=== PATIENT | female | born 1970 | race Two or more races ===

== ENCOUNTER 2020-01-27 06:16 | Outpatient (REF) | payer MEDICAID, SELFPAY ==
--- NOTE | 2020-01-27 06:24 | XR_ITS ---
EXAMINATION: XR CHEST CLINICAL INFORMATION: Apnea,] 1 month. SOB. COMPARISON: None TECHNIQUE: 2 views of the chest were obtained. FINDINGS: No significant abnormality is noted involving the heart, lungs, mediastinum, bony thorax or soft tissues. XR/XR chest 2V IMPRESSION: Unremarkable chest examination.
== END 2020-01-27 06:17 | disposition home or self-care (01) ==
LOC: HO.XRAY 06:16
PROVIDERS: Visit Provider Pediatrics
DX: R06.81 Apnea, not elsewhere classified (principal); R06.02 Shortness of breath
CPT/HCPCS: 71046

== ENCOUNTER → 2020-05-08 08:15 | Outpatient (BNVA) | payer MEDICAID, SELFPAY | PROVIDERS: PCP Pediatrics; Visit Provider Obstetrics & Gynecology ==

== ENCOUNTER → 2020-05-24 09:43 | Outpatient (BNVA) | payer MEDICAID, SELFPAY | PROVIDERS: PCP Pediatrics; Visit Provider Physician Assistant ==

== ENCOUNTER 2020-05-30 10:20 | Outpatient (REF) | payer MEDICAID, SELFPAY ==
--- NOTE | ~2020-05-30 | US_ITS ---
EXAMINATION: US PELVIS CLINICAL INFORMATION: Benign neoplasm of connective or other soft tissues. COMPARISON: None. TECHNIQUE: Ultrasound of the pelvis is performed using both transabdominal and transvaginal transducers along with Doppler. Transvaginal imaging is performed due to inadequate visualization transabdominally. FINDINGS: The uterus is anteverted and anteflexed measuring 10.5 cm in length, 5.0 cm in AP and 5.0 cm wide. There is an IUD well located within the endometrial canal in correct location. There are 2 hypoechoic lesions. 1. Lesion in the mid body of the uterus measures 3.0 x 2.7 x 2.8 cm. Previously it measured 3.2 x 2.6 x 3.5 cm. 2. Lesion in the right fundus measures 1.6 x 1.1 x 1.4 cm. Previously it measured 1.9 x 1.7 x 2.5 cm. Right ovary is not visualized. Previously it measured 3.5 x 2.1 x 3.2 cm. Left ovary measures 3.2 x 2.3 x 1.4 cm wall and 5.4 mL. It is unremarkable. Previously it measured 4.6 x 3 1 1 x 4.2 cm. There is no free fluid in the cul-de-sac. US/US pelvic complete IMPRESSION: IUD well located within the endometrial canal in good position. 2 small uterine fibroids as described above. The left ovary is unremarkable. The right ovary is not seen.
== END 2020-05-30 10:21 | disposition home or self-care (01) ==
LOC: HO.US 10:20
PROVIDERS: PCP Pediatrics; Visit Provider Obstetrics & Gynecology
DX: D21.9 Benign neoplasm of connective and other soft tissue, unspecified (principal); Z30.431 Encounter for routine checking of intrauterine contraceptive device
CPT/HCPCS: 76856

== ENCOUNTER → 2020-06-11 11:03 | Outpatient (BNVA) | payer MEDICAID, SELFPAY | PROVIDERS: PCP Pediatrics; Visit Provider Obstetrics & Gynecology ==

== ENCOUNTER → 2020-06-25 11:08 | Outpatient (BNVA) | payer MEDICAID, SELFPAY | PROVIDERS: Visit Provider Physician Assistant ==

== ENCOUNTER 2020-07-23 06:33 | Day surgery (SDC) | payer MEDICAID, SELFPAY ==
--- NOTE | 2020-07-20 08:57 | HO.ANESPROP2 ---
Documented by User: Mamta Apolonia 07/20/20 08:58 HPI - Anesthesia Eval Consult details Narrative: 50yo F for Colonoscopy PMFSH Active Problems Active Problems: All Active Problems (Updated 06/11/20 @ 11:47 by Dionte Paulino MD) IUD strings lost (Acute) Encounter for screening colonoscopy (Acute) IUD check up (Acute) Myoma (Acute) Well woman exam (Acute) Past Medical History Medical History Anxiety Back problem COVID-19 vaccine administered Family History Family History Mother Breast CA Surgical History Surgical History Gastric bypass status for obesity Hx of abdominoplasty Social History Social History Household Members: Family Alcohol intake: current Alcohol intake frequency: holidays/special occasions only Patient Tobacco Use Status: Never used Tobacco Use of substances other than those prescribed or required for medical reasons: No Are you DNR?: No Advance Directives: No Advance Directives Information Provided: Yes Current occupational status: unemployed Meds Allergies Allergy/AdvReac Type Severity Reaction Status Date / Time latex [LATEX] Allergy Intermediate EYES Verified 07/23/20 07:10 SWELL, FACIAL EDEMA Latex Allergy Severe rash, Uncoded 06/25/20 11:09 swollen eyes Seafood Allergy Severe ANAPHYLAXIS Uncoded 06/25/20 11:09 seafood Allergy Severe Red and Uncoded 06/25/20 11:09 swollen latex Allergy Unknown swelling Uncoded 06/25/20 11:09 and throat closes shellfish and sea food Allergy Unknown anaphylaxis Uncoded 06/25/20 11:09 Home Medications Medication Instructions Recorded Confirmed Last Taken Type levonorgestrel 20 mcg/24 hours (6 INTRAUTERINE 05/08/20 06/25/20 Unknown History yrs) 52 mg intrauterine device clonazepam 0.5 mg tablet 0.5 mg PO DAILY PRN 05/24/20 06/25/20 Unknown History oxycodone-acetaminophen 5 mg-325 1 tab PO Q6H PRN 06/25/20 06/25/20 Unknown History mg tablet Exam Exam Date and Time: July 20, 2020 0857 Assessment and Plan Assessment Anesthesia Assessment: Chart Reviewed Documented by User: Joann Harrison 07/23/20 08:28 PMFSH Past Medical History Medical History Anxiety Back problem COVID-19 vaccine administered Family History Family History Mother Breast CA Surgical History Surgical History Gastric bypass status for obesity Hx of abdominoplasty Social History Social History Household Members: Family Alcohol intake: current Alcohol intake frequency: holidays/special occasions only Patient Tobacco Use Status: Never used Tobacco Use of substances other than those prescribed or required for medical reasons: No Are you DNR?: No Advance Directives: No Advance Directives Information Provided: Yes Current occupational status: unemployed Meds Allergies Allergy/AdvReac Type Severity Reaction Status Date / Time latex [LATEX] Allergy Intermediate EYES Verified 07/23/20 07:10 SWELL, FACIAL EDEMA Latex Allergy Severe rash, Uncoded 06/25/20 11:09 swollen eyes Seafood Allergy Severe ANAPHYLAXIS Uncoded 06/25/20 11:09 seafood Allergy Severe Red and Uncoded 06/25/20 11:09 swollen latex Allergy Unknown swelling Uncoded 06/25/20 11:09 and throat closes shellfish and sea food Allergy Unknown anaphylaxis Uncoded 06/25/20 11:09 Home Medications Medication Instructions Recorded Confirmed Last Taken Type levonorgestrel 20 mcg/24 hours (6 INTRAUTERINE 05/08/20 06/25/20 Unknown History yrs) 52 mg intrauterine device clonazepam 0.5 mg tablet 0.5 mg PO DAILY PRN 05/24/20 06/25/20 Unknown History oxycodone-acetaminophen 5 mg-325 1 tab PO Q6H PRN 06/25/20 06/25/20 Unknown History mg tablet Exam Airway Mallampati Class: II TM Dist: >3cm Neck ROM: Full Loose/Missing/Broken Teeth: No Heart: RRR Lungs: CTA Assessment and Plan Assessment Anesthesia Assessment: Anesthesia Plan Discussed and Chart Reviewed Final Anesthetic Review NPO: Yes ASA Class: II Final Preanesthetic Review: Meds/Allgs Chart Reviewed, Consent Obtained/Reviewed and Anes Risks/Benef Reviewed Patient Risk: Low Procedure Risk: Low Anesthetic Plan Anesthetic Plan: MAC: Disposition: Standard PACU
[2020-07-23 07:07] VITALS: BMI 29.1
[2020-07-23 07:10] VITALS: BP 128/71; PULSE 64; RESP 16; TEMP 36.9; O2SAT 99
[2020-07-23] MEDS: Lactated Ringers 1,000 ML 100 ML IVCONT (07:30)
--- NOTE | 2020-07-23 08:27 | P.OP_ITS ---
Operative Note Operative Note Date of Service: 07/23/20 Narrative: Pre-op diagnosis: Colon cancer screening Post-op diagnosis: other (Diverticulosis) Procedure: COLONOSCOPY TILL CECUM Consent: Indications for the procedure and potential complications of bleeding, perforation, reaction to medications and missed diagnosis were discussed with the patient and informed consent was obtained. Instrument: Olympus PCF H 190 L variable stiffness pediatric colonoscope Monitoring: Vital signs and clinical assessment, intermittent blood pressure monitoring, continuous EKG monitoring, Pulse oximetry and Carbon Dioxide monitoring were done throughout the procedure. Colon withdrawl time was 18 minutes. Procedure: The patient was placed in the left lateral decubitis position and pre-procedure medications were administered. After a digital rectal examination of the ano-rectum, the video colonoscope was inserted into the rectum and advanced through the colon to the cecum. The colonoscope was slowly withdrawn in a retrograde panoramic fashion and the colon mucosa was carefully examined including a retroflexed view of the rectum. Findings and interventions are described below. Procedure Difficulty: Colon was long and tortuous and there was recurrent looping patient. Patient was placed in the supine position to intubate the transverse colon Findings: Terminal Ileum: Not evaluated Cecum: Normal Ascending Colon: Normal Transverse Colon: Normal Descending Colon: Normal Sigmoid Colon: Moderate diverticulosis Rectum: Normal Ano-rectum: Normal Colon preparation: Good Impression and Post Procedure Diagnosis: Colonoscopy Findings: No polyps were detected Moderate diverticulosis seen in the sigmoid colon Plan: Repeat Colonoscopy in 10 years (adult colonoscope for future colonoscopies). Above findings were reviewed with the patient and diverticulosis handout was given in the discharge area Surgeon: Wenceslao Michaels MD Anesthesia: MAC (Dr Hinkle) Was an Retail Coverage Merchandiser used for this Procedure?: Yes Retail Coverage Merchandiser: Jhon Silveira Estimated blood loss (mL): 0 Pathology: none sent Condition: stable Disposition: PACU
--- NOTE | 2020-07-23 08:27 | MHC.SHP ---
Pre-Procedural Eval Section A The patient is an INPATIENT: No Changes since office visit: Yes Patient answered all questions; No Cold of Flu in the past 2 weeks, No New Medical Problems and No Changes in Medication The History & Physical has been completed within 30 days and I have reviewed it.: Yes Section B Chief Complaint: Screening Allergies: Allergies Allergy/AdvReac Type Severity Reaction Status Date / Time latex [LATEX] Allergy Intermediate EYES Verified 07/23/20 07:10 SWELL, FACIAL EDEMA Latex Allergy Severe rash, Uncoded 06/25/20 11:09 swollen eyes Seafood Allergy Severe ANAPHYLAXIS Uncoded 06/25/20 11:09 seafood Allergy Severe Red and Uncoded 06/25/20 11:09 swollen latex Allergy Unknown swelling Uncoded 06/25/20 11:09 and throat closes shellfish and sea food Allergy Unknown anaphylaxis Uncoded 06/25/20 11:09 Exam Surgical H&P Exam: Normal: Heart, Normal: Lungs, Normal: Extremities and Normal: Abdomen Plan Diagnosis/Plan: Unchanged I have reviewed the history and physical and performed a pertinent physical examination on my patient. No changes have occurred unless specified.
[2020-07-23 09:10] VITALS: BP 120/73; PULSE 81; RESP 16; TEMP 35.9; O2SAT 97
[2020-07-23 09:33] VITALS: BP 120/73; PULSE 62; RESP 14; O2SAT 99
[2020-07-23 09:50] VITALS: BP 125/65; PULSE 62; RESP 18; O2SAT 97
== END 2020-07-23 10:00 | disposition home or self-care (01) ==
PROVIDERS: PCP Pediatrics; Visit Provider Internal Medicine Gastroenterology
PROC: 0DJD8ZZ Inspection of Lower Intestinal Tract, Via Natural or Artificial Opening Endoscopic (ICD-10-PCS; CPT 45378; principal; 2020-07-23 08:20)
DX: Z12.11 Encounter for screening for malignant neoplasm of colon (principal); K57.30 Diverticulosis of large intestine without perforation or abscess without bleeding; F41.9 Anxiety disorder, unspecified; Z79.899 Other long term (current) drug therapy; Z98.84 Bariatric surgery status; Z91.040 Latex allergy status
CPT/HCPCS: 45378; J2250

== ENCOUNTER 2020-08-08 08:23 | Outpatient (REF) | payer MEDICAID, SELFPAY ==
--- NOTE | ~2020-08-08 | XR_ITS ---
EXAMINATION: XR HIP, LEFT CLINICAL INFORMATION: Left primary osteoarthritis. COMPARISON: None TECHNIQUE: Two views of the left hip. FINDINGS: Bones and soft tissues are normal. No fracture. Alignment is anatomic. Hip joint space is maintained. XR/XR hip LT min 2V IMPRESSION: Unremarkable left hip exam.
== END 2020-08-08 08:24 | disposition home or self-care (01) ==
LOC: HO.XRAY 08:23
PROVIDERS: PCP Pediatrics; Visit Provider Anesthesiology
DX: M16.12 Unilateral primary osteoarthritis, left hip (principal); M47.816 Spondylosis without myelopathy or radiculopathy, lumbar region
CPT/HCPCS: 73502; 99212

== ENCOUNTER → 2020-08-15 12:02 | Outpatient (BNVA) | payer MEDICAID, SELFPAY | PROVIDERS: PCP Pediatrics; Visit Provider Anesthesiology ==

== ENCOUNTER → 2020-10-31 08:48 | Outpatient (BNVA) | payer MEDICAID, SELFPAY | PROVIDERS: PCP Pediatrics; Referring Provider Family Medicine; Visit Provider Physician Assistant | DX: R19.4 Change in bowel habit (principal) | CPT/HCPCS: 99202 ==

== ENCOUNTER 2020-11-15 10:57 | Day surgery (SDC) | payer MEDICAID, SELFPAY ==
--- NOTE | ~2020-11-15 | FL_ITS ---
EXAMINATION: XR FLUOROSCOPY WITH IMAGES CLINICAL INFORMATION: Medial branch block. COMPARISON: None. TECHNIQUE: Fluoroscopy performed by Dr. Sean Bernal. Fluoroscopy time: 0.6 minutes DAP: 4.80 Gycm2 Images: 5 FINDINGS: There are needles positioned adjacent to the lateral S1, L4 and L5 pedicles with contrast opacifying the soft tissues for pain management. FL/FL guidance in OR IMPRESSION: Fluoroscopy was provided to Dr. Sean Bernal for pain management
[2020-11-15 11:05] VITALS: BMI 29.9
[2020-11-15 11:14] VITALS: BP 130/81; PULSE 59; RESP 15; TEMP 36.7; O2SAT 98
--- NOTE | 2020-11-15 12:34 | HO.ANESPROP2 ---
[facility] Active Problems Active Problems: All Active Problems (Updated 10/31/20 @ 11:50 by Karina Bo PA-C) Well woman exam (Acute) Myoma (Acute) IUD check up (Acute) Encounter for screening colonoscopy (Acute) IUD strings lost (Acute) Change in stool habits (Acute) Disc degeneration, lumbar (Acute) Spondylosis of lumbar spine (Acute) Past Medical History Medical History Anxiety Back problem COVID-19 vaccine administered Disc degeneration, lumbar Spondylosis of lumbar spine Family History Family History Mother Breast CA Family history of problems with anesthesia: No Surgical History Surgical History Gastric bypass status for obesity Hx of abdominoplasty Hx of tubal ligation History of Problems with Anesthesia: No Social History Social History Household Members: Family Alcohol intake: current Alcohol intake frequency: holidays/special occasions only Patient Tobacco Use Status: Never used Tobacco Use of substances other than those prescribed or required for medical reasons: No Are you DNR?: No Advance Directives: No Advance Directives Information Provided: Yes Current occupational status: unemployed Meds Allergies Allergy/AdvReac Type Severity Reaction Status Date / Time Latex Allergy Severe rash, Uncoded 11/15/20 11:26 swollen eyes seafood Allergy Severe Red and Uncoded 11/15/20 11:26 swollen shellfish and sea food Allergy Unknown anaphylaxis Uncoded 11/15/20 11:26 Home Medications Medication Instructions Recorded Confirmed Last Taken Type levonorgestrel 20 mcg/24 hours (6 INTRAUTERINE 05/08/20 10/31/20 Unknown History yrs) 52 mg intrauterine device (Mirena) clonazepam 0.5 mg tablet 0.5 mg PO DAILY PRN 05/24/20 11/09/20 11/15/20 10:00 History oxycodone-acetaminophen 5 mg-325 1 tab PO Q6H PRN 06/25/20 11/09/20 Unknown History mg tablet (Percocet) lidocaine 5 % topical patch patch TOPICAL 11/09/20 Unknown History (Lidoderm) Exam Exam Date and Time: November 15, 2020 1234 Height,Weight and Vital Signs: Height 5 ft 5 in Weight 81.647 kg Last Vital Signs Temp 98.1 F 11/15/20 11:14 Pulse 59 11/15/20 11:14 Resp 15 11/15/20 11:14 BP 130/81 11/15/20 11:14 Pulse Ox 98 11/15/20 11:14 Airway Mallampati Class: II TM Dist: >3cm Neck ROM: Full Assessment and Plan Assessment Anesthesia Assessment: Anesthesia Plan Discussed and Chart Reviewed Final Anesthetic Review Family History of Problems with Anesthesia: No History of Problems with Anesthesia: No NPO: Yes ASA Class: II Final Preanesthetic Review: No Changes in Pt Med Stat, Meds/Allgs Chart Reviewed, Consent Obtained/Reviewed and Anes Risks/Benef Reviewed Patient Risk: Low Procedure Risk: Low Assessment/Block/Sedation in SS: Assess/Block/Sedation-SS Anesthetic Plan Anesthetic Plan: MAC: Disposition: Standard PACU
--- NOTE | 2020-11-15 12:56 | MHC.SHP ---
Pre-Procedural Eval Section A Date of Service: 11/15/20 The patient is an INPATIENT: No Changes since office visit: Yes Patient answered all questions The History & Physical has been completed within 30 days and I have reviewed it.: No Section B Chief Complaint: spondylosis lumbar Details of Present Illness: as above Relevant Family History (Specify if Yes): No Relevant Social History: None Present Medications: see Short Stay Collaborative assessment Medical History: No relevant PMH Allergies: Allergies Allergy/AdvReac Type Severity Reaction Status Date / Time Latex Allergy Severe rash, Uncoded 11/15/20 11:26 swollen eyes seafood Allergy Severe Red and Uncoded 11/15/20 11:26 swollen shellfish and sea food Allergy Unknown anaphylaxis Uncoded 11/15/20 11:26 Review of Systems Sugical H&P ROS: Negative: Constitution, Cardiovascular, Respiratory, Neurological, Psychiatric, Hem-Onc, Allergic/Immunologic, Gastrointestinal, Genitourinary, Musculoskeletal, Integumentary, Endocrine and Eyes/Ears/Nose/Throat Exam Surgical H&P Exam: Normal: HEENT, Normal: Heart, Normal: Lungs, Normal: Extremities, Normal: Abdomen, Normal: Skin and Normal: Neurological Plan Diagnosis/Plan: Unchanged I have reviewed the history and physical and performed a pertinent physical examination on my patient. No changes have occurred unless specified.
--- NOTE | 2020-11-15 12:57 | W.PM.OPN ---
Operative Note Operative Note Date of Service: 11/15/20 Narrative: ? Informed consent was explained to the patient. All questions were explained and? answered.? The patient was taken inside the operating room where she was positioned prone on the operating table.? [place] [employer] monitors were applied.? Patient was deeply sedated. ? ? ? Time-out was performed delineating correct site, side, the nature of the procedure, patient's allergy, preoperative antibiotic if needed.? All operating room staff was participating in OR time-out procedure. ? The lower back was prepped with ChloraPrep and draped with sterile towels.? Sterilely draped C-arm was brought over the operating field and sq picture of L4-and L5 vertebra and S1 AREA were delineated on the screen.? Point of interest were delineated as connection of superior articular process of L4 and L5 vertebra bilaterally with corresponding transverse processes as well as connection of the sacral alae bilaterally with superior articular process of S1.? The projection of the point of interest to the skin were injected with the small amount of local anesthetic lidocaine 2% 1-1.5 cc.? After that 22 gauge 3-1/2 inch spinal needle was driven sequentially to the points of interest in tunnel vision fashion. After needles gently contacted the bone at the point of interests the needle was injected with small amount of the contrast.? The injection of the contrast did not demonstrate any intravascular or intrathecal spread of the contrast.? After that injection of the? bupivacaine 0.5%-1cc was performed at each needle location.? Upon completion of the injections? needle was? removed and sterile Band-Aids were applied.? The? patient was awaken and taken outside of the operating room to recovery room where she recovered uneventfully.? She went home without immediate complications. ? ?
[2020-11-15 12:58] VITALS: BP 143/82; PULSE 65; RESP 16; TEMP 36.7; O2SAT 100
--- NOTE | 2020-11-15 12:59 | PM.OP ---
Brief Operative Note Date of Service: 11/15/20 Pre-op diagnosis: Spondylosis lumbar spine Post-op diagnosis: same Procedure: Bilateral medial branch block L3-L4 does ramus L5 diagnostic. Implants: None Surgeon: Sean Bernal MD Anesthesia: MAC Was an Senior Industrial Engineer used for this Procedure?: No Estimated blood loss (mL): 0 Condition: stable Disposition: PACU
[2020-11-15 13:13] VITALS: BP 132/78; PULSE 52; RESP 16; O2SAT 98
== END 2020-11-15 13:45 | disposition home or self-care (01) ==
PROVIDERS: PCP Pediatrics; Visit Provider Anesthesiology
PROC: (CPT 64493; principal; 2020-11-15 12:30)
DX: M47.816 Spondylosis without myelopathy or radiculopathy, lumbar region (principal); M51.36 Other intervertebral disc degeneration, lumbar region; Z98.84 Bariatric surgery status
CPT/HCPCS: 64493; 64494 ×2; J2250; J3010; Q9967

== ENCOUNTER → 2020-11-21 14:28 | Outpatient (BNVA) | payer MEDICAID, SELFPAY | PROVIDERS: PCP Pediatrics; Visit Provider Anesthesiology ==

== ENCOUNTER 2021-03-01 08:02 | Day surgery (SDC) | payer MEDICAID, SELFPAY ==
--- NOTE | ~2021-03-01 | FL_ITS ---
EXAMINATION: XR FLUOROSCOPY WITH IMAGES CLINICAL INFORMATION: Medial branch block COMPARISON: Previous exam October 2020 TECHNIQUE: Fluoroscopy performed by Dr. Sean Bernal. Fluoroscopy time: 0.6 minutes DAP: 4.5 mGycm2 Images: 6 FINDINGS: Images demonstrate needle placement and contrast injection adjacent to the bilateral lateral L3, L4 and L5 vertebral bodies. FL/FL guidance in OR IMPRESSION: Fluoroscopic guidance for pain management procedure.
[2021-03-01 08:09] VITALS: BMI 29.9
[2021-03-01 08:23] VITALS: BP 121/67; PULSE 72; RESP 16; TEMP 37.3; O2SAT 98
[2021-03-01] MEDS: Lactated Ringers 1,000 ML 80 ML IVCONT (08:33)
--- NOTE | 2021-03-01 08:45 | P.CONAN_ITS ---
HPI - Anesthesia Eval Consult details Narrative: 51 F for L3 L4 L4 Therapeutic medial branch block PMFSH Active Problems Active Problems: All Active Problems (Updated 02/22/21 @ 14:36 by Missy Dewitt , IRMA) Well woman exam (Acute) Myoma (Acute) IUD check up (Acute) Encounter for screening colonoscopy (Acute) IUD strings lost (Acute) Change in stool habits (Acute) Disc degeneration, lumbar (Acute) Spondylosis of lumbar spine (Acute) Past Medical History Medical History (Updated 02/22/21 @ 14:36 by Missy Dewitt, RN) Anxiety Back problem COVID-19 vaccine administered Depression Disc degeneration, lumbar History of allergic rhinitis Lumbar disc disease SIXTO (obstructive sleep apnea) Spondylosis of lumbar spine Family History Family History Mother Breast CA Family history of problems with anesthesia: No Surgical History Surgical History (Updated 02/22/21 @ 14:36 by Missy Dewitt RN) Gastric bypass status for obesity Hx of abdominoplasty Hx of cholecystectomy Hx of tubal ligation History of Problems with Anesthesia: No Social History Social History Household Members: Family Alcohol intake: current Alcohol intake frequency: holidays/special occasions only Patient Tobacco Use Status: Never used Tobacco Use of substances other than those prescribed or required for medical reasons: No Are you DNR?: No Advance Directives: No Advance Directives Information Provided: Yes Recently lost weight without trying: No Nutrition Risks: No Nutritional Risk Patient : No Current occupational status: unemployed Meds Allergies Allergy/AdvReac Type Severity Reaction Status Date / Time Latex Allergy Severe rash, Uncoded 02/22/21 14:37 swollen eyes seafood Allergy Severe Red and Uncoded 02/22/21 14:37 swollen shellfish and sea food Allergy Unknown anaphylaxis Uncoded 02/22/21 14:37 Home Medications Medication Instructions Recorded Confirmed Last Taken Type levonorgestrel 20 mcg/24 hours (7 INTRAUTERINE 05/08/20 10/31/20 Unknown History yrs) 52 mg intrauterine device (Mirena) clonazepam 0.5 mg tablet 0.5 mg PO DAILY PRN 05/24/20 02/22/21 11/15/20 10:00 History oxycodone-acetaminophen 5 mg-325 1 tab PO Q6H PRN 06/25/20 02/22/21 Unknown History mg tablet (Percocet) lidocaine 5 % topical patch patch TOPICAL 11/09/20 Unknown History (Lidoderm) Exam Exam Date and Time: March 01, 2021 0845 Height,Weight and Vital Signs: Height 5 ft 5 in Weight 81.647 kg Last Vital Signs Temp 99.1 F 03/01/21 08:23 Pulse 72 03/01/21 08:23 Resp 16 03/01/21 08:23 BP 121/67 03/01/21 08:23 Pulse Ox 98 03/01/21 08:23 Airway Mallampati Class: III Loose/Missing/Broken Teeth: Yes (Fillings and missng ) Heart: rrr Lungs: bl breath sounds Assessment and Plan Final Anesthetic Review Family History of Problems with Anesthesia: No History of Problems with Anesthesia: No NPO: Yes ASA Class: II Final Preanesthetic Review: Anes Risks/Benef Reviewed Patient Risk: Intermediate Procedure Risk: Intermediate Anesthetic Plan Anesthetic Plan: MAC: Disposition: Standard PACU
--- NOTE | 2021-03-01 09:50 | MHC.SHP ---
Pre-Procedural Eval Section A Date of Service: 03/01/21 The patient is an INPATIENT: No The History & Physical has been completed within 30 days and I have reviewed it.: No Section B Chief Complaint: Spondylosis of Lumbar Spine Details of Present Illness: as above Relevant Family History (Specify if Yes): No Present Medications: see Short Stay Collaborative assessment Medical History: No relevant PMH History of Previous Operations: No relevant previous surgery Allergies: Allergies Allergy/AdvReac Type Severity Reaction Status Date / Time Latex Allergy Severe rash, Uncoded 02/22/21 14:37 swollen eyes seafood Allergy Severe Red and Uncoded 02/22/21 14:37 swollen shellfish and sea food Allergy Unknown anaphylaxis Uncoded 02/22/21 14:37 Review of Systems Sugical H&P ROS: Negative: Constitution, Cardiovascular, Respiratory, Neurological, Psychiatric, Hem-Onc, Allergic/Immunologic, Gastrointestinal, Genitourinary, Musculoskeletal, Integumentary, Endocrine and Eyes/Ears/Nose/Throat Exam Surgical H&P Exam: Normal: HEENT, Normal: Heart, Normal: Lungs, Normal: Extremities, Normal: Abdomen, Normal: Skin and Normal: Neurological Plan Diagnosis/Plan: Unchanged I have reviewed the history and physical and performed a pertinent physical examination on my patient. No changes have occurred unless specified.
[2021-03-01 10:27] VITALS: BP 107/63; PULSE 64; RESP 10; TEMP 36.2; O2SAT 98
[2021-03-01 10:42] VITALS: BP 130/73; PULSE 69; RESP 17; O2SAT 96
--- NOTE | 2021-03-01 10:53 | P.BOP_ITS ---
Brief Operative Note Date of Service: 03/01/21 Pre-op diagnosis: spondylosis lumbar spine Post-op diagnosis: same Procedure: L3-L4 does ramus L5 medial branch block therapeutic. Implants: None Surgeon: Sean Bernal MD Anesthesia: GETA Was an Outside Sales Representative used for this Procedure?: No Estimated blood loss (mL): 1 Condition: stable Disposition: PACU
--- NOTE | 2021-03-01 10:54 | W.PM.OPN ---
Operative Note Operative Note Date of Service: 03/01/21 Narrative: after obtaining informed consent the patient was taken to the operating room where she was positioned prone repeating table. [employer] [place] [employer] Anesthes[employer] monitors were applied and patient was moderately sedated. Time-out was performed delineating correct side and side of the procedure name and date of of the patient, risk of fire, need for DVT prophylaxis, need for antibiotics, none to biotics were administered. The patient's lower back was prepped with ChloraPrep and draped with 4 sterile utility towels. C-arm was brought of the opting field and sq picture of L4 and L5 vertebra as well as sacral bone demonstrated on the screen the point of interest were delineated as bilateral connection of superior articular process of L4 with corresponding transverse process of L4 as well as bilateral superior articular process of L5 with corresponding transverse process of L5 as well as connection of superior articular process of S1 with sacral alae bilaterally. 22 gauge 3-1/2 inch needle was driven to were the point of interest in tunnel vision fashion. When needle gently contacted the bone injection of the small amount of the contrast was performed demonstrating no intravascular and no intrathecal uptake of the contrast. After that treatment solution of bupivacaine 0.5% mixed with Kenalog no more than 1.5 cc was injected into each needle position. Upon completion of the injections the needle was removed and sterile Band-Aids were applied. The patient tolerated procedure well. She was taking outside of the operating room to recovery room where she recovered uneventfully.
[2021-03-01 10:57] VITALS: BP 130/81; PULSE 62; RESP 18; TEMP 36.2; O2SAT 100
== END 2021-03-01 11:25 | disposition home or self-care (01) ==
PROVIDERS: PCP Pediatrics; Visit Provider Anesthesiology
PROC: (CPT 64493; principal; 2021-03-01 09:40)
DX: M47.816 Spondylosis without myelopathy or radiculopathy, lumbar region (principal); M51.36 Other intervertebral disc degeneration, lumbar region; M54.50 Low back pain, unspecified; R10.30 Lower abdominal pain, unspecified; Z91.040 Latex allergy status; Z98.84 Bariatric surgery status
CPT/HCPCS: 64493; 64494 ×2; J2250; J3010; J3300; Q9967

== ENCOUNTER → 2021-03-21 08:01 | Outpatient (BNVA) | payer MEDICAID, SELFPAY | PROVIDERS: PCP Pediatrics; Visit Provider Anesthesiology | DX: M47.816 Spondylosis without myelopathy or radiculopathy, lumbar region (principal); M51.36 Other intervertebral disc degeneration, lumbar region; Z98.890 Other specified postprocedural states | CPT/HCPCS: 99212 ==

== ENCOUNTER 2021-04-09 07:15 | Outpatient (REF) | payer MEDICAID, SELFPAY ==
--- NOTE | ~2021-04-09 | MM_ITS ---
EXAMINATION: MM SCREENING DIGITAL BREAST TOMOSYNTHESIS, BILATERAL CLINICAL INFORMATION: Screening. Asymptomatic. The lifetime risk of breast cancer based on the Tyrer-Cuzick Model is 13%. COMPARISON: Mammography: 05/25/2018, 05/23/2017, 05/06/2016 TECHNIQUE: Digital breast tomosynthesis is performed in both the craniocaudal and mediolateral oblique views along with computer-aided detection (CAD). Synthesized 2D images are generated from the tomosynthesis. FINDINGS: There are scattered areas of fibroglandular density (ACR BI-RADS breast composition Category b). There are no significant masses, abnormal calcifications, or other abnormalities. Breast tissue composition borders on heterogeneously dense. Parenchymal pattern is similar to prior studies. There is no developing density or architectural abnormality. There is biopsy clip marker again noted right mid upper outer quadrant. The axilla and skin contours are unremarkable. No significant changes. MM/MM tomosynthesis screening BI IMPRESSION: No mammographic evidence of malignancy. ASSESSMENT: BI-RADS 2: Benign RECOMMENDATION: Routine annual mammography screening. This patient's information was entered into a reminder system with a target due date for their next mammogram.
== END 2021-04-09 07:16 | disposition home or self-care (01) ==
LOC: HO.MAMMO 07:15
PROVIDERS: PCP Pediatrics; Visit Provider Pediatrics
DX: Z12.31 Encounter for screening mammogram for malignant neoplasm of breast (principal)
CPT/HCPCS: 77063; 77067

== ENCOUNTER 2021-11-05 07:09 | Emergency (ER) | payer MEDICAID, SELFPAY ==
--- NOTE | ~2021-11-05 | XR_ITS ---
EXAMINATION: XR CHEST CLINICAL INFORMATION: Pain in the left lung. COMPARISON: Chest radiograph done on 01/27/2020. TECHNIQUE: 2 views of the chest were obtained. FINDINGS: No significant abnormality is noted involving the heart, lungs, mediastinum, or soft tissues. Mild multilevel degenerative spondylosis. Multiple postsurgical changes at left upper quadrant of the abdomen. Overall no significant change since 01/27/2020. XR/XR chest 2V IMPRESSION: No radiographic evidence of acute cardiopulmonary disease, unchanged since 01/27/2020.
[2021-11-05 07:12] VITALS: BP 140/67; PULSE 68; RESP 16; TEMP 36.6; O2SAT 100; BMI 29.9
--- NOTE | 2021-11-05 09:54 | ED.GENADULT ---
HPI - General Adult General Chief complaint: General Medical Stated complaint: pain in L side Time Seen by Provider: 11/05/21 09:46 Source: patient Mode of arrival: ambulatory Limitations: no limitations History of Present Illness HPI narrative: Patient is a 51-year-old female with a history lumbar spine spondylosis and lumbar disc degeneration presenting with left-sided rib pain since yesterday. Patient states she was walking when she suddenly developed sharp pain on her left side, worse with movement and breathing. Pain is sharp, constant, and does not radiate anywhere. Patient denies any dizziness, lightheadedness, abdominal pain, nausea, vomiting, fever, chills, blurry vision, double vision, loss of vision, chest pain, difficulty breathing, shortness of breath, back pain, night sweats, pain with urination, increased urinary frequency, increased urinary urgency, blood in her urine or stool, syncope or a near syncopal episode, recent trauma or falls, bowel incontinence, bladder incontinence, bowel retention, bladder retention, or any other complaints at this time. MD complaint: Left-sided pain Onset (ago): day(s) Location: left (Rib) Radiation: non-radiation Severity: mild Severity scale (1-10): 2 Quality: sharp and constant Pain Consistency: constant Relieving factors: none Exacerbating factors: movement Associated symptoms: denies other symptoms Treatments prior to arrival: other (Tylenol) Related Data Home Medications Medication Instructions Recorded Confirmed levonorgestrel 20 mcg/24 hours (7 intrauterine 05/08/20 10/31/20 yrs) 52 mg intrauterine device (Mirena) clonazepam 0.5 mg tablet 0.5 mg PO DAILY PRN Anxiety 05/24/20 02/22/21 oxycodone-acetaminophen 5 mg-325 1 tab PO Q6H PRN Pain 06/25/20 02/22/21 mg tablet (Percocet) lidocaine 5 % topical patch patch topical 11/09/20 (Lidoderm) Previous Rx's Medication Instructions Recorded methylcellulose (laxative) 500 mg 500 mg PO BID #60 tabs 10/31/20 tablet (Citrucel) Allergies Allergy/AdvReac Type Severity Reaction Status Date / Time Latex Allergy Severe rash, Uncoded 03/21/21 08:13 swollen eyes seafood Allergy Severe Red and Uncoded 03/21/21 08:13 swollen shellfish and sea food Allergy Unknown anaphylaxis Uncoded 03/21/21 08:13 Review of Systems Constitutional: Constitutional: Reports no additional constitutional complaints, Denies chills, Denies fever(s) and Denies night sweats Eyes: Eyes: Reports no additional eye complaints, Denies blurry vision, Denies change in vision, Denies diplopia, Denies eye discharge, Denies loss of vision and Denies eye pain ENT: Denies dizziness Cardiovascular: Cardiovascular: Reports no additional cardiovascular complaints, Denies chest pain, Denies lightheadedness, Denies Loss of Consciousness and Denies dyspnea Respiratory: Respiratory: Reports no additional respiratory complaints and Denies dyspnea Gastrointestinal: Gastrointestinal: Reports no additional gastrointestinal complaints, Denies abdominal pain, Denies melena, Denies hematochezia, Denies change in bowel habits and Denies change in stool character Genitourinary: Genitourinary: Denies hematuria, Denies urinary frequency, Denies dysuria, Denies urinary incontinence, Denies urinary hesitancy and Denies urinary urgency Musculoskeletal: Musculoskeletal: Reports no additional musculoskeletal complaints, Denies numbness and Denies tingling Comments: left sided rib pain Neurologic: Denies dizziness, Denies loss of vision, Denies numbness and Denies tingling Psychiatric: Psychiatric: Reports no additional psychiatric complaints Endocrine: Endocrine: Reports no additional endocrine complaints Hematologic/Lymphatic: Hematologic/Lymphatic: Reports no additional hematologic/lymphatic complaints Allergic/Immunologic: Allergic/Immunologic: Reports no additional allergic/immunologic complaints ON LICENSE OF [facility] Past Medical History Attestation statement: The following information was validated with the patient. Source: old records reviewed Medical History Anxiety Back problem COVID-19 vaccine administered Depression Disc degeneration, lumbar History of allergic rhinitis Lumbar disc disease SIXTO (obstructive sleep apnea) Spondylosis of lumbar spine Surgical History Gastric bypass status for obesity Hx of abdominoplasty Hx of cholecystectomy Hx of tubal ligation Family History Family History Mother Breast CA Social History Social History Household Members: Family Alcohol intake: current Alcohol intake frequency: does not drink Patient Tobacco Use Status: Never used Tobacco Use of substances other than those prescribed or required for medical reasons: No Advance Directives: No Current occupational status: unemployed Physical Exam ED Vital Signs: Vital Signs - 24 hr 11/05/21 07:12 11/05/21 10:16 Temperature 97.8 F Pulse Rate 68 63 Respiratory Rate 16 20 Blood Pressure 140/67 H 110/56 L Pulse Oximetry 100 100 Oxygen Delivery Method Room Air Room Air BMI result Body Mass Index 29.9 Const General: cooperative, no acute distress, alert and awake Nutritional Appearance: well nourished Orientation/consciousness: patient oriented x3 Limitations: no limitations HENMT Head: Yes normal to inspection and Yes atraumatic Ears: hearing grossly normal bilaterally and external ears normal General nose exam: Normal external nose present, no nasal discharge noted and no epistaxis Face and sinus: Yes normal facial exam, No abrasion and No laceration Mouth: Normal oral and palatal mucosa present, no drooling and no muffled voice Eyes General: appearance normal, both eyes and all related structures Periorbital: periorbital findings normal Eyelids: Yes eyelids normal Conjunctivae: conjunctivae normal Pupils: Equal, round and reactive pupils present EOM: EOMs intact bilaterally Neck Neck: Yes normal visual inspection, Yes full ROM and Yes no lymphadenopathy Chest Other: pain with palpation to the upper left rib cage Chest palpation & inspection: normal inspection of the chest Resp Effort & Inspection: normal respiratory effort and able to speak in complete sentences Auscultation: clear to auscultation bilaterally Cardio Rate: regular rate Rhythm: regular rhythm GI Inspection: Yes normal to inspection Back/Spine/Pelvis Other: Left-sided rib pain, tender to palpation, no erythema, rash or, warmth noted. Thoracic/Lumbar Spine: thoracic and lumbar spine normal to inspection and straight leg raise negative bilaterally Neuro General: patient oriented x3 and moves all extremities Cranial nerves: Yes Equal, round and reactive pupils present Cognition (Neuro): normal cognition Motor exam (neuro): 5/5 motor strength present throughout Sensory Exam: Normal double simultaneous stimulation for sensation Coordination: [id number] test normal Extrem General: Yes normal to inspection, Yes full ROM and Yes capillary refill normal Psych Appearance: grossly normal Mental Status: mental status grossly normal Affect: normal affect Attitude: cooperative Thought process: Normal thought process present Thought content: Normal thought content present Insight: Good insight present (Psych) Medical Decision Making MDM Narrative Medical decision making narrative: Patient is a 51 year old female presenting to the emergency department today with left rib pain. Patient's physical exam showed pain to the left upper rib cage, reproducible with palpation. Patient's chest x-ray showed no acute process. I explained my physical exam findings as well as all test results to the patient. Patient's clinical presentation is most consistent with musculoskeletal painI answered all questions asked by the patient. I stressed the importance of the patient taking her medication as prescribed. I stressed the importance of the patient following up with her primary care provider. I stressed the importance of the patient returning to the emergency department immediately if her symptoms were to worsen or if she were to develop any dizziness, shortness of breath, difficulty breathing, chest pain, blurry vision, loss of vision, nausea, vomiting, abdominal pain, fever, chills, back pain, or any other complaints. Patient verbalized agreement and understanding with this treatment plan and discharge. Medical Records Medical records reviewed: Yes I reviewed the patient's medical records. Imaging Data Chest x-ray: Attestation: I personally reviewed and interpreted this imaging study as follows: My impression: No acute process. Radiologist's impression: EXAMINATION: XR CHEST CLINICAL INFORMATION: Pain in the left lung. COMPARISON: Chest radiograph done on 01/27/2020. TECHNIQUE: 2 views of the chest were obtained. FINDINGS: No significant abnormality is noted involving the heart, lungs, mediastinum, or soft tissues. Mild multilevel degenerative spondylosis. Multiple postsurgical changes at left upper quadrant of the abdomen. Overall no significant change since 01/27/2020. XR/XR chest 2V IMPRESSION: No radiographic evidence of acute cardiopulmonary disease, unchanged since 01/27/2020. Dictated By: Charley Batres MD Signed By: Electronically signed by Charley Batres MD 11/05/21 0803 Discharge Plan Discharge Clinical Impression: Acute costochondritis Patient Disposition: Home, Self-Care Instructions: Costochondritis (ED) Additional Instructions: Follow up with your primary care provider. Return to the emergency department immediately if your symptoms worsen or if you develop any dizziness, shortness of breath, difficulty breathing, chest pain, blurry vision, loss of vision, nausea, vomiting, abdominal pain, fever, chills, back pain, or any other complaints. Prescriptions: No Action lidocaine [Lidoderm] 5 % adhesive patch,medicated topical Mirena 20 mcg/24 hours (6 yrs) 52 mg intrauterine device intrauterine clonazepam 0.5 mg tablet 0.5 mg PO DAILY PRN (Reason: Anxiety) oxycodone-acetaminophen [Percocet] 5-325 mg tablet 1 tab PO Q6H PRN (Reason: Pain) Citrucel 500 mg tablet 500 mg PO BID Qty: 60 5RF Referrals: Moon Alvarado MD [Primary Care Provider] - Stand Alone Forms: Work/School Release Interventions: ED Discharge Assessment Last Done: 11/05/21 10:53 Discharge Date/Time: 11/05/21 10:53 Print Language: Scottish
[2021-11-05 10:16] VITALS: BP 110/56; PULSE 63; RESP 20; O2SAT 100
[2021-11-05] MEDS: Ondansetron ODT 4 MG TAB.RAPDIS TRANSLINGU (10:18)
[2021-11-05] MEDS: Morphine Sulfate 2 MG/ML CARTRIDGE IM (10:18)
== END 2021-11-05 10:53 | disposition home or self-care (01) ==
PROVIDERS: Emergency Provider Emergency Medicine; PCP Pediatrics
DX: M94.0 Chondrocostal junction syndrome [Tietze] (principal); R07.81 Pleurodynia; Z79.899 Other long term (current) drug therapy
CPT/HCPCS: 71046; 96372; 99284; J2270

== ENCOUNTER 2022-01-07 14:32 | Outpatient (REF) | payer MEDICAID, SELFPAY ==
[2022-01-15 20:28] LABS: HPV mRNA E6/E7 rflx Not Detected (Not Detected)
== END 2022-01-07 14:33 | disposition home or self-care (01) ==
LOC: HO.LNP 14:32
PROVIDERS: Visit Provider Obstetrics & Gynecology
DX: Z01.419 Encounter for gynecological examination (general) (routine) without abnormal findings (principal); Z11.51 Encounter for screening for human papillomavirus (HPV)
CPT/HCPCS: 87624; 88142

== ENCOUNTER 2022-02-12 12:20 | Outpatient (REF) | payer MEDICAID, SELFPAY ==
--- NOTE | ~2022-02-12 | US_ITS ---
EXAMINATION: US PELVIC AND TRANSVAGINAL CLINICAL INFORMATION: IUD check. COMPARISON: Pelvic ultrasound 05/30/2020, left hip radiographs 08/08/2020. TECHNIQUE: Ultrasound of the pelvis is performed using both transabdominal and transvaginal transducers along with Doppler. Transvaginal imaging is performed due to inadequate visualization transabdominally. FINDINGS: UTERUS: The uterus is retroverted and measures 7.1 x 4.5 x 4.1 cm. The double wall endometrial thickness cannot be evaluated because of the IUD present in normal position. Two uterine fibroids are seen, one in the lower segment measuring 3.0 x 1.8 x 1.9 cm (previously 1.6 x 1.1 x 1.4 cm) and another fibroid closer to the fundus measuring 3.5 x 1.9 x 3.3 cm (previously 3.0 x 2.7 x 2.8 cm). ADNEXA: The right ovary could not be seen. The left ovary measured 3.6 x 1.3 x 4.4 cm for a volume of 10.8 mL. No free fluid present in the cul-de-sac. US/US pelvic and transvaginal IMPRESSION: 1. The IUD appears in good position. 2. Two uterine fibroids are present which have increased in size since the prior study. 3. The right ovary could not be seen, the left appears normal.
== END 2022-02-12 12:21 | disposition home or self-care (01) ==
LOC: HO.HMGCX 12:20
PROVIDERS: PCP Pediatrics; Visit Provider Obstetrics & Gynecology
DX: T83.32XA Displacement of intrauterine contraceptive device, initial encounter (principal)
CPT/HCPCS: 76830; 76856

== ENCOUNTER → 2022-02-24 10:32 | Outpatient (BNVA) | payer MEDICAID, SELFPAY | PROVIDERS: PCP Pediatrics; Visit Provider Obstetrics & Gynecology | DX: T83.32XA Displacement of intrauterine contraceptive device, initial encounter (principal); D21.9 Benign neoplasm of connective and other soft tissue, unspecified | CPT/HCPCS: 99212 ==

== ENCOUNTER 2022-03-14 08:00 | Day surgery (SDC) | payer MEDICAID, SELFPAY ==
[2022-03-07 11:07] VITALS: BMI 30.1
--- NOTE | 2022-03-13 09:29 | HO.ANESPROP2 ---
Documented by User: Mamta Barksdale NP 03/13/22 09:30 HPI - Anesthesia Eval Consult details Narrative: 52yo F for D&C Hysteroscopy,pos polypectomy,poss myomectomy and IUD removal Chronic prn oxycodone PMFSH Active Problems Active Problems: All Active Problems (Updated 02/24/22 @ 11:00 by Dionte Paulino MD) Well woman exam (Acute) Myoma (Acute) IUD check up (Acute) Encounter for screening colonoscopy (Acute) IUD strings lost (Acute) Change in stool habits (Acute) Encounter for IUD removal (Acute) Disc degeneration, lumbar (Acute) Spondylosis of lumbar spine (Acute) Past Medical History Medical History Anxiety Back problem COVID-19 vaccine administered Depression Disc degeneration, lumbar History of allergic rhinitis Lumbar disc disease SIXTO (obstructive sleep apnea) Spondylosis of lumbar spine Family History Family History Mother Breast CA Family history of problems with anesthesia: No Surgical History Surgical History Gastric bypass status for obesity H/O colonoscopy Hx of abdominoplasty Hx of cholecystectomy Hx of surgical procedure Hx of tubal ligation History of Problems with Anesthesia: No Social History Social History Household Members: Family Alcohol intake: current Alcohol intake frequency: does not drink Patient Tobacco Use Status: Never used Tobacco Are you DNR?: No Advance Directives: No Advance Directives Information Provided: Yes Recently lost weight without trying: No Nutrition Risks: No Nutritional Risk Patient : No (menopausal) Current occupational status: unemployed Meds Allergies Allergy/AdvReac Type Severity Reaction Status Date / Time latex Allergy Severe rash/swollen Verified 03/07/22 11:09 eyes seafood Allergy Severe rash/swollen Verified 03/07/22 11:09 eyes shellfish derived Allergy Severe Anaphylaxis Verified 03/07/22 11:09 Home Medications Medication Instructions Recorded Confirmed Last Taken Type clonazepam 0.5 mg tablet 0.5 mg PO DAILY PRN Anxiety 05/24/20 03/14/22 03/14/22 History oxycodone-acetaminophen 5 mg-325 1 tab PO Q6H PRN Pain 06/25/20 03/14/22 03/03/22 History mg tablet (Percocet) bupropion HCl 150 mg 24 hr tablet, 1 tab PO QAM 03/14/22 03/14/22 03/13/22 History extended release Exam Exam Date and Time: March 13, [id number] Height,Weight and Vital Signs: Height 5 ft 5 in Weight 82.1 kg Assessment and Plan Assessment Anesthesia Assessment: Chart Reviewed Final Anesthetic Review Family History of Problems with Anesthesia: No History of Problems with Anesthesia: No Documented by User: Joann Harrison MD 03/14/22 09:08 PMFSH Past Medical History Medical History Anxiety Back problem COVID-19 vaccine administered Depression Disc degeneration, lumbar History of allergic rhinitis Lumbar disc disease SIXTO (obstructive sleep apnea) Spondylosis of lumbar spine Family History Family History Mother Breast CA Surgical History Surgical History Gastric bypass status for obesity H/O colonoscopy Hx of abdominoplasty Hx of cholecystectomy Hx of surgical procedure Hx of tubal ligation Social History Social History Household Members: Family Alcohol intake: current Alcohol intake frequency: does not drink Patient Tobacco Use Status: Never used Tobacco Are you DNR?: No Advance Directives: No Advance Directives Information Provided: Yes Recently lost weight without trying: No Nutrition Risks: No Nutritional Risk Patient : No (menopausal) Current occupational status: unemployed Meds Allergies Allergy/AdvReac Type Severity Reaction Status Date / Time latex Allergy Severe rash/swollen Verified 03/07/22 11:09 eyes seafood Allergy Severe rash/swollen Verified 03/07/22 11:09 eyes shellfish derived Allergy Severe Anaphylaxis Verified 03/07/22 11:09 Home Medications Medication Instructions Recorded Confirmed Last Taken Type clonazepam 0.5 mg tablet 0.5 mg PO DAILY PRN Anxiety 05/24/20 03/14/22 03/14/22 History oxycodone-acetaminophen 5 mg-325 1 tab PO Q6H PRN Pain 06/25/20 03/14/22 03/03/22 History mg tablet (Percocet) bupropion HCl 150 mg 24 hr tablet, 1 tab PO QAM 03/14/22 03/14/22 03/13/22 History extended release Exam Airway Mallampati Class: II TM Dist: >3cm Neck ROM: Full Loose/Missing/Broken Teeth: No Heart: RRR Lungs: CTA Assessment and Plan Assessment Anesthesia Assessment: Anesthesia Plan Discussed Final Anesthetic Review NPO: Yes ASA Class: II Final Preanesthetic Review: Meds/Allgs Chart Reviewed, Consent Obtained/Reviewed and Anes Risks/Benef Reviewed Patient Risk: Low Procedure Risk: Low Anesthetic Plan Anesthetic Plan: GA Disposition: Standard PACU
[2022-03-14 08:12] VITALS: BP 136/72; PULSE 73; RESP 18; TEMP 36.6; O2SAT 98
[2022-03-14] MEDS: Lactated Ringers 1,000 ML 100 ML IVCONT (08:22)
--- NOTE | 2022-03-14 09:40 | MHC.SHP ---
Pre-Procedural Eval Section A Date of Service: 03/14/22 The patient is an INPATIENT: No Changes since office visit: No Cold of Flu in the past 2 weeks, No New Medical Problems, No Changes in Medication and No Patient answered all questions The History & Physical has been completed within 30 days and I have reviewed it.: Yes Section B Chief Complaint: Displacement of intrauterine contraceptive device, Allergies: Allergies Allergy/AdvReac Type Severity Reaction Status Date / Time latex Allergy Severe rash/swollen Verified 03/07/22 11:09 eyes seafood Allergy Severe rash/swollen Verified 03/07/22 11:09 eyes shellfish derived Allergy Severe Anaphylaxis Verified 03/07/22 11:09 Plan Diagnosis/Plan: Unchanged I have reviewed the history and physical and performed a pertinent physical examination on my patient. No changes have occurred unless specified. Time Spent With Patient Time: Total time managing care of this patient today ____ minutes.
--- NOTE | 2022-03-14 11:12 | P.BOP_ITS ---
Brief Operative Note Date of Service: 03/14/22 Pre-op diagnosis: IUD complication, lost string Post-op diagnosis: same (iud in utero) Procedure: Hysteroscopic IUD removal Surgeon: Dionte Paulino MD Anesthesia: MAC Was an Paper Tube Cutter used for this Procedure?: No Estimated blood loss (mL): 0 Pathology: other (none) Condition: stable Disposition: PACU
--- NOTE | 2022-03-14 11:13 | P.OP_ITS ---
Operative Note Operative Note Date of Service: 03/14/22 Narrative: Preop Diagnosis: IUD complication, lost string Operation: Diagnostic Hysteroscopic IUD removal Post Op Diagnosis: same. IUD and string in utero QBL: Minimal Anesthesia: MAC Surgeon: Dionte Paulino MD Cardiology Nurse: None Complication: None Pathology: None Procedure: The patient was put in the dorsal lithotomy position, scrubbed, and draped in the usual manner. A sterile speculum was inserted in the patient's vagina. The anterior lip of the cervix was grasped with a single tooth tenaculum. The cervix was dilated up to 5 mm, then the scope was inserted in the patient's uterus. Inspection revealed IUD & its string in utero. A hysteroscopic grasper was introduced through the operative channel, the string grasped and IUD pulled out of the uterine cavity with no complications. At the end of the procedure, all instruments were taken out of the patient uterine and vaginal cavity. The single tooth tenaculum was removed and homeostasis was assured using pressure. The patient tolerated the procedure well and was transferred to the PACU in a stable condition.
[2022-03-14 11:23] VITALS: BP 114/70; PULSE 85; RESP 16; TEMP 36.6; O2SAT 96
[2022-03-14] MEDS: fentaNYL citrate/PF 100 MCG/2 ML VIAL 25 MCG IVPUSH ×2 (11:23→11:28)
[2022-03-14 11:28] VITALS: BP 125/62; PULSE 74; RESP 16; O2SAT 96
[2022-03-14] MEDS: oxyCODONE HCl Immed Release 5 MG TABLET PO (11:28)
[2022-03-14] MEDS: Acetaminophen 325 MG TABLET 650 MG PO (11:29)
[2022-03-14 11:33] VITALS: BP 98/64; PULSE 70; RESP 16; O2SAT 96
[2022-03-14 11:38] VITALS: BP 111/69; PULSE 68; RESP 16; O2SAT 98
[2022-03-14 11:52] VITALS: BP 134/68; PULSE 61; RESP 16; TEMP 36.2; O2SAT 100
== END 2022-03-14 12:29 | disposition home or self-care (01) ==
PROVIDERS: PCP Pediatrics; Visit Provider Obstetrics & Gynecology
PROC: 0UDB8ZZ Extraction of Endometrium, Via Natural or Artificial Opening Endoscopic (ICD-10-PCS; CPT 58558; principal; 2022-03-14 11:10)
DX: T83.32XA Displacement of intrauterine contraceptive device, initial encounter (principal); Y76.8 Miscellaneous obstetric and gynecological devices associated with adverse incidents, not elsewhere classified; Y92.9 Unspecified place or not applicable; Y84.8 Other medical procedures as the cause of abnormal reaction of the patient, or of later complication, without mention of misadventure at the time of the procedure; D25.9 Leiomyoma of uterus, unspecified; F41.1 Generalized anxiety disorder; F32.A Depression, unspecified; G47.33 Obstructive sleep apnea (adult) (pediatric); Z79.899 Other long term (current) drug therapy; Z91.040 Latex allergy status; Z98.84 Bariatric surgery status
CPT/HCPCS: 58562; J1885; J2405; J3010

== ENCOUNTER → 2022-04-02 07:51 | Outpatient (BNVA) | payer MEDICAID, SELFPAY | PROVIDERS: PCP Pediatrics; Visit Provider Obstetrics & Gynecology | DX: T83.32XD Displacement of intrauterine contraceptive device, subsequent encounter (principal) | CPT/HCPCS: 99212 ==

== ENCOUNTER 2022-08-11 07:14 | Outpatient (REF) | payer MEDICAID, SELFPAY ==
--- NOTE | ~2022-08-11 | XR_ITS ---
EXAMINATION: XR KNEE, RIGHT CLINICAL INFORMATION: Right anterior knee pain COMPARISON: 09/30/2018 TECHNIQUE: 3 views of the right knee. FINDINGS: No significant joint effusion. Minimal medial joint space narrowing. No bony destructive lesion. XR/XR knee RT 3V IMPRESSION: Minimal medial joint space narrowing.
== END 2022-08-11 07:15 | disposition home or self-care (01) ==
LOC: HO.XRAY 07:14
PROVIDERS: Visit Provider Pediatrics
DX: M25.561 Pain in right knee (principal)
CPT/HCPCS: 73562

== ENCOUNTER 2022-09-05 15:30 | Outpatient (REF) | payer MEDICAID, SELFPAY ==
[2022-09-06 11:48] LABS: BV Int Neg Control Negative (Negative); BV Int Pos Control Positive (Positive)
== END 2022-09-05 15:31 | disposition home or self-care (01) ==
LOC: HO.CHCLNP 15:30
PROVIDERS: Visit Provider Pediatrics
DX: R30.0 Dysuria (principal)
CPT/HCPCS: 87480; 87510; 87660

== ENCOUNTER 2023-02-02 10:15 | Outpatient (REF) | payer MEDICAID, SELFPAY ==
--- NOTE | ~2023-02-02 | US_ITS ---
EXAMINATION: US PELVIS CLINICAL INFORMATION: Benign neoplasm of connective tissue. COMPARISON: Pelvic ultrasound 02/12/2022. TECHNIQUE: Ultrasound of the pelvis is performed using only transabdominal transducers. Transvaginal imaging was not performed because the patient refused the exam. FINDINGS: UTERUS: The uterus is anteverted and measures 9.7 x 4.0 x 4.9 cm. The double wall endometrial thickness is 6 mm. The uterus is smooth in contour and has normal myometrial echogenicity. Only a single uterine fibroid is seen which has decreased in size, now measuring 2.4 x 2.1 x 2.4 cm (previously 3.5 x 1.9 x 3.3 cm). There was an additional 3 cm fibroid seen previously, that could not be identified on the current study. ADNEXA: Both ovaries are visualized. There is normal color flow to the adnexa. There is no ovarian torsion. There is no pelvic ascites or fluid collection. Right ovary measures 1.3 x 1.1 x 1.3 cm. Left ovary measures 2.5 x 1.7 x 2.0 cm. US/US pelvic complete IMPRESSION: Only a single uterine fibroid is seen which has decreased in size, now measuring 2.4 x 2.1 x 2.4 cm (previously 3.5 x 1.9 x 3.3 cm). There was an additional 3 cm fibroid seen previously, that could not be identified on the current study. In the future, would recommend endovaginal scanning if the patient would consent to this.
== END 2023-02-02 10:16 | disposition home or self-care (01) ==
LOC: HO.US 10:15
PROVIDERS: PCP Pediatrics; Visit Provider Obstetrics & Gynecology
DX: D21.9 Benign neoplasm of connective and other soft tissue, unspecified (principal)
CPT/HCPCS: 76856

== ENCOUNTER 2023-02-17 10:02 | Outpatient (AMB) | payer MEDICAID, SELFPAY ==
[2023-02-17 10:03] VITALS: BP 120/72; BMI 33.8
--- NOTE | 2023-02-17 10:03 | MHC.OFFVIS ---
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 The patient had an episode of vaginal bleeding after 7 years of amenorrhea. Last co testing was in 01/07 was negative. Pelvic ultrasound showed the following: UTERUS: The uterus is anteverted and measures 9.7 x 4.0 x 4.9 cm. The double wall endometrial thickness is 6 mm. The uterus is smooth in contour and has normal myometrial echogenicity. Only a single uterine fibroid is seen which has decreased in size, now measuring 2.4 x 2.1 x 2.4 cm (previously 3.5 x 1.9 x 3.3 cm). There was an additional 3 cm fibroid seen previously, that could not be identified on the current study. ADNEXA: Both ovaries are visualized. There is normal color flow to the adnexa. There is no ovarian torsion. There is no pelvic ascites or fluid collection. Right ovary measures 1.3 x 1.1 x 1.3 cm. Left ovary measures 2.5 x 1.7 x 2.0 cm. [facility] Medical History SIXTO (obstructive sleep apnea) History of allergic rhinitis Depression Lumbar disc disease Disc degeneration, lumbar Spondylosis of lumbar spine COVID-19 vaccine administered Anxiety Back problem Surgical History Hx of surgical procedure H/O colonoscopy Hx of cholecystectomy Hx of tubal ligation Hx of abdominoplasty Gastric bypass status for obesity Family History Mother Breast CA Social History Household Members: Family Alcohol intake: current Alcohol intake frequency: does not drink Patient Tobacco Use Status: Never used Tobacco Current occupational status: employed 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 Female Reproductive History Menstrual Age of Menarche: 12 Date of last menstrual period: 12/15/19 Total pregnancies: 2 Full term: 2 Review of Systems Const All systems reviewed & are unremarkable except as noted in HPI and below Reports as per HPI and Reports no additional complaints Card Reports as per HPI and Reports no additional complaints Resp Reports as per HPI and Reports no additional complaints GI Reports no additional complaints Reports no additional complaints Physical Exam Vital Signs: Last Vital Signs BP 120/72 02/17/23 10:03 BMI result Body Mass Index 33.8 Const General: cooperative, healthy appearing and comfortable Chest Chest palpation & inspection: normal inspection of the chest and normal palpation of entire chest wall Breast/axilla inspection: normal inspection of the breasts and normal inspection of the axillae Breast/axilla palpation: normal palpation of the breasts, normal palpation of the axillae and no axillary lymphadenopathy Resp Effort & Inspection: normal respiratory effort Auscultation: clear to auscultation bilaterally Percussion: percussion normal Cardio Palpation: normal PMI Rate: regular rate Rhythm: regular rhythm Heart sounds: no murmurs and no rubs Peripheral pulses: Peripheral pulses 2+ throughout GI Inspection: Yes normal to inspection Palpation (GI): Soft to palpation, nontender, no guarding, not rigid and No hepatosplenomegaly present Percussion: Yes normal to percussion Auscultation: normal bowel sounds Rectal Exam - Female: deferred Assessment & Plan Assessment & Plan (1) Myoma: Code(s): D21.9 - Benign neoplasm of connective and other soft tissue, unspecified Plan: Discussed with the patient the findings on pelvic ultrasound & the risk of myosarcoma; discussed with the patient the options of treatment including expectant management versus hysterectomy; the pros and cons, risks benefits of each approach were discussed with the patient including the fact that in cases of myosarcoma, surgical treatment can lead to early diagnosis and positively affects the prognosis; after further discussion, the patient decided to proceed with expectant management. Will repeat pelvic ultrasound periodically. Instructions given to patient to call in case any of the following occurs: pressure symptoms, abnormal uterine bleeding, pelvic pain; and to schedule a future office follow-up appointment for reassessment and to order a repeat ultrasound . All questions answered, the patient verbalized understanding and agreed with the plan . (2) Postmenopausal bleeding: Comment: 6 mm ultrasound endometrial stripe Code(s): N95.0 - Postmenopausal bleeding Plan: Discussed with the patient the pelvic ultrasound findings, the endometrial stripe thickenss measured by ultrasound was more than 4mm. The negative predictive value, positive predictive value, Sensitivity, specificity of using ultrasound measurement of endometrial stripe to detecting endometrial pathology including hyperplasia , polyp or cancer were discussed with the patient. Recommended to the patient that the next step is an endometrial sampling via hysteroscopy D&C possible polypectomy versus endometrial biopsy to r/o endometrial pathology including hyperplasia or cancer. All the pros and cons risks and benefits of each approach were discussed with the patient, endometrial biopsy being less invasive, office procedure with less sensitivity and inability diagnose a polyp and removal versus hysteroscopy done under anesthesia more invasive more sensitive to endometrial cancer and possibility of diagnosing and endometrial polyp with the possibility of polypectomy. All questions were answered pt verbalized understanding and decided to proceed with hysteroscopy D&C possible polypectomy/myomectomy. Discussed with the patient the procedure , all benefits and risks including but not limited to inability to complete the procedure , bleeding, infection, possible need for blood transfusion with all its risk ( HIV,syphilis, Hepatitis, anaphylaxis shock, others..), injury to bladder, rectum, possible need for laparoscopy/laparotomy or hysterectomy. The patient verbalized understanding and signed the consent. Instructions given the patient to schedule a 2 week postoperative appointment Coding Level of Care Code Est Pt Level 3 (99739) Diagnoses Myoma D21.9 Postmenopausal bleeding N95.0
== END 2023-02-17 10:28 | disposition home or self-care (01) ==
LOC: HO.HWS 10:02
PROVIDERS: PCP Pediatrics; Visit Provider Obstetrics & Gynecology
DX: D21.9 Benign neoplasm of connective and other soft tissue, unspecified (principal); N95.0 Postmenopausal bleeding
CPT/HCPCS: 99213

== ENCOUNTER → 2023-02-17 10:02 | Outpatient (BNVA) | payer MEDICAID, SELFPAY | PROVIDERS: PCP Pediatrics; Visit Provider Obstetrics & Gynecology | DX: N95.0 Postmenopausal bleeding (principal); D25.9 Leiomyoma of uterus, unspecified | CPT/HCPCS: 99212 ==

== ENCOUNTER 2023-03-06 09:42 | Day surgery (SDC) | payer MEDICAID, SELFPAY ==
[2023-03-03 15:23] VITALS: BMI 33.8
--- NOTE | 2023-03-04 10:43 | HO.ANESPROP2 ---
Documented by User: Mamta Barksdale NP 03/04/23 10:43 HPI - Anesthesia Eval Consult details Narrative: 53yo F for ?D&C Hysteroscopy,poss myomectomy,poss polypectomy, PMFSH Active Problems Active Problems: All Active Problems (Updated 02/17/23 @ 10:21 by Dionte Paulino MD) Postmenopausal bleeding (Acute) Encounter for IUD removal (Acute) Change in stool habits (Acute) IUD strings lost (Acute) Encounter for screening colonoscopy (Acute) IUD check up (Acute) Myoma (Acute) Well woman exam (Acute) Disc degeneration, lumbar (Acute) Spondylosis of lumbar spine (Acute) Past Medical History Medical History (Updated 02/17/23 @ 10:21 by Dionte Paulino MD) SIXTO (obstructive sleep apnea) History of allergic rhinitis Depression Lumbar disc disease Disc degeneration, lumbar Spondylosis of lumbar spine COVID-19 vaccine administered Anxiety Back problem Family History Family History Mother Breast CA Family history of problems with anesthesia: No Surgical History Surgical History (Updated 03/03/23 @ 15:21 by Meghan Mathur RN) History of surgery Hx of surgical procedure H/O colonoscopy Hx of cholecystectomy Hx of tubal ligation Hx of abdominoplasty Gastric bypass status for obesity History of Problems with Anesthesia: No Social History Social History Household Members: Family Alcohol intake: current Alcohol intake frequency: holidays/special occasions only Patient Tobacco Use Status: Never used Tobacco Use of substances other than those prescribed or required for medical reasons: No Advance Directives: No Advance Directives Information Provided: Yes Current occupational status: employed 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 Allergies Allergy/AdvReac Type Severity Reaction Status Date / Time latex Allergy Severe rash/swollen Verified 02/17/23 10:07 eyes seafood Allergy Severe rash/swollen Verified 02/17/23 10:07 eyes shellfish derived Allergy Severe Anaphylaxis Verified 02/17/23 10:07 Home Medications Medication Instructions Recorded Confirmed Last Taken Type clonazepam 0.5 mg tablet 0.5 mg PO DAILY PRN Anxiety 05/24/20 03/03/23 03/14/22 History oxycodone-acetaminophen 5 mg-325 1 tab PO TID PRN Pain 06/25/20 03/03/23 03/03/22 History mg tablet (Percocet) bupropion HCl 150 mg 24 hr tablet, 1 tab PO QAM 03/14/22 03/03/23 03/13/22 History extended release sertraline 25 mg tablet 25 mg PO DAILY 03/03/23 03/03/23 Unknown History trazodone 50 mg tablet 50 mg PO DAILY PRN Insomnia 03/03/23 03/03/23 Unknown History Exam Height,Weight and Vital Signs: Height 5 ft 5 in Weight 92.079 kg Assessment and Plan Assessment Anesthesia Assessment: Chart Reviewed Final Anesthetic Review Family History of Problems with Anesthesia: No History of Problems with Anesthesia: No Documented by User: Delvis Zavala MD 03/06/23 11:47 PMFSH Past Medical History Medical History (Updated 02/17/23 @ 10:21 by Dionte Paulino MD) SIXTO (obstructive sleep apnea) History of allergic rhinitis Depression Lumbar disc disease Disc degeneration, lumbar Spondylosis of lumbar spine COVID-19 vaccine administered Anxiety Back problem Family History Family History Mother Breast CA Surgical History Surgical History (Updated 03/03/23 @ 15:21 by Meghan Mathur RN) History of surgery Hx of surgical procedure H/O colonoscopy Hx of cholecystectomy Hx of tubal ligation Hx of abdominoplasty Gastric bypass status for obesity Social History Social History Household Members: Family Alcohol intake: current Alcohol intake frequency: holidays/special occasions only Patient Tobacco Use Status: Never used Tobacco Use of substances other than those prescribed or required for medical reasons: No Advance Directives: No Advance Directives Information Provided: Yes Current occupational status: employed 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 Allergies Allergy/AdvReac Type Severity Reaction Status Date / Time latex Allergy Severe rash/swollen Verified 02/17/23 10:07 eyes seafood Allergy Severe rash/swollen Verified 02/17/23 10:07 eyes shellfish derived Allergy Severe Anaphylaxis Verified 02/17/23 10:07 Home Medications Medication Instructions Recorded Confirmed Last Taken Type clonazepam 0.5 mg tablet 0.5 mg PO DAILY PRN Anxiety 05/24/20 03/03/23 03/14/22 History oxycodone-acetaminophen 5 mg-325 1 tab PO TID PRN Pain 06/25/20 03/03/23 03/03/22 History mg tablet (Percocet) bupropion HCl 150 mg 24 hr tablet, 1 tab PO QAM 03/14/22 03/03/23 03/13/22 History extended release sertraline 25 mg tablet 25 mg PO DAILY 03/03/23 03/03/23 Unknown History trazodone 50 mg tablet 50 mg PO DAILY PRN Insomnia 03/03/23 03/03/23 Unknown History Exam Airway Mallampati Class: II TM Dist: >3cm Neck ROM: Full Loose/Missing/Broken Teeth: No Heart: ok Lungs: ok Assessment and Plan Assessment Anesthesia Assessment: Anesthesia Plan Discussed Final Anesthetic Review NPO: Yes ASA Class: III Final Preanesthetic Review: No Changes in Pt Med Stat, Meds/Allgs Chart Reviewed, Consent Obtained/Reviewed and Anes Risks/Benef Reviewed Patient Risk: Low Procedure Risk: Low Anesthetic Plan Anesthetic Plan: GA and Agree w/ Assess. and Plan Disposition: Standard PACU
[2023-03-06] VITALS (11 sets, daily range): BP systolic 104–130; BP diastolic 57–76; PULSE 63–79; RESP 14–18; TEMP 36.2–36.8; O2SAT 91–100; BMI 33.3
--- NOTE | 2023-03-06 11:33 | MHC.SHP ---
Pre-Procedural Eval Section A Date of Service: 03/06/23 The patient is an INPATIENT: No Changes since office visit: No Cold of Flu in the past 2 weeks, No New Medical Problems, No Changes in Medication and No Patient answered all questions The History & Physical has been completed within 30 days and I have reviewed it.: Yes Section B Chief Complaint: Postmenopausal bleeding Allergies: Allergies Allergy/AdvReac Type Severity Reaction Status Date / Time latex Allergy Severe rash/swollen Verified 02/17/23 10:07 eyes seafood Allergy Severe rash/swollen Verified 02/17/23 10:07 eyes shellfish derived Allergy Severe Anaphylaxis Verified 02/17/23 10:07 Plan Diagnosis/Plan: Unchanged I have reviewed the history and physical and performed a pertinent physical examination on my patient. No changes have occurred unless specified. Time Spent With Patient Time: Total time managing care of this patient today ____ minutes.
[2023-03-06] MEDS: Lactated Ringers 1,000 ML 100 ML IVCONT (11:35)
--- NOTE | 2023-03-06 12:28 | P.BOP_ITS ---
Brief Operative Note Date of Service: 03/06/23 Pre-op diagnosis: Postmenopausal bleeding Post-op diagnosis: same (Endometrial polyp) Procedure: Hysteroscopy D&C, Polypectomy Surgeon: Dionte Paulino MD Anesthesia: GLMA Was an Director Of Field Sales used for this Procedure?: No Estimated blood loss (mL): 0 Pathology: other (Endometrial Scrapping. Polyp) Condition: stable Disposition: PACU
[2023-03-06] MEDS: oxyCODONE HCl Immed Release 5 MG TABLET PO (12:43)
[2023-03-06] MEDS: Acetaminophen 325 MG TABLET 650 MG PO (12:43)
[2023-03-06] MEDS: fentaNYL citrate/PF 100 MCG/2 ML VIAL 50 MCG IVPUSH ×2 (12:46→12:56)
--- NOTE | 2023-03-20 10:24 | P.OP_ITS ---
Operative Note Operative Note Date of Service: 03/06/23 Narrative: Preop Diagnosis: Postmenopausal bleeding Operation: Diagnostic Hysteroscopy, Dilataion & Curettage and polypectomy Post Op Diagnosis: Endometrial Polyp QBL: Minimal Anesthesia: GLMA Surgeon: Dionte Paulino MD Billing Representative: None Complication: None Pathology: Endometrial Scrapings, Endometrial polyp Procedure: The patient was put in the dorsal lithotomy position, scrubbed, and draped in the usual manner. A sterile speculum was inserted in the patient's vagina. The anterior lip of the cervix was grasped with a single tooth tenaculum. The cervix was dilated up to 5 mm, then the scope was inserted in the patient's uterus. Inspection revealed endometrial polyp. The Myosure Reach device was used; it was introduced through the operative channel and polypectomy done with no complications. The scope was then taken out from the uterine cavity, sharp curettings was carried on with minimal to moderate amount of tissues retrieved. At the end of the procedure, all instruments were taken out of the patient uterine and vaginal cavity. The single tooth tenaculum was removed and homeostasis was assured using pressure,. The patient tolerated the procedure well and was transferred to the PACU in a stable condition.
== END 2023-03-06 14:46 | disposition home or self-care (01) ==
PROVIDERS: PCP Pediatrics; Visit Provider Obstetrics & Gynecology
PROC: 0UDB8ZZ Extraction of Endometrium, Via Natural or Artificial Opening Endoscopic (ICD-10-PCS; CPT 58558; principal; 2023-03-06 12:00)
DX: N84.0 Polyp of corpus uteri (principal); N95.0 Postmenopausal bleeding
CPT/HCPCS: 58558; 88305; J1885; J2405; J2704; J3010

== ENCOUNTER → 2023-03-06 09:42 | Outpatient (BNV) | payer MEDICAID, SELFPAY | PROVIDERS: PCP Pediatrics; Visit Provider Obstetrics & Gynecology | DX: N84.0 Polyp of corpus uteri (principal); N95.0 Postmenopausal bleeding | CPT/HCPCS: 58558 ==

== ENCOUNTER 2023-03-18 10:24 | Outpatient (AMB) | payer MEDICAID, SELFPAY ==
--- NOTE | 2023-03-18 10:50 | MHC.OFFVIS ---
Intake Vital Signs 03/18/23 10:55 Height 5 ft 5 in Weight 180 lb BMI 30.0 BP 126/78 Intake Visit Reasons: post op Allergies latex Allergy (Severe, Verified 02/17/23 10:07) rash/swollen eyes seafood Allergy (Severe, Verified 02/17/23 10:07) rash/swollen eyes shellfish derived Allergy (Severe, Verified 02/17/23 10:07) Anaphylaxis HPI HPI Comments History of Present Illness Details The patient is presenting post hysteroscopy D&C/polypectomy no complaints minimal vaginal bleeding no feverishness chills or abdominal pain. The pathology showed the following: A. Endometrium, polypectomy: Fragments of endometrial polyp; inactive endometrium; no atypia identified. B. Endometrium, curettage: Inactive endometrium; no atypia or hyperplasia identified. COUNTS INCLUDE 234 BEDS AT THE [facility] Medical History SIXTO (obstructive sleep apnea) History of allergic rhinitis Depression Lumbar disc disease Disc degeneration, lumbar Spondylosis of lumbar spine COVID-19 vaccine administered Anxiety Back problem Surgical History History of surgery Hx of surgical procedure H/O colonoscopy Hx of cholecystectomy Hx of tubal ligation Hx of abdominoplasty Gastric bypass status for obesity Family History Mother Breast CA Social History Household Members: Family Alcohol intake: current Alcohol intake frequency: holidays/special occasions only Patient Tobacco Use Status: Never used Tobacco Current occupational status: employed 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 Female Reproductive History Menstrual Age of Menarche: 12 Review of Systems Const All systems reviewed & are unremarkable except as noted in HPI and below Reports as per HPI and Reports no additional complaints GI Reports no additional complaints Reports no additional complaints Physical Exam Vital Signs: Last Vital Signs BP 126/78 03/18/23 10:55 BMI result Body Mass Index 30.0 Assessment & Plan Assessment & Plan (1) Postmenopausal bleeding: Comment: Endometrial polyp status post polypectomy Code(s): N95.0 - Postmenopausal bleeding Plan: Discussed with the patient the results of the pathology showing inactive endometrium was benign polyp. Discussed with the patient the sensitivity, specificity, positive and negative predictive value, of endometrial biopsy in detecting endometrial pathology including but not limited to endometrial hyperplasia, cancer and other pathology; instructed the patient to call in case is vaginal bleeding bleeding recurs, the next step will be to proceed with further endometrial sampling evaluation to rule out endometrial pathology. All questions answered and the patient verbalized understanding and agreed with the plan. Coding Level of Care Code Est Pt Level 3 (91079) Diagnoses Postmenopausal bleeding N95.0
[2023-03-18 10:55] VITALS: BP 126/78
== END 2023-03-18 11:46 | disposition home or self-care (01) ==
LOC: HO.HWS 10:25
PROVIDERS: PCP Pediatrics; Visit Provider Obstetrics & Gynecology
DX: N95.0 Postmenopausal bleeding (principal)
CPT/HCPCS: 99213

== ENCOUNTER → 2023-03-18 10:24 | Outpatient (BNVA) | payer MEDICAID, SELFPAY | PROVIDERS: PCP Pediatrics; Visit Provider Obstetrics & Gynecology | DX: N95.0 Postmenopausal bleeding (principal); Z98.890 Other specified postprocedural states | CPT/HCPCS: 99212 ==

== ENCOUNTER → 2023-03-23 09:11 | Outpatient (BNVA) | payer MEDICAID, SELFPAY | PROVIDERS: PCP Pediatrics; Visit Provider Anesthesiology | DX: M47.816 Spondylosis without myelopathy or radiculopathy, lumbar region (principal); M51.36 Other intervertebral disc degeneration, lumbar region | CPT/HCPCS: 99212 ==

== ENCOUNTER 2023-03-23 09:21 | Outpatient (AMB) | payer MEDICAID, SELFPAY ==
--- NOTE | 2023-03-23 09:26 | A.OFFVIS_ITS ---
Intake Vital Signs 03/23/23 09:32 Height 5 ft 5 in Weight 180 lb BMI 30.0 BP 132/92 H Blood Pressure Location Lt radial Position Sitting Respiration 18 Pulse 66 Pulse Source Pulse Oximeter Pulse Oximetry (%) 100 Oxygen Delivery Method Room Air Intake Visit Reasons: Follow Up/Spondylosis of lumbar spine/confirmed Intake Note: Patient comes in for follow up. Reports pain 5/10. Allergies latex Allergy (Severe, Verified 03/23/23 09:32) rash/swollen eyes seafood Allergy (Severe, Verified 03/23/23 09:32) rash/swollen eyes shellfish derived Allergy (Severe, Verified 03/23/23 09:32) Anaphylaxis HPI HPI Comments History of Present Illness Details Jes is very pleasant 53 years old female who presents in my office 2 years after she received therapeutic bilateral L3-L4 does ramus L5 medial branch block. After the procedure she reported complete pain relieve across the lower lumbar spine with radiations to the hips bilaterally. Her mobility have had greatly improved. She was unable to attend this office due to social reasons (she was taking care of her father) and her pain now is out of control. I discussed with her possibility of treating her pain with non steroid containing modalities she is very concerned about steroid side effects. I offered her to schedule her for diagnostic medial branch block bilateral L3-L4 does ramus L5. She insists on the procedure to be done under sedation, we agreed that it will be minimal sedation. Prior:? She was under Dr. Valdez observation and Tanika was following her up.? Eric Valdez was performing interlaminar epidural steroid injection L4-5 to treat radicular pain.? He perform this procedure twice.? She had MRI done in [facility] which demonstrated significant degenerative disc disease and the radiculopathy at the L4-5 level.? However last time she came to my office with pain complains mostly in her left groin.? I suspected her having significant left knee osteoarthritis and I sent her for hip x-ray.? Left hip x- ray became negative for the osteoarthritis or any pathology.? Therefore unlikely it is coming from the left hip. ? with her MRI in mainly normal for all the levels but L4-5 the pain in left hip could stem out from sacroiliac joint problems versus? facet joint arthropathy.? I think we should start with medial branch block diagnostic injection to rule out facet joint arthropathy.? She requests me to perform this injection with anesthesia assistance.? I informed her that it will be in 4 months from now.? She agreed and I will schedule her accordingly [facility] Medical History SIXTO (obstructive sleep apnea) History of allergic rhinitis Depression Lumbar disc disease Disc degeneration, lumbar Spondylosis of lumbar spine COVID-19 vaccine administered Anxiety Back problem Surgical History History of surgery Hx of surgical procedure H/O colonoscopy Hx of cholecystectomy Hx of tubal ligation Hx of abdominoplasty Gastric bypass status for obesity Family History Mother Breast CA Social History Household Members: Family Alcohol intake: current Alcohol intake frequency: holidays/special occasions only Patient Tobacco Use Status: Never used Tobacco Current occupational status: employed 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 Female Reproductive History Menstrual Age of Menarche: 12 Review of Systems Const All systems reviewed & are unremarkable except as noted in HPI and below ENT Reports Normal hearing present Neuro Reports Normal hearing present and Denies Sensory deficit (Neuro) Physical Exam Vital Signs: Last Vital Signs Pulse 66 03/23/23 09:32 Resp 18 03/23/23 09:32 BP 132/92 H 03/23/23 09:32 Pulse Ox 100 03/23/23 09:32 Oxygen Delivery Method Room Air 03/23/23 09:32 BMI result Body Mass Index 30.0 Const General: comfortable, no acute distress, well developed, alert and awake Eyes Pupils: Equal, round and reactive pupils present EOM: EOMs intact bilaterally Chest Chest palpation & inspection: normal inspection of the chest Resp Effort & Inspection: normal respiratory effort, able to speak in complete sentences, normal respiratory pattern, no audible wheezes and no cough Cardio Jugular venous distension: no JVD Back/Spine/Pelvis Other: tenderness on palpation in paraspinal spinal region in lumbar spine. Loading test is positive. Range of motion in lumbar spine is preserved. Negative SIJ testing. Lateral rotation of the left thigh increases discomfort in the left groin.. . Neuro Cranial nerves: Yes Equal, round and reactive pupils present and Yes Normal hearing present Sensory Exam: No Sensory deficit (Neuro) Psych Speech and movement: Normal speech and movement present Affect: normal affect Attitude: cooperative Results Reviewed Results Reviewed: MRI lumbar spine: 09/11/2015 Findings: The lumbar vertebral bodies maintain normal height and alignment. There is moderate disc height loss at L4-5 with chronic degenerative endplate changes. The reminder of the disc height are preserved. A hemangioma seen in the upper aspect of L1. The distal spinal cord appears normal conus medullaris terminates normally at the level of L1. The visualized paraspinal muscles in intra- abdominal and pelvic content are normal within the limits of the observation. Spinal levels: L1-L2 and L2-L3: No posterior disc abnormality no spinal canal or neural foraminal stenosis. L3-L4 disc bulging with new right foraminal annular fissuring and unchanging mild facet arthropathy. No spinal canal or neural foraminal stenosis. L4-5: Diffuse disc bulging a symmetric to the right resulting in moderate right neural foraminal stenosis with mass effect on the exiting right L4 nerve root. Moderate facet arthropathy. Mild left neural foraminal stenosis. The degree of right-sided neural foraminal narrowing has progressed. L5-S1 disc bulging which shallow central protrusion and annular fissuring progressed over the prior. No spinal canal stenosis. Mild narrowing of both subarticular zones. Mild facet arthropathy. No foraminal nerve root compressions. Assessment & Plan Assessment & Plan (1) Spondylosis of lumbar spine: Code(s): M47.816 - Spondylosis without myelopathy or radiculopathy, lumbar region (2) Disc degeneration, lumbar: Code(s): M51.36 - Other intervertebral disc degeneration, lumbar region Plan We decided to repeat diagnostic medial branch block L3-L4 does ramus L5. She is very concerned about steroid side effects. I will schedule this patient for the procedure and after that for the follow-up. We will discuss possibility of treatment of her pain with RFA versus sprint PNS. I will schedule this procedure under minimal sedation. I explained to the patient that careful monitoring of the level of the pain is necessary after the procedure and sedation may interfere with this process. Patient Instructions: I here by testify that I spent 32 minutes in conversation with this patient, as well as evaluating her prior records, evaluating prior diagnostic studies, as well as planning her care, and organizing this note. Coding Level of Care Code Est Pt Level 4 (96454) Diagnoses Spondylosis of lumbar spine M47.816 Disc degeneration, lumbar M51.36
[2023-03-23 09:32] VITALS: BP 132/92; PULSE 66; RESP 18; O2SAT 100
== END 2023-03-23 09:51 | disposition home or self-care (01) ==
LOC: HO.PMC 09:21
PROVIDERS: PCP Pediatrics; Visit Provider Anesthesiology
DX: M47.816 Spondylosis without myelopathy or radiculopathy, lumbar region (principal); M51.36 Other intervertebral disc degeneration, lumbar region
CPT/HCPCS: 99214

== ENCOUNTER 2023-04-04 17:34 | Emergency (ER) | payer MEDICAID, SELFPAY ==
--- NOTE | ~2023-04-04 | CT_ITS ---
EXAMINATION: CT HEAD WITHOUT CONTRAST CLINICAL INFORMATION: Headache, dizziness COMPARISON: None available. TECHNIQUE: Contiguous axial imaging was performed from the skull base to vertex without intravenous administration of contrast. This CT examination was performed using dose optimization techniques as appropriate, variously including the following: *Automated exposure control *Adjustment of mA and/or kV according to patient size (this includes techniques or standardized protocols for targeted exams where dose is matched to indication/reason for exam; i.e. extremities or head) *Use of iterative reconstruction technique DLP: 616 mGy-cm FINDINGS: There is no evidence of acute intracranial hemorrhage or edematous territorial infarction. No abnormal mass effect or midline shift is seen. Gallegos to white matter differentiation is well preserved. No extra-axial fluid collections are identified. The ventricles are normal in size. No abnormal attenuation in the brain parenchyma. No acute calvarial fracture.. Paranasal sinuses and mastoid air cells are well-aerated. CT/CT head/brain wo IV con IMPRESSION: No CT evidence of acute intracranial hemorrhage or edematous territorial infarction.
[2023-04-04 17:56] VITALS: BP 145/73; PULSE 62; RESP 16; TEMP 36.3; O2SAT 100; BMI 33.0
--- NOTE | 2023-04-04 17:56 | ED.HA ---
HPI - Headache General Chief Complaint: Headache Stated Complaint: headache,dizziness Related Data Home Medications Medication Instructions Recorded Confirmed clonazepam 0.5 mg tablet 0.5 mg PO DAILY PRN Anxiety 05/24/20 03/03/23 oxycodone-acetaminophen 5 mg-325 1 tab PO TID PRN Pain 06/25/20 03/03/23 mg tablet (Percocet) bupropion HCl 150 mg 24 hr tablet, 1 tab PO QAM 03/14/22 03/03/23 extended release sertraline 25 mg tablet 25 mg PO DAILY 03/03/23 03/03/23 trazodone 50 mg tablet 50 mg PO DAILY PRN Insomnia 03/03/23 03/03/23 Allergies Allergy/AdvReac Type Severity Reaction Status Date / Time latex Allergy Severe rash/swollen Verified 04/04/23 18:02 eyes seafood Allergy Severe rash/swollen Verified 04/04/23 18:02 eyes shellfish derived Allergy Severe Anaphylaxis Verified 04/04/23 18:02 PMFSH Past Medical History Medical History SIXTO (obstructive sleep apnea) History of allergic rhinitis Depression Lumbar disc disease Disc degeneration, lumbar Spondylosis of lumbar spine COVID-19 vaccine administered Anxiety Back problem Surgical History History of surgery Hx of surgical procedure H/O colonoscopy Hx of cholecystectomy Hx of tubal ligation Hx of abdominoplasty Gastric bypass status for obesity Family History Family History Mother Breast CA Social History Social History Household Members: Family Alcohol intake: current Alcohol intake frequency: holidays/special occasions only Patient Tobacco Use Status: Never used Tobacco Advance Directives: No Advance Directives Information Provided: No Current occupational status: employed 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 Admits to blurry vision yesterday, resolved at present. denies N/V, double vision. denies taking AC. Took Aleve around 12 noon. Labs, Head CT ordered Full HPI, ROS and PE to be performed by primary ED provider. Medical Decision Making Lab Data 04/04/23 18:07 04/04/23 18:07 Labs: Lab Results 04/04/23 Range/Units 18:07 WBC 5.6 (4.8-10.8) X10*3/uL RBC 4.91 (4.20-5.50) X10*6/uL Hgb 13.0 (12.0-16.0) g/dl Hct 40.4 (37.0-47.0) % MCV 82.3 (80.0-98.0) fL MCH 26.5 L (27.0-33.0) pg MCHC 32.2 (31.0-35.0) g/dl RDW 14.6 (11.0-16.0) % Plt Count 302 (160-400) X10*3/uL MPV 9.8 (9.4-12.3) fL Immature Gran % (Auto) 0.4 (0.0-0.4) % Neut % (Auto) 54.9 (45-73) % Lymph % (Auto) 34.3 (20-40) % Preble % (Auto) 7.8 (2-11) % Eos % (Auto) 2.1 (0-4) % Baso % (Auto) 0.5 (0-2) % Lymph # (Auto) 1.9 (1.2-4.9) X10*3/uL Preble # (Auto) 0.4 (0.1-1.2) X10*3/uL Eos # (Auto) 0.1 (0.0-0.4) X10*3/uL Baso # (Auto) 0.0 (0.0-0.2) X10*3/uL Abs Immat Gran (auto) 0.02 (0.00-0.03) X10*3/uL Absolute Neuts (auto) 3.1 (2.0-8.3) x10*3/uL Absolute Nucleated RBC 0.000 (0.0-0.012) X10*3/uL Nucleated RBC % (auto) 0.0 (0.0-0.2) /100WBC Sodium 142 (135-145) mmol/L Potassium 4.3 (3.3-5.1) mmol/L Chloride 106 (96-108) mmol/L Carbon Dioxide 27 (22-29) mmol/L Anion Gap 13 (12-20) BUN 12 (9-16) mg/dL Creatinine 0.86 (0.5-1.4) mg/dL Estim Creat Clear Calc 83.7 Estimated GFR > 60 Random Glucose 92 (60-115) mg/dL Calcium 9.2 (8.4-10.2) mg/dL Total Bilirubin 0.2 (0.0-1.0) mg/dL Direct Bilirubin < 0.2 (0.0-0.5) mg/dL AST 21 (5-31) U/L ALT 17 (0-31) U/L Alkaline Phosphatase 94 (39-117) U/L Total Protein 7.3 (6.5-8.0) g/dL Albumin 4.3 (3.5-5.0) g/dL Discharge Plan Discharge Clinical Impression: Headache Patient Disposition: Left W/O Completing Treatment Prescriptions: No Action bupropion HCl 150 mg tablet extended release 24 hr 1 tab PO QAM trazodone 50 mg tablet 50 mg PO DAILY PRN (Reason: Insomnia) sertraline 25 mg tablet 25 mg PO DAILY clonazepam 0.5 mg tablet 0.5 mg PO DAILY PRN (Reason: Anxiety) oxycodone-acetaminophen [Percocet] 5-325 mg tablet 1 tab PO TID PRN (Reason: Pain) Discharge Date/Time: 04/04/23 20:39
[2023-04-04 18:11] LABS: MANUAL DIFF FLAG NO
[2023-04-04 18:12] LABS: Basophils Percent Auto 0.5 % (0-2); Eosinophils Absolute Auto 0.1 X10*3/uL (0.0-0.4); Eosinophils Percent Auto 2.1 % (0-4); Hematocrit 40.4 % (37.0-47.0); Imm Gran Abs Auto 0.02 X10*3/uL (0.00-0.03); Imm Gran Pct Auto 0.4 % (0.0-0.4); Lymphocytes Absolute Auto 1.9 X10*3/uL (1.2-4.9); Lymphocytes Percent Auto 34.3 % (20-40); Mean Corpuscular HGB Conc 32.2 g/dl (31.0-35.0); Mean Corpuscular Hemoglobin 26.5 pg (27.0-33.0); Mean Corpuscular Volume 82.3 fL (80.0-98.0); Mean Platelet Volume 9.8 fL (9.4-12.3); Monocytes Absolute Auto 0.4 X10*3/uL (0.1-1.2); Monocytes Percent Auto 7.8 % (2-11); Neutrophils Absolute Auto 3.1 x10*3/uL (2.0-8.3); Neutrophils Percent Auto 54.9 % (45-73); Platelet Count 302 X10*3/uL (160-400); Red Blood Count 4.91 X10*6/uL (4.20-5.50); Red Cell Distribution Width 14.6 % (11.0-16.0); White Blood Count 5.6 X10*3/uL (4.8-10.8)
[2023-04-04 18:35] LABS: Alanine Aminotransferase 17 U/L (0-31); Albumin Level 4.3 g/dL (3.5-5.0); Alkaline Phosphatase 94 U/L (39-117); Anion Gap 13 (12-20); Aspartate Amino Transferase 21 U/L (5-31); Bilirubin Direct < 0.2 mg/dL (0.0-0.5); Bilirubin Total 0.2 mg/dL (0.0-1.0); Blood Urea Nitrogen 12 mg/dL (9-16); Calcium 9.2 mg/dL (8.4-10.2); Carbon Dioxide 27 mmol/L (22-29); Chloride 106 mmol/L (96-108); Creatinine Clr Calc Pharmacy 83.7; Estimated Glomerular Filt Rate > 60; Glucose Random 92 mg/dL (60-115); Potassium 4.3 mmol/L (3.3-5.1); Sodium 142 mmol/L (135-145); Total Protein 7.3 g/dL (6.5-8.0)
[2023-04-04 18:42] VITALS: BP 110/55; PULSE 66; RESP 18; TEMP 36.7; O2SAT 98
--- NOTE | 2023-04-04 20:35 | PC.NURSE ---
Pt reports wanting to leave AMA as being here is increasing her anxiety level and headache is worsening. Tylenol and Ibuprofen offered and declined by pt. Vitals declined. MLP notfied and agreed to see pt next. But pt is adamant that she wants to leave. Charge nurse made aware. Pt left without seeing ED provider. Pt is ambulatory with steady gait at discharge.
== END 2023-04-04 20:39 | disposition left against medical advice (07) ==
PROVIDERS: Physician Assistant; Emergency Provider Emergency Medicine; PCP Pediatrics
DX: R51.9 Headache, unspecified (principal)
CPT/HCPCS: 36415; 70450; 80048; 80076; 85025; 99282; 99284

== ENCOUNTER 2023-05-01 11:24 | Day surgery (SDC) | payer MEDICAID, SELFPAY ==
--- NOTE | ~2023-05-01 | FL_ITS ---
EXAMINATION: XR FLUOROSCOPY WITH IMAGES CLINICAL INFORMATION: Intraoperative fluoroscopy. COMPARISON: Intraoperative fluoroscopy dated 03/01/2021. TECHNIQUE: Fluoroscopy Supervised By: Dr. Sean Bernal. Fluoroscopy Time: 52.6 seconds. Cumulative Dose: 9.3683 mGy. DAP: 4.0751 mGym2. Images: 6. FINDINGS: The submitted image shows injection needles injected contrast in the vicinity of the bilateral L3-L4, L4-L5 and L5-S1 neural foramina. FL/FL guidance in OR IMPRESSION: Intraoperative fluoroscopy is provided during lumbar pain management procedure. Please see the patient's Operative Report for full procedural details.
[2023-05-01 11:58] VITALS: BP 131/73; PULSE 68; RESP 16; TEMP 36.7; O2SAT 99; BMI 32.9
--- NOTE | 2023-05-01 12:00 | P.CONAN_ITS ---
[facility] Active Problems Active Problems: All Active Problems (Updated 04/09/23 @ 00:01 by Ilya Issa) Postmenopausal bleeding (Acute) Encounter for IUD removal (Acute) Change in stool habits (Acute) IUD strings lost (Acute) Encounter for screening colonoscopy (Acute) IUD check up (Acute) Myoma (Acute) Well woman exam (Acute) Disc degeneration, lumbar (Acute) Spondylosis of lumbar spine (Acute) Past Medical History Medical History SIXTO (obstructive sleep apnea) History of allergic rhinitis Depression Lumbar disc disease Disc degeneration, lumbar Spondylosis of lumbar spine COVID-19 vaccine administered Anxiety Back problem Family History Family History Mother Breast CA Family history of problems with anesthesia: No Surgical History Surgical History History of surgery Hx of surgical procedure H/O colonoscopy Hx of cholecystectomy Hx of tubal ligation Hx of abdominoplasty Gastric bypass status for obesity History of Problems with Anesthesia: No Social History Social History Household Members: Family Alcohol intake: current Alcohol intake frequency: holidays/special occasions only Patient Tobacco Use Status: Never used Tobacco Advance Directives: No Advance Directives Information Provided: Yes Current occupational status: employed 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 Allergies Allergy/AdvReac Type Severity Reaction Status Date / Time latex Allergy Severe rash/swollen Verified 05/01/23 11:55 eyes seafood Allergy Severe rash/swollen Verified 05/01/23 11:55 eyes shellfish derived Allergy Severe Anaphylaxis Verified 05/01/23 11:55 Home Medications Medication Instructions Recorded Confirmed Last Taken Type clonazepam 0.5 mg tablet 0.5 mg PO DAILY PRN Anxiety 05/24/20 05/01/23 05/01/23 11:00 History 0.5 mg oxycodone-acetaminophen 5 mg-325 1 tab PO TID PRN Pain 06/25/20 05/01/23 03/03/22 History mg tablet (Percocet) bupropion HCl 150 mg 24 hr tablet, 1 tab PO QAM 03/14/22 05/01/23 03/13/22 History extended release sertraline 25 mg tablet 25 mg PO DAILY 03/03/23 05/01/23 Unknown History trazodone 50 mg tablet 50 mg PO DAILY PRN Insomnia 03/03/23 05/01/23 Unknown History Exam Airway Mallampati Class: II TM Dist: >3cm Neck ROM: Full Loose/Missing/Broken Teeth: No Heart: rrr Lungs: cta b/l Assessment and Plan Assessment Anesthesia Assessment: Anesthesia Plan Discussed and Chart Reviewed Final Anesthetic Review Family History of Problems with Anesthesia: No History of Problems with Anesthesia: No NPO: Yes ASA Class: II Final Preanesthetic Review: No Changes in Pt Med Stat, Meds/Allgs Chart Reviewed, Consent Obtained/Reviewed and Anes Risks/Benef Reviewed Patient Risk: Low Procedure Risk: Low Anesthetic Plan Anesthetic Plan: MAC: Disposition: Standard PACU
--- NOTE | 2023-05-01 12:31 | MHC.SHP ---
Pre-Procedural Eval Section A - 24 Hr Update-Section A only Date of Service: 05/01/23 The patient is an INPATIENT: No Changes since office visit: Yes Patient answered all questions The patient has been examined within 24 hours of the surgical procedure. The History & Physical has been completed within 30 days and I have reviewed it.: No Section B - Complete if H&P > 30 days Chief Complaint: Spondylosis without myelopathy or radiculopathy, Details of Present Illness: As above Relevant Family History (Specify if Yes): No Relevant Social History: None Present Medications: see Short Stay Collaborative assessment Medical History: No relevant PMH History of Previous Operations: No relevant previous surgery Allergies: Allergies Allergy/AdvReac Type Severity Reaction Status Date / Time latex Allergy Severe rash/swollen Verified 05/01/23 11:55 eyes seafood Allergy Severe rash/swollen Verified 05/01/23 11:55 eyes shellfish derived Allergy Severe Anaphylaxis Verified 05/01/23 11:55 Review of Systems Sugical H&P ROS: Negative: Constitution, Cardiovascular, Respiratory, Neurological, Psychiatric, Hem-Onc, Allergic/Immunologic, Gastrointestinal, Genitourinary, Musculoskeletal, Integumentary, Endocrine and Eyes/Ears/Nose/Throat Exam Surgical H&P Exam: Normal: HEENT, Normal: Heart, Normal: Lungs, Normal: Extremities, Normal: Abdomen, Normal: Skin and Normal: Neurological Plan Diagnosis/Plan: Unchanged I have reviewed the history and physical and performed a pertinent physical examination on my patient. No changes have occurred unless specified. Time Spent With Patient Time: Total time managing care of this patient today ____ minutes.
[2023-05-01] MEDS: Lactated Ringers 1,000 ML 50 ML IVCONT (12:38)
--- NOTE | 2023-05-01 12:52 | P.OP_ITS ---
Operative Note Operative Note Date of Service: 05/01/23 Narrative: Diagnostic medial branch block L3,L4 dorsal ramus L5 bilateral.? ? ?Informed consent was explained to the patient. All questions were explained and? answered.? The patient was taken inside the operating room where she was positioned prone on the operating table. ASA monitors were applied, patient was deeply sedated. Time-out was performed delineating correct site, side, the nature of the procedure, patient's allergy, . All operating room staff was participating in OR time-out procedure. ? ? The lower back was prepped with ChloraPrep and draped with sterile towels.? C- arm was brought over the operating field and sq picture of L4-, L5 vertebra and S1 AREA were delineated on the screen.? Point of interest were delineated as confluence of superior articular process of L4 and L5 vertebra bilaterally with corresponding transverse processes as well as confluence of the sacral alae bilaterally with superior articular process of S1.? The projection of the point of interest to the skin were injected with the small amount of local anesthetic lidocaine 2% 1-1.5 cc.? After that 22 gauge 3.5 inch spinal needle was driven sequentially to the points of interest in tunnel vision fashion. After needles gently contacted the bone at the point of interests the needle was injected with small amount of the contrast.? The injection of the contrast did not demonstrate any intravascular or intrathecal spread of the contrast.? After that injection of the? ropivacaine 0.5%-1cc was performed at each needle location.??after that the needles were removed and Bandaids were applied. ? Upon completion of the injections? needle was? removed and sterile Band-Aids were applied.? The patient tolerated procedure very well.
[2023-05-01 13:29] VITALS: BP 137/76; PULSE 66; RESP 16; TEMP 36.4; O2SAT 98
--- NOTE | 2023-05-01 13:29 | P.BOP_ITS ---
Brief Operative Note Date of Service: 05/01/23 Pre-op diagnosis: Spondylosis lumbar Post-op diagnosis: same Procedure: Diagnostic medial branch block L3-L4 dorsal ramus L5. Surgeon: Sean Bernal MD Was an Admitting Counselor used for this Procedure?: No Estimated blood loss (mL): 0 Condition: stable Disposition: PACU
[2023-05-01 13:44] VITALS: BP 142/74; PULSE 62; RESP 14; O2SAT 100
[2023-05-01 13:59] VITALS: BP 135/68; PULSE 64; RESP 16; TEMP 36.3; O2SAT 98
== END 2023-05-01 14:28 | disposition home or self-care (01) ==
PROVIDERS: PCP Pediatrics; Visit Provider Anesthesiology
PROC: (CPT 64493; principal; 2023-05-01 14:20)
DX: M47.816 Spondylosis without myelopathy or radiculopathy, lumbar region (principal); M51.36 Other intervertebral disc degeneration, lumbar region; G47.33 Obstructive sleep apnea (adult) (pediatric); Z79.899 Other long term (current) drug therapy; Z91.040 Latex allergy status
CPT/HCPCS: 64493; 64494; J2704; J2795; J3010; Q9967

== ENCOUNTER → 2023-05-01 11:24 | Outpatient (BNV) | payer MEDICAID, SELFPAY | PROVIDERS: PCP Pediatrics; Visit Provider Anesthesiology | DX: M47.816 Spondylosis without myelopathy or radiculopathy, lumbar region (principal) | CPT/HCPCS: 64493; 64494 ==

== ENCOUNTER 2023-05-04 13:15 | Outpatient (REF) | payer MEDICAID, SELFPAY ==
[2023-05-06 22:23] LABS: TS Negative Control Passed; TS Panel A 0; TS Panel B 0; TS Positive Control Passed; TSpotTB Negative (Negative)
== END 2023-05-04 13:16 | disposition home or self-care (01) ==
LOC: HO.CHCLDS 13:15
PROVIDERS: Visit Provider Pediatrics
DX: Z11.1 Encounter for screening for respiratory tuberculosis (principal)
CPT/HCPCS: 36415; 86481

== ENCOUNTER 2023-05-06 13:09 | Outpatient (AMB) | payer MEDICAID, SELFPAY ==
--- NOTE | 2023-05-06 13:13 | A.OFFVIS_ITS ---
Intake Vital Signs 05/06/23 13:17 Height 5 ft 5 in Weight 197 lb BMI 32.8 BP 135/64 Blood Pressure Location Lt brachial Position Sitting Respiration 12 Pulse 84 Pulse Source Pulse Oximeter Pulse Oximetry (%) 98 Oxygen Delivery Method Room Air Intake Visit Reasons: Pain after procedure Allergies latex Allergy (Severe, Verified 05/06/23 13:19) rash/swollen eyes seafood Allergy (Severe, Verified 05/06/23 13:19) rash/swollen eyes shellfish derived Allergy (Severe, Verified 05/06/23 13:19) Anaphylaxis Medication List - Last Reconciled 05/06/23 by Pily Hayden LPN bupropion HCl 1 tab PO QAM clonazepam 0.5 mg PO DAILY PRN oxycodone-acetaminophen 5-325 mg (Percocet) 1 tab PO TID PRN sertraline 25 mg PO DAILY trazodone 50 mg PO DAILY PRN HPI HPI Comments History of Present Illness Details Jes is very pleasant 53 years old female who is back in my office after diagnostic medial branch block L3-L4 dorsal ramus L5. She reports only pain exacerbation immediately after the procedure she reports no pain relief. It is very difficult to assess because apparently in the back she is pointing to in projection of approximately L1-L2 vertebra was and lower lumbar spine was injected. However we perform the procedure because 2 years ago she has excellent results of medial branch block diagnostic. She had an MRI in 2016 results of which are dictated as below. Is stays very long time since her last MRI. I will send her for the MRI. She reports that prolonged sitting aggravates her pain. She reports that bending forward aggravate her pain. It is possible that she has vertebra genic pain syndrome. Prior:? She was under Dr. Valdez observation and Tanika was following her up.? Eric Valdez was performing interlaminar epidural steroid injection L4-5 to treat radicular pain.? He perform this procedure twice.? She had MRI done in [facility] which demonstrated significant degenerative disc disease and the radiculopathy at the L4-5 level.? However last time she came to my office with pain complains mostly in her left groin.? I suspected her having significant left knee osteoarthritis and I sent her for hip x-ray.? Left hip x- ray became negative for the osteoarthritis or any pathology.? Therefore unlikely it is coming from the left hip. ? with her MRI in mainly normal for all the levels but L4-5 the pain in left hip could stem out from sacroiliac joint problems versus? facet joint arthropathy.? I think we should start with medial branch block diagnostic injection to rule out facet joint arthropathy.? She requests me to perform this injection with anesthesia assistance.? I informed her that it will be in 4 months from now.? She agreed and I will schedule her accordingly [facility] Medical History (Updated 05/06/23 @ 13:38 by Sean Bernal MD) SIXTO (obstructive sleep apnea) History of allergic rhinitis Depression Lumbar disc disease Disc degeneration, lumbar Spondylosis of lumbar spine COVID-19 vaccine administered Anxiety Back problem Surgical History History of surgery Hx of surgical procedure H/O colonoscopy Hx of cholecystectomy Hx of tubal ligation Hx of abdominoplasty Gastric bypass status for obesity Family History Mother Breast CA Social History Household Members: Family Alcohol intake: current Alcohol intake frequency: holidays/special occasions only Patient Tobacco Use Status: Never used Tobacco Current occupational status: employed 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 Female Reproductive History Menstrual Age of Menarche: 12 Review of Systems Const All systems reviewed & are unremarkable except as noted in HPI and below ENT Reports Normal hearing present Neuro Reports Normal hearing present and Denies Sensory deficit (Neuro) Physical Exam Const General: comfortable, no acute distress, well developed, alert and awake Eyes Pupils: Equal, round and reactive pupils present EOM: EOMs intact bilaterally Chest Chest palpation & inspection: normal inspection of the chest Resp Effort & Inspection: normal respiratory effort, able to speak in complete sentences, normal respiratory pattern, no audible wheezes and no cough Cardio Jugular venous distension: no JVD Back/Spine/Pelvis Other: tenderness on palpation in paraspinal spinal region in lumbar spine in the projection of lumbar L1 and L2 vertebra.. Loading test is positive. Range of motion in lumbar spine is limited. Negative SIJ testing... Neuro Cranial nerves: Yes Equal, round and reactive pupils present and Yes Normal hearing present Sensory Exam: No Sensory deficit (Neuro) Psych Speech and movement: Normal speech and movement present Affect: normal affect Attitude: cooperative Results Reviewed Results Reviewed: MRI lumbar spine: 09/11/2015 Findings: The lumbar vertebral bodies maintain normal height and alignment. There is moderate disc height loss at L4-5 with chronic degenerative endplate changes. The reminder of the disc height are preserved. A hemangioma seen in the upper aspect of L1. The distal spinal cord appears normal conus medullaris terminates normally at the level of L1. The visualized paraspinal muscles in intra-abdomi nal and pelvic content are normal within the limits of the observation. Spinal levels: L1-L2 and L2-L3: No posterior disc abnormality no spinal canal or neural foraminal stenosis. L3-L4 disc bulging with new right foraminal annular fissuring and unchanging mild facet arthropathy. No spinal canal or neural foraminal stenosis. L4-5: Diffuse disc bulging a symmetric to the right resulting in moderate right neural foraminal stenosis with mass effect on the exiting right L4 nerve root. Moderate facet arthropathy. Mild left neural foraminal stenosis. The degree of right-sided neural foraminal narrowing has progressed. L5-S1 disc bulging which shallow central protrusion and annular fissuring progressed over the prior. No spinal canal stenosis. Mild narrowing of both subarticular zones. Mild facet arthropathy. No foraminal nerve root compressions. Assessment & Plan Assessment & Plan (1) Spondylosis of lumbar spine: Code(s): M47.816 - Spondylosis without myelopathy or radiculopathy, lumbar region (2) Disc degeneration, lumbar: Code(s): M51.36 - Other intervertebral disc degeneration, lumbar region (3) Vertebrogenic low back pain: Code(s): M54.51 - Vertebrogenic low back pain Plan Diagnostic medial branch block L3-L4 does ramus L5 is not effective to control her pain she reports only pain exacerbation. I will schedule her for the MRI of the lumbar spine. It looks like that she presents at least with some symptoms of vertebra genic pain, she reports difficulty flexing forward and prolonged sitting. She is instructed to give us a call the very day she will have the MRI and schedule appointment with me for the follow-up. Orders: Orders MR lumbar spine wo con Today M47.816 - Spondylosis without myelopathy or radiculopathy, lumbar region, M51.36 - Other intervertebral disc degeneration, lumbar region, M54.51 - Vertebrogenic low back pain Patient Instructions: I here by testify that I spent 35 minutes in conversation with this patient as well as evaluating prior records, evaluating prior studies, planning her care and organizing this note. Coding Level of Care Code Est Pt Level 4 (41055) Diagnoses Spondylosis of lumbar spine M47.816 Disc degeneration, lumbar M51.36 Vertebrogenic low back pain M54.51
[2023-05-06 13:17] VITALS: BP 135/64; PULSE 84; RESP 12; O2SAT 98; BMI 32.8
== END 2023-05-06 13:59 | disposition home or self-care (01) ==
PROVIDERS: PCP Pediatrics; Visit Provider Anesthesiology
DX: M47.816 Spondylosis without myelopathy or radiculopathy, lumbar region (principal); M51.36 Other intervertebral disc degeneration, lumbar region; M54.51 Vertebrogenic low back pain
CPT/HCPCS: 99214

== ENCOUNTER → 2023-05-06 13:09 | Outpatient (BNVA) | payer MEDICAID, SELFPAY | PROVIDERS: PCP Pediatrics; Visit Provider Anesthesiology | DX: M47.816 Spondylosis without myelopathy or radiculopathy, lumbar region (principal); M51.36 Other intervertebral disc degeneration, lumbar region; M54.51 Vertebrogenic low back pain | CPT/HCPCS: 99212 ==

== ENCOUNTER 2023-06-05 07:18 | Outpatient (REF) | payer MEDICAID, SELFPAY ==
--- NOTE | ~2023-06-05 | MR_ITS ---
EXAMINATION: MR LUMBAR SPINE WITHOUT CONTRAST CLINICAL INFORMATION: Vertebrogenic low back pain COMPARISON: MRI lumbar spine 1119 TECHNIQUE: MRI of the lumbar spine was obtained using routine sequences without the administration of intravenous contrast. FINDINGS: This examination assumes the presence of 5 lumbar type vertebral bodies. For the purposes of this examination, the L5-S1 intervertebral disc space is visualized on axial series 6 image 28. The normal lumbar lordosis is preserved. Shallow levocurvature of the lumbar spine. Trace retrolisthesis of L5-S1. Multilevel Schmorl's nodes are noted. Otherwise, lumbar vertebral body heights are maintained. Prominent Modic type II endplate changes at L4-L5 with additional scattered degenerative endplate changes noted. The conus medullaris and cauda equina nerve roots are unremarkable; the conus terminates at the level of T12-L1. T12-L1: Trace disc bulge. The spinal canal and neural foramen are patent. L1-L2: Trace disc bulge without significant spinal canal or neural foraminal stenosis. L2-L3: Eccentric left disc bulge with mild facet degeneration. Mild narrowing of the left lateral recess. The spinal canal is otherwise patent. Minimal narrowing of the left neural foramen. L3-L4: Disc bulge and osteophytic ridging with right far lateral annular fissure. Facet arthropathy with ligamentum flavum redundancy. The central canal is patent. No significant neural foraminal stenosis. L4-L5: Disc bulge and osteophytic ridging which is eccentric to the right. Facet arthropathy with ligamentum flavum redundancy. The spinal canal is not significantly narrowed. There is stable mild narrowing of the left neural foramen with exiting nerve root abutment. Moderate right neural foraminal stenosis with impingement of the exiting right L4 nerve root which appears comparable to prior. L5-S1: Disc bulge and osteophytic ridging with central annular fissure. Facet arthropathy with ligamentum flavum redundancy. Narrowing of the lateral recesses. The central canal is otherwise patent. There is mild right and [id number] left neural foraminal stenosis, increased on the left compared to prior. MR/MR lumbar spine wo con IMPRESSION: Multilevel degenerative changes of the lumbar spine overall appear mildly progressed compared to the prior examination of 10/27/2018. There is redemonstrated moderate right neural foraminal stenosis at L4-L5 with exiting nerve root impingement.
== END 2023-06-05 07:19 | disposition home or self-care (01) ==
LOC: HO.MRI 07:18
PROVIDERS: PCP Pediatrics; Visit Provider Anesthesiology
DX: M54.51 Vertebrogenic low back pain (principal); M51.36 Other intervertebral disc degeneration, lumbar region; M47.816 Spondylosis without myelopathy or radiculopathy, lumbar region
CPT/HCPCS: 72148

== ENCOUNTER → 2023-06-18 09:44 | Outpatient (REF) | payer MEDICAID, SELFPAY ==
--- NOTE | 2023-06-18 09:47 | HM_ITS ---
Conclusion: 1. Patient was monitored for total period of 2 days 2. Baseline was normal sinus rhythm with average heart of 79 beats per minute 3. No significant pauses or arrhythmias noted 4. Patient reported to events which correlated with sinus rhythm and sinus tachycardia MTDD
== END ==
LOC: HO.CARD 09:44
PROVIDERS: PCP Pediatrics; Visit Provider Pediatrics
DX: R00.2 Palpitations (principal)
CPT/HCPCS: 93225

== ENCOUNTER → 2023-06-18 09:47 | Outpatient (BNV) | payer MEDICAID, SELFPAY | PROVIDERS: PCP Pediatrics; Visit Provider Internal Medicine Cardiovascular Disease | DX: R00.0 Tachycardia, unspecified (principal) | CPT/HCPCS: 93227 ==

== ENCOUNTER 2023-06-25 08:34 | Outpatient (AMB) | payer MEDICAID, SELFPAY ==
--- NOTE | 2023-06-25 08:43 | MHC.OFFVIS ---
Vital Signs 06/25/23 08:50 Height 5 ft 5 in Weight 193 lb 4 oz BMI 32.2 BP 130/80 Blood Pressure Location Lt brachial Position Sitting Respiration 18 Pulse 77 Pulse Source Pulse Oximeter Pulse Oximetry (%) 97 Oxygen Delivery Method Room Air Intake Visit Reasons: Discuss MRI Results Intake Note: Patient comes in to discuss MRI results. Reports pain 3/10. Allergies latex Allergy (Severe, Verified 06/25/23 08:50) rash/swollen eyes seafood Allergy (Severe, Verified 06/25/23 08:50) rash/swollen eyes shellfish derived Allergy (Severe, Verified 06/25/23 08:50) Anaphylaxis HPI Comments Details: Jes is very pleasant 53 years old female who is back in my office for the evaluation of her current condition with conjunction of images we obtained by new MRI. Jes reports significant exacerbation of the pain when sitting. She is basically unable to seat more than few minutes. 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 She reports that sleeping with pillows under her legs alleviate her pain. She reports that the pain is mostly axial however sometimes on rare occasion radiates into the left lower extremity. Activities also aggravate her pain. Walking and doing stuff in her household make her pain very severe. The dictation of the MRI is as below. However the radiologist unfortunately ignored completely Modic type changes at L4-L5 and S1 vertebra. They are very prominent and can not be missed. I discussed situation with the patient. I told her that her pain is most likely multifactorial. I offered her intraseptal procedure 1st to treat the axial back pain and if after that the pain from disc degeneration and nerve root compression in the left lower extremity will be prominent again I offered her transforaminal epidural steroid injection on the left. The patient agreed with the plan. I will schedule her for the procedure of intercept. Prior:? She was under Dr. Valdez observation and Tanika was following her up.? Eric Valdez was performing interlaminar epidural steroid injection L4-5 to treat radicular pain.? He perform this procedure twice.? She had MRI done in [facility] which demonstrated significant degenerative disc disease and the radiculopathy at the L4-5 level.? However last time she came to my office with pain complains mostly in her left groin.? I suspected her having significant left knee osteoarthritis and I sent her for hip x-ray.? Left hip x-ray became negative for the osteoarthritis or any pathology.? Therefore unlikely it is coming from the left hip. ? with her MRI in mainly normal for all the levels but L4-5 the pain in left hip could stem out from sacroiliac joint problems versus? facet joint arthropathy.? [facility] Medical History (Updated 05/06/23 @ 13:38 by Sean Bernal MD) SIXTO (obstructive sleep apnea) History of allergic rhinitis Depression Lumbar disc disease Disc degeneration, lumbar Spondylosis of lumbar spine COVID-19 vaccine administered Anxiety Back problem Surgical History History of surgery Hx of surgical procedure H/O colonoscopy Hx of cholecystectomy Hx of tubal ligation Hx of abdominoplasty Gastric bypass status for obesity Family History Mother Breast CA Social History Household Members: Family Alcohol intake: current Alcohol intake frequency: holidays/special occasions only Patient Tobacco Use Status: Never used Tobacco Current occupational status: employed 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 Female Reproductive History Menstrual Age of Menarche: 12 Review of Systems Const All systems reviewed & are unremarkable except as noted in HPI and below ENT Reports Normal hearing present Neuro Reports Normal hearing present and Denies Sensory deficit (Neuro) Physical Exam Vital Signs: Last Vital Signs Pulse 77 06/25/23 08:50 Resp 18 06/25/23 08:50 BP 130/80 06/25/23 08:50 Pulse Ox 97 06/25/23 08:50 Oxygen Delivery Method Room Air 06/25/23 08:50 BMI result Body Mass Index 32.2 Const General: comfortable, no acute distress, well developed, alert and awake Eyes Pupils: Equal, round and reactive pupils present EOM: EOMs intact bilaterally Chest Chest palpation & inspection: normal inspection of the chest Resp Effort & Inspection: normal respiratory effort, able to speak in complete sentences, normal respiratory pattern, no audible wheezes and no cough Cardio Jugular venous distension: no JVD Back/Spine/Pelvis Other: tenderness on palpation in paraspinal spinal region in lumbar spine in the projection of lumbar L1 and L2 vertebra.. Loading test is positive. Range of motion in lumbar spine is limited. Negative SIJ testing... Neuro Cranial nerves: Yes Equal, round and reactive pupils present and Yes Normal hearing present Sensory Exam: No Sensory deficit (Neuro) Psych Speech and movement: Normal speech and movement present Affect: normal affect Attitude: cooperative Results Reviewed Results Reviewed: MRI lumbar spine April 2023 This examination assumes the presence of 5 lumbar type vertebral bodies. For the purposes of this examination, the L5-S1 intervertebral disc space is visualized on axial series 6 image 28. The normal lumbar lordosis is preserved. Shallow levocurvature of the lumbar spine. Trace retrolisthesis of L5-S1. Multilevel Schmorl's nodes are noted. Otherwise, lumbar vertebral body heights are maintained. Prominent Modic type II endplate changes at L4-L5 with additional scattered degenerative endplate changes noted. The conus medullaris and cauda equina nerve roots are unremarkable; the conus terminates at the level of T12-L1. T12-L1: Trace disc bulge. The spinal canal and neural foramen are patent. L1-L2: Trace disc bulge without significant spinal canal or neural foraminal stenosis. L2-L3: Eccentric left disc bulge with mild facet degeneration. Mild narrowing of the left lateral recess. The spinal canal is otherwise patent. Minimal narrowing of the left neural foramen. L3-L4: Disc bulge and osteophytic ridging with right far lateral annular fissure. Facet arthropathy with ligamentum flavum redundancy. The central canal is patent. No significant neural foraminal stenosis. L4-L5: Disc bulge and osteophytic ridging which is eccentric to the right. Facet arthropathy with ligamentum flavum redundancy. The spinal canal is not significantly narrowed. There is stable mild narrowing of the left neural foramen with exiting nerve root abutment. Moderate right neural foraminal stenosis with impingement of the exiting right L4 nerve root which appears comparable to prior. L5-S1: Disc bulge and osteophytic ridging with central annular fissure. Facet arthropathy with ligamentum flavum redundancy. Narrowing of the lateral recesses. The central canal is otherwise patent. There is mild right and [id number] left neural foraminal stenosis, increased on the left compared to prior. Assessment & Plan Assessment & Plan (1) Spondylosis of lumbar spine: Code(s): M47.816 - Spondylosis without myelopathy or radiculopathy, lumbar region Category: Medical (2) Disc degeneration, lumbar: Code(s): M51.36 - Other intervertebral disc degeneration, lumbar region Category: Medical (3) Vertebrogenic low back pain: Code(s): M54.51 - Vertebrogenic low back pain Category: Medical Plan Diagnostic medial branch block L3-L4 does ramus L5 is not effective to control her pain she reports only pain exacerbation. MRI dictation is as above however it missed description of very prominent Modic type changes in the projection of L4-5 and S1 vertebra. I believe this patient will benefit from intercept procedure. There is an asymmetry between the patient's complains and image on the MRI. She reports mostly pain radiating down the left lower extremity however MRI demonstrates more advanced foraminal changes on the right. In the future if the axial low back pain is improved however pain radiating down to the lower extremity gets better I can offer patient transforaminal epidural steroid injection bilateral to help her pain radiating to the leg. Patient Instructions: I here by testify that I spent 40 minutes in conversation with this patient as well as evaluating prior records, evaluating diagnostic studies planning her care and organizing this note. Coding Level of Care Code Est Pt Level 5 (22980) Diagnoses Spondylosis of lumbar spine M47.816 Disc degeneration, lumbar M51.36 Vertebrogenic low back pain M54.51
[2023-06-25 08:50] VITALS: BP 130/80; PULSE 77; RESP 18; O2SAT 97; BMI 32.2
== END 2023-06-25 09:09 | disposition home or self-care (01) ==
PROVIDERS: PCP Pediatrics; Referring Provider Pediatrics; Visit Provider Anesthesiology
DX: M47.816 Spondylosis without myelopathy or radiculopathy, lumbar region (principal); M51.36 Other intervertebral disc degeneration, lumbar region; M54.51 Vertebrogenic low back pain
CPT/HCPCS: 99215

== ENCOUNTER → 2023-06-25 08:34 | Outpatient (BNVA) | payer MEDICAID, SELFPAY | PROVIDERS: PCP Pediatrics; Visit Provider Anesthesiology | DX: M47.816 Spondylosis without myelopathy or radiculopathy, lumbar region (principal); M51.36 Other intervertebral disc degeneration, lumbar region; M54.51 Vertebrogenic low back pain | CPT/HCPCS: 99212 ==

== ENCOUNTER → 2023-11-19 08:42 | Outpatient (BNVA) | payer MEDICAID, SELFPAY | PROVIDERS: PCP Pediatrics; Visit Provider Physician Assistant Surgical ==

== ENCOUNTER 2023-12-04 08:22 | Day surgery (SDC) | payer MEDICAID, SELFPAY ==
--- NOTE | 2023-09-16 14:34 | HO.ANESPROP2 ---
HPI - Anesthesia Eval Consult details Narrative: 53yo F for?L4, L5, and S1 Basivertebral Nerve Ablation (Intracept RFA) s/p Medial Branch block 04/2023 with [facility] Active Problems Active Problems: All Active Problems Vertebrogenic low back pain (Acute) Postmenopausal bleeding (Acute) Encounter for IUD removal (Acute) Change in stool habits (Acute) IUD strings lost (Acute) Encounter for screening colonoscopy (Acute) IUD check up (Acute) Myoma (Acute) Well woman exam (Acute) Disc degeneration, lumbar (Acute) Spondylosis of lumbar spine (Acute) Past Medical History Medical History (Updated 05/06/23 @ 13:38 by Sean Bernal MD) SIXTO (obstructive sleep apnea) History of allergic rhinitis Depression Lumbar disc disease Disc degeneration, lumbar Spondylosis of lumbar spine COVID-19 vaccine administered Anxiety Back problem Family History Family History Mother Breast CA Family history of problems with anesthesia: No Surgical History Surgical History History of surgery Hx of surgical procedure H/O colonoscopy Hx of cholecystectomy Hx of tubal ligation Hx of abdominoplasty Gastric bypass status for obesity History of Problems with Anesthesia: No Social History Social History Household Members: Family Alcohol intake: current Alcohol intake frequency: holidays/special occasions only Patient Tobacco Use Status: Never used Tobacco Current occupational status: employed 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 Allergies Allergy/AdvReac Type Severity Reaction Status Date / Time latex Allergy Severe rash/swollen Verified 06/25/23 08:50 eyes seafood Allergy Severe rash/swollen Verified 06/25/23 08:50 eyes shellfish derived Allergy Severe Anaphylaxis Verified 06/25/23 08:50 Home Medications ?Medication ?Instructions ?Recorded ?Confirmed ?Last Taken ?Type clonazepam 0.5 mg tablet 0.5 mg PO DAILY PRN Anxiety 05/24/20 05/06/23 05/01/23 11:00 History 0.5 mg oxycodone-acetaminophen 5 mg-325 1 tab PO TID PRN Pain 06/25/20 05/06/23 03/03/22 History mg tablet (Percocet) bupropion HCl 150 mg 24 hr tablet, 1 tab PO QAM 03/14/22 05/06/23 03/13/22 History extended release sertraline 25 mg tablet 25 mg PO DAILY 03/03/23 05/06/23 Unknown History trazodone 50 mg tablet 50 mg PO DAILY PRN Insomnia 03/03/23 05/06/23 Unknown History Exam Pertinent Lab Results Pertinent Lab Results: Laboratory Tests 04/04/23 18:07 WBC 5.6 Hgb 13.0 Hct 40.4 Plt Count 302 Sodium 142 Potassium 4.3 Chloride 106 Carbon Dioxide 27 BUN 12 Creatinine 0.86 Narrative Narrative: Holter 06/2023 1. Patient was monitored for total period of 2 days 2. Baseline was normal sinus rhythm with average heart of 79 beats per minute 3. No significant pauses or arrhythmias noted 4. Patient reported to events which correlated with sinus rhythm and sinus tachycardia Assessment and Plan Assessment Anesthesia Assessment: Chart Reviewed Final Anesthetic Review Family History of Problems with Anesthesia: No History of Problems with Anesthesia: No
--- NOTE | 2023-12-02 13:08 | HO.ANESPROP2 ---
Documented by User: Mamta Barksdale NP 12/02/23 13:09 HPI - Anesthesia Eval Consult details Narrative: 53yo F for L4, L5, and S1 Basivertebral Nerve Ablation (Intracept RFA) s/p medial branch block 04/2023 with TIVA PMFSH Active Problems Active Problems: All Active Problems Vertebrogenic low back pain (Acute) Postmenopausal bleeding (Acute) Encounter for IUD removal (Acute) Change in stool habits (Acute) IUD strings lost (Acute) Encounter for screening colonoscopy (Acute) IUD check up (Acute) Myoma (Acute) Well woman exam (Acute) Disc degeneration, lumbar (Acute) Spondylosis of lumbar spine (Acute) Past Medical History Medical History SIXTO (obstructive sleep apnea) History of allergic rhinitis Depression Lumbar disc disease Disc degeneration, lumbar Spondylosis of lumbar spine COVID-19 vaccine administered Anxiety Back problem Family History Family History Mother Breast CA Family history of problems with anesthesia: No Surgical History Surgical History History of surgery Hx of surgical procedure H/O colonoscopy Hx of cholecystectomy Hx of tubal ligation Hx of abdominoplasty Gastric bypass status for obesity History of Problems with Anesthesia: No Social History Social History Household Members: Family Alcohol intake: current Alcohol intake frequency: holidays/special occasions only Patient Tobacco Use Status: Never used Tobacco Use of substances other than those prescribed or required for medical reasons: Yes Substance Use Type Other:: gummies occassionlly Are you DNR?: No Advance Directives: No Advance Directives Information Provided: Yes Recently lost weight without trying: No Nutrition Risks: No Nutritional Risk Patient : No Current occupational status: employed 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 Allergies Allergy/AdvReac Type Severity Reaction Status Date / Time latex Allergy Severe rash/swollen Verified 06/25/23 08:50 eyes seafood Allergy Severe rash/swollen Verified 06/25/23 08:50 eyes shellfish derived Allergy Severe Anaphylaxis Verified 06/25/23 08:50 Home Medications ?Medication ?Instructions ?Recorded ?Confirmed ?Last Taken ?Type oxycodone-acetaminophen 5 mg-325 1 tab PO TID PRN Pain 06/25/20 05/06/23 03/03/22 History mg tablet (Percocet) sertraline 25 mg tablet 25 mg PO DAILY 03/03/23 05/06/23 Unknown History trazodone 50 mg tablet 50 mg PO DAILY PRN Insomnia 03/03/23 05/06/23 Unknown History bupropion HCl 300 mg 24 hr tablet, 300 mg PO QAM 11/19/23 Unknown History extended release famotidine 20 mg tablet (Pepcid) 20 mg PO DAILY 11/19/23 Unknown History hydroxyzine pamoate 25 mg capsule 25 mg PO QID PRN 11/19/23 Unknown History clonazepam 1 mg tablet 1 mg PO DAILY PRN Anxiety 12/04/23 12/04/23 12/04/23 History Exam Narrative Narrative: Holter 06/2023 1. Patient was monitored for total period of 2 days 2. Baseline was normal sinus rhythm with average heart of 79 beats per minute 3. No significant pauses or arrhythmias noted 4. Patient reported to events which correlated with sinus rhythm and sinus tachycardia Assessment and Plan Assessment Anesthesia Assessment: Chart Reviewed Final Anesthetic Review Family History of Problems with Anesthesia: No History of Problems with Anesthesia: No Documented by User: Joann Harrison MD 12/04/23 09:48 [facility] Past Medical History Medical History SIXTO (obstructive sleep apnea) History of allergic rhinitis Depression Lumbar disc disease Disc degeneration, lumbar Spondylosis of lumbar spine COVID-19 vaccine administered Anxiety Back problem Family History Family History Mother Breast CA Surgical History Surgical History History of surgery Hx of surgical procedure H/O colonoscopy Hx of cholecystectomy Hx of tubal ligation Hx of abdominoplasty Gastric bypass status for obesity Social History Social History Household Members: Family Alcohol intake: current Alcohol intake frequency: holidays/special occasions only Patient Tobacco Use Status: Never used Tobacco Use of substances other than those prescribed or required for medical reasons: Yes Substance Use Type Other:: gummies occassionlly Are you DNR?: No Advance Directives: No Advance Directives Information Provided: Yes Recently lost weight without trying: No Nutrition Risks: No Nutritional Risk Patient : No Current occupational status: employed 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 Allergies Allergy/AdvReac Type Severity Reaction Status Date / Time latex Allergy Severe rash/swollen Verified 06/25/23 08:50 eyes seafood Allergy Severe rash/swollen Verified 06/25/23 08:50 eyes shellfish derived Allergy Severe Anaphylaxis Verified 06/25/23 08:50 Home Medications ?Medication ?Instructions ?Recorded ?Confirmed ?Last Taken ?Type oxycodone-acetaminophen 5 mg-325 1 tab PO TID PRN Pain 06/25/20 05/06/23 03/03/22 History mg tablet (Percocet) sertraline 25 mg tablet 25 mg PO DAILY 03/03/23 05/06/23 Unknown History trazodone 50 mg tablet 50 mg PO DAILY PRN Insomnia 03/03/23 05/06/23 Unknown History bupropion HCl 300 mg 24 hr tablet, 300 mg PO QAM 11/19/23 Unknown History extended release famotidine 20 mg tablet (Pepcid) 20 mg PO DAILY 11/19/23 Unknown History hydroxyzine pamoate 25 mg capsule 25 mg PO QID PRN 11/19/23 Unknown History clonazepam 1 mg tablet 1 mg PO DAILY PRN Anxiety 12/04/23 12/04/23 12/04/23 History Exam Airway Mallampati Class: II TM Dist: >3cm Neck ROM: Full Loose/Missing/Broken Teeth: No Heart: RRR Lungs: CTA Assessment and Plan Assessment Anesthesia Assessment: Anesthesia Plan Discussed Final Anesthetic Review NPO: Yes ASA Class: II Final Preanesthetic Review: Meds/Allgs Chart Reviewed, Consent Obtained/Reviewed and Anes Risks/Benef Reviewed Patient Risk: Low Procedure Risk: Intermediate Anesthetic Plan Anesthetic Plan: GA Disposition: Standard PACU
[2023-12-02 13:42] VITALS: BMI 32.1
[2023-12-04] VITALS (11 sets, daily range): BP systolic 117–146; BP diastolic 66–85; PULSE 71–87; RESP 12–17; TEMP 36.1–37.4; O2SAT 94–100; BMI 32.3
[2023-12-04] MEDS: Lactated Ringers 1,000 ML 100 ML IVCONT (10:05)
[2023-12-04] MEDS: dexAMETHasone sod phosphate 4 MG/ML VIAL IVPUSH (10:24)
--- NOTE | 2023-12-04 10:25 | MHC.SHP ---
Pre-Procedural Eval Section A - 24 Hr Update-Section A only Date of Service: 12/04/23 The patient is an INPATIENT: No Changes since office visit: Yes Patient answered all questions The patient has been examined within 24 hours of the surgical procedure. The History & Physical has been completed within 30 days and I have reviewed it.: No Section B - Complete if H&P > 30 days Chief Complaint: Vertebrogenic low back pain Details of Present Illness: As above Relevant Family History (Specify if Yes): No Relevant Social History: None Present Medications: see Short Stay Collaborative assessment Medical History: No relevant PMH History of Previous Operations: No relevant previous surgery Allergies: Allergies Allergy/AdvReac Type Severity Reaction Status Date / Time latex Allergy Severe rash/swollen Verified 06/25/23 08:50 eyes seafood Allergy Severe rash/swollen Verified 06/25/23 08:50 eyes shellfish derived Allergy Severe Anaphylaxis Verified 06/25/23 08:50 Review of Systems Sugical H&P ROS: Negative: Constitution, Cardiovascular, Respiratory, Neurological, Psychiatric, Hem-Onc, Allergic/Immunologic, Gastrointestinal, Genitourinary, Musculoskeletal, Integumentary, Endocrine and Eyes/Ears/Nose/Throat Exam Surgical H&P Exam: Normal: HEENT, Normal: Heart, Normal: Lungs, Normal: Extremities, Normal: Abdomen, Normal: Skin and Normal: Neurological Plan Diagnosis/Plan: Unchanged I have reviewed the history and physical and performed a pertinent physical examination on my patient. No changes have occurred unless specified. Time Spent With Patient Time: Total time managing care of this patient today ____ minutes.
--- NOTE | 2023-12-04 12:45 | P.BOP_ITS ---
Brief Operative Note Date of Service: 12/04/23 Pre-op diagnosis: Vertebra genic pain syndrome Post-op diagnosis: same Procedure: Intercept basivertebral nerve radiofrequency ablation S1, L5 and L4 Implants: None Surgeon: Sean Bernal MD Anesthesia: GETA Was an Security Support Analyst used for this Procedure?: No Estimated blood loss (mL): 8 Condition: stable Disposition: PACU
[2023-12-04] MEDS: fentaNYL citrate/PF 100 MCG/2 ML VIAL 25 MCG IVPUSH ×2 (12:55→13:00)
--- NOTE | 2023-12-04 12:57 | P.OP_ITS ---
Operative Note Operative Note Date of Service: 12/04/23 Narrative: Procedure: Basivertebral nerve (BVN) ablation? Intracept Procedure S1, L5 and L4 Procedure Time Out: Patient ID confirmed, correct procedure to be performed, correct site and/or side for procedure , need for antibiotic administration, need for DVT prophylaxis, risk of fire.? The patient received cefazolin 2 g intravenously 30 minutes before onset of the procedure as well as dexamethasone 4 mg intravenously push. The entire back was sterilely prepped with ChloraPrep twice and draped with sterile self adhesive utility towels and covered with full body drape.? Two sterilely draped C-arms were positioned in fixed anterior posterior and lateral positions alongside the patient's torso.? The C-arm was rotated to a Walker view to square off the superior endplate at S1. The C-arm was then rotated to the right approximately 15-20 degrees for an approach to the right S1 pedicle. The skin entry point was identified and infiltrated with mixture of 2% lidocaine with ropivacaine 0.5% 1 to 1 4 cc. A 22-gauge 5-inch spinal needle was used to anesthetize the track to the? pedicle and periosteum and confirm the introducer cannula trajectory. A small horizontal 5 mm skin incision was made with 10 scalpel blade. The introducer cannula with bevel tip was then introduced through the skin, subcutaneous tissue and paraspinal muscle until bony contact was made. The position was checked in the AP and lateral plane. Using a mallet, the trocar was then advanced through the pedicle to the posterior aspect of the vertebral body using a combination of AP and lateral views to ensure appropriate traversing of the pedicle and no breaching of the pedicle medially. Once the trocar was in the posterior aspect of the S1 vertebral body, the trocar was removed from the cannula and the curved cannula assembly with the nitinol J-stylet was inserted. The spin wheel was rotated counterclockwise permitting excursion of the J-stylet. The curved cannula assembly was then advanced using a mallet in 1-2 mm increments. The J- stylet was observed to traverse the vertebral body in the midline in both the AP and lateral views. The J-stylet was removed and replaced with the straight stylet to reach the BVN target. Target was reached when the tip of the stylet was noted to be approximately 50% anterior of the posterior wall of the S1 in the lateral view, 40% inferior from the superior endplate and it crossed the midline of the S1 spinous process in the AP view. The stylet was then removed. The bipolar radiofrequency (RF) probe was ?inserted into the introducer cannula. The spin wheel was rotated clockwise to retract the PEEK sleeve to expose the proximal electrode on the radiofrequency probe. The BVN was then ablated using [employer]?s standard RFG algorithm for 7 minutes. Sterilely draped C-arm was moved to visualize the target at the superolateral aspect of the L5 vertebral body. The C-arm was rotated to square off the superior endplate at L5 and rotated left to obtain an oblique view. The superolateral ?left L5 pedicle was identified, and the skin entry point identified and infiltrated with mixture of 2% lidocaine with ropivacaine 0.5% one to one using a 25- gauge 1-1/2 inch needle. A 22-gauge 5-inch spinal needle was used to anesthetize the track to the pedicle and periosteum and confirm the introducer cannula trajectory. A skin incision was made with 11 blade scalpel5 mm. The introducer cannula with bevel tip was then introduced through the skin, subcutaneous tissue and paraspinal muscle until bony contact was made. The position was checked in the AP and lateral plane. Using a mallet, the trocar was then advanced through the pedicle to the posterior aspect of the vertebral body using a combination of AP and lateral views to ensure appropriate traversing of the pedicle and no breaching of the pedicle medially or inferiorly. Once the trocar was in the posterior aspect of the L5 vertebral body we noticed that it fail to advance to were the center of vertebral body and keep moving into parasagittal positioned into the vertebra. The decision was made to change position to the right oblique where the procedure was repeated as described above this time on the right pedicle. When introducer cannula with tip bevel reached the vertebral body passing through the right pedicle, the trocar was removed from the cannula and the curved cannula assembly with the nitinol J- stylet was inserted. The spin wheel was rotated counterclockwise permitting excursion of the J-stylet. The curved cannula assembly was then advanced using a mallet in 1-2 mm increments. The J-stylet was observed to traverse the vertebral body in the AP and lateral views. Target was reached when the tip of the stylet was 45 % anterior of the posterior wall of the L4 in the lateral view (midway between the superior and inferior endplates) and it crossed the midline of the L4 spinous process in the AP view. The stylet was then removed. The bipolar radiofrequency (RF) probe was removed from the previous vertebral body, the tip cleaned and was inserted into the introducer cannula in its ablation position. The spin wheel was rotated clockwise to retract the PEEK sleeve to expose the proximal electrode on the radiofrequency probe. The BVN was then ablated using [employer]?s standard RFG algorithm for 7 minutes.? While the ablation was occurring at below level the C-arm was moved to visualize the target at the superolateral aspect of the L4 vertebral body. The C-arm was rotated to square off the superior endplate at L5 and rotated left to obtain an oblique view. The superolateral ?left L4 pedicle was identified, and the skin entry point identified and infiltrated with mixture of 2% lidocaine with ropivacaine 0.5% one to one using a 25- gauge 1-1/2 inch needle. A 22-gauge 5- inch spinal needle was used to anesthetize the track to the pedicle and periosteum and confirm the introducer cannula trajectory. A skin incision was made with 10 scalpel blade 5 mm. The introducer cannula with bevel tip was then introduced through the skin, subcutaneous tissue and paraspinal muscle until bony contact was made. The position was checked in the AP and lateral plane. Using a mallet, the trocar was then advanced through the pedicle to the posterior aspect of the vertebral body using a combination of AP and lateral views to ensure appropriate traversing of the pedicle and no breaching of the pedicle medially or inferiorly. Once the trocar was in the posterior aspect of the L4 vertebral body, the trocar was removed from the cannula and the curved cannula assembly with the nitinol J-stylet was inserted. The spin wheel was rotated counterclockwise permitting excursion of the J-stylet. The curved cannula assembly was then advanced using a mallet in 1-2 mm increments. The J-s tylet was observed to traverse the vertebral body in the AP and lateral views. Target was reached when the tip of the stylet was 45 % anterior of the posterior wall of the L5 in the lateral view (midway between the superior and inferior endplates) and it crossed the midline of the L5 spinous process in the AP view. The stylet was then removed. The bipolar radiofrequency (RF) probe was removed from the previous vertebral body, the tip cleaned and was inserted into the introducer cannula in its ablation position. The spin wheel was rotated clockwise to retract the PEEK sleeve to expose the proximal electrode on the radiofrequency probe. The BVN was then ablated using [employer]?s standard RFG algorithm for 7 minutes. While the ablation was occurring at the above level, C-arm were moved to vi sualize the target at the superolateral aspect of S1. Upon completion of the procedure the instruments were removed from the patient, cass were applied to the each patient's 3 small incisions. Sterile dressing with bacitracin applied. The patient was awaken, extubated, taken outside of the operating room to recovery room where she recovered uneventfully
== END 2023-12-04 13:47 | disposition home or self-care (01) ==
PROVIDERS: PCP Pediatrics; Visit Provider Anesthesiology
PROC: (CPT 64628; principal; 2023-12-04 10:40)
DX: M54.51 Vertebrogenic low back pain (principal); F41.9 Anxiety disorder, unspecified; G47.33 Obstructive sleep apnea (adult) (pediatric); Z79.899 Other long term (current) drug therapy; Z98.84 Bariatric surgery status; Z98.890 Other specified postprocedural states; Z91.040 Latex allergy status
CPT/HCPCS: 64628; 64629; C1889; J0690; J1100; J2003; J2250; J2405; J2704; J2795; J3010

== ENCOUNTER → 2023-12-04 08:22 | Outpatient (BNV) | payer MEDICAID, SELFPAY | PROVIDERS: PCP Pediatrics; Visit Provider Anesthesiology | DX: M54.51 Vertebrogenic low back pain (principal) | CPT/HCPCS: 64628 ==

== ENCOUNTER → 2023-12-08 12:56 | Outpatient (BNVA) | payer MEDICAID, SELFPAY | PROVIDERS: PCP Pediatrics; Visit Provider Anesthesiology ==

== ENCOUNTER 2023-12-10 09:30 | Outpatient (AMB) | payer MEDICAID, SELFPAY ==
--- NOTE | 2023-12-10 09:38 | A.OFFVIS_ITS ---
Vital Signs 12/10/23 10:01 Height 5 ft 5 in Weight 194 lb BMI 32.3 BP 138/70 Blood Pressure Location Lt brachial Position Sitting Respiration 18 Pulse 80 Pulse Source Pulse Oximeter Pulse Oximetry (%) 98 Oxygen Delivery Method Room Air Intake Visit Reasons: S/p L4, L5, and S1 BVN (Intracept) 12/04/23 Intake Note: Patient comes in for post-op. Reports pain 2/10. Allergies latex Allergy (Severe, Verified 12/10/23 10:02) rash/swollen eyes seafood Allergy (Severe, Verified 12/10/23 10:02) rash/swollen eyes shellfish derived Allergy (Severe, Verified 12/10/23 10:02) Anaphylaxis HPI Comments Details: Jes is back in my office to examined the wounds and dressing change. She received BVN intercept after the procedure she reports much better condition she reports excellent mobility good activities of daily living great social interact ions. The wounds were examined, minimal redness no swelling no pathological discharge no tenderness on palpation. The wounds were worst with ChloraPrep and draped with sterile Tegaderm drape. Next week I will remove her cass. Prior: very pleasant 53 years old female who is back in my office for the evaluation of her current condition with conjunction of images we obtained by new MRI. Jes reports significant exacerbation of the pain when sitting. She is basically unable to seat more than few minutes. She is unable to rock picker objects from the floor she reports exacerbation of the pain with flexing forward. She reports that sleeping with pillows under her legs alleviate her pain. She reports that the pain is mostly axial however sometimes on rare occasion radiates into the left lower extremity. Activities also aggravate her pain. Walking and doing stuff in her household make her pain very severe. The dictation of the MRI is as below. However the radiologist unfortunately ignored completely Modic type changes at L4-L5 and S1 vertebra. They are very prominent and can not be missed. I discussed situation with the patient. I told her that her pain is most likely multifactorial. I offered her intraseptal procedure 1st to treat the axial back pain and if after that the pain from disc degeneration and nerve root compression in the left lower extremity will be prominent again I offered her transforaminal epidural steroid injection on the left. The patient agreed with the plan. I will schedule her for the procedure of intercept. Prior:? She was under Dr. Valdez observation and Tanika was following her up.? Doctors José Miguel was performing interlaminar epidural steroid injection L4-5 to treat radicular pain.? He perform this procedure twice.? She had MRI done in [facility] which demonstrated significant degenerative disc disease and the radiculopathy at the L4-5 level.? However last time she came to my office with pain complains mostly in her left groin.? I suspected her having significant left knee osteoarthritis and I sent her for hip x-ray.? Left hip x- ray became negative for the osteoarthritis or any pathology.? Therefore unlikely it is coming from the left hip. ? with her MRI in mainly normal for all the levels but L4-5 the pain in left hip could stem out from sacroiliac joint problems versus? facet joint arthropathy.? PFSH Medical History SIXTO (obstructive sleep apnea) History of allergic rhinitis Depression Lumbar disc disease Disc degeneration, lumbar Spondylosis of lumbar spine COVID-19 vaccine administered Anxiety Back problem Surgical History History of surgery Hx of surgical procedure H/O colonoscopy Hx of cholecystectomy Hx of tubal ligation Hx of abdominoplasty Gastric bypass status for obesity Family History Mother Breast CA Social History Household Members: Family Alcohol intake: current Alcohol intake frequency: holidays/special occasions only Patient Tobacco Use Status: Never used Tobacco Current occupational status: employed 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 Female Reproductive History Menstrual Age of Menarche: 12 Review of Systems Const All systems reviewed & are unremarkable except as noted in HPI and below ENT Reports Normal hearing present Neuro Reports Normal hearing present and Denies Sensory deficit (Neuro) Physical Exam Vital Signs: Last Vital Signs Pulse 80 12/10/23 10:01 Resp 18 12/10/23 10:01 BP 138/70 12/10/23 10:01 Pulse Ox 98 12/10/23 10:01 Oxygen Delivery Method Room Air 12/10/23 10:01 BMI result Body Mass Index 32.3 Const General: comfortable, no acute distress, well developed, alert and awake Eyes Pupils: Equal, round and reactive pupils present EOM: EOMs intact bilaterally Chest Chest palpation & inspection: normal inspection of the chest Resp Effort & Inspection: normal respiratory effort, able to speak in complete sentences, normal respiratory pattern, no audible wheezes and no cough Cardio Jugular venous distension: no JVD Back/Spine/Pelvis Other: tenderness on palpation in paraspinal spinal region in lumbar spine in the projection of lumbar L1 and L2 vertebra.. Loading test is positive. Range of motion in lumbar spine is limited. Negative SIJ testing... Neuro Cranial nerves: Yes Equal, round and reactive pupils present and Yes Normal hearing present Sensory Exam: No Sensory deficit (Neuro) Psych Speech and movement: Normal speech and movement present Affect: normal affect Attitude: cooperative Assessment & Plan Assessment & Plan (1) Spondylosis of lumbar spine: Code(s): M47.816 - Spondylosis without myelopathy or radiculopathy, lumbar region Category: Medical (2) Disc degeneration, lumbar: Code(s): M51.36 - Other intervertebral disc degeneration, lumbar region Category: Medical (3) Vertebrogenic low back pain: Code(s): M54.51 - Vertebrogenic low back pain Category: Medical Plan Status post BVN Intracept. with great results. The wound was examined and washed and draped. Next appointment in 4 days to remove the cass. Coding Level of Care Code Est Pt Level 3 (82478) Diagnoses Spondylosis of lumbar spine M47.816 Disc degeneration, lumbar M51.36 Vertebrogenic low back pain M54.51
[2023-12-10 10:01] VITALS: BP 138/70; PULSE 80; RESP 18; O2SAT 98; BMI 32.3
== END 2023-12-10 10:00 | disposition home or self-care (01) ==
PROVIDERS: PCP Pediatrics; Visit Provider Anesthesiology
DX: M47.816 Spondylosis without myelopathy or radiculopathy, lumbar region (principal); M51.369 Other intervertebral disc degeneration, lumbar region without mention of lumbar back pain or lower extremity pain; M54.51 Vertebrogenic low back pain
CPT/HCPCS: 99213

== ENCOUNTER → 2023-12-10 09:30 | Outpatient (BNVA) | payer MEDICAID, SELFPAY | PROVIDERS: PCP Pediatrics; Visit Provider Anesthesiology | DX: M47.816 Spondylosis without myelopathy or radiculopathy, lumbar region (principal); M51.369 Other intervertebral disc degeneration, lumbar region without mention of lumbar back pain or lower extremity pain; M54.51 Vertebrogenic low back pain; Z98.890 Other specified postprocedural states | CPT/HCPCS: 99212 ==

== ENCOUNTER 2023-12-14 08:41 | Outpatient (AMB) | payer MEDICAID, SELFPAY ==
--- NOTE | 2023-12-14 08:44 | A.OFFVIS_ITS ---
Vital Signs 12/14/23 08:50 Height 5 ft 5 in Weight 180 lb BMI 30.0 BP 141/73 H Blood Pressure Location Lt brachial Position Sitting Pulse 69 Pulse Source Pulse Oximeter Pulse Oximetry (%) 98 Oxygen Delivery Method Room Air Intake Visit Reasons: Staple Removal Intake Note: Pain today 4/10 while sitting, 0/10 while standing. Financial Service Representative Required: No Accompanied by: Daughter Allergies latex Allergy (Severe, Verified 12/14/23 08:51) rash/swollen eyes seafood Allergy (Severe, Verified 12/14/23 08:51) rash/swollen eyes shellfish derived Allergy (Severe, Verified 12/14/23 08:51) Anaphylaxis HPI Comments Details: Jes is back in my office to examined the wounds and dressing change. She received BVN intercept after the procedure she reports much better condition she reports excellent mobility good activities of daily living great social interactions. The wounds were examined, minimal redness no swelling no pathological discharge no tenderness on palpation. The wounds were worst with ChloraPrep, cass were removed. Sterile dressing was applied. Hygiene limitations were explained. No new appointment is necessary. Patient doing very well. Prior: very pleasant 53 years old female who is back in my office for the evaluation of her current condition with conjunction of images we obtained by new MRI. Jes reports significant exacerbation of the pain when sitting. She is basically unable to seat more than few minutes. She is unable to draft roller picker objects from the floor she reports exacerbation of the pain with flexing forward. She reports that sleeping with pillows under her legs alleviate her pain. She reports that the pain is mostly axial however sometimes on rare occasion radiates into the left lower extremity. Activities also aggravate her pain. Walking and doing stuff in her household make her pain very severe. The dictation of the MRI is as below. However the radiologist unfortunately ignored completely Modic type changes at L4-L5 and S1 vertebra. They are very prominent and can not be missed. I discussed situation with the patient. I told her that her pain is most likely multifactorial. I offered her intraseptal procedure 1st to treat the axial back pain and if after that the pain from disc degeneration and nerve root compression in the left lower extremity will be prominent again I offered her transforaminal epidural steroid injection on the left. The patient agreed with the plan. I will schedule her for the procedure of intercept. Prior:? She was under Dr. Valdez observation and Tanika was following her up.? Doctors José Miguel was performing interlaminar epidural steroid injection L4-5 to treat radicular pain.? He perform this procedure twice.? She had MRI done in [facility] which demonstrated significant degenerative disc disease and the radiculopathy at the L4-5 level.? However last time she came to my office with pain complains mostly in her left groin.? I suspected her having significant left knee osteoarthritis and I sent her for hip x-ray.? Left hip x- ray became negative for the osteoarthritis or any pathology.? Therefore unlikely it is coming from the left hip. ? with her MRI in mainly normal for all the levels but L4-5 the pain in left hip could stem out from sacroiliac joint problems versus? facet joint arthropathy.? PFSH Medical History SIXTO (obstructive sleep apnea) History of allergic rhinitis Depression Lumbar disc disease Disc degeneration, lumbar Spondylosis of lumbar spine COVID-19 vaccine administered Anxiety Back problem Surgical History History of surgery Hx of surgical procedure H/O colonoscopy Hx of cholecystectomy Hx of tubal ligation Hx of abdominoplasty Gastric bypass status for obesity Family History Mother Breast CA Social History Household Members: Family Alcohol intake: current Alcohol intake frequency: holidays/special occasions only Patient Tobacco Use Status: Never used Tobacco Current occupational status: employed 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 Female Reproductive History Menstrual Age of Menarche: 12 Review of Systems Const All systems reviewed & are unremarkable except as noted in HPI and below ENT Reports Normal hearing present Neuro Reports Normal hearing present and Denies Sensory deficit (Neuro) Physical Exam Vital Signs: Last Vital Signs Pulse 69 12/14/23 08:50 BP 141/73 H 12/14/23 08:50 Pulse Ox 98 12/14/23 08:50 Oxygen Delivery Method Room Air 12/14/23 08:50 BMI result Body Mass Index 30.0 Const General: comfortable, no acute distress, well developed, alert and awake Eyes Pupils: Equal, round and reactive pupils present EOM: EOMs intact bilaterally Chest Chest palpation & inspection: normal inspection of the chest Resp Effort & Inspection: normal respiratory effort, able to speak in complete sentences, normal respiratory pattern, no audible wheezes and no cough Cardio Jugular venous distension: no JVD Back/Spine/Pelvis Other: tenderness on palpation in paraspinal spinal region in lumbar spine in the projection of lumbar L1 and L2 vertebra.. Loading test is positive. Range of motion in lumbar spine is limited. Negative SIJ testing... Neuro Cranial nerves: Yes Equal, round and reactive pupils present and Yes Normal hearing present Sensory Exam: No Sensory deficit (Neuro) Psych Speech and movement: Normal speech and movement present Affect: normal affect Attitude: cooperative Assessment & Plan Assessment & Plan (1) Spondylosis of lumbar spine: Code(s): M47.816 - Spondylosis without myelopathy or radiculopathy, lumbar region Category: Medical (2) Disc degeneration, lumbar: Code(s): M51.36 - Other intervertebral disc degeneration, lumbar region Category: Medical (3) Vertebrogenic low back pain: Code(s): M54.51 - Vertebrogenic low back pain Category: Medical Plan Status post BVN Intracept. with great results. The wound was examined, washed, cass were removed and draped with Tegaderm films next appointment as needed. Coding Level of Care Code Est Pt Level 3 (94628) Diagnoses Spondylosis of lumbar spine M47.816 Disc degeneration, lumbar M51.36 Vertebrogenic low back pain M54.51
[2023-12-14 08:50] VITALS: BP 141/73; PULSE 69; O2SAT 98
== END 2023-12-14 08:58 | disposition home or self-care (01) ==
PROVIDERS: PCP Pediatrics; Visit Provider Anesthesiology
DX: M47.816 Spondylosis without myelopathy or radiculopathy, lumbar region (principal); M51.369 Other intervertebral disc degeneration, lumbar region without mention of lumbar back pain or lower extremity pain; M54.51 Vertebrogenic low back pain
CPT/HCPCS: 99024

== ENCOUNTER → 2023-12-14 08:41 | Outpatient (BNVA) | payer MEDICAID, SELFPAY | PROVIDERS: PCP Pediatrics; Visit Provider Anesthesiology | DX: M47.816 Spondylosis without myelopathy or radiculopathy, lumbar region (principal); M51.369 Other intervertebral disc degeneration, lumbar region without mention of lumbar back pain or lower extremity pain; M54.51 Vertebrogenic low back pain; Z48.02 Encounter for removal of sutures; Z98.890 Other specified postprocedural states | CPT/HCPCS: 99212 ==

== ENCOUNTER 2023-12-15 10:22 | Outpatient (AMB) | payer MEDICAID, SELFPAY ==
--- NOTE | 2023-12-15 10:12 | A.OFFVIS_ITS ---
VS Expanded 12/15/23 10:14 Height 5 ft 5 in Weight 197 lb BMI 32.8 Intake Visit Reasons: (TELEPHONE) PO GBP 12/27/15 Allergies latex Allergy (Severe, Verified 12/14/23 08:51) rash/swollen eyes seafood Allergy (Severe, Verified 12/14/23 08:51) rash/swollen eyes shellfish derived Allergy (Severe, Verified 12/14/23 08:51) Anaphylaxis Medication List - Last Reconciled 12/15/23 by ANGELIAC Marlow bupropion HCl XL 300 mg PO QAM clonazepam 1 mg PO DAILY PRN famotidine (Pepcid) 20 mg PO DAILY hydroxyzine pamoate 25 mg PO QID PRN methylprednisolone (Medrol (Arnoldo)) 4 mg PO QAM 6 days naloxone 4 mg/actuation 4 mg intranasal Q2M PRN 1 day oxycodone-acetaminophen 5-325 mg 1 tab PO Q8H PRN sertraline 25 mg PO DAILY trazodone 50 mg PO DAILY PRN HPI Comments Details: Pt is s/p LRYGB 12/27/2015. Has not been seen in several years. Reports weight gain in recent years. Having back pain due to increasing weight. Not following a meal plan currently, not taking a vitamin. Has had a lot of depression due to life events. Was eating candy related to anxiety, has a community therapist. Has a lot of machines at home for exercise, but limited due to recent back pain surgery. FOR[facility]LY [facility], [facility] Medical History (Updated 12/15/23 @ 10:25 by ANGELICA Marlow) SIXTO (obstructive sleep apnea) History of allergic rhinitis Depression Lumbar disc disease Disc degeneration, lumbar Spondylosis of lumbar spine COVID-19 vaccine administered Anxiety Back problem Surgical History (Updated 12/15/23 @ 10:25 by ANGELICA Marlow) History of surgery Hx of surgical procedure H/O colonoscopy Hx of cholecystectomy Hx of tubal ligation Hx of abdominoplasty Gastric bypass status for obesity Family History Mother Breast CA Social History Household Members: Family Alcohol intake: current Alcohol intake frequency: holidays/special occasions only Patient Tobacco Use Status: Never used Tobacco Current occupational status: employed 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 Female Reproductive History Menstrual Age of Menarche: 12 Telehealth Telehealth Telehealth Platform: Telephone Location of provider rendering services: other Location of patient: address on file Patient Identification confirmed using: Name, : Yes Telehealth method: voice only Patient verbally consented to treatment: Yes Patient verbally consented to billing insurance company: Yes Patient informed of any privacy concerns related to visit: Yes Minutes spent on Phone/Video with Pt.: 16 Assessment & Plan Assessment & Plan (1) Obesity: Code(s): E66.9 - Obesity, unspecified Category: Medical Plan Pt wants to restart high protein meal plan. Does not iike bars, does not want to use many shakes. 1 Celebrate shake with 2 scoops 1 Isopure shake with 1 scoop 1 meal of 2 eggs 1 meal of 4-6f meat, 4-6f veg Labs ordered Meal plan texted to pt and encouraged her to reach out between visits with any concerns. RTC 2-3 months. I spent a total of 30 minutes reviewing/updating records, examining the patient and counseling the patient on weight management as detailed above. Orders: Orders Hemoglobin A1c Today - Vertebrogenic low back pain Complete Blood Count Auto Diff Today - Vertebrogenic low back pain Lipid Panel Today - Vertebrogenic low back pain IRON PROFILE Today - Vertebrogenic low back pain Comprehensive Met. Panel Today - Vertebrogenic low back pain C Reactive Protein Today - Vertebrogenic low back pain Vitamin B1 Today - Vertebrogenic low back pain Vitamin A Today - Vertebrogenic low back pain Ferritin Today - Vertebrogenic low back pain Vitamin D 25-OH Total Today - Vertebrogenic low back pain Insulin Today - Vertebrogenic low back pain Vitamin B12 and Folate Today - Vertebrogenic low back pain Zinc Today - Vertebrogenic low back pain TSH reflex Free T4 Today - Vertebrogenic low back pain
[2023-12-15 10:14] VITALS: BMI 32.8
== END 2023-12-15 10:30 | disposition home or self-care (01) ==
LOC: HO.HBS 10:22
PROVIDERS: PCP Pediatrics; Visit Provider Physician Assistant Surgical
DX: E66.9 Obesity, unspecified (principal)
CPT/HCPCS: 99214

== ENCOUNTER → 2023-12-15 10:22 | Outpatient (BNVA) | payer MEDICAID, SELFPAY | PROVIDERS: PCP Pediatrics; Visit Provider Physician Assistant Surgical | DX: M54.51 Vertebrogenic low back pain (principal) ==

== ENCOUNTER 2023-12-18 06:52 | Outpatient (REF) | payer MEDICAID, SELFPAY ==
[2023-12-18 07:05] LABS: MANUAL DIFF FLAG NO
[2023-12-18 07:17] LABS: Basophils Percent Auto 0.7 % (0-2); Eosinophils Absolute Auto 0.1 X10*3/uL (0.0-0.4); Eosinophils Percent Auto 3.1 % (0-4); Hematocrit 39.4 % (37.0-47.0); Hemoglobin 12.8 g/dl (12.0-16.0); Imm Gran Abs Auto 0.01 X10*3/uL (0.00-0.03); Imm Gran Pct Auto 0.2 % (0.0-0.4); Lymphocytes Absolute Auto 1.5 X10*3/uL (1.2-4.9); Lymphocytes Percent Auto 32.4 % (20-40); Mean Corpuscular HGB Conc 32.5 g/dl (31.0-35.0); Mean Corpuscular Volume 80.1 fL (80.0-98.0); Mean Platelet Volume 9.4 fL (9.4-12.3); Monocytes Absolute Auto 0.4 X10*3/uL (0.1-1.2); Monocytes Percent Auto 7.8 % (2-11); Neutrophils Absolute Auto 2.5 x10*3/uL (2.0-8.3); Neutrophils Percent Auto 55.8 % (45-73); Platelet Count 311 X10*3/uL (160-400); Red Blood Count 4.92 X10*6/uL (4.20-5.50); Red Cell Distribution Width 14.5 % (11.0-16.0); White Blood Count 4.5 X10*3/uL (4.8-10.8)
[2023-12-18 07:24] LABS: Estimated Average Glucose 103 mg/dL; Hemoglobin A1C 116.5377 umol/L; Hemoglobin A1c % 5.2 % (<6.0)
[2023-12-18 07:46] LABS: Alanine Aminotransferase 29 U/L (0-31); Anion Gap 13 (12-20); Aspartate Amino Transferase 35 U/L (5-31); Bilirubin Total 0.2 mg/dL (0.0-1.0); Blood Urea Nitrogen 14 mg/dL (9-16); C Reactive Protein 0.13 mg/dL (< or = 0.50); Calcium 9.6 mg/dL (8.4-10.2); Carbon Dioxide 24 mmol/L (22-29); Chloride 108 mmol/L (96-108); Cholesterol 219 mg/dL (<200); Estimated Glomerular Filt Rate > 60; Glucose Random 95 mg/dL (60-115); HDL Cholesterol 65 mg/dL (>40); Iron 51 mcg/dL (30-160); LDL Cholesterol Calculated 135 mg/dL (<100); Percent Iron Saturation 13 % (15-50); Potassium 4.1 mmol/L (3.3-5.1); Sodium 141 mmol/L (135-145); Total Iron Binding Capacity 399 mcg/dL (228-428); Total Protein 7.1 g/dL (6.5-8.0); Triglycerides 96 mg/dL (<150); Unsaturated Iron Binding 348 ug/dL
[2023-12-18 08:04] LABS: Alkaline Phosphatase 100 U/L (39-117)
[2023-12-18 08:15] LABS: Ferritin 8 ng/mL (10-250); Insulin 6 uU/mL (2-29); TSH reflex Free T4 1.34 uIU/mL (0.32-4.0); Vitamin D 25-OH Total 39.5 ng/mL (>30)
[2023-12-18 08:30] LABS: Folate 9.7 ng/mL (> or = 4.0); Vitamin B12 169 pg/mL (200-900)
[2023-12-22 18:04] LABS: Zinc 64 mcg/dL (60-130)
[2023-12-24 12:33] LABS: Vitamin B1 15 nmol/L (8-30)
[2023-12-25 23:09] LABS: Vitamin A 52 mcg/dL (38-98)
== END 2023-12-18 06:53 | disposition home or self-care (01) ==
LOC: HO.LAB 06:52
PROVIDERS: PCP Pediatrics; Visit Provider Physician Assistant Surgical
DX: M54.51 Vertebrogenic low back pain (principal)
CPT/HCPCS: 36415; 80053; 80061; 82306; 82607; 82728; 82746; 83036; 83525; 83540; 84425; 84443; 84590; 84630; 85025; 86140

== ENCOUNTER 2023-12-21 16:05 | Outpatient (AMB) | payer MEDICAID, SELFPAY ==
--- NOTE | 2023-12-21 16:05 | A.OFFVIS_ITS ---
Vital Signs 12/21/23 16:10 Height 5 ft 5 in Weight 197 lb 1 oz BMI 32.8 BP 122/88 Blood Pressure Location Lt brachial Position Sitting Respiration 17 Pulse 73 Pulse Source Pulse Oximeter Pulse Oximetry (%) 95 Oxygen Delivery Method Room Air Intake Visit Reasons: Follow Up Intake Note: Patient comes in for follow up. Reports pain 8/10. Allergies latex Allergy (Severe, Verified 12/21/23 16:11) rash/swollen eyes seafood Allergy (Severe, Verified 12/21/23 16:11) rash/swollen eyes shellfish derived Allergy (Severe, Verified 12/21/23 16:11) Anaphylaxis HPI Comments Details: Jes is back in my office with complains on throbbing pain in the ability to seat at all. She reported that immediately after the intercept procedure she felt very much relieved with her pain however now the pain him back in became throbbing in nature. She denies fever. She recently submitted blood work where her WBC is 4.6 and normal differential. Nevertheless I would like to rule out infectious conditions in her lumbar spine at the sites of the energy a pplication. It would be either discitis or osteomyelitis. Compression fracture of the lumbar spine also need to be ruled out. Prior: She received BVN intercept after the procedure she reports much better condition she reports excellent mobility good activities of daily living great social interactions. Ana Luisa young elaine 53 years old female who is back in my office for the evaluation of her current condition with conjunction of images we obtained by new MRI. Jes reports significant exacerbation of the pain when sitting. She is basically unable to seat more than few minutes. She is unable to berry picker objects from the floor she reports exacerbation of the pain with flexing forward. She reports that sleeping with pillows under her legs alleviate her pain. She reports that the pain is mostly axial however sometimes on rare occasion radiates into the left lower extremity. Activities also aggravate her pain. Walking and doing stuff in her household make her pain very severe. The dictation of the MRI is as below. However the radiologist unfortunately ignored completely Modic type changes at L4-L5 and S1 vertebra. They are very prominent and can not be missed. I discussed situation with the patient. I told her that her pain is most likely multifactorial. I offered her intraseptal procedure 1st to treat the axial back pain and if after that the pain from disc degeneration and nerve root compression in the left lower extremity will be prominent again I offered her transforaminal epidural steroid injection on the left. The patient agreed with the plan. I will schedule her for the procedure of intercept. Prior:? She was under Dr. Valdez observation and Tanika was following her up.? Doctors José Miguel was performing interlaminar epidural steroid injection L4-5 to treat radicular pain.? He perform this procedure twice.? She had MRI done in [facility] which demonstrated significant degenerative disc disease and the radiculopathy at the L4-5 level.? However last time she came to my office with pain complains mostly in her left groin.? I suspected her having significant left knee osteoarthritis and I sent her for hip x-ray.? Left hip x- ray became negative for the osteoarthritis or any pathology.? Therefore unlikely it is coming from the left hip. ? with her MRI in mainly normal for all the levels but L4-5 the pain in left hip could stem out from sacroiliac joint problems versus? facet joint arthropathy.? ON LICENSE OF [facility] Medical History (Updated 12/21/23 @ 16:14 by Sean Bernal MD) SIXTO (obstructive sleep apnea) History of allergic rhinitis Depression Lumbar disc disease Disc degeneration, lumbar Spondylosis of lumbar spine COVID-19 vaccine administered Anxiety Back problem Surgical History (Updated 12/15/23 @ 10:25 by ANGELICA Marlow) History of surgery Hx of surgical procedure H/O colonoscopy Hx of cholecystectomy Hx of tubal ligation Hx of abdominoplasty Gastric bypass status for obesity Family History Mother Breast CA Social History Household Members: Family Alcohol intake: current Alcohol intake frequency: holidays/special occasions only Patient Tobacco Use Status: Never used Tobacco Current occupational status: employed Current occupation: [employer] WORKER [employer]IV[employer] Female Reproductive History Menstrual Age of Menarche: 12 Review of Systems Const All systems reviewed & are unremarkable except as noted in HPI and below ENT Reports Normal hearing present Neuro Reports Normal hearing present and Denies Sensory deficit (Neuro) Physical Exam Vital Signs: Last Vital Signs Pulse 73 12/21/23 16:10 Resp 17 12/21/23 16:10 BP 122/88 12/21/23 16:10 Pulse Ox 95 12/21/23 16:10 Oxygen Delivery Method Room Air 12/21/23 16:10 BMI result Body Mass Index 32.8 Const General: comfortable, no acute distress, well developed, alert and awake Eyes Pupils: Equal, round and reactive pupils present EOM: EOMs intact bilaterally Chest Chest palpation & inspection: normal inspection of the chest Resp Effort & Inspection: normal respiratory effort, able to speak in complete sentences, normal respiratory pattern, no audible wheezes and no cough Cardio Jugular venous distension: no JVD Back/Spine/Pelvis Other: tenderness on palpation in paraspinal spinal region in lumbar spine in the projection of lumbar L1 and L2 vertebra.. Loading test is positive. Range of motion in lumbar spine is limited. Negative SIJ testing... Neuro Cranial nerves: Yes Equal, round and reactive pupils present and Yes Normal hearing present Sensory Exam: No Sensory deficit (Neuro) Psych Speech and movement: Normal speech and movement present Affect: normal affect Attitude: cooperative Assessment & Plan Assessment & Plan (1) Discitis of lumbar region: Code(s): M46.46 - Discitis, unspecified, lumbar region Category: Medical (2) Spondylosis of lumbar spine: Code(s): M47.816 - Spondylosis without myelopathy or radiculopathy, lumbar region Category: Medical (3) Disc degeneration, lumbar: Code(s): M51.36 - Other intervertebral disc degeneration, lumbar region Category: Medical (4) Vertebrogenic low back pain: Code(s): M54.51 - Vertebrogenic low back pain Category: Medical Plan Status post BVN Intracept. After lucid interval pain returned and became throbbing in nature. Denies fever. However I would like to rule out infection or compression fracture of the 1 of the treated lumbar vertebra. Origin MRI will be scheduled. CBC will be scheduled. Orders: Orders MR lumbar spine wo con Today M46.46 - Discitis, unspecified, lumbar region Complete Blood Count Auto Diff Today M46.46 - Discitis, unspecified, lumbar region Coding Level of Care Code Est Pt Level 3 (88283) Diagnoses Discitis of lumbar region M46.46 Spondylosis of lumbar spine M47.816 Disc degeneration, lumbar M51.36 Vertebrogenic low back pain M54.51
[2023-12-21 16:10] VITALS: BP 122/88; PULSE 73; RESP 17; O2SAT 95; BMI 32.8
== END 2023-12-21 16:14 | disposition home or self-care (01) ==
LOC: HO.PMC 16:05
PROVIDERS: PCP Pediatrics; Visit Provider Anesthesiology
DX: M46.46 Discitis, unspecified, lumbar region (principal); M47.816 Spondylosis without myelopathy or radiculopathy, lumbar region
CPT/HCPCS: 99213

== ENCOUNTER → 2023-12-21 16:05 | Outpatient (BNVA) | payer MEDICAID, SELFPAY | PROVIDERS: PCP Pediatrics; Visit Provider Anesthesiology | DX: M46.46 Discitis, unspecified, lumbar region (principal); M47.816 Spondylosis without myelopathy or radiculopathy, lumbar region; M51.360 Other intervertebral disc degeneration, lumbar region with discogenic back pain only; M54.51 Vertebrogenic low back pain | CPT/HCPCS: 99212 ==

== ENCOUNTER → 2023-12-23 16:02 | Outpatient (BNV) | payer MEDICAID, SELFPAY | PROVIDERS: PCP Pediatrics; Visit Provider Radiology Diagnostic Radiology | DX: M46.46 Discitis, unspecified, lumbar region (principal) | CPT/HCPCS: 72148 ==

== ENCOUNTER 2023-12-23 16:08 | Outpatient (REF) | payer MEDICAID, SELFPAY ==
--- NOTE | ~2023-12-23 | MR_ITS ---
EXAMINATION: MR LUMBAR SPINE WITHOUT CONTRAST CLINICAL INFORMATION: Discitis. Recent procedure. COMPARISON: MRI dated June 05, 2023. TECHNIQUE: MRI of the lumbar spine was obtained using routine sequences without contrast. FINDINGS: Last rib-bearing vertebra labeled T12. Modic type II endplate changes at L4-5. Bone marrow STIR signal on through the pedicles of L4 and L5 and S1 bilaterally and to focal bone marrow STIR signal in the center of the vertebral bodies of L4, L5 and S1. There is a minimal subtle STIR signal at the intervertebral disc L4-5. There is no cortical disruption and the endplates of L4 over L5. No prevertebral compartment hematoma or fluid collection, particularly at L4-5 nor L5-S1 Grade 1 retrolisthesis L5-S1. Conus medullaris ends at inferior endplate of T12 with normal signal. Neural elements of the thecal sac/cauda equina and filum terminalis demonstrated normal morphology pattern signal. T12-L1: No compression upon neural elements. L1-2: No compression upon neural elements. L2-3: Broad-based disc bulging. Facet joint and ligamentum flavum hypertrophy. Reduced AP diameter of the thecal sac and the neural foramina. L3-4: Broad-based disc bulging. Facet joint and ligamentum flavum hypertrophy. Reduced AP diameter of the thecal sac and the neural foramina. L4-5: Broad-based disc bulging. Facet joint hypertrophy. Reduced AP diameter of the thecal sac and the neural foramina likely encroaching the exiting nerve roots. L5-S1: Broad-based disc bulging. Facet joint hypertrophy. Bilateral neuroforamina stenosis encroaching the exiting nerve roots. No prevertebral compartment hematoma, mass or fluid collection.. MR/MR lumbar spine wo con IMPRESSION: No discitis/ osteomyelitis. Multilevel lumbar spondylosis from L2-3, to L5-S1 encroaching the exiting nerve roots of L4-L5 and likely. Discussed with Dr. Sean Bernal interpretation on December 24, 2023. Electronically signed by: Siva Castro MD 12/24/2023 10:22 AM [facility] [place]
== END 2023-12-23 16:09 | disposition home or self-care (01) ==
LOC: HO.MRI 16:08
PROVIDERS: PCP Pediatrics; Visit Provider Anesthesiology
DX: M46.46 Discitis, unspecified, lumbar region (principal)
CPT/HCPCS: 72148

== ENCOUNTER 2023-12-26 07:39 | Outpatient (REF) | payer MEDICAID, SELFPAY ==
[2023-12-26 08:21] LABS: MANUAL DIFF FLAG NO
[2023-12-26 09:55] LABS: Basophils Percent Auto 0.9 % (0-2); Eosinophils Absolute Auto 0.2 X10*3/uL (0.0-0.4); Eosinophils Percent Auto 5.9 % (0-4); Hematocrit 37.1 % (37.0-47.0); Hemoglobin 12.2 g/dl (12.0-16.0); Lymphocytes Absolute Auto 1.4 X10*3/uL (1.2-4.9); Lymphocytes Percent Auto 39.8 % (20-40); Mean Corpuscular HGB Conc 32.9 g/dl (31.0-35.0); Mean Corpuscular Hemoglobin 26.6 pg (27.0-33.0); Mean Corpuscular Volume 80.8 fL (80.0-98.0); Mean Platelet Volume 10.4 fL (9.4-12.3); Monocytes Absolute Auto 0.3 X10*3/uL (0.1-1.2); Monocytes Percent Auto 8.8 % (2-11); Neutrophils Absolute Auto 1.5 x10*3/uL (2.0-8.3); Neutrophils Percent Auto 44.6 % (45-73); Platelet Count 297 X10*3/uL (160-400); Red Blood Count 4.59 X10*6/uL (4.20-5.50); Red Cell Distribution Width 14.4 % (11.0-16.0); White Blood Count 3.4 X10*3/uL (4.8-10.8)
== END 2023-12-26 07:40 | disposition home or self-care (01) ==
LOC: HO.LAB 07:39
PROVIDERS: PCP Pediatrics; Visit Provider Anesthesiology
DX: M46.46 Discitis, unspecified, lumbar region (principal)
CPT/HCPCS: 36415; 85025

== ENCOUNTER 2023-12-28 14:50 | Outpatient (AMB) | payer MEDICAID, SELFPAY ==
--- NOTE | 2023-12-28 15:01 | A.OFFVIS_ITS ---
Intake Visit Reasons: MRI FOLLOW UP Intake Note: Pain today 2/10 Endodontic Assistant Required: No Accompanied by: Self / Same As Patient Allergies latex Allergy (Severe, Verified 12/28/23 15:07) rash/swollen eyes seafood Allergy (Severe, Verified 12/28/23 15:07) rash/swollen eyes shellfish derived Allergy (Severe, Verified 12/28/23 15:07) Anaphylaxis HPI Comments Details: Jes is back in my office after urgent MRI was performed on her lumbar spine. The position of the lesion seem to be appropriate. With this lesion positioned we can expect appropriate radiofrequency ablation of the basivertebral nerves. On the MRI there is no signs of infection, no signs of bleeding, no signs of compression fracture. Attention was attracted today that the patient complains on pain now not axial in nature and rather to the right side. On physical exam as below signs of sacroiliitis on the right. I will schedule this patient for right diagnostic sacroiliac joint injection. In any case she reports her pain now very mild no more than 2/10. She continues to endorse difficulty sitting. Prior: She received BVN intercept after the procedure she reports much better condition she reports excellent mobility good activities of daily living great social interactions. Ana Luisa henry 53 years old female who is back in my office for the evaluation of her current condition with conjunction of images we obtained by new MRI. Jes reports significant exacerbation of the pain when sitting. She is basically unable to seat more than few minutes. 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 She reports that sleeping with pillows under her legs alleviate her pain. She reports that the pain is mostly axial however sometimes on rare occasion radiates into the left lower extremity. Activities also aggravate her pain. Walking and doing stuff in her household make her pain very severe. The dictation of the MRI is as below. However the radiologist unfortunately ignored completely Modic type changes at L4-L5 and S1 vertebra. They are very prominent and can not be missed. I discussed situation with the patient. I told her that her pain is most likely multifactorial. I offered her intraseptal procedure 1st to treat the axial back pain and if after that the pain from disc degeneration and nerve root compression in the left lower extremity will be prominent again I offered her transforaminal epidural steroid injection on the left. The patient agreed with the plan. I will schedule her for the procedure of intercept. Prior:? She was under Dr. Valdez observation and Tanika was following her up.? Doctors José Miguel was performing interlaminar epidural steroid injection L4-5 to treat radicular pain.? He perform this procedure twice.? She had MRI done in [facility] which demonstrated significant degenerative disc disease and the radiculopathy at the L4-5 level.? However last time she came to my office with pain complains mostly in her left groin.? I suspected her having significant left knee osteoarthritis and I sent her for hip x-ray.? Left hip x- ray became negative for the osteoarthritis or any pathology.? Therefore unlikely it is coming from the left hip. ? with her MRI in mainly normal for all the levels but L4-5 the pain in left hip could stem out from sacroiliac joint problems versus? facet joint arthropathy.? [facility] Medical History (Updated 12/28/23 @ 15:38 by Sean Bernal MD) SIXTO (obstructive sleep apnea) History of allergic rhinitis Depression Lumbar disc disease Disc degeneration, lumbar Spondylosis of lumbar spine COVID-19 vaccine administered Anxiety Back problem Surgical History (Updated 12/15/23 @ 10:25 by ANGELICA Marlow) History of surgery Hx of surgical procedure H/O colonoscopy Hx of cholecystectomy Hx of tubal ligation Hx of abdominoplasty Gastric bypass status for obesity Family History Mother Breast CA Social History Household Members: Family Alcohol intake: current Alcohol intake frequency: holidays/special occasions only Patient Tobacco Use Status: Never used Tobacco Current occupational status: employed 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 Reproductive History Menstrual Age of Menarche: 12 Review of Systems Const All systems reviewed & are unremarkable except as noted in HPI and below ENT Reports Normal hearing present Neuro Reports Normal hearing present and Denies Sensory deficit (Neuro) Physical Exam Const General: comfortable, no acute distress, well developed, alert and awake Eyes Pupils: Equal, round and reactive pupils present EOM: EOMs intact bilaterally Chest Chest palpation & inspection: normal inspection of the chest Resp Effort & Inspection: normal respiratory effort, able to speak in complete sentences, normal respiratory pattern, no audible wheezes and no cough Cardio Jugular venous distension: no JVD Back/Spine/Pelvis Other: tenderness on palpation in paraspinal spinal region in lumbar spine in the projection of lumbar L1 and L2 vertebra.. Loading test is positive. Range of motion in lumbar spine is improved. Posture is improved. Positive Zia test on the right. Positive pelvic compression test on the right. Positive pelvic distraction test on the right. Flexing forward aggravates the pain. Fourteen finger test is positive on the right. Neuro Cranial nerves: Yes Equal, round and reactive pupils present and Yes Normal hearing present Sensory Exam: No Sensory deficit (Neuro) Psych Speech and movement: Normal speech and movement present Affect: normal affect Attitude: cooperative Results Reviewed Results Reviewed: MR LUMBAR SPINE WITHOUT CONTRAST CLINICAL INFORMATION: Discitis. Recent procedure. COMPARISON: MRI dated June 05, 2023. TECHNIQUE: MRI of the lumbar spine was obtained using routine sequences without contrast. FINDINGS: Last rib-bearing vertebra labeled T12. Modic type II endplate changes at L4-5. Bone marrow STIR signal on through the pedicles of L4 and L5 and S1 bilaterally and to focal bone marrow STIR signal in the center of the vertebral bodies of L4, L5 and S1. There is a minimal subtle STIR signal at the intervertebral disc L4-5. There is no cortical disruption and the endplates of L4 over L5. No prevertebral compartment hematoma or fluid collection, particularly at L4-5 nor L5-S1 Grade 1 retrolisthesis L5-S1. Conus medullaris ends at inferior endplate of T12 with normal signal. Neural elements of the thecal sac/cauda equina and filum terminalis demonstrated normal morphology pattern signal. T12-L1: No compression upon neural elements. L1-2: No compression upon neural elements. L2-3: Broad-based disc bulging. Facet joint and ligamentum flavum hypertrophy. Reduced AP diameter of the thecal sac and the neural foramina. L3-4: Broad-based disc bulging. Facet joint and ligamentum flavum hypertrophy. Reduced AP diameter of the thecal sac and the neural foramina. L4-5: Broad-based disc bulging. Facet joint hypertrophy. Reduced AP diameter of the thecal sac and the neural foramina likely encroaching the exiting nerve roots. L5-S1: Broad-based disc bulging. Facet joint hypertrophy. Bilateral neuroforamina stenosis encroaching the exiting nerve roots. No prevertebral compartment hematoma, mass or fluid collection.. IMPRESSION: No discitis/ osteomyelitis. Multilevel lumbar spondylosis from L2-3, to L5-S1 encroaching the exiting nerve roots of L4-L5 and likely. Assessment & Plan Assessment & Plan (1) Discitis of lumbar region: Code(s): M46.46 - Discitis, unspecified, lumbar region Category: Medical (2) Spondylosis of lumbar spine: Code(s): M47.816 - Spondylosis without myelopathy or radiculopathy, lumbar region Category: Medical (3) Disc degeneration, lumbar: Code(s): M51.36 - Other intervertebral disc degeneration, lumbar region Category: Medical (4) Vertebrogenic low back pain: Code(s): M54.51 - Vertebrogenic low back pain Category: Medical (5) Sacroiliitis: Code(s): M46.1 - Sacroiliitis, not elsewhere classified Category: Medical (6) Pain of right sacroiliac joint: Code(s): M53.3 - Sacrococcygeal disorders, not elsewhere classified Category: Medical Plan Status post BVN Intracept. Patient admits better posture and better mobility of the lumbar spine. Endorses pain on the right side of the lower back. The sacroiliac joint problem suspected see the physical exam as above. The MRI is negative for compression fracture, bleeding or infection. The lesions of the B VN will be evaluated by the Intracept specialists. I will schedule this patient for diagnostic right sacroiliac joint injection. Patient Instructions: I here by testify that I spent 38 minutes in conversation with this patient as well as evaluating her prior records as well as evaluating diagnostic studies as well as planning her care and organizing this note. Coding Level of Care Code Est Pt Level 4 (64671) Diagnoses Discitis of lumbar region M46.46 Spondylosis of lumbar spine M47.816 Disc degeneration, lumbar M51.36 Vertebrogenic low back pain M54.51 Sacroiliitis M46.1 Pain of right sacroiliac joint M53.3
== END 2023-12-28 15:31 | disposition home or self-care (01) ==
PROVIDERS: PCP Pediatrics; Visit Provider Anesthesiology
DX: M46.46 Discitis, unspecified, lumbar region (principal); M47.816 Spondylosis without myelopathy or radiculopathy, lumbar region; M51.369 Other intervertebral disc degeneration, lumbar region without mention of lumbar back pain or lower extremity pain; M54.51 Vertebrogenic low back pain; M46.1 Sacroiliitis, not elsewhere classified; M53.3 Sacrococcygeal disorders, not elsewhere classified
CPT/HCPCS: 99214

== ENCOUNTER → 2023-12-28 14:50 | Outpatient (BNVA) | payer MEDICAID, SELFPAY | PROVIDERS: PCP Pediatrics; Visit Provider Anesthesiology | DX: M46.46 Discitis, unspecified, lumbar region (principal); M51.360 Other intervertebral disc degeneration, lumbar region with discogenic back pain only; M47.816 Spondylosis without myelopathy or radiculopathy, lumbar region; M46.1 Sacroiliitis, not elsewhere classified; M53.3 Sacrococcygeal disorders, not elsewhere classified | CPT/HCPCS: 99212 ==

== ENCOUNTER 2024-03-14 11:43 | Outpatient (AMB) | payer MEDICAID, SELFPAY ==
--- NOTE | 2024-03-14 11:36 | A.OFFVIS_ITS ---
Intake Visit Reasons: TELEPHONE PO LSG 12/27/15 Allergies latex Allergy (Severe, Verified 12/28/23 15:07) rash/swollen eyes seafood Allergy (Severe, Verified 12/28/23 15:07) rash/swollen eyes shellfish derived Allergy (Severe, Verified 12/28/23 15:07) Anaphylaxis Medication List - Last Reconciled 03/14/24 by ANGELICA Marlow bupropion HCl XL 300 mg PO QAM clonazepam 1 mg PO DAILY PRN cyanocobalamin (vitamin B-12) 1,000 mcg PO DAILY famotidine (Pepcid) 20 mg PO DAILY hydroxyzine pamoate 25 mg PO QID PRN methylprednisolone (Medrol (Arnoldo)) 4 mg PO QAM 6 days naloxone 4 mg/actuation 4 mg intranasal Q2M PRN 1 day oxycodone-acetaminophen 5-325 mg 1 tab PO Q8H PRN sertraline 25 mg PO DAILY trazodone 50 mg PO DAILY PRN HPI Comments Details: This?is a?54?yo female who is s/p RYGB 12/27/2015. Presents for 8 year 2 month post op visit. Weight at last visit on 12/15/2023 was 197 pounds with a BMI of 32.8, weight today is about the same.? No complaints of nausea, emesis, abdominal pain or reflux, or constipation. Pt reports 2 recent family deaths, increased her anxiety. Did get back on track with meal and exercise plan. Doing much better not eating candy, drinking wine. Pt reports weight had gone up, then lost some. Stopped using protein shakes. Present meal plan includes: 1 Celebrate shake with 2 scoops 1 Isopure shake with 1 scoop 1 meal of 2 eggs 1 meal of 4-6f meat, 4-6f veg -has been doing 2 eggs with Isopure in AM, salad with tuna or avocado for lunch, dinner as above -sometimes will make a green vegetable drink -has 1 coffee per day, mixes almond milk with a little 2% milk and 2 Splenda Exercise routine includes: 1 hour early in AM- uses bike has a lot of gym equipment, weights at home having another procedure with pain management coming up [facility] Medical History (Updated 12/28/23 @ 15:38 by Sean Bernal MD) SIXTO (obstructive sleep apnea) History of allergic rhinitis Depression Lumbar disc disease Disc degeneration, lumbar Spondylosis of lumbar spine COVID-19 vaccine administered Anxiety Back problem Surgical History (Updated 12/15/23 @ 10:25 by ANGELICA Marlow) History of surgery Hx of surgical procedure H/O colonoscopy Hx of cholecystectomy Hx of tubal ligation Hx of abdominoplasty Gastric bypass status for obesity Family History Mother Breast CA Social History Household Members: Family Alcohol intake: current Alcohol intake frequency: holidays/special occasions only Patient Tobacco Use Status: Never used Tobacco Current occupational status: employed 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 Reproductive History Menstrual Age of Menarche: 12 Telehealth Telehealth Telehealth Platform: Telephone Location of provider rendering services: practice address Location of patient: address on file Patient Identification confirmed using: Name, : Yes Telehealth method: voice only Patient verbally consented to treatment: Yes Patient verbally consented to billing insurance company: Yes Patient informed of any privacy concerns related to visit: Yes Minutes spent on Phone/Video with Pt.: 16 Assessment & Plan Assessment & Plan (1) Gastric bypass status for obesity: Code(s): Z98.84 - Bariatric surgery status Category: Medical (2) Obesity: Code(s): E66.9 - Obesity, unspecified Category: Medical Plan Pt doing well currently, happy with her progress, has restarted exercise consistently, has improved mood and energy as well. Labs reviewed from last visit, taking B12 supplement. Pt requests to be added to list for when therapy groups resume. RTC 3 months. I spent a total of 30 minutes reviewing/updating records, examining the patient and counseling the patient on weight management as detailed above.
--- OUTSIDE RECORDS SUMMARY | 2024-03-14 16:37 | XMS_ITS | Encounter Summary ---
Author Organization [employer] Address [address] [facility] 7 [place] [address] Care Team Providers Care Home Specialist Name Role Phone Moon Alvarado MD Primary Care Provider [phone] Reason for Visit * Reason Onset Date Comments Med Refill 10/07/2023 Encounter Details Date Type Department Care Team (Late Contact Info) Description 10/07/2023 Telephone [facility] MEDICINE [address] [place] [address] Moon Alvarado MD [address] [place] [id number] Med Refill Social History Tobacco Use Types Packs/Day Years Used Date Smoking Tobacco: Never Smokeless Tobacco: Never Comments Unknown Sex and Gender Information Value Date Recorded Sex Assigned at Female 12/16/2021 10:18 AM EDT Legal Sex Female 10:18 AM EDT Gender Identity Female 12/16/2021 10:18 AM EDT Sexual Orientation Straight 12/16/2021 10 :18 AM EDT documented as of this encounter Miscellaneous Notes * Telephone Encounter - Nicholas Bell - 10/07/2023 9:50 AM EDT TC from pt requesting medication refill. Medications needing refill : oxyCODONE-acetaminophen (Percocet) 5-325 MG tablet To be sent to: [facility] documented in this encounter Plan of Treatment Upcoming Encounters Date Type Department Care Team (Late st Contact Info) Description 04/07/2024 11:00 AM EST Clinical Support [facility] CHC MED & PEDS [address] [place] [address] Roselyn Singer, IRMA [address] [place] [address] documented as of this encounter Visit Diagnoses Not on filedocumented in this encounter Care Teams Home Specialist Relationship Specialty Start Date End Date Moon Alvarado MD [address] [place] [address] PCP - General Family Medicine 02/16/18 documented as of this encounter
--- OUTSIDE RECORDS SUMMARY | 2024-03-14 16:37 | XMS_ITS | Encounter Summary ---
Author Organization [employer] Address [address] [facility] 7 [place] [address] Care Team Providers Care Freelance Writer Name Role Phone Moon Alvarado MD Primary Care Provider [phone] Reason for Visit * Reason Onset Date Comments Referral 01/19/2023 Encounter Details Date Type Department Care Team ([facility] st Contact Info) Description 01/19/2023 Telephone [facility] MEDICINE [address] [place] [address] Moon Alvarado MD [address] [place] [address] Referral Social History Tobacco Use Types Packs/Day Years [...] encounter Miscellaneous Notes * Telephone Encounter - Marina Wasserman RN - 01/20/2023 10:03 AM EST Noted. Informed pt of referral placed. Pt currently at [facility] being seen. * Telephone Encounter - Marina Wasserman RN - 01/19/2023 3:50 PM EST Placed call to pt regarding message below. Pt states going to Urgent care at [place] and being told she had an infection of her big Toe on Left foot and a fracture. They informed pt of need to f/u with [facility] urgently and pt managed to get an appt for tomorrow morning. [facility] is stating they need a referral from PCP office. Informed pt that PCP cannot place referral without indication or notes fromUC. Offered pt [facility] appt tonight but pt has no transport. Pt informed that notes from UC will be requested and message will be sent to PCP but there is no guarantee that referral can be sent to [facility] by tomorrow. Pt agrees with plan and hopes she still manages to keep appt with [facility] tomorrow. Notes from UC will be scanned into chart for PCP review. Spoke with [facility] and confirmed referral is needed from PCP and they can back date referral if it not processed by tomorrow. [facility] requested Group NPI salvador included on referral of [id number]. Informed [facility] that our office has our own referral dept thatmay already have said NPI. Please review UC notes and advise on referral request. Thank you. * Telephone Encounter - Wilfredo Rae - 01/19/2023 9:31 AM EST Tc from pt requesting a referral for [facility]le orthopedic documented in this encounter Plan of Treatment Upcoming Encounters Date Type Department Care Team (Late st Contact Info) Description 04/07/2024 11:00 AM EST Clinical Support [facility] CHC MED & PEDS [address] [place] [address] Roselyn Singer, IRMA [address] [place] [address] documented as of this encounter Visit Diagnoses Not on filedocumented in this encounter Care Teams Freelance Writer Relationship Specialty Start Date End Date Moon Alvarado MD [address] [place] [address] PCP - General Family Medicine 02/16/18 documented as of this encounter
--- OUTSIDE RECORDS SUMMARY | 2024-03-14 16:37 | XMS_ITS | Encounter Summary ---
Author Organization [employer] Address [address] [place] [address] 7 [place] [address] Care Team Providers Care Cap Machine Operator Name Role Phone Moon Alvarado MD Primary Care Provider [phone] Reason for Visit * Reason Onset Date Comments Appointment Request 06/08/2023 Encounter Details Date Type Department Care Team (Late Contact Info) Description 06/08/2023 Telephone [facility] MEDICINE [address] [place] [address] Moon Alvarado MD [address] [place] [address] Appointment Request Social History Tobacco Use Types Packs/Day Years [...] encounter Miscellaneous Notes * Telephone Encounter - Lane Anthony - 06/08/2023 3:54 PM EDT Tc from patient calling to cancel appt for 06/09 due to a emergency and would like a call back to reschedule documented in this encounter Plan of Treatment Upcoming Encounters Date Type Department Care Team (Late Contact Info) Description 04/07/2024 11:00 AM EST Clinical Support [facility] CHC MED & PEDS [address] [place] [address] Roselyn Singer RN [address] [place] [address] documented as of this encounter Visit Diagnoses Not on filedocumented in this encounter Care Teams Cap Machine Operator Relationship Specialty Start Date End Date Moon Alvarado MD [address] [place] [address] PCP - General Family Medicine 02/16/18 documented as of this encounter
--- OUTSIDE RECORDS SUMMARY | 2024-03-14 16:37 | XMS_ITS | Encounter Summary ---
Author Organization [employer] Address [address] [facility] 7 [place] [address] Care Team Providers Care Senior Java Developer Name Role Phone Moon Alvarado MD Primary Care Provider [phone] Reason for Visit * Reason Onset Date Comments Med Refill 03/08/2024 Encounter Details Date Type Department Care Team (Late st Contact Info) Description 03/08/2024 Refill [facility] MEDICINE [address] [place] [address] Moon Alvarado MD [address] [place] [address] Chronic pain syndrome Social History Tobacco Use Types Packs/Day Years Used Date Smoking Tobacco: Never Passive Smoke Exposure: Never Smokeless Tobacco: Never Comments Unknown Sex and Gender Information Value Date Recorded Sex Assigned at Female 12/16/2021 10:18 AM EDT Legal Sex Female 10:18 AM EDT Gender Identity Female 12/16/2021 10:18 AM EDT Sexual Orientation Straight 12/16/2021 10 :18 AM EDT documented as of this encounter Miscellaneous Notes * Telephone Encounter - Wilfredo Rae - 03/08/2024 8:39 AM EST TC from pt requesting medication refill. Medications needing refill: oxyCODONE-acetaminophen (Percocet) 5-325 MG tablet To be sent to: [facility] [place], [place] - [address] [facility] documented in this encounter Plan of Treatment Upcoming Encounters Date Type Department Care Team (Late st Contact Info) Description 04/07/2024 11:00 AM EST Clinical Support [facility] MED & PEDS [address] [place] [address] Roselyn Singer, IRMA [address] [place] [address] documented as of this encounter Visit Diagnoses Diagnosis Chronic pain syndrome documented in this encounter Care Teams Senior Java Developer Relationship Specialty Start Date End Date Moon Alvarado MD [address] [place] [address] PCP - General Family Medicine 02/16/18 documented as of this encounter
--- OUTSIDE RECORDS SUMMARY | 2024-03-14 16:37 | XMS_ITS | Encounter Summary ---
Author Organization [employer] Address [address] [place] [address] 7 [place] [address] Care Team Providers Care Through Operator Name Role Phone Moon Alvarado MD Primary Care Provider [phone] Reason for Visit * Reason Onset Date Comments Med Refill 10/13/2022 Encounter Details Date Type Department Care Team ([facility] Contact Info) Description 10/13/2022 Telephone [facility] MEDICINE [address] [place] [address] Moon Alvarado MD [address] [place] [address] Med Refill Social History Tobacco Use Types [...] encounter Miscellaneous Notes * Telephone Encounter - Tierra Steward - 10/13/2022 8:05 AM EDT Tc from pt requesting a refill for oxyCODONE-acetaminophen (Percocet) 5-325 MG tablet documented in this encounter Plan of Treatment Upcoming Encounters Date Type Department Care Team ([facility] Contact Info) Description 04/07/2024 11:00 AM EST Clinical Support [facility] CHC MED & PEDS [address] [place] [address] Roselyn Singer, IRMA [address] [place], [place] [phone] documented as of this encounter Visit Diagnoses Not on filedocumented in this encounter Care Teams Through Operator Relationship Specialty Start Date End Date Moon Alvarado MD [address] [place] [address] PCP - General Family Medicine 02/16/18 documented as of this encounter
--- OUTSIDE RECORDS SUMMARY | 2024-03-14 16:37 | XMS_ITS | Encounter Summary ---
Author Organization [employer] [facility] Address [address] [place] [address] [address] [place] [address] Care Team Providers Care Health Care Liaison Name Role Phone Moon Alvarado MD Primary Care Provider [phone] Encounter Details Date Type Department Care Team (Late st Contact Info) Description 07/15/2023 Orders Only [facility] [address] [place] [address] Provider, MD Marv Social History Tobacco Use Types Packs/Day Years Used Date Smoking Tobacco: Never Smokeless Tobacco: Never Comments Unknown Sex and Gender Information Value Date Recorded Sex Assigned at Female 12/16/2021 10:18 AM EDT Legal Sex Female 10:18 AM EDT Gender Identity Female 12/16/2021 10:18 AM EDT Sexual Orientation Straight 12/16/2021 10 :18 AM EDT documented as of this encounter Plan of Treatment Upcoming Encounters Date Type Department Care Team (Late st Contact Info) Description 04/07/2024 11:00 AM EST Clinical Support [facility] MED & PEDS [address] [place] [address] Roselyn Singer, IRMA [address] [place] [address] documented as of this encounter Procedures Procedure Name Priority Date/Time Associated Diagnosis Comments COLONOSCOPY Routine 07/09/2023 12:53 PM EDT documented in this encounter Results * Colonoscopy (07/09/2023 12:53 PM EDT) Anatomical Region Laterality Modality Endoscopy Historical Provider ENDOSCOPY PROCEDURE ORDER YOLIE Final Result documented in this encounter Visit Diagnoses Not on filedocumented in this encounter Care Teams Health Care Liaison Relationship Specialty Start Date End Date Moon Alvarado MD [address] [place] [address] PCP - General Family Medicine 02/16/18 documented as of this encounter
--- OUTSIDE RECORDS SUMMARY | 2024-03-14 16:37 | XMS_ITS | Encounter Summary ---
Author Organization [employer] [facility] Address [address] [place] [address] Care Team Providers Care Dust Puller Name Role Phone Moon Alvarado MD Primary Care Provider [phone] Reason for Visit * Reason Onset Date Comments r/s LEASE OPERATOR RN appt 05/04/2023 Encounter Details Date Type Department Care Team (Late st Contact Info) Description 05/04/2023 Telephone [facility] [address] [place] [address] Moon Alvarado MD [address] [place] [id number] r/s LEASE OPERATOR RN appt Social History Tobacco Use Types Packs/Day Years [...] * Telephone Encounter - Tierra Steward - 05/04/2023 12:09 PM EDT Tc from pt requesting to r/s LEASE OPERATOR Rn appt scheduled for 05/05/23 , appt has been cancelled. documented in this encounter Plan of Treatment Upcoming Encounters Date Type Department Care Team (Late st Contact Info) Description 04/07/2024 11:00 AM EST Clinical Support [facility] [address] [place] [address] Roselyn Singer, IRMA [address] [place] [address] documented as of this encounter Visit Diagnoses Not on filedocumented in this encounter Care Teams Dust Puller Relationship Specialty Start Date End Date Moon Alvarado MD [address] [place] [address] PCP - General Family Medicine 02/16/18 documented as of this encounter
--- OUTSIDE RECORDS SUMMARY | 2024-03-14 16:37 | XMS_ITS | Encounter Summary ---
Author Organization [employer] [facility] Address [address] [place] [address] [address] [place] [address] Care Team Providers Care Retail Shift Leader Name Role Phone Moon Alvarado MD Primary Care Provider [phone] Encounter Details Date Type Department Care Team (Late st Contact Info) Description 12/26/2022 Abstract [facility] [address] [place] [address] Natalya Peterson Social History Tobacco Use Types Packs/Day Years [...] Description 04/07/2024 11:00 AM EST Clinical Support [facility] [address] [place] [address] Roselyn Singer, IRMA [address] [place] [address] documented as of this encounter Procedures Procedure Name Priority Date/Time Associated Diagnosis Comments COLONOSCOPY Routine 07/23/2020 documented in this encounter Results * Colonoscopy (07/23/2020) Colonoscopy Normal Normal Narrative Natalya Peterson - 07/23/2020 Recommended 10 year follow up us Historical Provider HEALTH MAINTENANCE Final Result documented in this encounter Visit Diagnoses Not on filedocumented in this encounter Care Teams Retail Shift Leader Relationship Specialty Start Date End Date Moon Alvarado MD [address] [place] [address] PCP - General Family Medicine 02/16/18 documented as of this encounter
--- OUTSIDE RECORDS SUMMARY | 2024-03-14 16:37 | XMS_ITS | Clinical Summary ---
Author Organization [employer] Address [address] [facility] [address] [place] [address] Care Team Providers Care Head Correction Officer Name Role Phone Moon Alvarado MD Primary Care Provider [phone] Allergies Active Allergy Reactions Criticality Noted Date Comments Latex Hives 09/05/2022 Shellfish-Derived Products High 3 Other reaction(s): SWELLING, HIVES , Medications Misc. Devices (Pulse Oximeter Deluxe) misc check oxygen levels prn Active cetirizine (ZyrTEC) 10 MG tablet Take 1 tablet by mouth in the morning. Active clonazePAM (KlonoPIN) 1 MG tablet Take 1 mg by mouth in the morning and at bedtime. Active Diclofenac Sodium (Voltaren) 1 % gel Apply 2 g topically in the morning, at noon, in the evening, and at bedtime. Active EPINEPHrine (EpiPen 2-Arnoldo) 0.3 MG/0.3ML injection syringe Inject 0.3 mg as directed if needed. Active naloxone (Narcan) 4 mg/0.1 mL nasal spray Administer 0.1 mL into affected nostril(s) if needed. Active tiZANidine (Zanaflex) 4 MG tablet Take 1 tablet by mouth if needed at bedtime. Active zoster vaccine-recom binant adjuvanted (Shingrix) 50 MCG/0.5ML vaccine Inject 0.5 mL into the shoulder, thigh, or buttocks 1 (one) time. Active traZODone (Desyrel) 50 MG tablet Take 50 mg by mouth if needed each day. Active diclofenac (Cataflam) 50 MG tablet Take 1 tablet by mouth in the morning and 1 tablet in the evening. Active buPROPion XL (Wellbutrin XL) 300 MG 24 hr tablet Take 300 mg by mouth in the morning. Active terbinafine (LamISIL) 250 MG tablet TAKE ONE TABLET BY MOUTH ONCE DAILY FOR SIX WEEKS 42 tablet Active sertraline (Zoloft) 25 MG tablet Take 25 mg by mouth in the morning. Active Diclofenac Sodium 1 % gel Apply bid to knee 100 g 11 Active triamcinolone (Kenalog) 0.025 % cream Apply topically 2 times daily. 45 g 1 023 Active Clotrimazole 2 % vaginal cream Apply intravaginally at bedtime for 1 week 21 g 1 023 Active baclofen (Lioresal) 5 MG tablet TAKE 1 TABLET BY MOUTH THREE TIMES DAILY FOR 3 DAYS NEEDED FOR PAIN 30 tablet Active estradiol (Estrace) 0.1 MG/GM vaginal cream Insert 1 gm intravaginally 2 times a week 42.5 g 11 Active lidocaine (Lidoderm) 5 % patch Apply 1 patch topically Once per day. 30 patch 1 Active oxyCODONE-sofia taminophen (Percocet) 5-325 MG tabletIndicat ions:Chronic pain syndrome Take 1 tablet by mouth every 8 (eight) hours if needed for severe pain for up to 28 days. 84 tablet 025 2024 Active lidocaine (Lidoderm) 5 % patch Apply 1 patch topically in the morning. 022 2023 Discontinued(R eorder (will not trigger notification to Pharmacy)) estradiol (Estrace) 0.1 MG/GM vaginal cream Insert 1 g into the vagina in the morning. Insert 1 gm intravaginally nightly for 2 weeks then use 2 times a week 42.5 g 11 024 2023 Discontinued(R eorder (will not trigger notification to Pharmacy)) oxyCODONE-sofia taminophen (Percocet) 5-325 MG tabletIndicat ions:Chronic pain syndrome Take 1 tablet by mouth every 8 (eight) hours if needed for severe pain for up to 28 days. 84 tablet 024 2024 Discontinued(R eorder (will not trigger notification to Pharmacy)) nitrofurantoi n, macrocrystal- monohydrate, (Macrobid) 100 MG capsule Take 1 capsule (100 mg) by mouth 2 times daily for 7 days. 14 capsule 024 2024 Active Problems Problem Noted Date Diagnosed Date Chronic pain syndrome 12/12/2016 Cyst of ovary 07/23/2016 Self-inflicted injury 07/23/2016 Severe recurrent major depression 07/23/2016 Obstructive sleep apnea of adult 09/11/2015 Chronic anxiety 12/29/2014 Lumbar spondylosis 12/29/2014 Obesity with body mass index 30 or greater 12/29 Seasonal allergic rhinitis 12/29/2014 Degeneration of lumbar intervertebral disc 09/02 Skin tag 09/02/2013 History of cholecystectomy 11/18/2012 Solitary cyst of breast 04/06/2012 Acute upper respiratory infection 05/13/2011 Contact dermatitis 05/13/2011 Depressive disorder 05/13/2011 Pain in limb 05/13/2011 Encounters Date Type Department Care Team Description 03/08/2024 Refill [facility] [address] [place] [phone] Moon Alvarado MD Chronic pain syndrome 02/16/2024 10:00 AM EST Office Visit [facility] [address] [place] [address] Moon Alvarado MD Dysuria (Primary Dx); Dietary counseling; Exercise counseling; Severe episode of recurrent major depressive disorder, without psychotic features (CMS/HCC) 02/16/2024 Travel 02/16/2024 Telephone [facility] [address] [place] [address] Moon Alvarado MD Nurse Triage 02/09/2024 Travel 02/09/2024 Refill [facility] [address] [place], [place] [phone] Moon Alvarado MD Chronic pain syndrome 01/05/2024 Refill [facility] [address] [place] [address] Roselyn Singer RN Chronic pain syndrome 01/05/[address] [address] Moon Alvarado MD Med Refill 12/26/2023 Orders Only GENERIC EXTERNAL DATA DEPARTMENT Provider, Generic External Data 12/22/[address] [phone] Moon Alvarado MD Prior Authorization 12/18/2023 Orders Only GENERIC EXTERNAL DATA DEPARTMENT Provider, Generic External Data from Last 3 Months Social History Tobacco Use Types Packs/Day Years Used Date Smoking Tobacco: Never Passive Smoke Exposure: Never Smokeless Tobacco: Never Tobacco Cessation:Counseling Given: Not Answered Comments Unknown Sex and Gender Information Value Date Recorded Sex Assigned at Female 12/16/2021 10:18 AM EDT Legal Sex Female 10:18 AM EDT Gender Identity Female 12/16/2021 10:18 AM EDT Sexual Orientation Straight 12/16/2021 10 :18 AM EDT Last Filed Vital Signs Vital Sign Reading Time Taken Comments Blood Pressure 128/81 02/16/2024 9:45 AM EST Pulse 88 02/16/2024 9:45 AM EST Temperature 36.6 ??C (97.8 ??F) 02/16/2024 9:45 AM ES T Respiratory Rate 20 02/16/2024 9:45 AM EST Oxygen Saturation 99% 02/16/2024 9:45 AM EST Inhaled Oxygen Concentration - - Weight 93 kg (205 lb) 02/16/2024 9:45 AM EST Height 165.1 cm (5' 5 ) 02/16/2024 9:45 AM EST Body Mass Index 34.11 02/16/2024 9:45 AM EST Plan of Treatment Upcoming Encounters Date Type Department Care Team (Late st Contact Info) Description 04/07/2024 11:00 AM EST Clinical Support [facility] [address] [place] [address] Roselyn Singer RN [address] [place] [address] Health Maintenance Due Date Last Done Comments CT Colonography 1970 Depression Screening 1970 FIT DNA/Cologuard 1970 FIT 1970 FOBT 1970 HIV Screening 1970 SDOH Screening 1970 Sigmoidoscopy 1970 Alcohol/Substance Use Screening 1982 Hepatitis C Screening 01/28/1988 Hepatitis B Vaccines (1 of 3 - 19+ 3-dose series) 1989 Zoster Vaccines (1 of 2) 01/28/2020 Mammogram 04/09/2023 04/09/2021, 05/17, 05/25/2017 COVID-19 Vaccine ( season) 2023 04/15/2020, 03/27/2020 Influenza Vaccine (#1) 2023 , 01/19/2018, 12/12/2016, Additional history exists Pap Smear 01/07/2025 01/07/2022 Tobacco Screening 02/15/2025 02/16/2024 DTaP/Tdap/Td Vaccines (3 - Td or Tdap) 03/08/2026 03/08/2016, 12/06/2012 Cervical Cancer Screening 01/07/2027 HPV/Cotest 01/07/2027 01/07/2022 Lipid Panel 12/17/2028 12/18/2023, 06/16, 09/05/2020 Colonoscopy 07/08/2033 07/09/2023, 07/23/2020 Colorectal Cancer Screening 07/08/2033 RSV Patients and Patients Aged 60 years or older (1 - 1-dose 75+ series) 2045 Pneumococcal Vaccine: Pediatrics (0 to 5 Years) and At-Risk Patients (6 to 64 Years) Aged Out 10/29/2012 No longer eligible based on patient's age to complete this topic HIB Vaccines Aged Out No longer eligi ble based on patient's age to complete this topic HPV Vaccines Aged Out No longer eligi ble based on patient's age to complete this topic Hepatitis A Vaccines Aged Out No long er eligible based on patient's age to complete this topic IPV Vaccines Aged Out No longer eligi ble based on patient's age to complete this topic Meningococcal Vaccine Aged Out No reny ozzie eligible based on patient's age to complete this topic RSV under 20 months Aged Out No longe r eligible based on patient's age to complete this topic Rotavirus Vaccines Aged Out No longer eligible based on patient's age to complete this topic Procedures Procedure Name Priority Date/Time Associated Diagnosis Comments POCT URINALYSIS DIPSTICK Routine 02/16/2024 10:24 AM EST Dysuria CBC WITH AUTO DIFFERENTIAL Routine 12/26/2023 8:20 AM EST MR LUMBAR SPINE WO CONTRAST Routine 12/23/2023 4:34 PM EST VITAMIN A Routine 12/18/2023 7:03 AM EDT VITAMIN B1 Routine 12/18/2023 7:03 AM EDT ZINC Routine 12/18/2023 7:03 AM EDT VITAMIN B12/FOLATE, SERUM PANEL Routine 12/18/2023 7:03 AM EDT INSULIN Routine 12/18/2023 7:03 AM EDT TSH W/REFLEX TO FT4 Routine 12/18/2023 7 :03 AM EDT VITAMIN D,25-OH,TOTAL,IA Routine 12/18/2023 7:03 AM EDT FERRITIN Routine 12/18/2023 7:03 AM EDT LIPID PANEL, STANDARD Routine 12/18/2023 7:03 AM EDT C-REACTIVE PROTEIN Routine 12/18/2023 7: 03 AM EDT IRON AND TOTAL IRON BINDING CAPACITY Routine 12/18/2023 7:03 AM EDT COMPREHENSIVE METABOLIC PANEL Routine 12/18/2023 7:03 AM EDT HEMOGLOBIN A1C Routine 12/18/2023 7:03 AM EDT CBC WITH AUTO DIFFERENTIAL Routine 12/18/2023 7:03 AM EDT COLONOSCOPY Routine 07/09/2023 12:53 PM EDT HPV MRNA E6/E7 REFLEX TO HPV 16, 18/45 Routine 01/07/2022 2:32 PM EST PAP SMEAR Routine 01/07/2022 2:32 PM EST MAMMOGRAM GENERIC Routine 04/09/2021 7:4 5 AM EST from Last 3 Months or Most Recently Relevant to Health Maintenance Results * (ABNORMAL) POCT Urinalysis (02/16/2024 10:24 AM EST) Color, UA Yellow Clarity, UA Clear Glucose, UA Negative Bilirubin, UA Negative Ketones, UA Negative Spec Grav, UA 1.025 Blood, UA Negative Negative, None Detected pH, UA 6.0 Protein, UA Negative Urobilinogen, UA 0.2 Leukocytes, UA Few 15(A) Negative, Rare, Trace Comment:small Nitrite, UA Negative Negative, None Detected Appearance, UA clear QC Media Lot # [id number] Lot# Expiration Date [id number] Urine 02/16/2024 10:2 4 AM EST Moon Alvarado MD POINT OF CARE TEST ENTER/EDIT ORDERABLES Final Result * (ABNORMAL) CBC auto differential (12/26/2023 8:20 AM EST) Only the most recent of2 resultswithin the time period is included. White Blood Count 3.4(L) 4.8 - 10.8 X10*3/uL [facility] Red Blood Count 4.59 4.20 - 5.50 X10*6/uL [facility] Hemoglobin 12.2 12.0 - 16.0 g/dl [facility] Hematocrit 37.1 37.0 - 47.0 % [facility] Mean Corpuscular Volume 80.8 80.0 - 98.0 fL [facility] Mean Corpuscular Hemoglobin 26.6(L) 27.0 - 33.0 pg [facility] Mean Corpuscular HGB Conc 32.9 31.0 - 35.0 g/dl [facility] Red Cell Distribution Width 14.4 11.0 - 16.0 % [facility] Platelet Count 297 160 - 400 X10*3/uL [facility] Mean Platelet Volume 10.4 9.4 - 12.3 fL [facility] Neutrophils Percent Auto 44.6(L) 45 - 73 % [facility] Imm Gran Pct Auto 0.0 0.0 - 0.4 % [facility] Lymphocytes Percent Auto 39.8 20 - 40 % [facility] Monocytes Percent Auto 8.8 2 - 11 % [facility] Eosinophils Percent Auto 5.9(H) 0 - 4 % [facility] Basophils Percent Auto 0.9 0 - 2 % [facility] NRBC Pct Auto 0.0 0.0 - 0.2 /100WBC [facility] Neutrophils Absolute Auto 1.5(L) 2.0 - 8.3 x10*3/uL [facility] Imm Gran Abs Auto 0.00 0.00 - 0.03 X10*3/uL [facility] Lymphocytes Absolute Auto 1.4 1.2 - 4.9 X10*3/uL [facility] Monocytes Absolute Auto 0.3 0.1 - 1.2 X10*3/uL [facility] Eosinophils Absolute Auto 0.2 0.0 - 0.4 X10*3/uL [facility] Basophils Absolute Auto 0.0 0.0 - 0.2 X10*3/uL [facility] NRBC Abs Auto 0.000 0.0 - 0.012 X10*3/uL [facility] 12/26/2023 8:20 AM EST 12/26/2023 8:20 AM EST us Generic External Data Provider LAB BLOOD ORDERAB LES Final Result [facility] [address] [place] [address] [phone] * MR Lumbar Spine w/o Contrast (12/23/2023 4:34 PM EST) Anatomical Region Laterality Modality Spine, L-spine Magnetic Resonan ce 12/23/2023 4:34 PM EST Narrative 12/24/2023 10:25 AM EST ? [facility] ?[address] ?[place] [address] ? Magnetic Resonance Report ? Signed ? Patient: Ambrose,Jes Guidry ?MR#: [id number] ?? [id number] ? : 1970 ?Acct:[id number] ? Age/Sex: 53 / F ?ADM Date: 12/23/23 ? Loc: HO.MRI ? Attending Dr: Sean Bernal MD ? Ordering Physician: Sean Bernal MD ?? Date of Service: 12/23/23 ?? Procedure(s): MR lumbar spine wo con ?? Accession Number(s): [id number] ? cc: Moon Alvarado MD; Sean Bernal MD ? EXAMINATION: ?? MR LUMBAR SPINE WITHOUT CONTRAST ? CLINICAL INFORMATION: ?? Discitis. Recent procedure. ? COMPARISON: ?? MRI dated June 05, 2023. ? TECHNIQUE: ?? MRI of the lumbar spine was obtained using routine sequences without ?? contrast. ? FINDINGS: ?? Last rib-bearing vertebra labeled T12. ? Modic type II endplate changes at L4-5. ?? Bone marrow STIR signal on through the pedicles of L4 and L5 and S1 ?? bilaterally and to focal bone marrow STIR signal in the center of the ?? vertebral bodies of L4, L5 and S1. ?? There is a minimal subtle STIR signal at the intervertebral disc L4-5. ?? There is no cortical disruption and the endplates of L4 over L5. ?? No prevertebral compartment hematoma or fluid collection, particularly ?? at L4-5 nor L5-S1 ?? Grade 1 retrolisthesis L5-S1. ? Conus medullaris ends at inferior endplate of T12 with normal signal. ?? Neural elements of the thecal sac/cauda equina and filum terminalis ?? demonstrated normal morphology pattern signal. ? T12-L1: ?? No compression upon neural elements. ? L1-2: ?? No compression upon neural elements. ? L2-3: ?? Broad-based disc bulging. Facet joint and ligamentum flavum ?? hypertrophy. Reduced AP diameter of the thecal sac and the neural ?? foramina. ? L3-4: ?? Broad-based disc bulging. Facet joint and ligamentum flavum ?? hypertrophy. Reduced AP diameter of the thecal sac and the neural ?? foramina. ? L4-5: ?? Broad-based disc bulging. Facet joint hypertrophy. Reduced AP diameter ?? of the thecal sac and the neural foramina likely encroaching the ?? exiting nerve roots. ? L5-S1: ?? Broad-based disc bulging. Facet joint hypertrophy. Bilateral ?? neuroforamina stenosis encroaching the exiting nerve roots. ? No prevertebral compartment hematoma, mass or fluid collection.. ? MR/MR lumbar spine wo con ?? IMPRESSION: ?? No discitis/ osteomyelitis. ?? Multilevel lumbar spondylosis from L2-3, to L5-S1 encroaching the ?? exiting nerve roots of L4-L5 and likely. ? Discussed with Dr. Sean Bernal interpretation on December 24, 2023. ? Electronically signed by: ??Siva Castro MD ??12/24/2023 10:22 AM ?? EST ? Dictated By: ?Siva Joshua MD ? Signed By: ?<Electronically signed by Siva Lo MD in OV> ? 12/24/23 1022 ? DD/ 1634 ? TD/TT: 12/23/23 1645 ? Video Game Designer: ? Procedure Note Michelle Delvalle - 12/24/[address] [address] Magnetic Resonance Report Signed Patient: Jes Boggs [facility]#: [id number] : 1970Acct:[id number] Age/Sex: 53 / FADM Date: 12/23/23 Loc: HO.MRI Attending Dr: Sean Bernal MD Ordering Physician: Sean Bernal MD Date of Service: 12/23/23 Procedure(s): MR lumbar spine wo con Accession Number(s): [id number] cc: Moon Alvarado MD; Sean Bernal MD EXAMINATION: MR LUMBAR SPINE WITHOUT CONTRAST CLINICAL INFORMATION: Discitis. Recent procedure. COMPARISON: MRI dated June 05, 2023. TECHNIQUE: MRI of the lumbar spine was obtained using routine sequences without contrast. FINDINGS: Last rib-bearing vertebra labeled T12. Modic type II endplate changes at L4-5. Bone marrow STIR signal on through the pedicles of L4 and L5 and S1 bilaterally and to focal bone marrow STIR signal in the center of the vertebral bodies of L4, L5 and S1. There is a minimal subtle STIR signal at the intervertebral disc L4-5. There is no cortical disruption and the endplates of L4 over L5. No prevertebral compartment hematoma or fluid collection, particularly at L4-5 nor L5-S1 Grade 1 retrolisthesis L5-S1. Conus medullaris ends at inferior endplate of T12 with normal signal. Neural elements of the thecal sac/cauda equina and filum terminalis demonstrated normal morphology pattern signal. T12-L1: No compression upon neural elements. L1-2: No compression upon neural elements. L2-3: Broad-based disc bulging. Facet joint and ligamentum flavum hypertrophy. Reduced AP diameter of the thecal sac and the neural foramina. L3-4: Broad-based disc bulging. Facet joint and ligamentum flavum hypertrophy. Reduced AP diameter of the thecal sac and the neural foramina. L4-5: Broad-based disc bulging. Facet joint hypertrophy. Reduced AP diameter of the thecal sac and the neural foramina likely encroaching the exiting nerve roots. L5-S1: Broad-based disc bulging. Facet joint hypertrophy. Bilateral neuroforamina stenosis encroaching the exiting nerve roots. No prevertebral compartment hematoma, mass or fluid collection.. MR/MR lumbar spine wo con IMPRESSION: No discitis/ osteomyelitis. Multilevel lumbar spondylosis from L2-3, to L5-S1 encroaching the exiting nerve roots of L4-L5 and likely. Discussed with Dr. Sean Bernal interpretation on December 24, 2023. Electronically signed by: Siva Castro MD 12/24/2023 10:22 AM EST RP Dictated By: Siva Joshua MD Signed By: <Electronically signed by Siva Lo MDin OV> 12/24/23 1022 DD/ 1634 TD/TT: 12/23/23 1645 Video Game Designer: [facility] External Provider IMG MRI PROCEDURES Edited Result - Final * Vitamin D, 25-Hydroxy, Total, Immunoassay (12/18/2023 7:03 AM EDT) Vitamin D 25-OH Total 39.5 >30 ng/mL [facility] Comment:Health Based Referen ce Values*< 20 ng/mL Bwgofpbrw15-54 ng/mL Insufficient> 30 ng/mL Sufficient*Socorro LOMBARDI. N Engl J Med. 2007;357:266-280Care must be taken in interpreting Vitamin D results fromdifferent laboratories and methodologies. Published datademonstrated that results from patients undergoinghemodialysis may show a negative bias when tested withvarious automated 25-OH vitamin D assays when compared toLC-MS/MS.When testing samples from patients whose predominant form ofVitamin D is Vitamin D2, such as patients receiving VitaminD2 supplementation, results that are subtherapeutic shouldbe confirmed with another method such as LC-MS/MS. 12/18/2023 7:03 AM EDT 12/18/2023 7:03 AM EDT Generic External Data Provider LAB BLOOD ORDERAB LES Final Result [facility] [address] [place] [phone] * (ABNORMAL) Vitamin B12 (Cobalamin) and Folate Panel, Serum (12/18/2023 7:03 AM EDT) Pathologist [facility] Vitamin B12 169(L) 200 - 900 pg/mL [facility] Comment:NORMAL 200-900 PG/ML INDETERMINATE 160-199 PG/ML DEFICIENT < 160 PG/ML Folate 9.7 > or = 4.0 ng/mL [facility] Comment:Reference Values:> o r = 4.0 ng/mL< 4.0 ng/mL suggests folate deficiency Methotrexate, aminopterin and folinic acid(leucovorin) are chemotherapeutic agents whose molecularstructures are similar to folate; therefore, the Architectfolate assay cannot be used for patients using these drugs. 12/18/2023 7:03 AM EDT 12/18/2023 7:03 AM EDT Generic External Data Provider LAB BLOOD ORDERAB LES Final Result Performing Organization Address City/[facility]/ZIP Co de Phone Number [facility] [address] [place] [phone] * TSH with Reflex to Free T4 (12/18/2023 7:03 AM EDT) [facility] TSH reflex Free T4 1.34 0.32 - 4.0 uIU/mL [facility] 12/18/2023 7:03 AM EDT 12/18/2023 7:03 AM EDT Generic External Data Provider LAB BLOOD ORDERAB LES Final Result Performing Organization Address City/[facility]/ZIP Co de Phone Number [facility] [address] [place] [phone] * (ABNORMAL) Iron And Total Iron Binding Capacity (12/18/2023 7:03 AM EDT) [facility] Iron 51 30 - 160 mcg/dL [facility] Total Iron Binding Capacity 399 228 - 428 mcg/dL [facility] Percent Iron Saturation 13(L) 15 - 50 % [facility] Unsaturated Iron Binding 348 ug/dL [facility] 12/18/2023 7:03 AM EDT 12/18/2023 7:03 AM EDT Generic External Data Provider LAB BLOOD ORDERAB LES Final Result Performing Organization Address [facility] de Phone Number [facility] [address] [place] [phone] * Insulin (12/18/2023 7:03 AM EDT) Insulin 6 2 - 29 uU/mL [facility] Comment:This test was perfor med using the Stevenson chemiluminescentmethod. Values obtained from different assay methods cannot beused interchangeably. This insulin assay shows a possiblecross-reactivity with antibodies generated against insulin(immunoreactive insulin and some patients treated withbovine or porcine insulin). Insulin levels may be measuredlower in patients with insulin autoimmune syndrome orfamilial high pro-insulinemia. 12/18/2023 7:03 AM EDT 12/18/2023 7:03 AM EDT Generic External Data Provider LAB BLOOD ORDERAB LES Final Result Performing Organization Address [facility] de Phone Number [facility] [address] [place] [phone] * Zinc (12/18/2023 7:03 AM EDT) Zinc 64 60 - 130 mcg/dL [facility] Comment:This test was develo ped and its analytical performancecharacteristics have been determined by [employer] [place], [place]. It hasnot been cleared or approved by the U.S. Food and DrugAdministration. This assay has been validated pursuantto the CLIA regulations and is used for clinicalpurposes.THIS TEST WAS PERFORMED AT:[employer] [place] [address]WYEJJMPAYANA MARIA MD,PHD 12/18/2023 7:03 AM EDT 12/18/2023 7:03 AM EDT us Generic External Data Provider LAB BLOOD ORDERAB LES Final Result Performing Organization Address [facility]/ZIP Co de Phone Number [facility] [address] [place] [phone] * Vitamin A (12/18/2023 7:03 AM EDT) Vitamin A (Retinol) 52 38 - 98 mcg/dL [facility] Comment:Vitamin supplementat ion within 24 hours prior toblood draw may affect the accuracy of the results.This test was developed and its analytical performancecharacteristics have been determined by [employer] [place], [place]. It hasnot been cleared or approved by the U.S. Food and DrugAdministration. This assay has been validated pursuantto the CLIA regulations and is used for clinicalpurposes.THIS TEST WAS PERFORMED AT:[employer] [place] [address]WQSKPCLAYANA MARIA MD,PHD 12/18/2023 7:03 AM EDT 12/18/2023 7:03 AM EDT us Generic External Data Provider LAB BLOOD ORDERAB LES Final Result Performing Organization Address [facility] Co de Phone Number [facility] [address] [place] [phone] * C-reactive Protein (12/18/2023 7:03 AM EDT) C Reactive Protein 0.13 < or = 0.50 mg/dL [facility] 12/18/2023 7:03 AM EDT 12/18/2023 7:03 AM EDT us Generic External Data Provider LAB BLOOD ORDERAB LES Final Result Performing Organization Address [facility] Co de Phone Number [facility] [address] [place] [phone] * Vitamin B1 (12/18/2023 7:03 AM EDT) Vitamin B1 15 8 - 30 nmol/L [facility] Comment:Vitamin supplementat ion within 24 hours prior toblood draw may affect the accuracy of the results.This test was developed and its analytical performancecharacteristics have been determined by [employer] [place], [place]. It hasnot been cleared or approved by the U.S. Food and DrugAdministration. This assay has been validated pursuantto the CLIA regulations and is used for clinicalpurposes.THIS TEST WAS PERFORMED AT:[facility] [place] [address]XNLETFRAYANA MARIA MD,PHD 12/18/2023 7:03 AM EDT 12/18/2023 7:03 AM EDT us Generic External Data Provider LAB BLOOD ORDERAB LES Final Result [facility] [address] [place] [phone] * Hemoglobin A1c (12/18/2023 7:03 AM EDT) Hemoglobin A1c 5.2 <6.0 % [facility] Comment:Hemoglobin A1C Refer ence Range Adults: 4.8 - 6.0 % Non diabetic: < 6.0 % Goal: < 7.0 %Additional Action Suggested: > 8.0 %Note: Hemoglobin A1c results are invalid for patients with abnormal amounts of HbF. Blood transfusions may impact the HbA1c concentration in the patient sample. Estimated Average Glucose 103 mg/dL [facility] Comment:eAG = Estimated ave rage glucose which is %A1C expressed asaverage glucose, using the formula of the O8S-QjfmebfFvfdfee Glucose study (ADAG), Diabetes Care, Vol.31,#8,2007 12/18/2023 7:03 AM EDT 12/18/2023 7:03 AM EDT us Generic External Data Provider LAB BLOOD ORDERAB LES Final Result Performing Organization Address City/[facility]/ZIP Co de Phone Number [facility] [address] [place] [phone] * (ABNORMAL) Ferritin (12/18/2023 7:03 AM EDT) Ferritin 8(L) 10 - 250 ng/mL [facility] 12/18/2023 7:03 AM EDT 12/18/2023 7:03 AM EDT Generic External Data Provider LAB BLOOD ORDERAB LES Final Result Performing Organization Address [facility] Co de Phone Number [facility] [address] [place] [phone] * (ABNORMAL) Lipid Panel, Standard (12/18/2023 7:03 AM EDT) Triglycerides 96 <150 mg/dL [facility] Comment:Desirable Triglyceri de: less than 150 mg/dLBorderline High Triglyceride 150-199 mg/dLHigh Triglyceride: 200-499 mg/dLVery High Triglyceride: greater than or equal to 5OO mg/dL Cholesterol 219(H) <200 mg/dL [facility] Comment:Desirable Cholestero l: less than 200 mg/dLBorderline High Cholesterol: 200-239 mg/dLHigh Cholesterol: greater than 239 mg/dL LDL Cholesterol Calculated 135(H) <100 mg/dL [facility] Comment:Desirable LDL: less than 100 mg/dLNear Optimal/Above Optimal LDL: 110- 129 mg/dLBorderline High LDL: 130-159 mg/dLHigh LDL: 160-189 mg/dLVery High LDL: greater than or equal to 190 mg/dL HDL Cholesterol 65 >40 mg/dL [facility] Comment:Desirable HDL: great er than 40 mg/dL Note: This HDL assay may give artificially low results in patients with liver disease. 12/18/2023 7:03 AM EDT 12/18/2023 7:03 AM EDT us Generic External Data Provider LAB BLOOD ORDERAB LES Final Result [facility] [address] [place] [phone] [phone] * (ABNORMAL) Comprehensive Metabolic Panel (12/18/2023 7:03 AM EDT) Sodium 141 135 - 145 mmol/L [facility] Potassium 4.1 3.3 - 5.1 mmol/L [facility] Chloride 108 96 - 108 mmol/L [facility] Carbon Dioxide 24 22 - 29 mmol/L [facility] Anion Gap 13 12 - 20 [facility] Urea Nitrogen (BUN) 14 9 - 16 mg/dL [facility] Creatinine, Serum 0.70 0.5 - 1.4 mg/dL [facility] Estimated Glomerular Filt Rate >60 [facility] Comment:NOTE: For -Am erican individuals, multiply the result by 1.210.Chronic Kidney Disease: Estimated GFR < 60 mL/min/1.97a0Usmqhe Kidney Disease: Estimated GFR < 15 mL/min/1.73m2 Glucose 95 60 - 115 mg/dL [facility] Calcium 9.6 8.4 - 10.2 mg/dL [facility] Bilirubin, Total 0.2 0.0 - 1.0 mg/dL [facility] Aspartate Amino Transferase 35(H) 5 - 31 U/L [facility] Alanine Aminotransferase 29 0 - 31 U/L [facility] Total Protein 7.1 6.5 - 8.0 g/dL [facility] Albumin Level 4.0 3.5 - 5.0 g/dL [facility] Alkaline Phosphatase 100 39 - 117 U/L [facility] 12/18/2023 7:03 AM EDT 12/18/2023 7:03 AM EDT us Generic External Data Provider LAB BLOOD ORDERAB LES Final Result [facility] [address] [place] [address] [phone] * Colonoscopy (07/09/2023 12:53 PM EDT) Anatomical Region Laterality Modality Endoscopy Historical Provider ENDOSCOPY PROCEDURE ORDER YOLIE Final Result * HPV mRNA E6/E7 w/Reflex to HPV Genotypes 16, 18/45 (01/07/2022 2:32 PM EST) HPV nRNA E6/E7 Not Detected Not Detected [facility] Comment:Methodology: Transcr iption-Mediated AmplificationThis assay detects E6/E7 viral messenger RNA (mRNA) from 14high-risk HPV types (16,18,31,33,35,39,45,51,52,56,58,59,66,68).Cervical sources are required for HPV testing.If a vaginal source from a patient who has had atotal hysterectomy with removal of cervix wassubmitted, please contact the testing laboratoryfor alternative testing options.For additional information, please refer tohttp://education.[employer]/faq/NSM476u9(This link if provided for information/educational purposes only.)THIS TEST WAS PERFORMED AT:[facility] [address],[place] [address]KVIICSANDRA HANDLEY MD HPV mRNA E6/E7 [facility] HPV 16 RNA [facility] HPV 18/45 RNA [facility] 01/07/2022 2:32 PM EST 01/08/2022 8:40 AM EST [facility] External Provider LAB CYT OLOGY ORDERABLES Final Result [facility] [address] [place] [address] [phone] * Pap Smear (01/07/2022 2:32 PM EST) 01/07/2022 2:32 PM EST 01/08/2022 8:40 AM EST Narrative [facility] - 02/03/2022 3:53 PM EST ----- ------- Name: BoggsJes madrigal ? Age/Sex: 51/F ? : 1970 Unit#: [id number] ?? Attend Dr: Dionte Paulino MD ?Re01/07/22 ?Status: DEP REF ? Location: HO.LNP ?Disch: ? ----- ------- SPEC : [id number] ?RECD: 01/08/22 ? STATUS: ??SOUT ? REQ NUM: [id number] ? VIVIANA: 01/07/22-1431 ? SUBM DR: Dionte Paulino MD ? ENTERED: ??01/08/22 ?SP TYPE: Pap Smr ?OTHR : ? ORDERED: ??Pap Smear ? Interpretation ?? Satisfactory for evaluation. ?? Negative for intraepithelial lesion or malignancy. ? HPV mRNA E6/E7: ?NOT DETECTED ? This assay detects E6/E7 viral messenger RNA (mRNA) from 14 high-risk HPV types (16, 18, ?? 31, 33, 35, 39, 45, 51, 52, 56, 58, 59, 66, 68) ? HPV testing performed by [facility], [place], [place]. ??See reference laboratory ?? portion of the EMR for entire report. ?Clinical Information LMP: Pt has IUD Previous PAP test: 2017, WNL ? Material Received ?? ThinPrep-Cervical ----- ------- Signed (signature on file) Savana A Iris 02/03/22 1553 ? ----- ------- ? END OF REPORT ? us [facility] External Provider LAB CYT OLOGY ORDERABLES Final Result Performing Organization Address City/State/[facility] Co de Phone Number [facility] [address] [place] [phone] * Mammography Report 1 (04/09/2021 7:45 AM EST) Anatomical Region Laterality Modality Breast Bilateral Mammography 04/09/2021 7:45 AM EST Narrative 04/10/2021 7:31 AM EST Refer to the Notes tab for result details [facility] Procedure: Mammography Report 1 Procedure Note Provider, MD Marv - 05/11/2022 Refer to the Notes tab for result details [facility] Procedure: Mammography Report 1 Dionte Paulino MD IMG BI PROCEDURES Final Result from Last 3 Months or Most Recently Relevant to Health Maintenance [place] [address] [place] [address] C3 Care Teams Head Correction Officer Relationship Specialty Start Date End Date Moon Alvarado MD [address] [place] [address] PCP - General Family Medicine 02/16/18
--- OUTSIDE RECORDS SUMMARY | 2024-03-14 16:37 | XMS_ITS | Encounter Summary ---
Author Organization [employer] Address [address] [facility] 7 [place] [address] Care Team Providers Care Campus Executive Director Name Role Phone Moon Alvarado MD Primary Care Provider [phone] Reason for Visit * Reason Onset Date Comments Med Refill 11/12/2022 Encounter Details Date Type Department Care Team (Late st Contact Info) Description 11/12/2022 Telephone [facility] MEDICINE [address] [place] [address] Moon Alvarado MD [address] [place] [address] Med Refill Social History Tobacco Use Types [...] * Telephone Encounter - Tierra Steward - 11/12/2022 9:39 AM EDT Tc from pt mom requesting a refill for oxyCODONE-acetaminophen (Percocet) 5-325 MG tablet documented in this encounter Plan of Treatment Upcoming Encounters Date Type Department Care Team (Late st Contact Info) Description 04/07/2024 11:00 AM EST Clinical Support [facility] [address] [place] [address] Roselyn Singer, IRMA [address] [place], [place] [phone] documented as of this encounter Visit Diagnoses Not on filedocumented in this encounter Care Teams Campus Executive Director Relationship Specialty Start Date End Date Moon Alvarado MD [address] [place] [address] PCP - General Family Medicine 02/16/18 documented as of this encounter
--- OUTSIDE RECORDS SUMMARY | 2024-03-14 16:37 | XMS_ITS | Encounter Summary ---
Author Organization [employer] [facility] Address [address] [place] [address] 7 [place] [address] Care Team Providers Care Textile Supervisor Name Role Phone Moon Alvarado MD Primary Care Provider [phone] Reason for Visit * Reason Comments Med Refill Encounter Details Date Type Department Care Team ([facility] Contact Info) Description 07/21/2023 Refill [facility] MED & PEDS [address] [place] [address] Moon Alvarado MD [address] [place] [address] Social History Tobacco Use Types Packs/Day Years [...] Upcoming Encounters Date Type Department Care Team ([facility] Contact Info) Description 04/07/2024 11:00 AM EST Clinical Support [facility] MED & PEDS [address] [place] [address] Roselyn Singer RN [address] [place] [address] documented as of this encounter Visit Diagnoses Not on filedocumented in this encounter Care Teams Textile Supervisor Relationship Specialty Start Date End Date Moon Alvarado MD [address] [place] [address] PCP - General Family Medicine 02/16/18 documented as of this encounter
--- OUTSIDE RECORDS SUMMARY | 2024-03-14 16:37 | XMS_ITS | Encounter Summary ---
Author Organization [employer] Address [address] [facility] 7 [place] [address] Care Team Providers Care Java Spring Developer Name Role Phone Moon Alvarado MD Primary Care Provider [phone] Reason for Visit * Reason Onset Date Comments ER Follow-up 05/27/2023 Encounter Details Date Type Department Care Team (Late st Contact Info) Description 05/27/2023 Telephone [facility] MEDICINE [address] [place] [address] Moon Alvarado MD [address] [place] [phone] ER Follow-up Social History Tobacco Use Types Packs/Day Years [...] * Telephone Encounter - Lane Anthony - 05/27/2023 8:32 AM EDT Patient calling to report ED visit on : Date: 05/25 Hospital: [facility] Seen for: Chest pain and was advised to get a referral Field Artillery Radar Operator Patient advised will forward to team nurse for follow up documented in this encounter Plan of Treatment Upcoming Encounters Date Type Department Care Team (Late st Contact Info) Description 04/07/2024 11:00 AM EST [facility] MED [facility]ED[facility] [address] [place] [address] Roselyn Singer RN [address] [place] [address] documented as of this encounter Visit Diagnoses Not on filedocumented in this encounter Care Teams Java Spring Developer Relationship Specialty Start Date End Date Moon Alvarado MD [address] [place] [address] PCP - General Family Medicine 02/16/18 documented as of this encounter
--- OUTSIDE RECORDS SUMMARY | 2024-03-14 16:38 | XMS_ITS | Encounter Summary ---
Author Organization [employer] [facility] Address [address] [place] [address] 7 [place] [address] Care Team Providers Care Musculoskeletal Physiotherapist Name Role Phone Moon Alvarado MD Primary Care Provider [phone] Encounter Details Date Type Department Care Team (Latest Contact Info) Description 02/16/2024 Travel Social History Tobacco Use Types Packs/Day Years [...] Description 04/07/2024 11:00 AM EST Clinical Support [facility] MED & PEDS [address] [place] [address] Roselyn Singer RN [address] [place] [address] documented as of this encounter Visit Diagnoses Not on filedocumented in this encounter Care Teams Musculoskeletal Physiotherapist Relationship Specialty Start Date End Date Moon Alvarado MD [address] [place] [address] PCP - General Family Medicine 02/16/18 documented as of this encounter
--- OUTSIDE RECORDS SUMMARY | 2024-03-14 16:38 | XMS_ITS | Encounter Summary ---
Author Organization [employer] Address [address] [place] [address] 7 [place] [address] Care Team Providers Care Call Taker Name Role Phone Moon Alvarado MD Primary Care Provider [phone] Reason for Visit * Reason Onset Date Comments Appointment Request 12/09/2023 Encounter Details Date Type Department Care Team ([facility] Contact Info) Description 12/09/2023 Telephone [facility] MEDICINE [address] [place], [place] [phone] Moon Alvarado MD [address] [place] [address] Appointment Request Social History Tobacco Use Types [...] * Telephone Encounter - Wilfredo Rae - 12/09/2023 8:50 AM EDT Tc from pt requesting to reschedule FUR TINTER visit. Please contact pt at [phone]. documented in this encounter Plan of Treatment Upcoming Encounters Date Type Department Care Team ([facility] Contact Info) Description 04/07/2024 11:00 AM EST Clinical Support [facility] CH[facility] MED & PEDS [address] [place] [address] Roselyn Singer RN [address] [place] [address] documented as of this encounter Visit Diagnoses Not on filedocumented in this encounter Care Teams Call Taker Relationship Specialty Start Date End Date Moon Alvarado MD 505 [facility] [place] [address] PCP - General Family Medicine 02/16/18 documented as of this encounter
--- OUTSIDE RECORDS SUMMARY | 2024-03-14 16:38 | XMS_ITS | Encounter Summary ---
Author Organization [employer] Address [address] [facility] 7 [place] [address] Care Team Providers Care Physician Practice Manager Name Role Phone Moon Alvarado MD Primary Care Provider [phone] Reason for Visit * Reason Onset Date Comments Med Refill 01/05/2024 Encounter Details Date Type Department Care Team (Late st Contact Info) Description 01/05/[address] [facility] MEDICINE [address] [place] [address] Moon Alvarado MD [address] [place] [address] Med Refill Social History Tobacco Use Types [...] * Telephone Encounter - Tierra Steward - 01/05/2024 8:31 AM EST Tc from pt requesting a refill for oxyCODONE-acetaminophen (Percocet) 5-325 MG tablet documented in this encounter Plan of Treatment Upcoming Encounters Date Type Department Care Team (Late st Contact Info) Description 04/07/2024 11:00 AM EST Clinical Support [facility] MED & PEDS [address] [place] [address] Roselyn Singer, IRMA [address] [place] [address] documented as of this encounter Visit Diagnoses Not on filedocumented in this encounter Care Teams Physician Practice Manager Relationship Specialty Start Date End Date Moon Alvarado MD [address] [place] [address] PCP - General Family Medicine 02/16/18 documented as of this encounter
--- OUTSIDE RECORDS SUMMARY | 2024-03-14 16:38 | XMS_ITS | Encounter Summary ---
Author Organization [employer] Address [address] [place] [address] 7 [place] [address] Care Team Providers Care Metal Fitters And Machinists Name Role Phone Moon Alvarado MD Primary Care Provider [phone] Reason for Visit * Reason Onset Date Comments Med Refill 02/05/2023 Encounter Details Date Type Department Care Team (Late st Contact Info) Description 02/05/2023 Telephone [facility] MEDICINE [address] [place] [address] Moon Alvarado MD [address] [place] [address] Med Refill Social History Tobacco Use Types [...] encounter Miscellaneous Notes * Telephone Encounter - Lana Oglesby - 02/05/2023 9:24 AM EST Tc from pt requesting med refill on; oxyCODONE-acetaminophen (Percocet) 5-325 MG tablet [facility] [place], [place] - [address] documented in this encounter Plan of Treatment Upcoming Encounters Date Type Department Care Team (Late st Contact Info) Description 04/07/2024 11:00 AM EST Clinical Support [facility] MED & PEDS [address] [place] [address] Roselyn Singer, IRMA [address] [place] [address] documented as of this encounter Visit Diagnoses Not on filedocumented in this encounter Care Teams Metal Fitters And Machinists Relationship Specialty Start Date End Date Moon Alvarado MD [address] [place] [address] PCP - General Family Medicine 02/16/18 documented as of this encounter
--- OUTSIDE RECORDS SUMMARY | 2024-03-14 16:38 | XMS_ITS | Encounter Summary ---
Author Organization [employer] [facility] Address [address] [place] [phone] Care Team Providers Care Manager Case Name Role Phone Moon Alvarado MD Primary Care Provider Encounter Details Date Type Department Care Team (Late Contact Info) Description 2023 [facility] Health Information Management [address] [place], [place] [phone] Moon Alvarado MD [address] [place] [address] Social History Tobacco Use Types Packs/Day Years [...] Clinical Support [facility] MED & PEDS [address] [place] [address] Roselyn Singer, IRMA [address] [place], [place] [phone] documented as of this encounter Visit Diagnoses Not on filedocumented in this encounter Care Teams Manager Case Relationship Specialty Start Date End Date Moon Alvarado MD [address] [place] [address] PCP - General Family Medicine 02/16/18 documented as of this encounter
--- OUTSIDE RECORDS SUMMARY | 2024-03-14 16:38 | XMS_ITS | Encounter Summary ---
Author Organization [employer] Address [address] [facility] 7 [place] [address] Care Team Providers Care Plastic Extruding Machine Operator Name Role Phone Moon Alvarado MD Primary Care Provider [phone] Reason for Visit * Reason Onset Date Comments Nurse Triage 02/16/2024 Encounter Details Date Type Department Care Team (Late st Contact Info) Description 02/16/[address] [facility] MEDICINE [address] [place] [address] Moon Alvarado MD [address] [place] [address] Nurse Triage Social History Tobacco Use Types Packs/Day Years [...] encounter Miscellaneous Notes * Telephone Encounter - Franci Cardenas EKTA - 02/16/2024 8:33 AM EST Triage call returned to patient who reports that she started this morning with slight burning with urination. Patient reports no fever or flank pain no nausea or vomiting. Patient reports that she feels starting and infection PO fluid intake is good per patient. Disposition reviewed and patient in agreement with plan. ASK/PCP today at 10am.Reviewed with patient home care recommendations and reasons to call back. Pt verbalized understanding and agrees. Protocol Used: Urination Pain - Female (Adult) Protocol-Based Disposition: See in Office or Video Visit Today Video visit not offered Positive Triage Question: * All other females with painful urination, or patient wants to be seen * All higher-acuity triage questions were negative Care Advice Discussed: * Drink Extra Fluids * Cranberry Juice * Reasons To Call Back - Fever or back pain occurs - You become worse * Telephone Encounter - Sharri Nayak - 02/16/2024 8:05 AM EST Symptom: Urine Symptoms Outcome: Schedule a same-day appointment or talk to a nurse or provider today Reason: Caller denied all higher acuity questions The caller accepted this outcome. documented in this encounter Plan of Treatment Upcoming Encounters Date Type Department Care Team ([facility] st Contact Info) Description 04/07/2024 11:00 AM EST Clinical Support [facility] MED & PEDS [address] [place] [address] Roselyn Singer RN [address] [place] [address] documented as of this encounter Visit Diagnoses Not on filedocumented in this encounter Care Teams Plastic Extruding Machine Operator Relationship Specialty Start Date End Date Moon Alvarado MD [address] [place] [address] PCP - General Family Medicine 02/16/18 documented as of this encounter
--- OUTSIDE RECORDS SUMMARY | 2024-03-14 16:38 | XMS_ITS | Encounter Summary ---
Author Organization [employer] Address [address] [facility] 7 [place] [address] Care Team Providers Care Information Security Associate Name Role Phone Moon Alvarado MD Primary Care Provider [phone] Reason for Visit * Reason Onset Date Comments Prior Authorization 12/22/2023 Encounter Details Date Type Department Care Team (Late st Contact Info) Description 12/22/2023 Telephone [facility] MEDICINE [address] [place] [address] Moon Alvarado MD [address] [place] [phone] Prior Authorization Social History Tobacco Use Types Packs/Day Years [...] encounter Miscellaneous Notes * Telephone Encounter - Kate Carnes LPN - 12/22/2023 9:38 AM EST This was send to the wrong dept. Please review Thank you. Tc from Damaris ([facility] Pain Management group requesting a PA for an MRI With out contrast , Damaris informs any questions her callback number [phone] CPT CODE -29004 ICD CODE - M46.46 * Telephone Encounter - Janine Anand - 12/22/2023 9:13 AM EST Tc from Dam[facility] ([facility]) Pain Management group requesting a PA for an MRI With out contrast , Damaris informs any questions her callback number [phone] CPT CODE -58478 ICD CODE - M46.46 documented in this encounter Plan of Treatment Upcoming Encounters Date Type Department Care Team (Late st Contact Info) Description 04/07/2024 11:00 AM EST Clinical Support [facility] MED & PEDS [address] [place] [address] Roselyn Singer RN [address] [place] [address] documented as of this encounter Visit Diagnoses Not on filedocumented in this encounter Care Teams Information Security Associate Relationship Specialty Start Date End Date Moon Alvarado MD [address] [place] [address] PCP - General Family Medicine 02/16/18 documented as of this encounter
--- OUTSIDE RECORDS SUMMARY | 2024-03-14 16:38 | XMS_ITS | Encounter Summary ---
Author Organization [employer] [facility] Address [address] [facility] 7 [place] [address] Care Team Providers Care Drain Technician Name Role Phone Moon Alvarado MD Primary Care Provider [phone] Reason for Visit * Reason Onset Date Comments Nurse Triage 02/18/2023 Encounter Details Date Type Department Care Team ([facility] Contact Info) Description 02/18/2023 Telephone [facility] MEDICINE [address] [place] [address] Moon Alvarado MD [address] [place] [address] Nurse Triage Social History Tobacco Use Types [...] * Telephone Encounter - Nicholas Bell - 02/18/2023 8:42 AM EST Symptom: Pain - Severe Outcome: Schedule an urgent appointment (within 1 hour) or talk to a nurse or provider soon Reason: Caller denied all higher acuity questions The caller accepted this outcome Please contact pt @ [phone] Ivorian Speaker documented in this encounter Plan of Treatment Upcoming Encounters Date Type Department Care Team (Late st Contact Info) Description 04/07/2024 11:00 AM EST Clinical Support [facility] CH[facility] MED & PEDS [address] [place] [address] Roselyn Singer, IRMA [address] [place] [address] documented as of this encounter Visit Diagnoses Not on filedocumented in this encounter Care Teams Drain Technician Relationship Specialty Start Date End Date Moon Alvarado MD [address] [place] [address] PCP - General Family Medicine 02/16/18 documented as of this encounter
--- OUTSIDE RECORDS SUMMARY | 2024-03-14 16:38 | XMS_ITS | Encounter Summary ---
Author Organization [employer] Address [address] [facility] 7 [place] [address] Care Team Providers Care Sales And Retail Management Recruiter Name Role Phone Moon Alvarado MD Primary Care Provider [phone] Reason for Visit * Reason Onset Date Comments Med Refill 12/04/2023 Encounter Details Date Type Department Care Team (Late Contact Info) Description 12/04/2023 Telephone [facility] MEDICINE [address] [place] [address] Moon Alvarado MD [address] [place] [address] Med Refill Social History Tobacco Use Types [...] * Telephone Encounter - Lane Anthony - 12/04/2023 8:02 AM EDT TC from pt requesting medication refill. Medications needing refill : oxyCODONE-acetaminophen (Percocet) 5-325 MG tablet To be sent to: [facility] - [place], [place] - [address] [facility] documented in this encounter Plan of Treatment Upcoming Encounters Date Type Department Care Team (Late st Contact Info) Description 04/07/2024 11:00 AM EST Clinical Support [facility] MED [facility] PEDS 505 [place] [address] Roselyn Singer, IRMA 505 [place] [address] documented as of this encounter Visit Diagnoses Not on filedocumented in this encounter Care Teams Sales And Retail Management Recruiter Relationship Specialty Start Date End Date Moon Alvarado MD [address] [place] [address] PCP - General Family Medicine 02/16/18 documented as of this encounter
--- OUTSIDE RECORDS SUMMARY | 2024-03-14 16:38 | XMS_ITS | Encounter Summary ---
Author Organization [employer] Address [address] [place] [address] 7 [place] [address] Care Team Providers Care Home Health Care Case Manager Name Role Phone Moon Alvarado MD Primary Care Provider [phone] Encounter Details Date Type Department Care Team ([facility] st Contact Info) Description 02/16/2024 10:00 AM EST Office Visit [facility] MED [facility] PEDS [address] [place], [place] [phone] Moon Alvarado MD 505 [place] [address] Dysuria (Primary Dx); Dietary counseling; Exercise counseling; Severe episode of recurrent major depressive disorder, without psychotic features (CMS/HCC) Social History Tobacco Use Types Packs/Day Years [...] AM EDT documented as of this encounter Last Filed Vital Signs Vital Sign Reading [...] Mass Index 34.11 02/16/2024 9:45 AM EST documented in this encounter Progress Notes * Moon Alvarado MD - 02/16/2024 10:00 AM EST Subjective Patient ID: Jes Boggs is a 54 y.o. female who presents for dysuria. Difficulty Urinating This is a new problem. The current episode started yesterday. The problem occurs intermittently. The quality of the pain is described as burning. The patient is experiencing no pain. There has been no fever. She is Sexually active. There is No history of pyelonephritis. Associated symptoms include frequency and hesitancy. Pertinent negatives include no chills, discharge, flank pain, hematuria, nausea, possible , sweats or vomiting. She has tried increased fluids for the symptoms. Thereis no history of catheterization. Review of Systems Constitutional: Negative for chills. Gastrointestinal: Negative for nausea and vomiting. Genitourinary: Positive for dysuria, frequency and hesitancy. Negative for flank pain and hematuria. Objective BP 128/81 (BP Location: Left arm, Patient Position: Sitting, BP Cuff Size: Large adult) Pulse 88 Temp 97.8 ??F (36.6 ??C) (Oral) Resp 20 Ht 5' 5 (1.651 m) Wt 205 lb (93 kg) SpO2 99% BMI 34.11 kg/m?? Physical Exam Vitals reviewed. Constitutional: General: She is not in acute distress. Appearance: Normal appearance. She is not ill-appearing. HENT: Head: Normocephalic. Right Ear: Tympanic membrane and ear canal normal. Left Ear: Tympanic membrane and ear canal normal. Nose: Nose normal. Mouth/Throat: Mouth: Mucous membranes are moist. Pharynx: No oropharyngeal exudate or posterior oropharyngeal erythema. Eyes: Extraocular Movements: Extraocular movements intact. Conjunctiva/sclera: Conjunctivae normal. Pupils: Pupils are equal, round, and reactive to light. Cardiovascular: Rate and Rhythm: Normal rate and regular rhythm. Pulses: Normal pulses. Heart sounds: Normal heart sounds. Pulmonary: Effort: Pulmonary effort is normal. No respiratory distress. Breath sounds: Normal breath sounds. Abdominal: Palpations: Abdomen is soft. There is no mass. Tenderness: There is no abdominal tenderness. There is no guarding. Musculoskeletal: General: Normal range of motion. Cervical back: Normal range of motion. Skin: General: Skin is warm. Capillary Refill: Capillary refill takes less than 2 seconds. Neurological: General: No focal deficit present. Mental Status: She is alert and oriented to person, place, and time. Psychiatric: Mood and Affect: Mood normal. Behavior: Behavior normal. Thought Content: Thought content normal. Judgment: Judgment normal. Assessment/Plan Diagnoses and all orders for this visit: Dysuria Comments: Having frequent dysuria. UA today suspicious for simple UTI vs cystitis. Suspecting postmenopausal Genitourinary component as well.REfilled her vaginal estrogen 2 x a week to help with her vaginal atrophy symptoms and hopefully avoid reccurrent UTIs. Orders: - POCT Urinalysis Dietary counseling Exercise counseling Severe episode of recurrent major depressive disorder, without psychotic features (CMS/[facility]) Comments: Mood controoled and stable.SEes psych o a regular basis. Compliant with meds and follow ups. Other orders - nitrofurantoin, macrocrystal-monohydrate, (Macrobid) 100 MG capsule; Take 1 capsule (100 mg) by mouth 2 times daily for 7 days. - estradiol (Estrace) 0.1 MG/GM vaginal cream; Insert 1 gm intravaginally 2 times a week - lidocaine (Lidoderm) 5 % patch; Apply 1 patch topically Once per day. documented in this encounter Plan of Treatment Upcoming Encounters Date Type Department Care Team (Late st Contact Info) Description 04/07/2024 11:00 AM EST Clinical Support [facility] MED & PEDS [address] [place] [address] Roselyn Singer, IRMA 505 [place] [address] documented as of this encounter Procedures Procedure Name Priority Date/Time Associated Diagnosis Comments POCT URINALYSIS DIPSTICK Routine 02/16/2024 10:24 AM EST Dysuria documented in this encounter Results * (ABNORMAL) POCT Urinalysis (02/16/2024 10:24 [...] OF CARE TEST ENTER/EDIT ORDERABLES Final Result documented in this encounter Visit Diagnoses Diagnosis Dysuria- Primary Dietary counseling Dietary surveillance and counseling Exercise counseling Severe episode of recurrent major depressive disorder, without psychotic features (CMS/HCC) documented in this encounter Care Teams Home Health Care Case Manager Relationship Specialty Start Date End Date Moon Alvarado MD [address] [place] [address] PCP - General Family Medicine 02/16/18 documented as of this encounter
--- OUTSIDE RECORDS SUMMARY | 2024-03-14 16:39 | XMS_ITS | Encounter Summary ---
Author Organization [employer] [facility] Address [address] [facility] 7 [place] [address] Care Team Providers Care Busboy Name Role Phone Moon Alvarado MD Primary Care Provider [phone] Reason for Visit * Reason Onset Date Comments Med Refill 05/12/2022 Encounter Details Date Type Department Care Team ([facility] st Contact Info) Description 05/12/2022 Telephone [facility] MEDICINE [address] [place] [address] Moon Alvarado MD [address] [place] [address] Med Refill Social History Tobacco Use Types Packs/Day Years Used Date Smoking Tobacco: Never Smokeless Tobacco: Never Comments Unknown Sex and Gender Information Value Date Recorded Sex Assigned at Female 12/16/2021 10:18 AM EDT Legal Sex Female 10:18 AM EDT Gender Identity Female 12/16/2021 10:18 AM EDT Sexual Orientation Straight 12/16/2021 10 :18 AM EDT COVID-19 Exposure Response Date Recorded In the last 10 days, have yo u been in contact with someone who was confirmed or suspected to have Coronavirus/COVID-19? No / Unsure 05/14/2022 8:46 AM EDT documented as of this encounter Miscellaneous Notes * Telephone Encounter - Justin Gomez - 05/12/2022 9:02 AM EDT Tc from pt requesting med refill Oxycodone 5 mg documented in this encounter Plan of Treatment Upcoming Encounters Date Type Department Care Team (Late st Contact Info) Description 04/07/2024 11:00 AM EST Clinical Support [facility] MED & PEDS 505 [place] [address] Roselyn Singer, RN 505 [place] [address] documented as of this encounter Visit Diagnoses Not on filedocumented in this encounter Care Teams Busboy Relationship Specialty Start Date End Date Moon Alvarado MD 505 [place] [address] PCP - General Family Medicine 02/16/18 documented as of this encounter
--- OUTSIDE RECORDS SUMMARY | 2024-03-14 16:39 | XMS_ITS | Encounter Summary ---
Author Organization [employer] Address [address] [facility] 7 [place] [address] Care Team Providers Care Studio Producer Name Role Phone Moon Alvarado MD Primary Care Provider [phone] Reason for Visit * Reason Onset Date Comments call back 05/12/2022 Encounter Details Date Type Department Care Team ([facility] st Contact Info) Description 05/12/2022 Telephone [facility] MEDICINE [address] [place] [address] Moon Alvarado MD [address] [place] [address] call back Social History Tobacco Use Types Packs/Day Years [...] Telephone Encounter - Justin Gomez - 05/12/2022 9:04 AM EDT Tc from pt returning call. Pt requesting a call back. documented in this encounter Plan of Treatment Upcoming Encounters Date Type Department Care Team ([facility] st Contact Info) Description 04/07/2024 11:00 AM EST Clinical Support [facility] MED & PEDS [address] [place] [address] Roselyn Singer, IRMA 505 [place] [address] documented as of this encounter Visit Diagnoses Not on filedocumented in this encounter Care Teams Studio Producer Relationship Specialty Start Date End Date Moon Alvarado MD 505 [place] [address] PCP - General Family Medicine 02/16/18 documented as of this encounter
--- OUTSIDE RECORDS SUMMARY | 2024-03-14 16:39 | XMS_ITS | Encounter Summary ---
Author Organization [employer] Address [address] [facility] 7 [place] [address] Care Team Providers Care Wind Energy Engineer Name Role Phone Moon Alvarado MD Primary Care Provider [phone] Reason for Visit * Reason Onset Date Comments r/s WASHER CUTTER RN appt 03/21/2022 Encounter Details Date Type Department Care Team (Late st Contact Info) Description 03/21/2022 Telephone [facility] MEDICINE [address] [place] [address] Moon Alvarado MD [address] [place] [address] r/s WASHER CUTTER RN appt Social History Tobacco Use Types [...] suspected to have Coronavirus/COVID-19? No / Unsure 08/08/2022 9:45 AM EDT documented as of this encounter Miscellaneous Notes * Telephone Encounter - Lennie Prince - 04/09/2022 8:51 AM EST Tc from patient re calling in regards to message below. Patient states she leaves 04/22/22 to [place] for a week and is requesting for an appt before that date. * Telephone Encounter - Tierra Steward - 03/21/2022 9:08 AM EST Tc from pt requesting to r/s WASHER CUTTER RN appt 03/21/22 , States they are positive for COVID. Pt missed appt. Please contact at [phone] documented in this encounter Plan of Treatment Upcoming Encounters Date Type Department Care Team (Late st Contact Info) Description 04/07/2024 11:00 AM EST Clinical Support [facility] MED & PEDS [address] [place] [address] Roselyn Singer, RN 505 [place] [address] documented as of this encounter Visit Diagnoses Not on filedocumented in this encounter Care Teams Wind Energy Engineer Relationship Specialty Start Date End Date Moon Alvarado MD 505 [place] [address] PCP - General Family Medicine 02/16/18 documented as of this encounter
--- OUTSIDE RECORDS SUMMARY | 2024-03-14 16:39 | XMS_ITS ---
Author Organization [facility], Address [address] [place] [address] Care Team Providers Care Plan Coordinator Name Role Phone Brandon Conrad [phone] ALLERGIES, ADVERSE REACTIONS, ALERTS Substance Code Code System Type Reaction Severity Status Start Date End Date latex 7843818 RxNorm Other allergy () 0 shellfish derived RxNorm Food allergy () 0 Latex products RxNorm Other substance allergy () 1 No known drug allergies RxNorm Other substance allergy () 1 MEDICATIONS Medication Code Code System Start Date Stop Date Route Dosage Directions Fill Instructions buspirone 0 RxNorm oral clonazepam 0 RxNorm oral sertraline 0 RxNorm oral Pyridium 7010447 RxNorm 03/14/2024 oral 1 oxycodone 0 RxNorm oral Macrobid 997652 RxNorm 03/14/2024 oral 1 prednisone 391390 RxNorm 07/18/2021 07/23/2021 oral 1 PROBLEMS Problem Name Code Code System Start Date End Date [facility] Acute sinusitis, unspecified (461.9, J01.90) 98545026 [facility] 12/25/2020 Inactive Contact with and (suspected) exposure to COVID-19 (Z20.822) [facility] 12/28/2020 Inactive Headache, unspecified (R51.9) [facility] 12/28/2020 Inactive Anxiety disorder 78066864 [facility] 07/18/2021 Act patel Depression 78907600 [facility] 07/18/2021 Active Otalgia, left ear (H92.02) 7275654746815310 [facility] 07/19/19 22 Inactive Arthralgia of temporomandibular joint, unspecified side (M26.629) 134011308 [facility] 07/18/2021 I nactive Arthralgia of left temporomandibular joint (M26.622) [facility] 07/22/2021 Inactive Low back pain, unspecified 014195483719 [facility] Active Nondisplaced fracture of distal phalanx of right middle finger, initial encounter for open fracture 715323920 [facility] 07/06/2023 Active Dysuria 74310533 [facility] 03/14/2024 Active ENCOUNTERS Encounter Diagnosis Code Code System Date Stat us Dysuria 90030913 [facility] 03/14/2024 Active IMMUNIZATIONS * None VITAL SIGNS Code Code System Vitals Name Date Value and Un its 8462-4 [facility] Blood Pressure-Diastolic 03/14/2024 85 mmHg 8480-6 [facility] Blood Pressure-Systolic 03/14/2024 1 35 mmHg 8867-4 [facility] Heart Rate 03/14/2024 79 /min 9279-1 [facility] Respiratory Rate 03/14/2024 18 /min 8310-5 [facility] Body Temperature 03/14/2024 97.7 F 70124-9 [facility] Oxygen Saturation 03/14/2024 97 % SOCIAL HISTORY * None PROCEDURES * None RESULTS Test Code Code System Description Result Value Date Ref erence Range [facility] Glucose Negative 03/14/2024 [facility] Bilirubin Negative 03/14/2024 [facility] Ketone Negative 03/14/2024 [facility] Specific [place] 1.37942 03/14/2024 [facility] Blood Negative 03/14/2024 [facility] pH 6.81461 03/14/2024 [facility] Protein Negative 03/14/2024 [facility] Urobilinogen 0.42223 E.U./dL 03/14/2024 [facility] Nitrite Positive 03/14/2024 [facility] Leukocytes Trace 03/14/2024 [facility] Color Brown 03/14/2024 [facility] Clarity Slightly Cloudy 03/14/2024 MEDICAL EQUIPMENT * Patient has no history of implantable devices ASSESSMENT Assessment You were seen and evaluated in the clinic for your urinary symptoms.You have a urinary tract infection.Take the antibiotics as prescribed. Even if you are feeling better, take the entire prescription of antibiotics to further ensure complete resolution of the infection. Drink plenty of fluids. Return to the clinic if your symptoms worsen (fever, flank/back pain, nausea/vomiting) or if your symptoms are not improved by 72 hours after starting treatment. TREATMENT PLAN Type Description Date MEDICATION Take 100 mg capsule 03/14/2024 MEDICATION Take 200 mg tablet 03/14/2024 APPOINTMENT If not feeling soila r in 3 day(s), please see your primary care physician. If you do not have a primary care physician, please return to this clinic. 03/14/2024 Labs Tests Test Name Code Code System Date Cl[facility]k Urinalysis, automated, without microscopy 810 03 CPT 03/14/2024 CULTURE, URINE, ROUTINE 47666;72725 CPT 03/14 GOALS * None HEALTH CONCERNS * No Health Concerns FUNCTIONAL AND COGNITIVE STATUS * None CONSULTATION NOTES * None DISCHARGE SUMMARY NOTES * None HISTORY AND PHYSICAL NOTES * Reason for visit - Illness Patient: PATRICK ASHLEY, Sex: F (ID# [id number]) Date of : 1970 (54 years) Visit on 03/14/2024 (Log# [id number]) Historian: Self History of Present Illness: 54-year-old presenting for evaluation of dysuria. Onset this morning. No associated fever chills sweats nausea vomiting or diarrhea. No abdominal pain, flank or back pain. Complaint: The patient presents with a chief complaint of constant painful urination of the genitourinary system since Mar 14, 2024. It has the following quality: burning. Context - Initial History: The patient reports it was not the result of an injury. Review of Systems: The patient complains of the following recent symptoms: : painful urination: See HPI The patient denies the following recent symptoms: : denies frequent urination Allergies: patient specifies no known drug allergies latex: Other substance allergy. shellfish derived: Food allergy. Medications: buspirone: buspirone; (oral) days; 0 refill(s); clonazepam: clonazepam; (oral) days; 0 refill(s); sertraline: sertraline; (oral) days; 0 refill(s); oxycodone: oxycodone; (oral) days; 0 refill(s); Problem List: Anxiety disorder (status Active) Depression (status Active) Low back pain, unspecified (status Active) Nondisplaced fracture of distal phalanx of right middle finger, initial encounter for open fracture(status Active) Surgeries: Gastric Bypass: - (Not Sure of Date) Gallbladder/Cholecystectomy: - (Not Sure of Date) Social History: Tobacco Use: denies Alcohol: denies Street / Unprescribed Drugs: denies Family History: diabetes: Diabetes Mellitus. Vitals: 10:50 AM (03/14/2024)Temperature: 97.7 ?F, Pulse: 79 BPM, BP: 135/85, Respirations: 18/min, O2 Saturation: 97%, O2 Delivery: RA, Menopause: November 2015First entered 03/14/2024 10:50 by Chino Osborn Physical Exam: The following exam elements were documented to be normal: Psychiatric: oriented and alert. General: Well appearing, no acute distress HEENT: - NC/AT - no conjunctival injection or scleral icterus Abdomen: soft, nd ,nt Back: No CVAT MSK: Moving all extremities Neuro: Awake and alert x3, no focal deficits Labs: Clinitek Urinalysis, automated, without microscopy Code(s): 35243 Results Glucose: Negative Bilirubin: Negative Ketone: Negative Specific [place]: 1.54286 : 1.025 Blood: Negative pH: 6.41918 : 6.5 Protein: Negative Urobilinogen: 0.10566 E.U./dL: 0.2 Nitrite: Positive (Alpha Abnormal) Leukocytes: Trace (Alpha Abnormal) Color: Brown Clarity: Slightly Cloudy Wilb Clinitek Status+ (518340), [facility]: 097914, Expiry: 2024-09Notes: Order entered 03/14/2024 10:53 by Chino Osborn Under supervision of ordering provider BRANDON CONRAD PA-C Completed 03/14/2024 10:53 by Chino Osborn Reviewed 03/14/2024 11:10 by Brandon Conrad CULTURE, URINE, ROUTINE Code(s): 41943, 36701 Results The results have not been recorded yet. Ordered 03/14/2024 11:13 by Brandon Conrad Completed 03/14/2024 11:14 by Chino Osborn NOT REVIEWED (PENDING LAB RESULTS) Code(s) suppressed 03/14/2024 11:13 by Brandon Conrad Diagnoses: Dysuria (R30.0) Medication Orders: Prescribed: Macrobid 100 mg capsule; Take 1 Capsule (oral) 2 times per day for 7 Days; Total Qty: 14 (fourteen) Capsule; 0 refill(s); Substitutions allowed; Earliest Fill Date: 03/14/2024ePrescribed at 11:13 AM on 03/14/2024 by NAJMA ColesCPrescription sent to [facility] #[id number] (P: [phone] F: [phone]) [address] [place], [place], [id number] Prescribed: Pyridium 200 mg tablet; Take 1 Tablet (oral) 3 times per day for 2 Days; Total Qty: 6 (six) Tablet; 0 refill(s); Substitutions allowed; Earliest Fill Date: 03/14/2024ePrescribed at 11:13 AM on 03/14/2024 by NAJMA ColesCPrescription sent to [facility] #[id number] (P: [phone] F: [phone]) [address] [place], [place], [id number] Plan: If not feeling better in 3 day(s), please see your primary care physician. If you do not have a primary care physician, please return to this clinic. You were seen and evaluated in the clinic for your urinary symptoms. You have a urinary tract infection. Take the antibiotics as prescribed. Even if you are feeling better, take the entire prescription of antibiotics to further ensure complete resolution of the infection. Drink plenty of fluids. Return to the clinic if your symptoms worsen (fever, flank/back pain, nausea/vomiting) or if your symptoms are not improved by 72 hours after starting treatment. Visit discharged at 03/14/2024 11:13:53 AM by Brandon Conrad PA-C Signed electronically by Brandon Conrad PA-C on 03/14/2024 11:30:17 AM IMAGING NOTES * None LABORATORY REPORT NARRATIVE NOTES * None PATHOLOGY REPORT NARRATIVE NOTES * None PROGRESS NOTES * None
== END 2024-03-14 12:05 | disposition home or self-care (01) ==
LOC: HO.HBS 11:43
PROVIDERS: PCP Pediatrics; Visit Provider Physician Assistant Surgical
DX: E66.811 Obesity, class 1 (principal); Z68.32 Body mass index [BMI] 32.0-32.9, adult; Z90.3 Acquired absence of stomach [part of]; Z98.84 Bariatric surgery status
CPT/HCPCS: 99214

== ENCOUNTER → 2024-03-18 12:00 | Outpatient (BNV) | payer MEDICAID, SELFPAY | PROVIDERS: PCP Pediatrics; Visit Provider Anesthesiology | DX: M46.1 Sacroiliitis, not elsewhere classified (principal); M53.3 Sacrococcygeal disorders, not elsewhere classified | CPT/HCPCS: 27096 ==

== ENCOUNTER 2024-03-21 14:20 | Outpatient (REF) | payer MEDICAID, SELFPAY ==
--- OUTSIDE RECORDS SUMMARY | 2024-03-21 16:01 | XMS_ITS | Encounter Summary ---
Author Organization [employer] Address [address] [facility] 7 [place] [address] Care Team Providers Care Manager Social Responsibility Name Role Phone Moon Alvarado MD Primary Care Provider [phone] Reason for Visit * Reason Onset Date Comments ER Follow-up 05/27/2023 Encounter Details Date Type Department Care Team (Late st Contact Info) Description 05/27/2023 Telephone [facility] MEDICINE [address] [place] [address] Moon Alvarado MD [address] [place] [address] ER Follow-up Social History Tobacco Use Types [...] ED visit on : Date: 05/25 [place] [facility] [place] Seen for: Chest pain and was advised to get a referral Tax Accounting Manager Patient advised will forward to team nurse for follow up documented in this encounter Plan of Treatment Upcoming Encounters Date Type Department Care Team (Late st Contact Info) Description 04/07/2024 11:00 AM EST Clinical Support [facility] MED & PEDS [address] [place] [address] Roselyn Singer RN [address] [place] [address] documented as of this encounter Visit Diagnoses Not on filedocumented in this encounter Care Teams Manager Social Responsibility Relationship Specialty Start Date End Date Moon Alvarado MD [address] [place] [address] PCP - General Family Medicine 02/16/18 documented as of this encounter
--- OUTSIDE RECORDS SUMMARY | 2024-03-21 16:01 | XMS_ITS | Encounter Summary ---
Author Organization [employer] Address [address] [place] [address] 7 [place] [address] Care Team Providers Care Farm Agent Name Role Phone Moon Alvarado MD Primary Care Provider [phone] Reason for Visit * Reason Onset Date Comments Med Refill 02/05/2023 Encounter Details Date Type Department Care Team (Late st Contact Info) Description 02/05/2023 Telephone [facility] MEDICINE [address] [place] [address] Moon Alvarado MD [address] [place] [address] Med Refill Social History Tobacco Use Types [...] refill on; oxyCODONE-acetaminophen (Percocet) 5-325 MG tablet [facility] - [place], [place] - [address] documented in this encounter Plan of Treatment Upcoming Encounters Date Type Department Care Team (Late st Contact Info) Description 04/07/2024 11:00 AM EST Clinical Support [facility] MED [facility] PEDS [address] [place] [address] Roselyn Singer, IRMA [address] [place] [address] documented as of this encounter Visit Diagnoses Not on filedocumented in this encounter Care Teams Farm Agent Relationship Specialty Start Date End Date Moon Alvarado MD [address] [place] [address] PCP - General Family Medicine 02/16/18 documented as of this encounter
--- OUTSIDE RECORDS SUMMARY | 2024-03-21 16:01 | XMS_ITS | Encounter Summary ---
Author Organization [facility] Address [address] [place] [address] Care Team Providers Care Photovoltaic Testing Technician Name Role Phone Moon Alvarado MD Primary Care Provider [phone] Encounter Details Date Type Department Care Team (Late Contact Info) Description 2023 [facility] Health Information Management [address] [place], [place] [phone] Moon Alvarado MD [address] [place] [address] Social History Tobacco Use Types Packs/Day Years [...] Description 04/07/2024 11:00 AM EST Clinical Support [facility] CHC MED & PEDS [address] [place] [address] Roselyn Singer, IRMA 505 [place], [place] [phone] documented as of this encounter Visit Diagnoses Not on filedocumented in this encounter Care Teams Photovoltaic Testing Technician Relationship Specialty Start Date End Date Moon Alvarado MD 505 [place] [address] PCP - General Family Medicine 02/16/18 documented as of this encounter
--- OUTSIDE RECORDS SUMMARY | 2024-03-21 16:01 | XMS_ITS | Encounter Summary ---
Author Organization [employer] Address 75 [facility] 7t [place] [address] Care Team Providers Care Supervisor Insulation Name Role Phone Moon Alvarado MD Primary Care Provider Encounter Details Date Type Department Care Team ([facility] st Contact Info) Description 03/21/2024 11:00 AM EST Office Visit [facility] CHC MED & PEDS [address] [place], [place] [phone] Luz Marina [place] FNP 505 [place], [place] [phone] Encounter for immunization (Primary Dx); Acute bacterial simple cystitis Social History Tobacco Use Types Packs/Day Years [...] Sign Reading Time Taken Comments Blood Pressure 125/69 03/21/2024 11:00 AM EST Pulse 73 03/21/2024 11:00 AM EST Temperature 36.8 ??C (98.2 ??F) 03/21/2024 11:[address] Respiratory Rate 20 03/21/2024 11:00 AM EST Oxygen Saturation 98% 03/21/2024 11:00 AM EST Inhaled Oxygen Concentration - - Weight 91.6 kg (202 lb) 03/21/2024 11:00 AM EST Height 165.1 cm (5' 5 ) 03/21/2024 11:00 AM EST Body Mass Index 33.61 03/21/2024 11:00 AM EST documented in this encounter Miscellaneous Notes * Assessment & Plan Note - Zeferino Chou CNP - 03/21/2024 12:13 PM EST Associated Problem(s): Acute bacterial simple cystitis U/a-shows trace leuks and trace ketones, otherwise neg Per urgent care note: pt culture positive for GBS Since pt is symptomatic today will treat per UpToDate guidelines with amoxicillin 500mg TID x 7 days. Encouraged ample hydration and consumption of probiotic for gut health Pt may RTC if symptoms worsen or don't improve with tx. documented in this encounter Plan of Treatment Upcoming Encounters Date Type Department Care Team (Late st Contact Info) Description 04/07/2024 11:00 AM EST Clinical Support [facility] CHC MED & PEDS [address] [place] [address] Roselyn Singer, RN 505 [place] [address] Scheduled Orders Name Type Priority Associated Diagnoses Orde r Schedule Urinalysis, Complete, with Reflex to Culture Lab Routine Acute bacterial simple cystitis Expected: 03/21/2024 (Approximate), Expires: 03/21/2025 documented as of this encounter Procedures Procedure Name Priority Date/Time Associated Diagnosis Comments POCT URINALYSIS DIPSTICK Routine 03/21/2024 11:07 AM EST Acute bacterial simple cystitis documented in this encounter Results * (ABNORMAL) POCT Urinalysis (03/21/2024 11:07 AM EST) Color, UA Yellow Clarity, UA Clear Glucose, UA Negative Bilirubin, UA Negative Ketones, UA Positive Comment:trace Spec Grav, UA 1.030 Blood, UA Negative Negative, None Detected pH, UA 5.5 Protein, UA Negative Urobilinogen, UA 0.2 Leukocytes, UA Trace Negative, Rare, Trace Nitrite, UA Negative Negative, None Detected Appearance, UA clear QC Media Lot # [id number] Lot# Expiration Date 33,125 Urine 03/21/2024 11:0 7 AM EST [facility] POINT OF CARE TEST ENTER/ EDIT ORDERABLES Edited Result - Final documented in this encounter Visit Diagnoses Diagnosis Encounter for immunization- Primary Acute bacterial simple cystitis documented in this encounter Care Teams Supervisor Insulation Relationship Specialty Start Date End Date Moon Alvarado MD [address] [place] [address] PCP - General Family Medicine 02/16/18 documented as of this encounter
--- OUTSIDE RECORDS SUMMARY | 2024-03-21 16:01 | XMS_ITS | Encounter Summary ---
Author Organization [employer] Address 75 [facility] 7 [place] [address] Care Team Providers Care Golf Shoe Spike Assembler Name Role Phone Moon Alvarado MD Primary Care Provider Reason for Visit * Reason Onset Date Comments Med Refill 11/12/2022 Encounter Details Date Type Department Care Team (Late st Contact Info) Description 11/12/2022 Telephone [facility] MEDICINE 230 [place] [address] Moon Alvarado MD [address] [place] [address] Med Refill Social History Tobacco Use Types [...] CHC MED & PEDS [address] [place] [address] Roselyn Singer, IRMA [address] [place], [place] [phone] documented as of this encounter Visit Diagnoses Not on filedocumented in this encounter Care Teams Golf Shoe Spike Assembler Relationship Specialty Start Date End Date Moon Alvarado MD 505 [place] [address] PCP - General Family Medicine 02/16/18 documented as of this encounter
--- OUTSIDE RECORDS SUMMARY | 2024-03-21 16:01 | XMS_ITS | Encounter Summary ---
Author Organization [employer] [facility] Address [address] [place] [address] 7t [place] [address] Care Team Providers Care Journeyman Lineman Name Role Phone Moon Alvarado MD Primary Care Provider [phone] Encounter Details Date Type Department Care Team (Late st Contact Info) Description 03/18/2024 Orders Only [facility] External Provider, [facility] Social History Tobacco Use Types Packs/Day Years [...] [facility] 505 [place] [address] Roselyn Singer, IRMA 505 [place] [address] documented as of this encounter Procedures Procedure Name Priority Date/Time Associated Diagnosis Comments FL GUIDANCE IN OR Routine 03/18/2024 12: 50 PM EST documented in this encounter Results * FL Guidance in OR (03/18/2024 12:50 PM EST) Anatomical Region Laterality Modality X-Ray Angiograph y 03/18/2024 12:5 0 PM EST Narrative 03/18/2024 3:26 PM EST ? [facility] ?[address] ?[place] [address] ? Fluoroscopy Report ? Signed ? Patient: Boggs,Jes M ?MR#: [id number] ?? [id number] ? : 1970 ?Acct:[id number] ? Age/Sex: 54 / F ?ADM Date: 03/18/24 ? Loc: HO.SSS ? Attending Dr: Sean Bernal MD ? Ordering Physician: Sean Bernal MD ?? Date of Service: 03/18/24 ?? Procedure(s): FL guidance in OR ?? Accession Number(s): [id number] ? cc: Moon Alvarado MD; Sean Bernal MD ? EXAMINATION: ??FL GUIDANCE ONLY ? HISTORY: SACROILIAC JOINT STEROID INJECTION ? COMPARISON: ?? None available. ? TECHNIQUE: ?? Fluoroscopy time: 9.1 seconds. ?? Cumulative Dose: 2.0494 mGy. ?? DAP: 0.71993 mGym2 ?? Images: 1. ? FINDINGS: ?? A single fluoroscopic spot film demonstrates a needle and contrast in ?? the region of the right sacroiliac joint. ? FL/FL guidance in OR ?? IMPRESSION: ?? Fluoroscopy during procedure. Please see procedure report for ?? additional information. ? Electronically signed by: ??Dwayne Licea MD ??03/18/2024 03:23 PM EST ? Dictated By: ?Dwayne Licea MD ? Signed By: ?<Electronically signed by Dwayne Licea MD in OV> ?03/18/24 1523 ? DD/ 1250 ? TD/TT: 03/18/24 1519 ? Television Mechanic: ? Procedure Note [facility], Image - 03/18/[address] [address] Fluoroscopy Report Signed Patient: Jes Boggs MMR#: [id number] : 1970Acct:[id number] Age/Sex: 54 / FADM Date: 03/18/24 Loc: [facility] Attending Dr: Sean Bernal MD Ordering Physician: Sean Bernal MD Date of Service: 03/18/24 Procedure(s): FL guidance in OR Accession Number(s): [id number] cc: Moon Alvarado MD; Sean Bernal MD EXAMINATION: FL GUIDANCE ONLY HISTORY: SACROILIAC JOINT STEROID INJECTION COMPARISON: None available. TECHNIQUE: Fluoroscopy time: 9.1 seconds. Cumulative Dose: 2.0494 mGy. DAP: 0.00235 mGym2 Images: 1. FINDINGS: A single fluoroscopic spot film demonstrates a needle and contrast in the region of the right sacroiliac joint. FL/FL guidance in OR IMPRESSION: Fluoroscopy during procedure. Please see procedure report for additional information. Electronically signed by: Dwayne Licea MD 03/18/2024 03:23 PM [facility] Dictated By: Dwayne Licea MD Signed By: <Electronically signed by Dwayne Licea MD in OV> 03/18/24 1523 DD/ 1250 TD/TT: 03/18/24 1519 Television Mechanic: [facility] External Provider IMG IR PROCEDURES Final Result documented in this encounter Visit Diagnoses Not on filedocumented in this encounter Care Teams Journeyman Lineman Relationship Specialty Start Date End Date Moon Alvarado MD [address] [place] [address] PCP - General Family Medicine 02/16/18 documented as of this encounter
--- OUTSIDE RECORDS SUMMARY | 2024-03-21 16:01 | XMS_ITS | Encounter Summary ---
Author Organization [employer] [facility] Address [address] [place] [address] 7t [place] [address] Care Team Providers Care Maintenance Operator Name Role Phone Moon Alvarado MD Primary Care Provider [phone] Encounter Details Date Type Department Care Team (Late st Contact Info) Description 12/26/2022 Abstract [facility] MEDICINE [address] [place] [address] Natalya Peterson Social History Tobacco Use Types [...] Description 04/07/2024 11:00 AM EST Clinical Support [facility] CHC MED & PEDS [address] [place] [address] Roselyn Singer, IRMA 505 [place] [address] documented as of this encounter Procedures Procedure Name Priority Date/Time Associated Diagnosis Comments COLONOSCOPY Routine 07/23/2020 documented in this encounter Results * Colonoscopy (07/23/2020) Colonoscopy Normal Normal Narrative Natalya Peterson - 07/23/2020 Recommended 10 year follow up us Historical Provider HEALTH MAINTENANCE Final Result documented in this encounter Visit Diagnoses Not on filedocumented in this encounter Care Teams Maintenance Operator Relationship Specialty Start Date End Date Moon Alvarado MD [address] [place] [address] PCP - General Family Medicine 02/16/18 documented as of this encounter
--- OUTSIDE RECORDS SUMMARY | 2024-03-21 16:01 | XMS_ITS | Encounter Summary ---
Author Organization [employer] Address 75 [facility] 7 [place] [address] Care Team Providers Care Atmospheric Physicist Name Role Phone Moon Alvarado MD Primary Care Provider [phone] Reason for Visit * Reason Onset Date Comments Nurse Triage 03/17/2024 Encounter Details Date Type Department Care Team (Late st Contact Info) Description 03/17/2024 Telephone [facility] MEDICINE [address] [place] [address] Moon Alvarado MD [address] [place] [address] Nurse Triage (/) Social History Tobacco Use Types Packs/Day Years [...] encounter Miscellaneous Notes * Telephone Encounter - Faviola Bo RN - 03/17/2024 12:14 PM EST Will call and request lab results and notes from . * Telephone Encounter - Alesha Mcfarland RN - 03/17/2024 10:00 AM EST Per chart review of meds, Nitrofuratoin mono/mac 100mg Cap BID x 7 by JOSELIN TAY on 03/14/24 per med reconcile. Call returned to Jes Boggs to triage below. Reports that was called by [facility] to notify that Urine culture shows bacteria that requires PCP follow up. Per pt was advised to STOP nitrofurantoin. Pt has had 7 doses of that medication. Last dose today. Pt reports was having pain/burning with passing urine. Pt also endorses lower pelvic pain. Denies any flank pain or dark color to urine. Pt denies any N/V or fever since seen at . Pt offered appt tomorrow. Pt states having a procedure spinal block scheduled for tomorrow morning. Will require bed rest for approx 32 hours, unable to seek WIC on Thursday. Pt agrees to Sick on site on Thursday with team provider . Reviewed to monitor sx, increase fluids. Return call for NTTS over weekend PRN. IF PCP is able to review UC notes before Thursday, patient may be called with alternate plan of care based on Urine Culture results. Pt seen at Urgent [facility] [place] [address] [facility], [address] [place] [address] Sent to team to obtain notes and urine culture results for provider review. Sent to PCP as I. Protocol Used: Information Only Call - No Triage (Adult) Protocol-Based Disposition: Discuss with PCP and Callback by Nurse Today Video visit offer not recorded Positive Triage Question: * Requesting lab results and adult stable (no new symptoms, not getting worse) * All higher-acuity triage questions were negative Care Advice Discussed: * Reasons To Call Back - You become worse * Telephone Encounter - Sharri Nayak - 03/17/2024 9:22 AM EST Symptom: Urine Symptoms (pt states did labs at Urgent Care and has a bacteria in urine) Outcome: Schedule a same-day appointment or talk to a nurse or provider today Reason: Caller denied all higher acuity questions The caller accepted this outcome. [phone] documented in this encounter Plan of Treatment Upcoming Encounters Date Type Department Care Team (Late st Contact Info) Description 04/07/2024 11:00 AM EST Clinical Support [facility] MED & PEDS [address] [place] [address] Roselyn Singer, IRMA 505 [place] [address] documented as of this encounter Visit Diagnoses Not on filedocumented in this encounter Care Teams Atmospheric Physicist Relationship Specialty Start Date End Date Moon Alvarado MD [address] [place] [address] PCP - General Family Medicine 02/16/18 documented as of this encounter
--- OUTSIDE RECORDS SUMMARY | 2024-03-21 16:01 | XMS_ITS | Encounter Summary ---
Author Organization [employer] Address [address] [place] [address] 7 [place] [address] Care Team Providers Care Rec Therapist Name Role Phone Moon Alvarado MD Primary Care Provider [phone] Reason for Visit * Reason Onset Date Comments Med Refill 10/13/2022 Encounter Details Date Type Department Care Team ([facility] Contact [facility] Description 10/13/2022 Telephone [facility] MEDICINE [address] [place] [address] Moon Alvarado MD 505 [place] [address] Med Refill Social History Tobacco Use Types [...] Upcoming Encounters Date Type Department Care Team ([facility] Contact Info) Description 04/07/2024 11:00 AM EST Clinical Support [facility] CHC MED & PEDS [address] [place] [address] Roselyn Singer, IRMA 505 [place], [place] [phone] documented as of this encounter Visit Diagnoses Not on filedocumented in this encounter Care Teams Rec Therapist Relationship Specialty Start Date End Date Moon Alvarado MD 505 [place] [address] PCP - General Family Medicine 02/16/18 documented as of this encounter
--- OUTSIDE RECORDS SUMMARY | 2024-03-21 16:01 | XMS_ITS | Encounter Summary ---
Author Organization [employer] Address 75 [facility] 7 [place] [address] Care Team Providers Care Contact Person Name Role Phone Moon Alvarado MD Primary Care Provider [phone] Reason for Visit * Reason Onset Date Comments Med Refill 01/05/2024 Encounter Details Date Type Department Care Team (Late st Contact Info) Description 01/05/2024 Telephone [facility] MEDICINE 230 [place] [address] Moon Alvarado MD [address] [place] [address] Med Refill Social History Tobacco Use Types [...] Description 04/07/2024 11:00 AM EST Clinical Support [facility] CHC MED & PEDS [address] [place] [address] Roselyn Singer, IRMA 505 [place] [address] documented as of this encounter Visit Diagnoses Not on filedocumented in this encounter Care Teams Contact Person Relationship Specialty Start Date End Date Moon Alvarado MD [address] [place] [address] PCP - General Family Medicine 02/16/18 documented as of this encounter
--- OUTSIDE RECORDS SUMMARY | 2024-03-21 16:01 | XMS_ITS | Encounter Summary ---
Author Organization [employer] Address 75 [facility] 7 [place] [address] Care Team Providers Care Powder Monkey Name Role Phone Moon Alvarado MD Primary Care Provider [phone] Reason for Visit * Reason Onset Date Comments Med Refill 03/08/2024 Encounter Details Date Type Department Care Team (Late st Contact Info) Description 03/08/2024 Refill [facility] [address] [place] [address] Moon Alvarado MD [address] [place] [address] Chronic pain syndrome Social History Tobacco Use [...] 5-325 MG tablet To be sent to: [facility] - [place], [place] - 505 [facility] documented in this encounter Plan of Treatment Upcoming Encounters Date Type Department Care Team (Late st Contact Info) Description 04/07/2024 11:00 AM EST Clinical Support [facility] MED & PEDS 505 [place] [address] Roselyn Singer, IRMA [address] [place] [address] documented as of this encounter Visit Diagnoses Diagnosis Chronic pain syndrome documented in this encounter Care Teams Powder Monkey Relationship Specialty Start Date End Date Moon Alvarado MD [address] [place] [address] PCP - General Family Medicine 02/16/18 documented as of this encounter
--- OUTSIDE RECORDS SUMMARY | 2024-03-21 16:01 | XMS_ITS | Encounter Summary ---
Author Organization [employer] [facility] Address [address] [place] [address] 7 [place] [address] Care Team Providers Care Chronic Condition Nurse Name Role Phone Moon Alvarado MD Primary Care Provider [phone] Reason for Visit * Reason Comments Med Refill Encounter Details Date Type Department Care Team ([facility] Contact Info) Description 07/21/2023 Refill [facility] CHC MED & PEDS [address] [place] [address] Moon Alvarado MD [address] [place] [address] Social History Tobacco Use Types Packs/Day Years [...] Upcoming Encounters Date Type Department Care Team ([facility] Contact Info) Description 04/07/2024 11:00 AM EST Clinical Support [facility] CHC MED & PEDS [address] [place] [address] Roselyn Singer RN [address] [place] [address] documented as of this encounter Visit Diagnoses Not on filedocumented in this encounter Care Teams Chronic Condition Nurse Relationship Specialty Start Date End Date Moon Alvarado MD [address] [place] [address] PCP - General Family Medicine 02/16/18 documented as of this encounter
--- OUTSIDE RECORDS SUMMARY | 2024-03-21 16:01 | XMS_ITS | Encounter Summary ---
Author Organization [employer] Address 75 [facility] 7 [place] [address] Care Team Providers Care Landfill Gas Collection Operator Name Role Phone Moon Alvarado MD Primary Care Provider [phone] Reason for Visit * Reason Onset Date Comments Referral 01/19/2023 Encounter Details Date Type Department Care Team ([facility] st Contact Info) Description 01/19/2023 Telephone [facility] MEDICINE [address] [place] [address] Mono Alvarado MD [address] [place] [address] Referral Social History Tobacco Use Types Packs/Day [...] pt of referral placed. Pt currently at [facility] being seen. * Telephone Encounter - Marina Wasserman RN - 01/19/2023 3:50 PM EST Placed call to pt regarding message below. Pt states going to Urgent care at [place] and being told she had an infection of her big Toe on Left foot and a fracture. They informed pt of need to f/u with [facility] urgently and pt managed to get an appt for tomorrow morning. [facility] is stating they need a referral from PCP office. Informed pt that PCP cannot place referral without indication or notes fromUC. Offered pt [facility] appt tonight but pt has no [...] Group NPI salvador included on referral of [id number]. Informed [facility] that our office has our own referral dept thatmay already have said NPI. Please review UC notes and advise on referral request. Thank you. * Telephone Encounter - Wilfredo Rae - 01/19/2023 9:31 AM EST Tc from pt requesting a referral for [facility] documented in this encounter Plan of Treatment Upcoming Encounters Date Type Department Care Team (Late st Contact Info) Description 04/07/2024 11:00 AM EST Clinical Support [facility] CHC MED & PEDS 505 [place] [address] Roselyn Singer, IRMA 505 [place] [address] documented as of this encounter Visit Diagnoses Not on filedocumented in this encounter Care Teams Landfill Gas Collection Operator Relationship Specialty Start Date End Date Moon Alvarado MD 505 [place] [address] PCP - General Family Medicine 02/16/18 documented as of this encounter
--- OUTSIDE RECORDS SUMMARY | 2024-03-21 16:01 | XMS_ITS | Encounter Summary ---
Author Organization [employer] [facility] Address [address] [place] [address] 7 [place] [address] Care Team Providers Care Preventative Maintenance Technician Name Role Phone Moon Alvaardo MD Primary Care Provider [phone] Encounter Details Date Type Department Care Team (Latest Contact Info) Description 03/21/2024 Travel Social History Tobacco Use Types Packs/Day [...] Description 04/07/2024 11:00 AM EST Clinical Support [facility] MED & PEDS 505 [place] [address] Roselyn Singer RN 505 [place] [address] documented as of this encounter Visit Diagnoses Not on filedocumented in this encounter Care Teams Preventative Maintenance Technician Relationship Specialty Start Date End Date Moon Alvarado MD 505 [place] [address] PCP - General Family Medicine 02/16/18 documented as of this encounter
--- OUTSIDE RECORDS SUMMARY | 2024-03-21 16:01 | XMS_ITS | Encounter Summary ---
Author Organization [facility] Address [address] [facility] 7t [place] [address] Care Team Providers Care Hot Top Liner Helper Name Role Phone Moon Alvarado MD Primary Care Provider [phone] Encounter Details Date Type Department Care Team (Late st Contact Info) Description 12/04/2023 Orders Only [facility] External Provider, [facility] Social History Tobacco Use Types Packs/Day Years [...] Description 04/07/2024 11:00 AM EST Clinical Support [facility] [address] [place] [address] Roselyn Singer, RN [address] [place] [address] documented as of this encounter Procedures Procedure Name Priority Date/Time Associated Diagnosis Comments FL GUIDANCE IN OR Routine 12/04/2023 10: 58 AM EDT documented in this encounter Results * FL Guidance in OR (12/04/2023 10:58 AM EDT) Anatomical Region Laterality Modality X-Ray Angiograph y 12/04/2023 10:5 8 AM EDT Narrative 03/15/2024 11:43 AM EST ? [facility] ?[address] ?[place] [address] ? Fluoroscopy Report ? Signed ? Patient: Boggs,Jes M ?MR#: [id number] ?? [id number] ? : 1970 ?Acct:[id number] ? Age/Sex: 53 / F ?ADM Date: 12/04/23 ? Loc: HO.SSS ? Attending Dr: Sean Bernal MD ? Ordering Physician: Sean Bernal MD ?? Date of Service: 12/04/23 ?? Procedure(s): FL guidance in OR ?? Accession Number(s): [id number] ? cc: Moon Alvarado MD; Sean Bernal MD ? EXAMINATION: ?? FLUORO GUIDANCE IN OR ? CLINICAL INFORMATION: ?? RFA L4, L5, S1. ? COMPARISON: ?? None available. ? TECHNIQUE: ?? Fluoroscopy supervised by: Dr. Sean Bernal. ?? Fluoroscopy time: 4 minutes 15 seconds. ?? Cumulative Dose: 146.91 mGy. ?? DAP: 57.547 Gy-cm2 (bay-centimeter squared). ?? Images: 18. ? FINDINGS: ?? Fluoroscopy provided in the OR. ? FL/FL guidance in OR ?? IMPRESSION: ?? Fluoroscopy during procedure. Please see procedure report for ?? additional information. ? Electronically signed by: ??Dwayne Alexis MD ??03/15/2024 11:41 AM EST RP ? Dictated By: ?Dwayne Alexis MD ? Signed By: ?<Electronically signed by Dwayne Alexis MD in OV> ?03/15/24 1141 ? DD/ 1058 ? TD/TT: 12/04/23 1230 ? Bander And Cellophaner Helper Machine: RG ? Procedure Note Dontravis, Image - 03/15/[address] [address] Fluoroscopy Report Signed Patient: Jes Boggs MMR#: [id number] : 1970Acct:[id number] Age/Sex: 53 / FADM Date: 12/04/23 Loc: HO.SSS Attending Dr: Sean Bernal MD Ordering Physician: Sean Bernal MD Date of Service: 12/04/23 Procedure(s): FL guidance in OR Accession Number(s): [id number] cc: Moon Alvarado MD; Sean Bernal MD EXAMINATION: FLUORO GUIDANCE IN OR CLINICAL INFORMATION: RFA L4, L5, S1. COMPARISON: None available. TECHNIQUE: Fluoroscopy supervised by: Dr. Sean Bernal. Fluoroscopy time: 4 minutes 15 seconds. Cumulative Dose: 146.91 mGy. DAP: 57.547 Gy-cm2 (bay-centimeter squared). Images: 18. FINDINGS: Fluoroscopy provided in the OR. FL/FL guidance in OR IMPRESSION: Fluoroscopy during procedure. Please see procedure report for additional information. Electronically signed by: Dwayne Alexis MD 03/15/2024 11:41 AM EST Dictated By: Dwayne Alexis MD Signed By: <Electronically signed by Dwayne Alexis MD in OV> 03/15/24 1141 DD/ 1058 TD/TT: 12/04/23 1230 [employer] Helper Machine: LEEANNA [facility] External Provider IMG IR PROCEDURES Final Result documented in this encounter Visit Diagnoses Not on filedocumented in this encounter Care Teams Hot Top Liner Helper Relationship Specialty Start Date End Date Moon Alvarado MD [address] [place] [address] PCP - General Family Medicine 02/16/18 documented as of this encounter
--- OUTSIDE RECORDS SUMMARY | 2024-03-21 16:01 | XMS_ITS | Clinical Summary ---
Author Organization [employer] Address [address] [facility] 7t [place] [address] Care Team Providers Care Punch Hand Name Role Phone Moon Alvarado MD Primary Care Provider [phone] Allergies Active Allergy Reactions Criticality Noted Date [...] evening, and at bedtime. Active EPINEPHrine (EpiPen 2-Anroldo) 0.3 MG/0.3ML injection syringe Inject 0.3 mg [...] mg by mouth if needed each day. 023 Active diclofenac (Cataflam) 50 MG tablet Take 1 tablet by mouth in the morning and 1 tablet in the evening. 022 Active buPROPion XL (Wellbutrin XL) 300 MG 24 hr tablet Take 300 mg by mouth in the morning. Active terbinafine (LamISIL) 250 MG tablet TAKE ONE TABLET BY MOUTH ONCE DAILY FOR SIX WEEKS 42 tablet 023 Active sertraline (Zoloft) 25 MG tablet Take 25 mg by mouth in the morning. Active Diclofenac Sodium 1 % gel Apply bid to knee 100 g 11 023 Active triamcinolone (Kenalog) 0.025 % cream Apply [...] 28 days. 84 tablet 025 2024 Active amoxicillin (Amoxil) 500 MG capsuleIndica tions:Acute bacterial simple cystitis Take 1 capsule (500 mg) by mouth every 8 (eight) hours for 7 days. 21 capsule 025 2024 Active oxyCODONE-sofia taminophen (Percocet) 5-325 MG tabletIndicat [...] Active Problems Problem Noted Date Diagnosed Date Acute bacterial simple cystitis 03/21/2024 Assessment & Plan (03/21/2024 12:13 PM EST): U/a-shows trace leuks and trace ketones, otherwise neg Per urgent care note: pt culture positive for GBS Since pt is symptomatic today will treat per UpToDate guidelines with amoxicillin 500mg TID x 7 days. Encouraged ample hydration and consumption of probiotic for gut health Pt may RTC if symptoms worsen or don't improve with tx. Chronic pain syndrome 12/12/2016 Cyst of ovary [...] Encounters Date Type Department Care Team Description 03/21/2024 11:00 AM EST Office Visit [facility] [address] [place] [address] Luz Marina Davidson FNP Encounter for immunization (Primary Dx); Acute bacterial simple cystitis 03/21/2024 Travel 03/18/2024 Orders Only [facility] External Provider, [facility] 03/17/2024 Telephone [facility] [address] [place] [address] Moon Alvarado MD Nurse Triage (/) 03/08/2024 Refill [facility] [address] [place] [address] Moon Alvarado MD Chronic pain syndrome 02/16/2024 10:00 AM EST Office Visit [facility] [address] [place] [address] Moon Alvarado MD Dysuria (Primary Dx); Dietary counseling; Exercise counseling; Severe episode of recurrent major depressive disorder, without psychotic features (CMS/HCC) 02/16/2024 Travel 02/16/2024 Telephone [facility] [address] [place] [address] Moon Alvarado MD Nurse Triage 02/09/2024 Travel 02/09/2024 Refill [facility] [address] [place] [address] Moon Alvarado MD Chronic pain syndrome 01/05/2024 Refill [facility] [address] [place] [address] Roselyn Singer RN Chronic pain syndrome 01/05/2024 Telephone [facility] [address] [place] [address] Moon Alvarado MD Med Refill 12/26/2023 Orders Only GENERIC EXTERNAL DATA DEPARTMENT Provider, Generic External Data 12/22/[address] [address] Moon Alvarado MD Prior Authorization from Last 3 Months Immunizations Name Administration Dates Next Due Pneumococcal Conjugate PCV 20 03/21/2024 Social History Tobacco Use Types Packs/Day Years [...] Mass Index 33.61 03/21/2024 11:00 AM EST Plan of Treatment Upcoming Encounters Date Type Department Care Team (Late st Contact Info) Description 04/07/2024 11:00 AM EST Clinical Support [facility] [address] [place] [address] Roselyn Singer, RN [address] [place] [address] Health Maintenance Due Date Last Done Comments CT Colonography 1970 Depression Screening 1970 FIT DNA/Cologuard 1970 FIT 1970 FOBT 1970 HIV Screening 1970 SDOH Screening 1970 Sigmoidoscopy 1970 Alcohol/Substance Use Screening 1982 Hepatitis C Screening 01/28/1988 Hepatitis B Vaccines (1 of 3 - 19+ 3-dose series) 1989 Zoster Vaccines (1 of 2) 01/28/2020 Mammogram 04/09/2023 04/09/2021, 04, 05/25/2017 COVID-19 Vaccine ( season) 2023 04/15/2020, 03/27/2020 Influenza Vaccine (#1) 2023 2, 01/19/2018, 12/12/2016, Additional history exists Pap Smear 01/07/2025 01/07/2022 Tobacco Screening 02/15/2025 02/16/2024 DTaP/Tdap/Td Vaccines (3 - Td or Tdap) 03/08/2026 03/08/2016, 12/06/2012 Cervical Cancer Screening 01/07/2027 HPV/Cotest 01/07/2027 01/07/2022 Lipid Panel 12/17/2028 12/18/2023, 06/16, 09/05/2020 Colonoscopy 07/08/2033 07/09/2023, 07/23/2020 Colorectal Cancer Screening 07/08/2033 RSV Patients and Patients Aged 60 years or older (1 - 1-dose 75+ series) 2045 Pneumococcal Vaccine: 50+ Years Completed 03/21/2024, 10/29/2012 HIB Vaccines Aged Out No longer eligi [...] 11:07 AM EST Acute bacterial simple cystitis FL GUIDANCE IN OR Routine 03/18/2024 12: 50 PM EST POCT URINALYSIS DIPSTICK Routine 02/16/2024 10:24 AM EST Dysuria CBC WITH AUTO DIFFERENTIAL Routine 12/26/2023 8:20 AM EST MR LUMBAR SPINE WO CONTRAST Routine 12/23/2023 4:34 PM EST LIPID PANEL, STANDARD Routine 12/18/2023 7:03 AM EDT COLONOSCOPY Routine 07/09/2023 12:53 PM EDT HPV MRNA E6/E7 REFLEX TO HPV 16, 18/45 Routine 01/07/2022 2:32 PM EST PAP SMEAR Routine 01/07/2022 2:32 PM EST MAMMOGRAM GENERIC Routine 04/09/2021 7:4 5 AM EST from Last 3 Months or Most Recently Relevant to Health Maintenance Results * (ABNORMAL) POCT Urinalysis (03/21/2024 11:07 AM EST) Only the most recent of2 resultswithin the time period is included. Color, UA Yellow Clarity, UA Clear Glucose, [...] 33,125 Urine 03/21/2024 11:0 7 AM EST [facility] POINT OF CARE TEST ENTER/ EDIT ORDERABLES Edited Result - Final * FL Guidance in OR (03/18/2024 12:50 PM EST) Anatomical Region Laterality Modality X-Ray Angiograph y 03/18/2024 12:5 0 PM EST Narrative 03/18/2024 3:26 PM EST ? [facility] ?[address] ?[place] [address] ? Fluoroscopy Report ? Signed ? Patient: Boggs,Jes M ?MR#: [id number] ?? [id number] ? : 1970 ?Acct:[id number] ? Age/Sex: 54 / F ?ADM Date: 03/18/ ? Loc: HO.SSS ? Attending Dr: Sean Bernal MD ? Ordering Physician: Sean Bernal MD ?? Date of Service: 03/18/24 ?? Procedure(s): FL guidance in OR ?? Accession Number(s): [id number] ? cc: Moon Alvarado MD; Sean Bernal MD ? EXAMINATION: ??FL GUIDANCE ONLY ? HISTORY: SACROILIAC JOINT STEROID INJECTION ? COMPARISON: ?? None available. ? TECHNIQUE: ?? Fluoroscopy time: 9.1 seconds. ?? Cumulative Dose: 2.0494 mGy. ?? DAP: 0.85812 mGym2 ?? Images: 1. ? FINDINGS: ?? [...] DD/ 1250 ? TD/TT: 03/18/24 1519 ? Director Of Outreach: ? Procedure Note Mignonter, Image - 03/18/2024 [place] [address] Fluoroscopy Report Signed Patient: Jes Boggs MMR#: [id number] : 1970Acct:[id number] Age/Sex: 54 / FADM Date: 03/18/24 Loc: HO.[facility] Attending Dr: Sean Bernal MD Ordering Physician: Sean Bernal MD Date of Service: 03/18/24 Procedure(s): FL guidance in OR Accession Number(s): [id number] cc: Moon Alvarado MD; Sean Bernal MD EXAMINATION: FL GUIDANCE ONLY HISTORY: SACROILIAC JOINT STEROID INJECTION COMPARISON: None available. TECHNIQUE: Fluoroscopy time: 9.1 seconds. Cumulative Dose: 2.0494 mGy. DAP: 0.84867 mGym2 Images: 1. FINDINGS: A single fluoroscopic spot film demonstrates a needle and contrast in the region of the right sacroiliac joint. FL/FL guidance in OR IMPRESSION: Fluoroscopy during procedure. Please see procedure report for additional information. Electronically signed by: Dwayne Licea MD 03/18/2024 03:23 PM [facility] Dictated By: Dwayne Licea MD Signed By: <Electronically signed by Dwayne Licea MD in OV> 03/18/24 1523 DD/ 1250 TD/TT: 03/18/24 1519 Director Of Outreach: [facility] External Provider IMG IR PROCEDURES Final Result * (ABNORMAL) CBC auto differential (12/26/2023 8:20 AM EST) White Blood Count 3.4(L) 4.8 - 10.8 X10*3/uL [facility] Red Blood Count 4.59 4.20 - 5.50 X10*6/uL [facility] Hemoglobin 12.2 12.0 - 16.0 g/dl [facility] Hematocrit 37.1 37.0 - 47.0 % [facility] Mean Corpuscular Volume 80.8 80.0 - 98.0 fL [facility] Mean Corpuscular Hemoglobin 26.6(L) 27.0 - 33.0 pg [facility] Mean Corpuscular HGB Conc 32.9 31.0 - 35.0 g/dl [facility] Red Cell Distribution Width 14.4 11.0 - 16.0 % [facility] Platelet Count 297 160 - 400 X10*3/uL [facility] Mean Platelet Volume 10.4 9.4 - 12.3 fL [facility] Neutrophils Percent Auto 44.6(L) 45 - 73 % [facility] Imm Gran Pct Auto 0.0 0.0 - 0.4 % [facility] Lymphocytes Percent Auto 39.8 20 - 40 % [facility] Monocytes Percent Auto 8.8 2 - 11 % [facility] Eosinophils Percent Auto 5.9(H) 0 - 4 % [facility] Basophils Percent Auto 0.9 0 - 2 % [facility] NRBC Pct Auto 0.0 0.0 - 0.2 /100WBC [facility] Neutrophils Absolute Auto 1.5(L) 2.0 - 8.3 x10*3/uL [facility] Imm Gran Abs Auto 0.00 0.00 - 0.03 X10*3/uL [facility] Lymphocytes Absolute Auto 1.4 1.2 - 4.9 X10*3/uL [facility] Monocytes Absolute Auto 0.3 0.1 - 1.2 X10*3/uL [facility] Eosinophils Absolute Auto 0.2 0.0 - 0.4 X10*3/uL [facility] Basophils Absolute Auto 0.0 0.0 - 0.2 X10*3/uL [facility] NRBC Abs Auto 0.000 0.0 - 0.012 X10*3/uL [facility] 12/26/2023 8:20 AM EST 12/26/2023 8:20 AM EST us Generic External Data Provider LAB BLOOD ORDERAB LES Final Result [facility] [address] [place] [address] [phone] * MR Lumbar Spine w/o Contrast (12/23/2023 4:34 PM EST) Anatomical Region Laterality Modality Spine, L-spine Magnetic Resonan ce 12/23/2023 4:34 PM EST Narrative 12/24/2023 10:25 AM EST ? [facility] ?[address] ?[place] [address] ? Magnetic Resonance Report ? Signed ? Patient: Boggs,Jes M ?MR#: [id number] ?? [id number] ? : 1970 ?Acct:[id number] ? Age/Sex: 53 / F ?ADM Date: 12/23/23 ? Loc: HO.MRI ? Attending Dr: Sean Bernal MD ? Ordering Physician: Sean Bernal MD ?? Date of Service: 12/23/23 ?? Procedure(s): MR lumbar spine wo con ?? Accession Number(s): [id number] ? cc: Moon Alvarado MD; Sean Bernal [...] and likely. ? Discussed with Dr. Sean lynn on December 24, 2023. ? Electronically signed by: ??Siva Castro MD ??12/24/2023 10:22 AM ?? EST RP ? Dictated By: ?Siva Joshua MD ? Signed By: ?<Electronically signed by Svia Lo MD in OV> ? 12/24/23 1022 ? DD/ 1634 ? TD/TT: 12/23/23 1645 ? Director Of Outreach: ? Procedure Note Donrhiannonter, Image - 12/24/[address] [address] Magnetic Resonance Report Signed Patient: Jes Boggs MMR#: [id number] : 1970Acct:[id number] Age/Sex: 53 / FADM Date: 12/23/23 Loc: HO.MRI Attending Dr: Sean Bernal MD Ordering Physician: Sean Bernal MD Date of Service: 12/23/23 Procedure(s): MR lumbar spine wo con Accession Number(s): [id number] cc: Moon Alvarado MD; Sean Bernal MD [...] Siva Castro MD 12/24/2023 10:22 AM EST Dictated By: Siva Joshua MD Signed By: <Electronically signed by Siva Lo MDin OV> 12/24/23 1022 DD/ 1634 TD/TT: 12/23/23 1645 Director Of Outreach: [facility] External Provider IMG MRI PROCEDURES Edited Result - Final * (ABNORMAL) Lipid Panel, Standard (12/18/2023 7:03 AM EDT) Triglycerides 96 <150 mg/dL [facility] Comment:Desirable Triglyceri de: less than 150 mg/dLBorderline High Triglyceride 150-199 mg/dLHigh Triglyceride: 200-499 mg/dLVery High Triglyceride: greater than or equal to 5OO mg/dL Cholesterol 219(H) <200 mg/dL [facility] Comment:Desirable Cholestero l: less than 200 mg/dLBorderline High Cholesterol: 200-239 mg/dLHigh Cholesterol: greater than 239 mg/dL LDL Cholesterol Calculated 135(H) <100 mg/dL [facility] Comment:Desirable LDL: less than 100 mg/dLNear Optimal/Above Optimal LDL: 110- 129 mg/dLBorderline High LDL: 130-159 mg/dLHigh LDL: 160-189 mg/dLVery High LDL: greater than or equal to 190 mg/dL HDL Cholesterol 65 >40 mg/dL [facility] Comment:Desirable HDL: great er than 40 mg/dL Note: This HDL assay may give artificially low results in patients with liver disease. 12/18/2023 7:03 AM EDT 12/18/2023 7:03 AM EDT us Generic External Data Provider LAB BLOOD ORDERAB LES Final Result [facility] [address] [place] [address] [phone] * Colonoscopy (07/09/2023 12:53 PM EDT) Anatomical Region Laterality Modality Endoscopy us Historical Provider ENDOSCOPY PROCEDURE ORDER YOLIE Final Result * HPV mRNA E6/E7 w/Reflex to HPV Genotypes 16, 18/45 (01/07/2022 2:32 PM EST) HPV nRNA E6/E7 Not Detected Not Detected [facility] Comment:Methodology: Transcr iption-Mediated AmplificationThis assay detects E6/E7 viral messenger RNA (mRNA) from 14high-risk HPV types (16,18,31,33,35,39,45,51,52,56,58,59,66,68).Cervical sources are required for HPV testing.If a vaginal source from a patient who has had atotal hysterectomy with removal of cervix wassubmitted, please contact the testing laboratoryfor alternative testing options.For additional information, please refer tohttp://education.madvertise/faq/HXJ486v3(This link if provided for information/educational purposes only.)THIS TEST WAS PERFORMED AT:[facility] [place] [address],[place] [address]SWSZOSANDRA HANDLEY MD HPV mRNA E6/E7 TNP [facility] HPV 16 RNA [facility] HPV 18/45 RNA TNP [facility] 01/07/2022 2:32 PM EST 01/08/2022 8:40 AM EST [facility] External Provider LAB CYT OLOGY ORDERABLES Final Result [facility] [address] [place] [address] [phone] * Pap Smear (01/07/2022 2:32 PM EST) 01/07/2022 2:32 PM EST 01/08/2022 8:40 AM EST Narrative [facility] - 02/03/2022 3:53 PM EST ----- ------- Name: Jes Boggs ? Age/Sex: 51/F ? : 1970 Unit#: [id number] ?? Attend Dr: Dionte Paulino MD ?Re01/07/22 ?Status: DEP REF ? Location: HO.LNP ?Disch: ? ----- ------- SPEC : [id number] ?RECD: 01/08/22 ? STATUS: ??SOUT ? REQ NUM: [id number] ? VIVIANA: 01/07/22 ? SUBM DR: Dionte Paulino MD ? [...] 66, 68) ? HPV testing performed by [facility], [place], [place]. ??See reference laboratory ?? portion of the EMR for entire report. ?Clinical Information LMP: Pt has IUD Previous PAP test: 2017, WNL ? Material Received ?? ThinPrep-Cervical ----- ------- Signed (signature on file) Savana Simmons 02/03/22 1553 ? ----- ------- ? END OF REPORT ? [facility] External Provider LAB [facility] ORDERABLES Final Result [facility] [address] [place] [phone] * Mammography Report 1 (04/09/2021 7:45 [...] Most Recently Relevant to Health Maintenance Insurance [facility] C3 Care Teams Punch Hand Relationship Specialty Start Date End Date Moon Alvarado MD [address] [place] [phone] PCP - General Family Medicine 02/16/18
--- OUTSIDE RECORDS SUMMARY | 2024-03-21 16:01 | XMS_ITS | Encounter Summary ---
Author Organization [employer] Address [address] [facility] 7 [place] [address] Care Team Providers Care Graduate Engineer Name Role Phone Mono Alvarado MD Primary Care Provider [phone] Reason for Visit * Reason Onset Date Comments Med Refill 10/07/2023 Encounter Details Date Type Department Care Team (Late Contact Info) Description 10/07/2023 Telephone [facility] MEDICINE [address] [place] [address] Moon Alvarado MD [address] [place] [address] Med Refill Social History Tobacco Use Types [...] 5-325 MG tablet To be sent to: [facility] documented in this encounter Plan of Treatment Upcoming Encounters Date Type Department Care Team (Late st Contact Info) Description 04/07/2024 11:00 AM EST Clinical Support [facility] [address] [place] [address] Roselyn Singer, IRMA [address] [place] [address] documented as of this encounter Visit Diagnoses Not on filedocumented in this encounter Care Teams Graduate Engineer Relationship Specialty Start Date End Date Moon Alvarado MD [address] [place] [address] PCP - General Family Medicine 02/16/18 documented as of this encounter
--- OUTSIDE RECORDS SUMMARY | 2024-03-21 16:01 | XMS_ITS | Encounter Summary ---
Author Organization [facility] Address [address] [place] [address] 7t [place] [address] Care Team Providers Care Manager Secondary Name Role Phone Moon Alvarado MD Primary Care Provider [phone] Encounter Details Date Type Department Care Team (Late st Contact Info) Description 07/15/2023 Orders Only [facility] [address] [place] [address] Provider, MD Marv Social History Tobacco Use [...] Description 04/07/2024 11:00 AM EST Clinical Support [facility] [address] [place] [address] Roselyn Singer, IRMA [address] [place] [address] documented as of this encounter Procedures Procedure Name Priority Date/Time Associated Diagnosis Comments COLONOSCOPY Routine 07/09/2023 12:53 PM EDT documented in this encounter Results * Colonoscopy (07/09/2023 12:53 PM EDT) Anatomical Region Laterality Modality Endoscopy Historical Provider ENDOSCOPY PROCEDURE ORDER YOLIE Final Result documented in this encounter Visit Diagnoses Not on filedocumented in this encounter Care Teams Manager Secondary Relationship Specialty Start Date End Date oMon Alvarado MD [address] [place] [address] PCP - General Family Medicine 02/16/18 documented as of this encounter
--- OUTSIDE RECORDS SUMMARY | 2024-03-21 16:01 | XMS_ITS | Encounter Summary ---
Author Organization [employer] [facility] Address [address] [facility] 7 [place] [address] Care Team Providers Care Steamtable Worker Name Role Phone Moon Alvarado MD Primary Care Provider [phone] Reason for Visit * Reason Onset Date Comments Nurse Triage 02/18/2023 Encounter Details Date Type Department Care Team ([facility] Contact Info) Description 02/18/2023 Telephone [facility] MEDICINE [address] [place] [address] Moon Alvarado MD [address] [place] [address] Nurse Triage Social History Tobacco Use Types [...] accepted this outcome Please contact pt @ [phone] Dutch Speaker documented in this encounter Plan of Treatment Upcoming Encounters Date Type Department Care Team (Late st Contact Info) Description 04/07/2024 11:00 AM EST Clinical Support [facility] [address] [place] [address] Roselyn Singer, IRMA [address] [place] [address] documented as of this encounter Visit Diagnoses Not on filedocumented in this encounter Care Teams Steamtable Worker Relationship Specialty Start Date End Date Moon Alvarado MD [address] [place] [address] PCP - General Family Medicine 02/16/18 documented as of this encounter
--- OUTSIDE RECORDS SUMMARY | 2024-03-21 16:01 | XMS_ITS | Encounter Summary ---
Author Organization [employer] Address [address] [place] [address] 7 [place] [address] Care Team Providers Care Provider Relations Manager Name Role Phone Moon Alvarado MD Primary Care Provider [phone] Reason for Visit * Reason Onset Date Comments Appointment Request 06/08/2023 Encounter Details Date Type Department Care Team (Late Contact Info) Description 06/08/2023 Telephone [facility] MEDICINE 230 [place] [address] Moon Alvarado MD 505 [place] [address] Appointment Request Social History Tobacco Use Types [...] 11:00 AM EST Clinical Support [facility]S 505 [place] [address] Roselyn Singer RN 505 [place] [address] documented as of this encounter Visit Diagnoses Not on filedocumented in this encounter Care Teams Provider Relations Manager Relationship Specialty Start Date End Date Moon Alvarado MD 505 [place] [address] PCP - General Family Medicine 02/16/18 documented as of this encounter
--- OUTSIDE RECORDS SUMMARY | 2024-03-21 16:01 | XMS_ITS | Encounter Summary ---
Author Organization [email or web address] [facility] Address [address] [place] [address] Care Team Providers Care Motor Pool Clerk Name Role Phone Moon Alvarado MD Primary Care Provider [phone] Reason for Visit * Reason Onset Date Comments r/s MOTOR POOL CLERK RN appt 05/04/2023 Encounter Details Date Type Department Care Team (Late st Contact Info) Description 05/04/2023 Telephone [facility] MEDICINE 230 [place] [address] Moon Alvarado MD [address] [place] [address] r/s MOTOR POOL CLERK RN appt Social History Tobacco Use Types [...] EDT Tc from pt requesting to r/s MOTOR POOL CLERK Rn appt scheduled for 05/05/23 , appt has been cancelled. documented in this encounter Plan of Treatment Upcoming Encounters Date Type Department Care Team (Late st Contact Info) Description 04/07/2024 11:00 AM EST Clinical Support [facility]S 505 [place] [address] Roselyn Singer, IRMA 505 [place] [address] documented as of this encounter Visit Diagnoses Not on filedocumented in this encounter Care Teams Motor Pool Clerk Relationship Specialty Start Date End Date Moon Alvarado MD 505 [place] [address] PCP - General Family Medicine 02/16/18 documented as of this encounter
--- OUTSIDE RECORDS SUMMARY | 2024-03-21 16:02 | XMS_ITS | Encounter Summary ---
Author Organization [employer] Address 75 [facility] 7 [place] [address] Care Team Providers Care Pharmacy Manager Name Role Phone Moon Alvarado MD Primary Care Provider [phone] Reason for Visit * Reason Onset Date Comments Prior Authorization 12/22/2023 Encounter Details Date Type Department Care Team (Late st Contact Info) Description 12/22/2023 Telephone [facility] MEDICINE 230 [place] [address] Moon Alvarado MD [address] [place] [phone] Prior Authorization Social History Tobacco Use Types [...] Please review Thank you. Tc from Damaris ([facility] Pain Management group requesting a PA for an MRI With out contrast , Damaris informs any questions her callback number [phone] CPT CODE -17528 ICD CODE - M46.46 * Telephone Encounter - Janine Anand - 12/22/2023 9:13 AM EST Tc from Damaris ([facility]) Pain Management group requesting a PA for an MRI With out contrast , Damaris informs any questions her callback number [phone] CPT CODE -20795 ICD CODE - M46.46 documented in this encounter Plan of Treatment Upcoming Encounters Date Type Department Care Team (Late st Contact Info) Description 04/07/2024 11:00 AM EST Clinical Support [facility] MED & PEDS 505 [place] [address] Roselyn Singer RN 505 [place] [address] documented as of this encounter Visit Diagnoses Not on filedocumented in this encounter Care Teams Pharmacy Manager Relationship Specialty Start Date End Date Moon Alvarado MD 505 [place] [address] PCP - General Family Medicine 02/16/18 documented as of this encounter
--- OUTSIDE RECORDS SUMMARY | 2024-03-21 16:02 | XMS_ITS | Encounter Summary ---
Author Organization [facility] Address 75 [facility] 7 [place] [address] Care Team Providers Care Maitre D Name Role Phone Moon Alvarado MD Primary Care Provider [phone] Reason for Visit * Reason Onset Date Comments Med Refill 05/12/2022 Encounter Details Date Type Department Care Team ([facility] st Contact Info) Description 05/12/2022 Telephone [facility] MEDICINE 230 [place] [address] Moon Alvarado MD [address] [place] [address] Med Refill Social History Tobacco Use Types [...] 11:00 AM EST Clinical Support [facility] MED & PEDS 505 [place] [address] Roselyn Singer, RN 505 [place] [address] documented as of this encounter Visit Diagnoses Not on filedocumented in this encounter Care Teams Maitre D Relationship Specialty Start Date End Date Moon Alvarado MD 505 [place] [address] PCP - General Family Medicine 02/16/18 documented as of this encounter
--- OUTSIDE RECORDS SUMMARY | 2024-03-21 16:02 | XMS_ITS | Encounter Summary ---
Author Organization [employer] Address [address] [place] [address] 7 [place] [address] Care Team Providers Care Vocational Examiner Name Role Phone Moon Alvarado MD Primary Care Provider [phone] Reason for Visit * Reason Onset Date Comments Appointment Request 12/09/2023 Encounter Details Date Type Department Care Team ([facility] Contact Info) Description 12/09/2023 Telephone [facility] MEDICINE 230 [place], [place] [phone] Moon Alvarado MD 505 [place] [address] Appointment Request Social History Tobacco Use Types [...] EDT Tc from pt requesting to reschedule WOODWORKING BENCH CARPENTER visit. Please contact pt at [phone]. documented in this encounter Plan of Treatment Upcoming Encounters Date Type Department Care Team ([facility] Contact Info) Description 04/07/2024 11:00 AM EST Clinical Support [facility] MED & PEDS 505 [place] [address] Roselyn Singer RN 505 [place] [address] documented as of this encounter Visit Diagnoses Not on filedocumented in this encounter Care Teams Vocational Examiner Relationship Specialty Start Date End Date Moon Alvarado MD 505 [facility] [place] [address] PCP - General Family Medicine 02/16/18 documented as of this encounter
--- OUTSIDE RECORDS SUMMARY | 2024-03-21 16:02 | XMS_ITS | Encounter Summary ---
Author Organization [employer] Address 75 [facility] 7 [place] [address] Care Team Providers Care Surfacer Name Role Phone Moon Alvarado MD Primary Care Provider [phone] Reason for Visit * Reason Onset Date Comments r/s CIRCUIT BREAKER MECHANIC RN appt 03/21/2022 Encounter Details Date Type Department Care Team (Late st Contact Info) Description 03/21/2022 Telephone [facility] MEDICINE 230 [place] [address] Moon Alvarado MD [address] [place] [address] r/s CIRCUIT BREAKER MECHANIC RN appt Social History Tobacco Use Types [...] below. Patient states she leaves 04/22/22 to [place] for a week and is requesting for an appt before that date. * Telephone Encounter - Tierra Steward - 03/21/2022 9:08 AM EST Tc from pt requesting to r/s CIRCUIT BREAKER MECHANIC RN appt 03/21/22 , States they are positive for COVID. Pt missed appt. Please contact at [phone] documented in this encounter Plan of Treatment Upcoming Encounters Date Type Department Care Team (Late st Contact Info) Description 04/07/2024 11:00 AM EST Clinical Support [facility] MED & PEDS 505 [place] [address] Roselyn Singer, RN 505 [place] [address] documented as of this encounter Visit Diagnoses Not on filedocumented in this encounter Care Teams Surfacer Relationship Specialty Start Date End Date Moon Alvarado MD 505 [place] [address] PCP - General Family Medicine 02/16/18 documented as of this encounter
--- OUTSIDE RECORDS SUMMARY | 2024-03-21 16:02 | XMS_ITS | Encounter Summary ---
Author Organization [employer] Address 75 [facility] 7 [place] [address] Care Team Providers Care Speech Scientist Name Role Phone Moon Alvarado MD Primary Care Provider [phone] Reason for Visit * Reason Onset Date Comments call back 05/12/2022 Encounter Details Date Type Department Care Team ([facility] st Contact Info) Description 05/12/2022 Telephone [facility] MEDICINE 230 [place] [address] Moon Alvarado MD [address] [place] [address] call back Social History Tobacco Use Types [...] Upcoming Encounters Date Type Department Care Team ([facility] st Contact Info) Description 04/07/2024 11:00 AM EST Clinical Support [facility] MED & PEDS 505 [place] [address] Roselyn Singer, IRMA 505 [place] [address] documented as of this encounter Visit Diagnoses Not on filedocumented in this encounter Care Teams Speech Scientist Relationship Specialty Start Date End Date Moon Alvarado MD 505 [place] [address] PCP - General Family Medicine 02/16/18 documented as of this encounter
--- OUTSIDE RECORDS SUMMARY | 2024-03-21 16:02 | XMS_ITS | Encounter Summary ---
Author Organization [employer] Address 75 [facility] 7 [place] [address] Care Team Providers Care Arcade Technician Name Role Phone Moon Alvarado MD Primary Care Provider [phone] Reason for Visit * Reason Onset Date Comments Med Refill 12/04/2023 Encounter Details Date Type Department Care Team (Late Contact Info) Description 12/04/2023 Telephone [facility] MEDICINE 230 [place] [address] Moon Alvarado MD 505 [place] [address] Med Refill Social History Tobacco Use Types [...] tablet To be sent to: [facility] [place], [place] - 505 [facility] documented in this encounter Plan of Treatment Upcoming Encounters Date Type Department Care Team (Late st Contact Info) Description 04/07/2024 11:00 AM EST Clinical Support [facility] MED [facility]EDS 505 [place] [address] Roselyn Singer, IRMA 505 [place] [address] documented as of this encounter Visit Diagnoses Not on filedocumented in this encounter Care Teams Arcade Technician Relationship Specialty Start Date End Date Moon Alvarado MD 505 [place] [address] PCP - General Family Medicine 02/16/18 documented as of this encounter
--- OUTSIDE RECORDS SUMMARY | 2024-03-21 16:02 | XMS_ITS ---
Author Organization [facility] Address [address] [place] [address] Care Team Providers Care Sr. Manager Corporate Communications Name Role Phone Inessa Beaulieu Unavailable [phone] ALLERGIES, ADVERSE REACTIONS, ALERTS Substance Code Code System Type Reaction Severity Status Start Date End Date latex 3451674 RxNorm Other allergy () 0 shellfish derived RxNorm Food allergy () 0 No known drug allergies RxNorm Other substance allergy () 1 Latex products RxNorm Other substance allergy () 1 MEDICATIONS Medication Code Code System Start Date Stop Date Route Dosage Directions Fill Instructions buspirone 0 RxNorm oral clonazepam 0 RxNorm oral sertraline 0 RxNorm oral Pyridium 1195593 RxNorm 03/14/2024 oral 1 oxycodone 0 RxNorm oral Macrobid 101618 RxNorm 03/14/2024 oral 1 prednisone 490879 RxNorm 07/18/2021 07/23/2021 oral 1 PROBLEMS Problem Name Code Code System Start Date End Date [facility] Acute sinusitis, unspecified (461.9, J01.90) 46451267 [facility] 12/25/2020 Inactive Contact with and (suspected) exposure to COVID-19 (Z20.822) [facility] 12/28/2020 Inactive Headache, unspecified (R51.9) [facility] 12/28/2020 Inactive Anxiety disorder 72175867 [facility] 07/18/2021 Act patel Depression 49886453 [facility] 07/18/2021 Active Otalgia, left ear (H92.02) 2280101803900242 [facility] 07/19/19 22 Inactive Arthralgia of temporomandibular joint, unspecified side (M26.629) 270808539 [facility] 07/18/2021 I nactive Arthralgia of left temporomandibular joint (M26.622) [facility] 07/22/2021 Inactive Low back pain, unspecified 991966676138 [facility] Active Nondisplaced fracture of distal phalanx of right middle finger, initial encounter for open fracture 861349483 [facility] 07/06/2023 Active Dysuria 45676681 [facility] 03/14/2024 Active ENCOUNTERS Encounter Diagnosis Code Code System Date Stat us Dysuria 58291236 [facility] 03/14/2024 Active IMMUNIZATIONS * None VITAL SIGNS Code Code System Vitals Name Date Value and Un its 8462-4 [facility] Blood Pressure-Diastolic 03/14/2024 85 mmHg 8480-6 [facility] Blood Pressure-Systolic 03/14/2024 1 35 mmHg 8867-4 [facility] Heart Rate 03/14/2024 79 /min 9279-1 [facility] Respiratory Rate 03/14/2024 18 /min 8310-5 [facility] Body Temperature 03/14/2024 97.7 F 15861-0 [facility] Oxygen Saturation 03/14/2024 97 % SOCIAL HISTORY * None PROCEDURES * None RESULTS Test Code Code System Description Result Value Date Ref erence Range [facility] Glucose Negative 03/14/2024 [facility] Bilirubin Negative 03/14/2024 [facility] Ketone Negative 03/14/2024 [facility] Specific [place] 1.29165 03/14/2024 [facility] Blood Negative 03/14/2024 [facility] pH 6.36245 03/14/2024 [facility] Protein Negative 03/14/2024 [facility] Urobilinogen 0.77987 E.U./dL 03/14/2024 [facility] Nitrite Positive 03/14/2024 [facility] Leukocytes Trace 03/14/2024 [facility] Color Brown 03/14/2024 [facility] Clarity Slightly Cloudy 03/14/2024 630-4 [facility] CULTURE, URINE, ROUTINE SEE NOTE 03/14/2024 MEDICAL EQUIPMENT * Patient has no [...] 810 03 CPT 03/14/2024 CULTURE, URINE, ROUTINE 69745;59906 CPT 03/14 GOALS * None HEALTH CONCERNS * No Health Concerns FUNCTIONAL AND COGNITIVE STATUS * None CONSULTATION NOTES * None DISCHARGE SUMMARY NOTES * None HISTORY AND PHYSICAL NOTES * Reason for visit - Illness Patient: PATRICK ASHLEY, Sex: F (ID# [id number]) Date of : 1970 (54 years) Visit on 03/14/2024 (Log# [id number]) Historian: Self History of Present Illness: 54-year-old [...] Labs: [facility] Urinalysis, automated, without microscopy Code(s): 80804 Results Glucose: Negative Bilirubin: Negative Ketone: Negative Specific [place]: 1.72896 : 1.025 Blood: Negative pH: 6.25927 : 6.5 Protein: Negative Urobilinogen: 0.40203 E.U./dL: 0.2 Nitrite: Positive (Alpha Abnormal) Leukocytes: Trace (Alpha Abnormal) Color: Brown Clarity: Slightly Cloudy Wilb [facility] Status+ (074954), [id number], Expiry: 2024-09Notes: Order entered 03/14/2024 10:53 by Chino Osborn Under supervision of ordering provider BRANDON CONRAD PA-C Completed 03/14/2024 10:53 by Chino Osborn Reviewed 03/14/2024 11:10 by Brandon Conrad CULTURE, URINE, ROUTINE Code(s): 45256, 90006 Results CULTURE, URINE, ROUTINE: SEE NOTE (Alpha Abnormal) Ordered 03/14/2024 11:13 by Brandon Conrad Completed 03/14/2024 11:14 by Chino Osborn Reviewed 03/17/2024 08:34 by Inessa Beaulieu Code(s) suppressed 03/14/2024 11:13 by Brandon Conrad Diagnoses: Dysuria (R30.0) Medication Orders: Prescribed: Macrobid 100 mg capsule; Take 1 Capsule (oral) 2 times per day for 7 Days; Total Qty: 14 (fourteen) Capsule; 0 refill(s); Substitutions allowed; Earliest Fill Date: 03/14/2024ePrescribed at 11:13 AM on 03/14/2024 by NAJMA ColesCPrescription sent to [facility] #[id number] (P: [phone] F: [phone]) [address] [place], [place], [id number] Prescribed: Pyridium 200 mg tablet; Take 1 Tablet (oral) 3 times per day for 2 Days; Total Qty: 6 (six) Tablet; 0 refill(s); Substitutions allowed; Earliest Fill Date: 03/14/2024ePrescribed at 11:13 AM on 03/14/2024 by NAJMA ColesCPrescription sent to [facility] #[id number] (P: [phone] F: [phone]) [address] [place], [place], [id number] Plan: If not feeling better in 3 [...] Brandon Conrad PA-C on 03/14/2024 11:30:17 AM Chart Addendums Addendum Last Updated ByLast Updated [email or web address] 8:34:48 AMGroup B strep present, not a uropathogen, advise f/u with urogynecology. [email or web address] 9:07:39 AMI talked to the patient. Identity of patient verified. IMAGING NOTES * None LABORATORY REPORT NARRATIVE NOTES * None PATHOLOGY REPORT NARRATIVE NOTES * None PROGRESS NOTES * None
[2024-03-21 17:55] LABS: Appearance Urine Clear; Color Urine Yellow; Glucose Urine UA Negative (Negative); Leukocyte Esterase Urine Small (1+) (Negative); Nitrite Urine Negative (Negative); PH 5.5 (5.0-9.0); Specific Gravity - Urine >= 1.030 (1.005-1.025); UMIC TRIGGER UACC YES; Urine Blood Negative (Negative); Urine Ketones Trace mg/dL (Negative); Urine Protein Negative (Neg-Trace)
[2024-03-21 18:07] LABS: Bacteria Urine Trace (None Seen); Hyaline Casts Urine 0-2 /LPF (0-2); RBC Urine 0-2 /HPF (0-2); UACC Culture Trigger YES; WBC Urine 0-5 /HPF (0-5)
== END 2024-03-21 14:21 | disposition home or self-care (01) ==
LOC: HO.CHCLNP 14:20
DX: N39.0 Urinary tract infection, site not specified (principal)
CPT/HCPCS: 81001; 87086

== ENCOUNTER 2024-07-14 09:26 | Outpatient (REF) | payer MEDICAID, SELFPAY ==
--- OUTSIDE RECORDS SUMMARY | 2024-07-14 09:47 | XMS_ITS | Encounter Summary ---
Author Organization [employer] Address 75 [facility] 7 [place] [address] Care Team Providers Care Hotel Front Office Manager Name Role Phone Moon Alvarado MD Primary Care Provider [phone] Reason for Visit * Reason Onset Date Comments Med Refill 10/07/2023 Encounter Details Date Type Department Care Team (Late st Contact Info) Description 10/07/2023 Telephone [facility] MEDICINE 230 [place] [address] Moon Alvarado MD 505 [place] [address] Med Refill Social History Tobacco Use Types [...] 5-325 MG tablet To be sent to: [facility] documented in this encounter Plan of Treatment Upcoming Encounters Date Type Department Care Team ([facility] st Contact Info) Description 08/11/2024 9:00 AM EDT Clinical Support [facility] MED & PEDS 505 [place] [address] Roselyn Singer, RN 505 [place] [address] 09/22/2024 10:00 AM EDT Office Visit [facility] MED & PEDS 505 [place] [address] Moon Alvarado MD 505 [place] [address] documented as of this encounter Visit Diagnoses Not on filedocumented in this encounter Care Teams Hotel Front Office Manager Relationship Specialty Start Date End Date Moon Alvarado MD 505 [place] [address] PCP - General Family Medicine 02/16/18 documented as of this encounter
[2024-07-14 10:44] LABS: MANUAL DIFF FLAG NO
[2024-07-14 10:48] LABS: Basophils Percent Auto 0.5 % (0-2); Eosinophils Absolute Auto 0.1 X10*3/uL (0.0-0.4); Eosinophils Percent Auto 1.4 % (0-4); Hematocrit 37.2 % (37.0-47.0); Hemoglobin 11.8 g/dl (12.0-16.0); Lymphocytes Absolute Auto 0.9 X10*3/uL (1.2-4.9); Lymphocytes Percent Auto 21.3 % (20-40); Mean Corpuscular HGB Conc 31.7 g/dl (31.0-35.0); Mean Corpuscular Hemoglobin 24.9 pg (27.0-33.0); Mean Corpuscular Volume 78.6 fL (80.0-98.0); Mean Platelet Volume 10.7 fL (9.4-12.3); Monocytes Absolute Auto 0.4 X10*3/uL (0.1-1.2); Monocytes Percent Auto 9.5 % (2-11); Neutrophils Absolute Auto 2.9 x10*3/uL (2.0-8.3); Neutrophils Percent Auto 67.3 % (45-73); Platelet Count 302 X10*3/uL (160-400); Red Blood Count 4.73 X10*6/uL (4.20-5.50); Red Cell Distribution Width 14.4 % (11.0-16.0); White Blood Count 4.3 X10*3/uL (4.8-10.8)
[2024-07-14 11:13] LABS: Alanine Aminotransferase 18 U/L (0-31); Albumin Level 4.1 g/dL (3.5-5.0); Alkaline Phosphatase 114 U/L (39-117); Anion Gap 12 (12-20); Aspartate Amino Transferase 26 U/L (5-31); Bilirubin Direct < 0.2 mg/dL (0.0-0.5); Bilirubin Total 0.2 mg/dL (0.0-1.0); Blood Urea Nitrogen 7 mg/dL (9-16); Calcium 9.2 mg/dL (8.4-10.2); Carbon Dioxide 25 mmol/L (22-29); Chloride 108 mmol/L (96-108); Cholesterol 155 mg/dL (<200); Estimated Glomerular Filt Rate > 60; Glucose Fasting 90 mg/dL (60-99); HDL Cholesterol 59 mg/dL (>40); LDL Cholesterol Calculated 82 mg/dL (<100); Lipase 21 U/L (8-78); Potassium 3.6 mmol/L (3.3-5.1); Sodium 141 mmol/L (135-145); Total Protein 6.9 g/dL (6.5-8.0); Triglycerides 73 mg/dL (<150)
[2024-07-14 11:28] LABS: TSH reflex Free T4 0.77 uIU/mL (0.32-4.0)
[2024-07-14 11:37] LABS: Folate 12.6 ng/mL (> or = 4.0); Vitamin B12 159 pg/mL (200-900)
== END 2024-07-14 09:27 | disposition home or self-care (01) ==
LOC: HO.CHCLDS 09:26
PROVIDERS: Visit Provider Pediatrics
DX: R63.5 Abnormal weight gain (principal); D51.3 Other dietary vitamin B12 deficiency anemia
CPT/HCPCS: 36415; 80048; 80061; 80076; 82607; 82746; 83690; 84443; 85025

== ENCOUNTER 2024-07-15 08:23 | Outpatient (REF) | payer MEDICAID, SELFPAY ==
--- OUTSIDE RECORDS SUMMARY | 2024-07-15 08:28 | XMS_ITS | Encounter Summary ---
Author Organization [employer] Address 75 [facility] 7 [place] [address] Care Team Providers Care Ornamental Brick Installer Name Role Phone Moon Alvarado MD Primary Care Provider [phone] Reason for Visit * Reason Onset Date Comments Med Refill 10/07/2023 Encounter Details Date Type Department Care Team (Late st Contact Info) Description 10/07/[address] [facility] MEDICINE 230 [place] [address] Moon Alvarado MD 505 [place] [address] Med Refill Social History Tobacco Use Types [...] 5-325 MG tablet To be sent to: [facility] Pharmacy documented in this encounter Plan of Treatment Upcoming Encounters Date Type Department Care Team ([facility] st Contact Info) Description 08/11/2024 9:00 AM EDT Clinical Support [facility] MED & PEDS 505 [place] [address] Roselyn Singer, RN 505 [place] [address] 09/22/2024 10:00 AM EDT Office Visit [facility] MED & PEDS [address] [place] [address] Moon Alvarado MD [address] [place] [address] documented as of this encounter Visit Diagnoses Not on filedocumented in this encounter Care Teams Ornamental Brick Installer Relationship Specialty Start Date End Date Moon Alvarado MD [address] [place] [address] PCP - General Family Medicine 02/16/18 documented as of this encounter
== END 2024-07-15 08:24 | disposition home or self-care (01) ==
LOC: HO.CHCLNP 08:23
PROVIDERS: Visit Provider Pediatrics
DX: R63.5 Abnormal weight gain (principal); D51.3 Other dietary vitamin B12 deficiency anemia
CPT/HCPCS: 87338

== ENCOUNTER 2024-10-11 12:51 | Outpatient (REF) | payer MEDICAID, SELFPAY ==
--- NOTE | ~2024-10-11 | US_ITS ---
EXAMINATIONS: 1. MM DIAGNOSTIC DIGITAL BREAST TOMOSYNTHESIS, BILATERAL 2. Targeted ultrasound of the right breast CLINICAL INFORMATION: painful R breast at 11 oclock position According patient, she does not feel lumps, only pain. COMPARISON: Comparison made to multiple prior, most recent April 09, 2021, and most remote May 23, 2017. TECHNIQUE: Digital breast tomosynthesis is performed in both the craniocaudal and mediolateral oblique views along with computer-aided detection (CAD). Synthesized 2D images are generated from the tomosynthesis. A triangular skin marker was placed at the location of the pain as indicated by the patient in the upper outer quadrant. FINDINGS: BREAST COMPOSITION: There are scattered areas of fibroglandular density (ACR BI-RADS breast composition Category b). RIGHT BREAST: History of previous reduction mammoplasty. Tissue marker from previous needle core biopsy in place. No significant masses, suspicious calcifications or other abnormalities are seen. Targeted ultrasound of the right breast was performed at the location of the pain as indicated by the patient. The survey performed throughout the 8:00-10:00 axis did not reveals suspicious sonographic findings. LEFT BREAST: History of previous reduction mammoplasty. No significant masses, suspicious calcifications or other abnormalities are seen. US/US breast RT limited mamm only IMPRESSION: RIGHT BREAST: Benign, no evidence of malignancy. No suspicious findings to accounts for patient's clinical concern. Clinical follow-up is recommended. Otherwise, normal interval follow-up mammogram is recommended in 12 months. LEFT BREAST: Benign, no mammographic evidence of malignancy. Normal interval follow-up is recommended in 12 months. ASSESSMENT: BI-RADS 2 - Benign Findings RECOMMENDATION: 1 year F/U Results were provided to the patient at time of visit by the technologist. This patient's information was entered into a reminder system with a target due date for their next mammogram. Electronically signed by: Raphael Garg MD 10/11/2024 03:53 PM EDT
--- OUTSIDE RECORDS SUMMARY | 2024-10-11 13:33 | XMS_ITS | Encounter Summary ---
Author Organization [employer] Address 75 [facility] 7 [place] [address] Care Team Providers Care Equipment Maintenance Technician Name Role Phone Moon Alvarado MD Primary Care Provider [phone] Reason for Visit * Reason Comments Med Refill Encounter Details Date Type Department Care Team ([facility] st Contact Info) Description 10/08/2024 Refill [facility] MED & PEDS 505 [place], [place] [phone] Moon Alvarado MD [address] [place] [address] Social History Tobacco Use Types Packs/Day Years Used Date Smoking Tobacco: Never Passive Smoke Exposure: Never Smokeless Tobacco: Never Depression Answer Date Recorded Patient Health Questionnaire-9 Score 7 10/05/2024 Patient Health Questionnaire-9 Score 7 10/05/2024 Last PHQ-9: Questionnaire Data Not on file 0 10/05/2024 Housing Stability Answer Date Recorded What is your housing situation today? I have mirlande johnson 07/04/[address] you li ve. Do you have problems with any of the following? None of the above 07/04/2024 Food Insecurity Answer Date Recorded Within the past 12 months, y ou worried that your food would run out before you got money to buy more: Never True 07/04/2024 Within the past 12 months,th e food you bought just didn't last and you didn't have enough money to get more: Never True Transportation Answer Date Recorded In the past 12 months, has l ack of transportation kept you from medical appts, meetings, work or from getting things needed for daily living? No 07/04/2024 Utilities Answer Date Recorded In the past 12 months, has t he electric, gas, oil or water company threatened to shut off services in your home? No 07/04/2024 Depression Answer Date Recorded Patient Health Questionnaire-2 Score 3 10/05/2024 Internet Access Answer Date Recorded Internet Access Q1 Yes 07/04/2024 Internet Access Q2 Not on file 07/04/2024 Comments No Sex and Gender Information Value Date Recorded Sex Assigned at Female 12/16/2021 10:18 AM EDT Legal Sex Female 10:18 AM EDT Gender Identity Female 12/16/2021 10:18 AM EDT Sexual Orientation Straight 12/16/2021 10 :18 AM EDT documented as of this encounter Plan of Treatment Upcoming Encounters Date Type Department Care Team (Late st Contact Info) Description 10/31/2024 9:30 AM EDT Clinical Support [facility] MED & PEDS [address] [place] [address] 11/03/2024 9:00 AM EDT Clinical Support [facility] MED & PEDS [address] [place] [address] Roselyn Singer, IRMA 505 [place] [address] 11/17/2024 10:00 AM EDT Office Visit [facility] MED & PEDS [address] [place] [address] Moon Alvarado MD [address] [place] [address] documented as of this encounter Visit Diagnoses Not on filedocumented in this encounter Additional Health Concerns Assessment Noted Time PHQ-9 Depression Total Score: 7 10/06/19 25 9:28 AM EDT documented as of this encounter Care Teams Equipment Maintenance Technician Relationship Specialty Start Date End Date Moon Alvarado MD [address] [place] [address] PCP - General Family Medicine 02/16/18 documented as of this encounter
--- OUTSIDE RECORDS SUMMARY | 2024-10-11 13:33 | XMS_ITS | Encounter Summary ---
Author Organization [employer] Address [address] [place] [address] 7 [place] [address] Care Team Providers Care Psychiatric Np Name Role Phone Moon Alvarado MD Primary Care Provider [phone] Reason for Visit * Reason Comments Med Refill Encounter Details Date Type Department Care Team ([facility] Contact Info) Description 07/21/2023 Refill [facility] MED & PEDS [address] [place] [address] Moon Alvarado MD [address] [place] [address] Social History Tobacco Use Types Packs/Day Years [...] Upcoming Encounters Date Type Department Care Team ([facility] Contact Info) Description 10/31/2024 9:30 AM EDT Clinical Support [facility] MED & PEDS [address] [place] [address] 11/03/2024 9:00 AM EDT Clinical Support [facility] MED & PEDS [address] [place] [address] Roselyn Singer, IRMA 505 [place] [address] 11/17/2024 10:00 AM EDT Office Visit [facility] MED & PEDS [address] [place] [address] Moon Alvarado MD [address] [place] [address] documented as of this encounter Visit Diagnoses Not on filedocumented in this encounter Care Teams Psychiatric Np Relationship Specialty Start Date End Date Moon Alvarado MD [address] [place] [address] PCP - General Family Medicine 02/16/18 documented as of this encounter
--- OUTSIDE RECORDS SUMMARY | 2024-10-11 13:33 | XMS_ITS | Encounter Summary ---
Author Organization [employer] Address [address] [place] [address] Care Team Providers Care Chain Builder Name Role Phone Moon Alvarado MD Primary Care Provider [phone] Encounter Details Date Type Department Care Team (Latest Contact Info) Description 10/06/2024 Travel Social History Tobacco Use Types Packs/Day [...] Description 10/31/2024 9:30 AM EDT Clinical Support [facility] [address] [place] [address] 11/03/2024 9:00 AM EDT Clinical Support [facility] [address] [place] [address] Roselyn Singer RN [address] [place] [address] 11/17/2024 10:00 AM EDT Office Visit [facility] [address] [place] [address] Moon Alvarado MD [address] [place] [address] documented as of this encounter Visit Diagnoses Not on filedocumented in this encounter Additional Health Concerns Assessment Noted Time PHQ-9 Depression Total Score: 7 10/06/19 25 9:28 AM EDT documented as of this encounter Care Teams Chain Builder Relationship Specialty Start Date End Date Moon Alvarado MD [address] [place] [address] PCP - General Family Medicine 02/16/18 documented as of this encounter
--- OUTSIDE RECORDS SUMMARY | 2024-10-11 13:33 | XMS_ITS | Encounter Summary ---
Author Organization [employer] Address [address] [place] [address] [address] [place] [address] Care Team Providers Care Underwear Finisher Name Role Phone Moon Alvarado MD Primary Care Provider [phone] Encounter Details Date Type Department Care Team (Late st Contact Info) Description 12/26/2022 Abstract [facility] [address] [place] [address] Natalya Peterson Social History Tobacco Use Types [...] Description 10/31/2024 9:30 AM EDT Clinical Support [facility] [address] [place] [address] 11/03/2024 9:00 AM EDT Clinical Support [facility] [address] [place] [address] Roselyn Singer RN [address] [place] [address] 11/17/2024 10:00 AM EDT Office Visit [facility] [address] [place] [address] Moon Alvarado MD [address] [place] [address] documented as of this encounter Procedures Procedure Name Priority Date/Time Associated Diagnosis Comments COLONOSCOPY Routine 07/23/2020 documented in this encounter Results * Hm Colonoscopy (07/23/2020) Colonoscopy Normal Normal Narrative Natalya Peterson - 07/23/2020 Recommended 10 year follow up Historical Provider HEALTH MAINTENANCE Final Result documented in this encounter Visit Diagnoses Not on filedocumented in this encounter Care Teams Underwear Finisher Relationship Specialty Start Date End Date Moon Alvarado MD [address] [place] [address] PCP - General Family Medicine 02/16/18 documented as of this encounter
--- OUTSIDE RECORDS SUMMARY | 2024-10-11 13:33 | XMS_ITS | Clinical Summary ---
Author Organization [employer] Address [address] [place] [address] Care Team Providers Care Garland Maker Name Role Phone Moon Alvarado MD Primary Care Provider Allergies Active Allergy Reactions Criticality Noted Date Comments Latex Hives 09/05/2022 Shellfish-Derived Products High 3 Other reaction(s): SWELLING, HIVES , Medications Diclofenac Sodium (Voltaren) 1 % gel Apply 2 g topically in the morning, at noon, in the evening, and at bedtime. 021 Active EPINEPHrine (EpiPen 2-Arnoldo) 0.3 MG/0.3ML injection syringe Inject 0.3 mg as directed if needed. 022 Active naloxone (Narcan) 4 mg/0.1 mL nasal spray Administer 0.1 mL into affected nostril(s) if needed. 022 Active tiZANidine (Zanaflex) 4 MG tablet Take 1 tablet by mouth if needed at bedtime. 022 Active buPROPion XL (Wellbutrin XL) 300 MG 24 hr tablet Take 300 mg by mouth in the morning. 023 Active sertraline (Zoloft) 25 MG tablet Take 25 mg by mouth in the morning. 023 Active triamcinolone (Kenalog) 0.025 % cream Apply topically 2 times daily. 45 g 1 023 Active Clotrimazole 2 % vaginal cream Apply intravaginally at bedtime for 1 week 21 g 1 023 Active estradiol (Estrace) 0.1 MG/GM vaginal cream Insert 1 gm intravaginally 2 times a week 42.5 g 11 024 Active hydrOXYzine pamoate (Vistaril) 25 MG capsule TAKE 1 CAPSULE BY MOUTH FOUR TIMES DAILY NEEDED 025 Active cetirizine (ZyrTEC) 10 MG tablet Take 1 tablet (10 mg) by mouth Once per day. 90 tablet 3 Active lidocaine (Lidoderm) 5 % patch Apply 1 patch topically Once per day. 30 patch 1 025 Active cyanocobalamin (Vitamin B-12) 1000 MCG/ML injection Inject 1 mL (1,000 mcg) into the muscle every 30 (thirty) days. 1 mL 11 Active bismuth subsalicylate (Pepto Bismol) 262 MG chewable tablet One tab po four times a day for 14 days 56 tablet Active omeprazole OTC (PriLOSEC OTC) 20 MG EC tablet Take 1 tab po BID for 14 days. 28 tablet 025 Active oxyCODONE-acetam inophen (Percocet) 5-325 MG tabletIndication s:Chronic pain syndrome Take 1 tablet by mouth every 8 (eight) hours if needed for severe pain for up to 28 days. 84 tablet 025 2024 Active phentermine 15 MG capsuleIndicatio ns:Obesity with body mass index 30 or greater Take 1 capsule (15 mg) by mouth before breakfast. 30 capsule 025 2024 Active famotidine (Pepcid) 20 MG tablet TAKE ONE TABLET TWICE DAILY 180 tablet 1 025 Active Misc. Devices (Pulse Oximeter Deluxe) misc check oxygen levels prn 021 2024 Discontinued(T herapy completed) clonazePAM (KlonoPIN) 1 MG tablet Take 1 mg by mouth in the morning and at bedtime. 022 2024 Discontinued(T herapy completed) traZODone (Desyrel) 50 MG tablet Take 50 mg by mouth if needed each day. 023 2024 Discontinued(T herapy completed) diclofenac (Cataflam) 50 MG tablet Take 1 tablet by mouth in the morning and 1 tablet in the evening. 022 2024 Discontinued(T herapy completed) Diclofenac Sodium 1 % gel Apply bid to knee 100 g 11 023 2024 Discontinued(T herapy completed) famotidine (Pepcid) 20 MG tablet Take 1 tablet (20 mg) by mouth 2 times daily. 60 tablet 2 025 2024 Discontinued(R eorder (will not trigger notification to Pharmacy)) metroNIDAZOLE (Flagyl) 250 MG tablet One tab po four times a day for 14 days 56 tablet 025 2024 Discontinued(T herapy completed) tetracycline 500 MG capsule One tab po four times a day for 14 days 56 capsule 025 2024 Discontinued(T herapy completed) oxyCODONE-acetam inophen (Percocet) 5-325 MG tabletIndication s:Chronic pain syndrome Take 1 tablet by mouth every 8 (eight) hours if needed for severe pain for up to 28 days. 84 tablet 025 2024 Discontinued(R eorder (will not trigger notification to Pharmacy)) Hospital, Clinic, or Other Facility Administered Medication Ordered Dose Route Frequency Start Date End Date Status cyanocobalamin (Vitamin B-12) injection 1,000 mcgIndications:Other dietary vitamin B12 deficiency anemia 1000 mcg IM Once 09/27/2024 09/27/2024 Ended Active Problems Problem Noted Date Diagnosed Date Long-term current use of opiate analgesic 2024 Acute pain of right shoulder 06/09/2024 Chronic pain syndrome 12/12/2016 Cyst of ovary [...] Encounters Date Type Department Care Team Description 10/08/2024 Refill [facility] [address] [address] Moon Alvarado MD 10/06/2024 Travel 10/06/2024 Refill [facility] [address] [place] [address] Roselyn Singer RN Chronic pain syndrome 10/05/2024 10:15 AM EDT Office Visit [facility] [address] [place] [address] Moon Alvarado MD Obesity with body mass index 30 or greater (Primary Dx); Severe episode of recurrent major depressive disorder, without psychotic features ([facility]/HCC) 10/05/2024 Travel 10/04/2024 Telephone [facility] [address] [place] [address] Moon Alvarado MD Chart Prep 10/04/2024 Refill [facility] [address] [place] [address] Roselyn Singer RN Chronic pain syndrome 10/04/2024 Telephone [facility] [address] [place] [address] Moon Alvarado MD 09/30/2024 Travel 09/27/2024 1:00 PM EDT Clinical Support [facility] [address] [place] [address] Mine Lieberman RN Other dietary vitamin B12 deficiency anemia 09/27/2024 Travel 08/30/2024 Refill [facility] [address] [place] [address] Moon Alvarado MD Chronic pain syndrome 08/23/2024 1:30 PM EDT Clinical Support [facility] [address] [place] [address] Mine Lieberman RN Other dietary vitamin B12 deficiency anemia 08/23/2024 Travel 08/22/2024 Telephone [facility] [address] [place] [address] Moon Alvarado MD No Show 08/11/2024 9:00 AM EDT Telemedicine [facility] [address] [place] [address] Roselyn Singer RN Back pain, unspecified back location, unspecified back pain laterality, unspecified chronicity 08/11/2024 Travel 08/11/2024 Telephone [facility] [address] [place] [address] Roselyn Singer RN 08/01/2024 Orders Only [facility] [address] [place] [phone] Moon Alvarado MD Solitary cyst of right breast (Primary Dx) 08/01/2024 Refill [facility] [address] [place] [address] Moon Alvarado MD Chronic pain syndrome 07/27/2024 Travel 07/27/2024 Telephone [facility] [address] [place] [address] oRselyn Singer RN 07/21/2024 Telephone [facility] [address] [place] [address] Moon Alvarado MD MAMMO DIAGNOSTIC ORDER 07/19/2024 Results Follow-Up [facility] [address] [place] [address] Daylin Valenzuela RN Lipid Panel, Standard, Lipase, TSH W/Reflex to FT4, Additional followed-up results: 5 07/19/2024 Orders Only [facility] [address] [place] [address] Moon Alvarado MD 07/18/2024 9:30 AM EDT Clinical Support [facility] [address] [place] [address] Daylin Valenzuela, IRMA Other dietary vitamin B12 deficiency anemia (Primary Dx) 07/18/2024 Telephone [facility] [address] [place] [address] Moon Alvarado MD Results 07/18/2024 Orders Only [facility] [address] [place] [address] Moon Alvarado MD 07/18/2024 Travel 07/15/2024 Orders Only [facility] [address] [place] [address] Moon Alvarado MD 07/15/2024 Orders Only [facility] [address] [place] [address] Moon Alvarado MD 07/14/2024 9:15 AM EDT Office Visit [facility] [address] [place] [address] Moon Alvarado MD Weight gain (Primary Dx); Other dietary vitamin B12 deficiency anemia; Breast pain; Breast tenderness; Painful lumpy right breast; Dietary counseling; Exercise counseling 07/14/2024 Telephone [facility] [address] [place] [address] Moon Alvarado MD Results 07/14/2024 Travel from Last 3 Months Immunizations Immunization Administration Dates Next Due Pneumococcal Conjugate PCV 20 03/21/2024 Pneumococcal Polysaccharide PPSV23 10/29/2012 Td (adult), 5 Lf tetanus tox oid, preservative free, adsorbed 03/08/2016 Tdap 12/06/2012 Social History Tobacco Use Types Packs/Day Years Used Date Smoking Tobacco: Never Passive Smoke Exposure: Never Smokeless Tobacco: Never Tobacco Cessation:Counseling Given: Not Answered Depression Answer Date Recorded Patient Health Questionnaire-9 [...] Sign Reading Time Taken Comments Blood Pressure 140/72 10/05/2024 9:25 AM EDT Pulse 70 10/05/2024 9:25 AM EDT Temperature 36.6 C (97.8 F) 10/05/2024 9:25 AM EDT Respiratory Rate 18 10/05/2024 9:25 AM EDT Oxygen Saturation 99% 10/05/2024 9:25 AM EDT Inhaled Oxygen Concentration - - Weight 95.3 kg (210 lb) 10/05/2024 9:25 AM EDT Height 165.1 cm (5' 5 ) 10/05/2024 9:25 AM EDT Body Mass Index 34.95 10/05/2024 9:25 AM EDT Plan of Treatment Upcoming Encounters Date Type Department Care Team (Late st Contact Info) Description 10/31/2024 9:30 AM EDT Clinical Support [facility] [address] [place] [address] 11/03/2024 9:00 AM EDT Clinical Support [facility] [address] [place] [address] Roselyn Singer, RN [address] [place] [address] 11/17/2024 10:00 AM EDT Office Visit [facility] [address] [place] [address] Moon Alvarado MD [address] [place] [address] Health Maintenance Due Date Last Done Comments CT Colonography 1970 FIT DNA/Cologuard 1970 FIT 1970 FOBT 1970 HIV Screening 1970 Sigmoidoscopy 1970 Hepatitis C Screening 01/28/1988 Hepatitis B Vaccines (1 of 3 - 19+ 3-dose series) 1989 Zoster Vaccines (1 of 2) 01/28/2020 Mammogram 04/09/2023 04/09/2021, 05/17, 05/25/2017 COVID-19 Vaccine ( season) 2023 12/10/2020, 04/15/2020, 03/27/2020 Influenza Vaccine (#1) 2024 , 01/19/2018, 12/12/2016, Additional history exists Pap Smear 01/07/2025 01/07/2022 SDOH Screening 07/04/2025 07/04/2024 Tobacco Screening 07/14/2025 07/14/2024 Disability Screening 09/30/2025 09/30/2024 Alcohol/Substance Use Screening 10/05/2025 10/05/2024 Depression Screening 10/05/2025 10/05/2024, 10/06/19 DTaP/Tdap/Td Vaccines (3 - Td or Tdap) 03/08/2026 03/08/2016, 12/06/2012 Cervical Cancer Screening 01/07/2027 HPV/Cotest 01/07/2027 01/07/2022 Lipid Panel 07/14/2029 07/14/2024, 11/0 02/2023, 07/03/2021, Additional history exists Colonoscopy 07/08/2033 07/09/2023, 07/23/2020 Colorectal Cancer Screening [...] patient's age to complete this topic Meningococcal B Vaccine Aged Out No l onger eligible based on patient's age to complete [...] Procedure Name Priority Date/Time Associated Diagnosis Comments HELICOBACTER PYLORI AG, EIA, STOOL Routine 07/15/2024 6:16 AM EDT Weight gain Other dietary vitamin B12 deficiency anemia BASIC METABOLIC PANEL, FASTING Routine 07/14/2024 9:28 AM EDT Weight gain Other dietary vitamin B12 deficiency anemia CBC WITH AUTO DIFFERENTIAL Routine 07/14/2024 9:28 AM EDT Weight gain Other dietary vitamin B12 deficiency anemia HEPATIC FUNCTION PANEL Routine 07/14/2024 9:28 AM EDT Weight gain Other dietary vitamin B12 deficiency anemia VITAMIN B12/FOLATE, SERUM PANEL Routine 07/14/2024 9:28 AM EDT Weight gain Other dietary vitamin B12 deficiency anemia TSH W/REFLEX TO FT4 Routine 07/14/2024 9 :28 AM EDT Weight gain Other dietary vitamin B12 deficiency anemia LIPASE Routine 07/14/2024 9:28 AM EDT Weight gain Other dietary vitamin B12 deficiency anemia LIPID PANEL, STANDARD Routine 07/14/2024 9:28 AM EDT Weight gain Other dietary vitamin B12 deficiency anemia COLONOSCOPY Routine 07/09/2023 12:53 PM EDT HPV MRNA E6/E7 REFLEX TO HPV 16, 18/45 Routine 01/07/2022 2:32 PM EST PAP SMEAR Routine 01/07/2022 2:32 PM EST MAMMOGRAM GENERIC Routine 04/09/2021 7:4 5 AM EST from Last 3 Months or Most Recently Relevant to Health Maintenance Results * (ABNORMAL) Helicobacter pylori??Antigen, EIA, Stool (07/15/2024 6:16 AM EDT) H pylori Ag Stool SEE NOTE(A) [facility] Comment:HELICOBACTER PYLORI AG, EIA, STOOL Micro Number: [id number] Test Status: Final Specimen Source: Not given Specimen Quality: Adequate H.pylori Ag: Detected Reference Range: Not DetectedTHIS TEST WAS PERFORMED AT:[facility] [address] [id number] HANDLEY MD Stool Rectal contents / Unknown 07/15/2024 6:16 AM EDT 07/15/2024 2:48 PM EDT Moon Alvarado MD LAB BODY FLUIDS AND STOOLS OR DERABLES Final Result [facility] [address] [place] [phone] * (ABNORMAL) Basic Metabolic Panel, Fasting (07/14/2024 9:28 AM EDT) Sodium 141 135 - 145 mmol/L [facility] Potassium 3.6 3.3 - 5.1 mmol/L [facility] Chloride 108 96 - 108 mmol/L [facility] Carbon Dioxide 25 22 - 29 mmol/L [facility] Anion Gap 12 12 - 20 [facility] Urea Nitrogen (BUN) 7(L) 9 - 16 mg/dL [facility] Creatinine, Serum 0.72 0.5 - 1.4 mg/dL [facility] Estimated Glomerular Filt Rate >60 [facility] Comment:Chronic Kidney Disea se: Estimated GFR < 60 mL/min/[id number] Kidney Disease: Estimated GFR < 15 mL/min/1.73m2 Glucose Fasting 90 60 - 99 mg/dL [facility] Calcium 9.2 8.4 - 10.2 mg/dL [facility] Blood Venous blood specimen / Unknown 07/14/2024 9:28 AM EDT 07/14/2024 10:39 AM EDT Moon Alvarado MD LAB BLOOD ORDERABLES Final Re sult Performing Organization Address [facility]/ZIP Co de Phone Number [facility] [address] [place] [phone] * (ABNORMAL) Vitamin B12/Folate, Serum Panel (07/14/2024 9:28 AM EDT) Vitamin B12 159(L) 200 - 900 pg/mL [facility] Comment:NORMAL 200-900 PG/ML INDETERMINATE 160-199 PG/ML DEFICIENT < 160 PG/ML Folate 12.6 > or = 4.0 ng/mL [facility] Comment:Reference Values:> o r = 4.0 ng/mL< 4.0 ng/mL suggests folate deficiency Methotrexate, aminopterin and folinic acid(leucovorin) are chemotherapeutic agents whose molecularstructures are similar to folate; therefore, the Architectfolate assay cannot be used for patients using these drugs. Blood Venous blood specimen / Unknown 07/14/2024 9:28 AM EDT 07/14/2024 10:39 AM EDT Moon Alvarado MD LAB BLOOD ORDERABLES Final Re sult Performing Organization Address [facility]/ZIP Co de Phone Number [facility] [address] [place] [phone] * TSH W/Reflex to FT4 (07/14/2024 9:28 AM EDT) TSH reflex Free T4 0.77 0.32 - 4.0 uIU/mL [facility] Blood Venous blood specimen / Unknown 07/14/2024 9:28 AM EDT 07/14/2024 10:39 AM EDT us Moon Alvarado MD LAB BLOOD ORDERABLES Final Re sult [facility] [address] [place] [address] [phone] * (ABNORMAL) CBC auto differential (07/14/2024 9:28 AM EDT) Pathologist [facility] White Blood Count 4.3(L) 4.8 - 10.8 X10*3/uL [facility] Red Blood Count 4.73 4.20 - 5.50 X10*6/uL [facility] Hemoglobin 11.8(L) 12.0 - 16.0 g/dl [facility] Hematocrit 37.2 37.0 - 47.0 % [facility] Mean Corpuscular Volume 78.6(L) 80.0 - 98.0 fL [facility] Mean Corpuscular Hemoglobin 24.9(L) 27.0 - 33.0 pg [facility] Mean Corpuscular HGB Conc 31.7 31.0 - 35.0 g/dl [facility] Red Cell Distribution Width 14.4 11.0 - 16.0 % [facility] Platelet Count 302 160 - 400 X10*3/uL [facility] Mean Platelet Volume 10.7 9.4 - 12.3 fL [facility] Neutrophils Percent Auto 67.3 45 - 73 % [facility] Imm Gran Pct Auto 0.0 0.0 - 0.4 % [facility] Lymphocytes Percent Auto 21.3 20 - 40 % [facility] Monocytes Percent Auto 9.5 2 - 11 % [facility] Eosinophils Percent Auto 1.4 0 - 4 % [facility] Basophils Percent Auto 0.5 0 - 2 % [facility] NRBC Pct Auto 0.0 0.0 - 0.2 /100WBC [facility] Neutrophils Absolute Auto 2.9 2.0 - 8.3 x10*3/uL [facility] Imm Gran Abs Auto 0.00 0.00 - 0.03 X10*3/uL [facility] Lymphocytes Absolute Auto 0.9(L) 1.2 - 4.9 X10*3/uL [facility] Monocytes Absolute Auto 0.4 0.1 - 1.2 X10*3/uL [facility] Eosinophils Absolute Auto 0.1 0.0 - 0.4 X10*3/uL [facility] Basophils Absolute Auto 0.0 0.0 - 0.2 X10*3/uL [facility] NRBC Abs Auto 0.000 0.0 - 0.012 X10*3/uL [facility] Blood Venous blood specimen / Unknown 07/14/2024 9:28 AM EDT 07/14/2024 10:39 AM EDT us Moon Alvarado MD LAB BLOOD ORDERABLES Final Re sult Performing Organization Address City/[facility]/ZIP Co de Phone Number [facility] [address] [place] [phone] * Lipase (07/14/2024 9:28 AM EDT) Lipase 21 8 - 78 U/L [facility] Blood Venous blood specimen / Unknown 07/14/2024 9:28 AM EDT 07/14/2024 10:39 AM EDT Moon Alvarado MD LAB BLOOD ORDERABLES Final Re sult Performing Organization Address [facility]/ZIP Co de Phone Number [facility] [address] [place] [phone] * Hepatic Function Panel (07/14/2024 9:28 AM EDT) Bilirubin, Total 0.2 0.0 - 1.0 mg/dL [facility] Bilirubin, Direct <0.2 0.0 - 0.5 mg/dL [facility] Aspartate Amino Transferase 26 5 - 31 U/L [facility] Alanine Aminotransferase 18 0 - 31 U/L [facility] Total Protein 6.9 6.5 - 8.0 g/dL [facility] Albumin Level 4.1 3.5 - 5.0 g/dL [facility] Alkaline Phosphatase 114 39 - 117 U/L [facility] Blood Venous blood specimen / Unknown 07/14/2024 9:28 AM EDT 07/14/2024 10:39 AM EDT us Moon Alvarado MD LAB BLOOD ORDERABLES Final Re sult [facility] [address] [place] [phone] * Lipid Panel, Standard (07/14/2024 9:28 AM EDT) Triglycerides 73 <150 mg/dL [facility] Comment:Desirable Triglyceri de: less than 150 mg/dLBorderline High Triglyceride 150-199 mg/dLHigh Triglyceride: 200-499 mg/dLVery High Triglyceride: greater than or equal to 5OO mg/dL Cholesterol 155 <200 mg/dL [facility] Comment:Desirable Cholestero l: less than 200 mg/dLBorderline High Cholesterol: 200-239 mg/dLHigh Cholesterol: greater than 239 mg/dL LDL Cholesterol Calculated 82 <100 mg/dL [facility] Comment:Desirable LDL: less than 100 mg/dLNear Optimal/Above Optimal LDL: 110- 129 mg/dLBorderline High LDL: 130-159 mg/dLHigh LDL: 160-189 mg/dLVery High LDL: greater than or equal to 190 mg/dL HDL Cholesterol 59 >40 mg/dL [facility] Comment:Desirable HDL: great er than 40 mg/dL Note: This HDL assay may give artificially low results in patients with liver disease. Blood Venous blood specimen / Unknown 07/14/2024 9:28 AM EDT 07/14/2024 10:39 AM EDT Result [facility] Moon Alvarado MD LAB BLOOD ORDERABLES Final Re sult Performing Organization Address [facility]/State/ZIP Co de Phone Number [facility] [address] [place] [address] [phone] * Colonoscopy (07/09/2023 12:53 PM EDT) Anatomical Region Laterality Modality Endoscopy Historical Provider ENDOSCOPY PROCEDURE ORDER YOLIE Final Result * HPV mRNA E6/E7 w/Reflex to HPV Genotypes 16, 18/45 (01/07/2022 2:32 PM EST) HPV nRNA E6/E7 Not Detected Not Detected [facility] Comment:Methodology: Transcr iption-Mediated AmplificationThis assay detects E6/E7 viral messenger RNA (mRNA) from 14high-risk HPV types (16,18,31,33,35,39,45,51,52,56,58,59,66,68).Cervical sources are required for HPV testing.If a vaginal source from a patient who has had atotal hysterectomy with removal of cervix wassubmitted, please contact the testing laboratoryfor alternative testing options.For additional information, please refer tohttp://education.EasyPost/faq/MXZ026p2(This link if provided for information/educational purposes only.)THIS TEST WAS PERFORMED AT:[employer] [place] [address],[place] [phone] HANDLEY MD HPV mRNA E6/E7 TNP [facility] HPV 16 [facility] HPV 18/45 RNA [facility] 01/07/2022 2:32 PM EST 01/08/2022 8:40 AM EST [facility] External Provider LAB CYT OLOGY ORDERABLES Final Result [facility] [address] [place] [phone] * Pap Smear (01/07/2022 2:32 PM EST) 01/07/2022 2:32 PM EST 01/08/2022 8:40 AM EST Narrative [facility] - 02/03/2022 3:53 PM EST ----- ------- Name: Jes Boggs Age/Sex: 51/F : 1970 Unit#: [id number] Attend Dr: Dionte Paulino MD Re01/07/22 Status: DEP REF Location: HO.LNP Disch: ----- ------- SPEC : [id number] RECD: 01/08/22 STATUS: PATY ANA NUM: [id number] VIVIANA: 01/07/[address] [facility] [address]: Dionte Paulino MD ENTERED: 01/08/22 SP TYPE: Pap Smr OT DR: ORDERED: Pap Smear Interpretation Satisfactory for evaluation. Negative for intraepithelial lesion or malignancy. HPV mRNA E6/E7: NOT DETECTED This assay detects E6/E7 viral messenger RNA (mRNA) from 14 high-risk HPV types (16, 18, 31, 33, 35, 39, 45, 51, 52, 56, 58, 59, 66, 68) HPV testing performed by [facility], [place], [place]. See reference laboratory portion of the EMR for entire report. Clinical Information LMP: Pt has IUD Previous PAP test: 2017, WNL Material Received ThinPrep-Cervical ----- ------- Signed (signature on file) Savana Simmons 02/03/22 1553 ----- ------- END OF REPORT [facility] External Provider LAB [facility] ORDERABLES Final Result [facility] [address] [place] [phone] * Mammography Report 1 (04/09/2021 7:45 [...] Most Recently Relevant to Health Maintenance [place] [address] [place] [address] C3 Care Teams Garland Maker Relationship Specialty Start Date End Date Moon Alvarado MD [address] [place] [phone] PCP - General Family Medicine 02/16/18
--- OUTSIDE RECORDS SUMMARY | 2024-10-11 13:33 | XMS_ITS | Encounter Summary ---
Author Organization [employer] Address 75 [facility] 7 [place] [address] Care Team Providers Care Garment Form Assembler Name Role Phone Moon Alvarado MD Primary Care Provider Reason for Visit * Reason Onset Date Comments ER Follow-up 05/27/2023 Encounter Details Date Type Department Care Team (Late st Contact Info) Description 05/27/2023 Telephone [facility] MEDICINE 230 [place] [address] Moon Alvarado MD [address] [place] [address] ER Follow-up Social History Tobacco Use Types [...] ED visit on : Date: 05/25 Hospital: [facility] Seen for: Chest pain and was advised to get a referral 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 Patient advised will forward to team nurse for follow up documented in this encounter Plan of Treatment Upcoming Encounters Date Type Department Care Team (Late st Contact Info) Description 10/31/2024 9:30 AM EDT Clinical Support [facility] MED & PEDS 505 [place] [address] 11/03/2024 9:00 AM EDT Clinical Support [facility] MED & PEDS 505 [place] [address] Roselyn Singer, IRMA 505 [place] [address] 11/17/2024 10:00 AM EDT Office Visit [facility] MED & PEDS 505 [place] [address] Moon Alvarado MD [address] [place] [address] documented as of this encounter Visit Diagnoses Not on filedocumented in this encounter Care Teams Garment Form Assembler Relationship Specialty Start Date End Date Moon Alvarado MD [address] [place] [address] PCP - General Family Medicine 02/16/18 documented as of this encounter
--- OUTSIDE RECORDS SUMMARY | 2024-10-11 13:33 | XMS_ITS | Encounter Summary ---
Author Organization [employer] Address 75 [facility] 7 [place] [address] Care Team Providers Care Enterostomal Nurse Name Role Phone Moon Alvarado MD Primary Care Provider [phone] Reason for Visit * Reason Onset Date Comments Nurse Triage 02/18/2023 Encounter Details Date Type Department Care Team (Late st Contact Info) Description 02/18/2023 Telephone [facility] MEDICINE 230 [place] [address] Moon Alvarado MD 505 [place] [address] Nurse Triage Social History Tobacco Use Types [...] accepted this outcome Please contact pt @ [phone] Gambian Speaker documented in this encounter Plan of Treatment Upcoming Encounters Date Type Department Care Team (Late st Contact Info) Description 10/31/2024 9:30 AM EDT Clinical Support [facility] MED & PEDS [address] [place] [address] 11/03/2024 9:00 AM EDT Clinical Support [facility] MED & PEDS [address] [place] [address] Roselyn Singer, IRMA 505 [place] [address] 11/17/2024 10:00 AM EDT Office Visit [facility] MED & PEDS [address] [place] [address] Moon Alvarado MD 505 [place] [address] documented as of this encounter Visit Diagnoses Not on filedocumented in this encounter Care Teams Enterostomal Nurse Relationship Specialty Start Date End Date Moon Alvarado MD [address] [place] [address] PCP - General Family Medicine 02/16/18 documented as of this encounter
--- OUTSIDE RECORDS SUMMARY | 2024-10-11 13:33 | XMS_ITS | Encounter Summary ---
Author Organization [employer] Address [address] [place] [address] 7 [place] [address] Care Team Providers Care Try On Baster Name Role Phone Moon Alvarado MD Primary Care Provider [phone] Encounter Details Date Type Department Care Team (Late st Contact Info) Description 07/15/2023 [facility] Only [facility] Information Management 230 [place], [place] [id number] Provider, MD Marv Social History Tobacco Use [...] Description 10/31/2024 9:30 AM EDT Clinical Support [facility] MED & PEDS [address] [place] [address] 11/03/2024 9:00 AM EDT Clinical Support [facility] MED & PEDS [address] [place] [address] Roselyn Singer, IRMA 505 [place] [address] 11/17/2024 10:00 AM EDT Office Visit [facility] MED & PEDS 505 [place] [address] Moon Alvarado MD 505 [place] [address] documented as of this encounter Procedures Procedure Name Priority Date/Time Associated Diagnosis Comments COLONOSCOPY Routine 07/09/2023 12:53 PM EDT documented in this encounter Results * Colonoscopy (07/09/2023 12:53 PM EDT) Anatomical Region Laterality Modality Endoscopy us Historical Provider ENDOSCOPY PROCEDURE ORDER YOLIE Final Result documented in this encounter Visit Diagnoses Not on filedocumented in this encounter Care Teams Try On Baster Relationship Specialty Start Date End Date Moon Alvarado MD 505 [place] [address] PCP - General Family Medicine 02/16/18 documented as of this encounter
--- OUTSIDE RECORDS SUMMARY | 2024-10-11 13:33 | XMS_ITS | Encounter Summary ---
Author Organization [employer] Address [address] [place] [address] Care Team Providers Care Rivet Hole Puncher Name Role Phone Moon Alvarado MD Primary Care Provider [phone] Reason for Visit * Reason Onset Date Comments Appointment Request 06/08/2023 Encounter Details Date Type Department Care Team (Late st Contact Info) Description 06/08/2023 Telephone [facility] MEDICINE 230 [place] [address] Moon Alvarado MD 505 [place] [address] Appointment Request Social History Tobacco Use Types [...] 10/31/2024 9:30 AM EDT Clinical Support [facility] MED & PEDS 505 [place] [address] 11/03/2024 9:00 AM EDT Clinical Support [facility] MED & PEDS 505 [place] [address] Roselyn Singer, RN 505 [place] [address] 11/17/2024 10:00 AM EDT Office Visit [facility] MED & PEDS 505 [place] [address] Moon Alvarado MD 505 [place] [address] documented as of this encounter Visit Diagnoses Not on filedocumented in this encounter Care Teams Rivet Hole Puncher Relationship Specialty Start Date End Date Moon Alvarado MD 505 [place] [address] PCP - General Family Medicine 02/16/18 documented as of this encounter
--- OUTSIDE RECORDS SUMMARY | 2024-10-11 13:33 | XMS_ITS | Encounter Summary ---
Author Organization [employer] Address 75 [facility] 7t [place] [address] Care Team Providers Care Kitchen Mechanic Name Role Phone Moon Alvarado MD Primary Care Provider [phone] Encounter Details Date Type Department Care Team (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 Pt states she forgot, pt always compliant. Appt r/s to 11/03 @ 9am. documented in this encounter Plan of Treatment Upcoming Encounters Date Type Department Care Team (Late st Contact Info) Description 10/31/2024 9:30 AM EDT Clinical Support [facility] MED & PEDS 505 [place] [address] 11/03/2024 9:00 AM EDT Clinical Support [facility] MED & PEDS 505 [place] [address] Roselyn Singer RN 505 [place] [address] 11/17/2024 10:00 AM EDT Office Visit [facility] MED & PEDS 505 [place] [address] Moon Alvarado MD 505 [place] [address] documented as of this encounter Visit Diagnoses Diagnosis Chronic pain syndrome documented in this encounter Additional Health Concerns Assessment Noted Time PHQ-9 Depression Total Score: 7 10/06/19 25 9:28 AM EDT documented as of this encounter Care Teams Kitchen Mechanic Relationship Specialty Start Date End Date Moon Alvarado MD [address] [place] [address] PCP - General Family Medicine 02/16/18 documented as of this encounter
--- OUTSIDE RECORDS SUMMARY | 2024-10-11 13:33 | XMS_ITS | Encounter Summary ---
Author Organization [employer] Address [address] [place] [address] Care Team Providers Care Summer Babysitter Name Role Phone Moon Alvarado MD Primary Care Provider [phone] Reason for Visit * Reason Onset Date Comments Appointment Request 12/09/2023 Encounter Details Date Type Department Care Team ([facility] Contact Info) Description 12/09/2023 Telephone [facility] MEDICINE 230 [place] [address] Moon Alvarado MD 505 [place] [address] Appointment Request Social History Tobacco Use Types [...] EDT Tc from pt requesting to reschedule PROGRAM ANALYST visit. Please contact pt at [phone]. documented in this encounter Plan of Treatment Upcoming Encounters Date Type Department Care Team (Late Contact Info) Description 10/31/2024 9:30 AM EDT Clinical Support [facility] MED & PEDS 505 [place] [address] 11/03/2024 9:00 AM EDT Clinical Support [facility] MED & PEDS [address] [place] [address] Roselyn Singer, IRMA 505 [place] [address] 11/17/2024 10:00 AM EDT Office Visit [facility] MED & PEDS [address] [place] [address] Moon Alvarado MD 505 [place] [address] documented as of this encounter Visit Diagnoses Not on filedocumented in this encounter Care Teams Summer Babysitter Relationship Specialty Start Date End Date Moon Alvarado MD 505 [place] [address] PCP - General Family Medicine 02/16/18 documented as of this encounter
--- OUTSIDE RECORDS SUMMARY | 2024-10-11 13:33 | XMS_ITS | Encounter Summary ---
Author Organization [employer] Address [address] [place] [address] 7 [place] [address] Care Team Providers Care Counseling Services Director Name Role Phone Moon Alvarado MD Primary Care Provider [phone] Reason for Visit * Reason Onset Date Comments Med Refill 12/04/2023 Encounter Details Date Type Department Care Team ([facility] st Contact Info) Description 12/04/2023 Telephone [facility] MEDICINE 230 [place] [address] Moon Alvarado MD 505 [place] [address] Med Refill Social History Tobacco Use Types [...] 5-325 MG tablet To be sent to: [facility] - [place], [place] - [address] [facility] documented in this encounter Plan of Treatment Upcoming Encounters Date Type Department Care Team (Late st Contact Info) Description 10/31/2024 9:30 AM EDT Clinical Support [facility] MED & PEDS 505 [place] [address] 11/03/2024 9:00 AM EDT Clinical Support [facility] MED & PEDS [address] [place] [address] Roselyn Singer, RN 505 [place] [address] 11/17/2024 10:00 AM EDT Office Visit [facility] MED & PEDS [address] [place] [address] Moon Alvarado MD 505 [place] [address] documented as of this encounter Visit Diagnoses Not on filedocumented in this encounter Care Teams Counseling Services Director Relationship Specialty Start Date End Date Moon Alvarado MD 505 [place] [address] PCP - General Family Medicine 02/16/18 documented as of this encounter
--- OUTSIDE RECORDS SUMMARY | 2024-10-11 13:33 | XMS_ITS | Encounter Summary ---
Author Organization [employer] Address 75 [facility] 7 [place] [address] Care Team Providers Care Employee Relations Director Name Role Phone Moon Alvarado MD Primary Care Provider [phone] Reason for Visit * Reason Onset Date Comments Med Refill 05/12/2022 Encounter Details Date Type Department Care Team (Late st Contact Info) Description 05/12/2022 Telephone [facility] MEDICINE 230 [place] [address] Moon Alvarado MD 505 [place] [address] Med Refill Social History Tobacco Use Types [...] Description 10/31/2024 9:30 AM EDT Clinical Support [facility] MED & PEDS 505 [place] [address] 11/03/2024 9:00 AM EDT Clinical Support [facility] MED & PEDS [address] [place] [address] Roselyn Singer, IRMA 505 [place] [address] 11/17/2024 10:00 AM EDT Office Visit [facility] MED & PEDS [address] [place] [address] Moon Alvarado MD 505 [place] [address] documented as of this encounter Visit Diagnoses Not on filedocumented in this encounter Care Teams Employee Relations Director Relationship Specialty Start Date End Date Moon Alvarado MD 505 [place] [address] PCP - General Family Medicine 02/16/18 documented as of this encounter
--- OUTSIDE RECORDS SUMMARY | 2024-10-11 13:33 | XMS_ITS | Encounter Summary ---
Author Organization [employer] Address 75 [facility] 7 [place] [address] Care Team Providers Care Developer Designer Name Role Phone Moon Alvarado MD Primary Care Provider [phone] Reason for Visit * Reason Onset Date Comments Prior Authorization 12/22/2023 Encounter Details Date Type Department Care Team (Late st Contact Info) Description 12/22/2023 Telephone [facility] MEDICINE 230 [place] [address] Moon Alvarado MD 505 [place] [address] Prior Authorization Social History Tobacco Use Types [...] review Thank you. Tc from Damaris ([facility] Pain Management group requesting a PA for an MRI With out contrast , Damaris informs any questions her callback number [phone] CPT CODE -84260 ICD CODE - M46.46 * Telephone Encounter - Janine Anand - 12/22/2023 9:13 AM EST Tc from Damaris ([facility]) Pain Management group requesting a PA for an MRI With out contrast , Damaris informs any questions her callback number [phone] CPT CODE -95515 ICD CODE - M46.46 documented in this encounter Plan of Treatment Upcoming Encounters Date Type Department Care Team (Late st Contact Info) Description 10/31/2024 9:30 AM EDT Clinical Support [facility] MED & PEDS 505 [place] [address] 11/03/2024 9:00 AM EDT Clinical Support [facility] MED & PEDS [address] [place] [address] Roselyn Singer, RN [address] [place] [address] 11/17/2024 10:00 AM EDT Office Visit [facility] MED & PEDS 505 [place] [address] Moon Alvarado MD 505 [place] [address] documented as of this encounter Visit Diagnoses Not on filedocumented in this encounter Care Teams Developer Designer Relationship Specialty Start Date End Date Moon Alvarado MD 505 [place] [address] PCP - General Family Medicine 02/16/18 documented as of this encounter
--- OUTSIDE RECORDS SUMMARY | 2024-10-11 13:33 | XMS_ITS | Encounter Summary ---
Author Organization [employer] Address [address] [place] [address] 7 [place] [address] Care Team Providers Care Asbestos Brake Lining Finisher Helper Name Role Phone Moon Alvarado MD Primary Care Provider [phone] Reason for Visit * Reason Onset Date Comments Med Refill 02/05/2023 Encounter Details Date Type Department Care Team (Late st Contact Info) Description 02/05/2023 Telephone [facility] MEDICINE 230 [place] [address] Moon Alvarado MD [address] [place] [address] Med Refill Social History Tobacco Use Types [...] refill on; oxyCODONE-acetaminophen (Percocet) 5-325 MG tablet [facility] - [place], [place] - [address] documented in this encounter Plan of Treatment Upcoming Encounters Date Type Department Care Team (Late st Contact Info) Description 10/31/2024 9:30 AM EDT Clinical Support [facility] MED & PEDS [address] [place] [address] 11/03/2024 9:00 AM EDT Clinical Support [facility] MED & PEDS [address] [place] [address] Roselyn Singer, RN [address] [place] [address] 11/17/2024 10:00 AM EDT Office Visit [facility] MED & PEDS 505 [place] [address] Moon Alvarado MD 505 [place] [address] documented as of this encounter Visit Diagnoses Not on filedocumented in this encounter Care Teams Asbestos Brake Lining Finisher Helper Relationship Specialty Start Date End Date Moon Alvarado MD 505 [place] [address] PCP - General Family Medicine 02/16/18 documented as of this encounter
--- OUTSIDE RECORDS SUMMARY | 2024-10-11 13:33 | XMS_ITS | Encounter Summary ---
Author Organization [employer] Address 75 [facility] 7 [place] [address] Care Team Providers Care Field Services Analyst Name Role Phone Moon Alvarado MD Primary Care Provider [phone] Reason for Visit * Reason Onset Date Comments call back 05/12/2022 Encounter Details Date Type Department Care Team ([facility] st Contact Info) Description 05/12/2022 Telephone [facility] MEDICINE 230 [place] [address] Moon Alvarado MD 505 [place] [address] call back Social History Tobacco Use Types [...] 9:30 AM EDT Clinical Support [facility] MED & PEDS 505 [place] [address] 11/03/2024 9:00 AM EDT Clinical Support [facility] MED & PEDS 505 [place] [address] Roselyn Singer RN 505 [place] [address] 11/17/2024 10:00 AM EDT Office Visit [facility] MED & PEDS 505 [place] [address] Moon Alvarado MD 505 [place] [address] documented as of this encounter Visit Diagnoses Not on filedocumented in this encounter Care Teams Field Services Analyst Relationship Specialty Start Date End Date Moon Alvarado MD 505 [place] [address] PCP - General Family Medicine 02/16/18 documented as of this encounter
--- OUTSIDE RECORDS SUMMARY | 2024-10-11 13:33 | XMS_ITS | Encounter Summary ---
Author Organization [employer] Address 75 [facility] 7 [place] [address] Care Team Providers Care Financial Professional Name Role Phone Moon Alvarado MD Primary Care Provider [phone] Reason for Visit * Reason Onset Date Comments Referral 01/19/2023 Encounter Details Date Type Department Care Team (Late st Contact Info) Description 01/19/2023 Telephone [facility] MEDICINE 230 [place] [address] Moon Alvarado MD 505 [place] [address] Referral Social History Tobacco Use Types Packs/Day [...] pt of referral placed. Pt currently at [facility] being seen. * Telephone Encounter - Marina Wasserman RN - 01/19/2023 3:50 PM EST Placed call to pt regarding message below. Pt states going to Urgent care at [place] and being told she had an infection of her big Toe on Left foot and a fracture. They informed pt of need to f/u with [facility] urgently and pt managed to get an appt for tomorrow morning. [facility] is stating they need a referral from PCP office. Informed pt that PCP cannot place referral without indication or notes fromUC. Offered pt [facility] appt tonight but pt has no transport. Pt informed that notes from will be requested and message will be sent to PCP but there is no guarantee that referral can be sent to [facility] by tomorrow. Pt agrees with plan and hopes she still manages to keep appt with [facility] tomorrow. Notes from will be scanned into chart for PCP review. Spoke with [facility] and confirmed referral is needed from PCP and they can back date referral if it not processed by tomorrow. [facility] requested Group NPI salvador included on referral of [id number]. Informed [facility] that our office has our own referral dept thatmay already have said NPI. Please review UC notes and advise on referral request. Thank you. * Telephone Encounter - Wilfredo Rae - 01/19/2023 9:31 AM EST Tc from pt requesting a referral for [facility] documented in this encounter Plan of Treatment Upcoming Encounters Date Type Department Care Team (Late st Contact Info) Description 10/31/2024 9:30 AM EDT Clinical Support [facility] MED & PEDS 505 [place] [address] 11/03/2024 9:00 AM EDT Clinical Support [facility] MED & PEDS [address] [place] [address] Roselyn Singer, RN [address] [place] [address] 11/17/2024 10:00 AM EDT Office Visit [facility] MED & PEDS [address] [place] [address] Moon Alvarado MD 505 [place] [address] documented as of this encounter Visit Diagnoses Not on filedocumented in this encounter Care Teams Financial Professional Relationship Specialty Start Date End Date Moon Alvarado MD [address] [place] [address] PCP - General Family Medicine 02/16/18 documented as of this encounter
--- OUTSIDE RECORDS SUMMARY | 2024-10-11 13:33 | XMS_ITS | Encounter Summary ---
Author Organization [employer] Address 75 [facility] 7 [place] [address] Care Team Providers Care Director Of Laboratory Operations Name Role Phone Moon Alvarado MD Primary Care Provider [phone] Reason for Visit * Reason Onset Date Comments Med Refill 10/07/2023 Encounter Details Date Type Department Care Team (Late st Contact Info) Description 10/07/2023 Telephone [facility] MEDICINE 230 [place] [address] Moon Alvarado MD 505 [place] [address] Med Refill Social History Tobacco Use Types [...] 5-325 MG tablet To be sent to: [facility] documented in this encounter Plan of Treatment Upcoming Encounters Date Type Department Care Team (Late st Contact Info) Description 10/31/2024 9:30 AM EDT Clinical Support [facility] MED & PEDS 505 [place] [address] 11/03/2024 9:00 AM EDT Clinical Support [facility] MED & PEDS [address] [place] [address] Roselyn Singer, RN 505 [place] [address] 11/17/2024 10:00 AM EDT Office Visit [facility] MED & PEDS 505 [place] [address] Moon Alvarado MD 505 [place] [address] documented as of this encounter Visit Diagnoses Not on filedocumented in this encounter Care Teams Director Of Laboratory Operations Relationship Specialty Start Date End Date Moon Alvarado MD [address] [place] [address] PCP - General Family Medicine 02/16/18 documented as of this encounter
--- OUTSIDE RECORDS SUMMARY | 2024-10-11 13:33 | XMS_ITS | Encounter Summary ---
Author Organization [employer] Address [address] [place] [address] [place] [address] Care Team Providers Care Field Radio Operator Name Role Phone Moon Alvarado MD Primary Care Provider [phone] Encounter Details Date Type Department Care Team (Late st Contact Info) Description 2023 [facility] Information Management [address] [place], [place] [address] Moon Alvarado MD 505 [place] [address] Social History Tobacco Use Types Packs/Day Years [...] Description 10/31/2024 9:30 AM EDT Clinical Support [facility] MED & PEDS 505 [place] [address] 11/03/2024 9:00 AM EDT Clinical Support [facility] MED & PEDS 505 [place] [address] Rsoelyn Singer RN 505 [place] [address] 11/17/2024 10:00 AM EDT Office Visit [facility] CH[facility] MED & PEDS 505 [place] [address] Moon Alvarado MD 505 [place] [address] documented as of this encounter Visit Diagnoses Not on filedocumented in this encounter Care Teams Field Radio Operator Relationship Specialty Start Date End Date Moon Alvarado MD 505 [place] [address] PCP - General Family Medicine 02/16/18 documented as of this encounter
--- OUTSIDE RECORDS SUMMARY | 2024-10-11 13:33 | XMS_ITS | Encounter Summary ---
Author Organization [employer] Address [address] [facility] 7t [place] [address] Care Team Providers Care Build Technician Name Role Phone Moon Alvarado MD Primary Care Provider [phone] Reason for Visit * Reason Onset Date Comments Med Refill 07/04/2024 Encounter Details Date Type Department Care Team ([facility] st Contact Info) Description 07/04/2024 Telephone [facility] MEDICINE [address] [place] [address] Moon Alvarado MD [address] [place] [address] Med Refill Social History Tobacco Use Types Packs/Day Years Used Date Smoking Tobacco: Never Passive Smoke Exposure: Never Smokeless Tobacco: Never Housing Stability Answer Date Recorded What is your housing situation today? I have mirlande elizabeth 07/04/[address] you li [...] off services in your home? No 07/04/2024 Internet Access Answer Date Recorded Internet Access [...] encounter Miscellaneous Notes * Telephone Encounter - Sharri Nayak - 07/04/2024 10:32 AM EDT TC from pt requesting medication refill. Medications needing refill : oxyCODONE-acetaminophen (Percocet) 5-325 MG tablet To be sent to: [facility] documented in this encounter Plan of Treatment Upcoming Encounters Date Type Department Care Team (Late st Contact Info) Description 10/31/2024 9:30 AM EDT Clinical Support [facility] MED & PEDS [address] [place] [address] 11/03/2024 9:00 AM EDT Clinical Support [facility] MED & PEDS [address] [place] [address] Roselyn Singer RN [address] [place] [address] 11/17/2024 10:00 AM EDT Office Visit [facility] MED & PEDS [address] [place] [address] Moon Alvarado MD [address] [place] [address] documented as of this encounter Visit Diagnoses Not on filedocumented in this encounter Care Teams Build Technician Relationship Specialty Start Date End Date Moon Alvarado MD [address] [place] [address] PCP - General Family Medicine 02/16/18 documented as of this encounter
== END 2024-10-11 12:52 | disposition home or self-care (01) ==
LOC: HO.MAMMO 12:51
PROVIDERS: PCP Pediatrics; Visit Provider Pediatrics
DX: Z12.31 Encounter for screening mammogram for malignant neoplasm of breast (principal); N60.01 Solitary cyst of right breast; N64.4 Mastodynia; N63.11 Unspecified lump in the right breast, upper outer quadrant
CPT/HCPCS: 76642; 77062; 77066

== ENCOUNTER → 2024-10-11 14:30 | Outpatient (BNV) | payer MEDICAID, SELFPAY | PROVIDERS: PCP Pediatrics; Visit Provider Radiology Body Imaging | DX: N64.4 Mastodynia (principal) | CPT/HCPCS: 76642; 77062; 77066 ==

== ENCOUNTER 2024-11-03 17:36 | Outpatient (REF) | payer MEDICAID, SELFPAY ==
--- OUTSIDE RECORDS SUMMARY | 2024-10-31 09:30 | XMS_ITS | Encounter Summary ---
Author Organization [employer] Address [address] [facility] 7t [place] [address] Care Team Providers Care Prescription Clerk Name Role Phone Moon Alvarado MD Primary Care Provider [phone] Reason for Visit * Reason Comments B12 Injection Encounter Details Date Type Department Care Team (Latest Contact Info) Description 10/31/2024 9:30 AM EDT Clinical Support [facility] MED & PEDS [address] [place] [address] Mine Lieberman RN Other dietary vitamin B12 deficiency anemia Social History Tobacco Use Types Packs/Day Years [...] Sign Reading Time Taken Comments Blood Pressure - - Pulse - - Temperature - - Respiratory Rate - - Oxygen Saturation - - Inhaled Oxygen Concentration - - Weight 89.3 kg (196 lb 12.8 oz) 10/31/2024 9:38 AM EDT Height - - Body Mass Index 32.75 10/05/2024 9:25 AM EDT documented in this encounter Progress Notes * Mine Lieberman RN - 10/31/2024 9:30 AM EDT SUBJECTIVE: Jes Boggs is a 54 y.o. 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 Allergies[1] OBJECTIVE: B-12 injection given in left deltoid, medication was tolerated well. ASSESSMENT: Vitamin B12 deficiency PLAN: Jes Boggs will return for next injection on 11/28/2024. [x] Advised to monitor injection site for any increased redness or swelling [x] Next appointment given Jes Boggs agrees with plan of care and verbalized understanding of instructions/education. MyChart Access was re-established this visit and education of how to request refills, send messages, and review visit and result notes Mine Lieberman RN [1] Allergies Allergen Reactions Shellfish-Derived Products Other reaction(s): SWELLING, HIVES , Latex Hives documented in this encounter Plan of Treatment Upcoming Encounters Date Type Department Care Team (Late st Contact Info) Description 11/17/2024 10:00 AM EDT Office Visit [facility] MED & PEDS [address] [place] [address] Moon Alvarado MD [address] [place] [address] 11/28/2024 9:45 AM EDT Clinical Support [facility] MED & PEDS [address] [place] [address] 03/02/2025 9:00 AM EST Clinical Support [facility] MED & PEDS [address] [place] [address] Roselyn Singer RN [address] [place] [address] documented as of this encounter Visit Diagnoses Diagnosis Other dietary vitamin B12 deficiency anemia documented in this encounter Administered Medications Inactive Administered Medications - up to 3 most recent administrations Medication Order MAR Action Action Date Dose Rate Site cyanocobalamin (Vitamin B-12) injection 1,000 mcg 1,000 mcg, Intramuscular, Once, On 10/31/24 at 0930, For 1 doseIndications:Other dietary vitamin B12 deficiency anemia Given 10/31/2024 9:30 AM EDT 1,000 mcg Left Deltoid documented in this encounter Additional Health Concerns Assessment Noted Time PHQ-9 Depression Total Score: 7 10/06/19 9:28 AM EDT documented as of this encounter Care Teams Prescription Clerk Relationship Specialty Start Date End Date Moon Alvarado MD [address] [place] [address] PCP - General Family Medicine 02/16/18 documented as of this encounter
--- OUTSIDE RECORDS SUMMARY | 2024-11-03 09:00 | XMS_ITS | Encounter Summary ---
Author Organization [employer] Address [address] [facility] 7[address] [place] [address] Care Team Providers Care Dye And Chemical Coordinator Name Role Phone Moon Alvarado MD Primary Care Provider [phone] Reason for Visit * Reason Comments FORMULA TECHNICIAN Encounter Details Date Type Department Care Team (Latest Contact Info) Description 11/03/2024 9:00 AM EDT Clinical Support [facility] MED & PEDS [address] [place] [address] Roselyn Singer, RN [address] [place] [address] Back pain, unspecified back location, unspecified back pain laterality, unspecified chronicity (Primary Dx) Social History Tobacco Use Types Packs/Day Years Used Date Smoking Tobacco: Never Passive Smoke Exposure: Never Smokeless Tobacco: Never Depression Answer Date Recorded Patient Health Questionnaire-9 Score 7 10/05/2024 Patient Health Questionnaire-9 Score 7 10/05/2024 Last PHQ-9: Questionnaire Data Not on file 0 10/05/2024 Housing Stability Answer Date Recorded What is your housing situation today? I have mirlandedi johnson 07/04/[address] you [...] AM EDT documented as of this encounter Progress Notes * Roselyn Singer RN - 11/03/2024 9:00 AM EDT SUBJECTIVE: Jes Boggs is a 54 y.o. year old female who presents for FORMULA TECHNICIAN Preferred language for medical information: Italian Interpreted needed: No Jes Boggs does report adherence to Percocet 5-325 mg, take 1 tablet every 8 hours PRN, last refilled 11/03/24. The patient last took Percocet on: 11/03/24 Medication is: 70% % effective at alleviating pain. OBJECTIVE: SHORT ORDER FRY COOK checked: 11/03/2024 Pill count completed for Percocet , count today is 85 , anticipated count should be 85, this is as expected. Vital Signs Pain Score: 5 Pain Loc: Back Pain Education: Yes Last PCP visit: 10/05/24 BPI completed on: 11/03/2024 , pain severity score: 6, activity interference score: 4 BPI completed on: 04/07/24 , pain severity score: 5, activity interference score: 7 Controlled substance agreement signed: Controlled Substance Agreement 04/07/2024 FORMULA TECHNICIAN Tier: 3 Current Medications[1] Smoking status: Denies ETOH use: Yes . Rare ETOH use, pt educated of the risks associated with the combination of ETOH andopioids, verbalized understanding. Illicit substances: Denies Marijuana use: No , Lab Results Component Value Date POCTHC Negative 11/03/2024 POCCOCAINEUR Negative 11/03/2024 POCOPIATEUR Negative 11/03/2024 DOAUR Negative 11/03/2024 POCAMPHETAMI Positive (A) 11/03/2024 POCBENZODIUR Negative 11/03/2024 POCBARBSCRN Negative 11/03/2024 POCMETHADOUR Negative 11/03/2024 POCBUPSCRN Negative 11/03/2024 POCTCAUR Negative 11/03/2024 POCMDMAUR Negative 11/03/2024 POCOXYCODONE Positive (A) 11/03/2024 POCPHENCYCUR Negative 11/03/2024 PROPOXUR Negative 11/03/2024 FENTANYLURIN Negative 11/03/2024 AMP positive, patient has a new rx Phentermine which can cause false pos. Will send it out to the lab for confirmation and notify PCP. ASSESSMENT: Encounter Diagnosis Name Primary? Back pain, unspecified back location, unspecified back pain laterality, unspecified chronicity Yes PLAN: Information on pain group given: Previously discussed Information on acupuncture given: Previously discussed Narcan education provided: Previously discussed Narcan prescription: inactive- refill request submitted to provider Jes Boggs will continue taking medication as prescribed and follow up at the next FORMULA TECHNICIAN visit orsooner if needed. Jes Boggs has verbalized understanding of care plan. Future Appointments Date Time Provider Department Center 11/17/2024 10:00 AM Moon Alvarado MD [facility] 11/28/2024 9:45 AM [facility] JW NURSE [facility] 03/02/2025 9:00 AM Roselyn Singer RN [facility] Roselyn Singer RN [1] Current Outpatient Medications: bismuth subsalicylate (Pepto Bismol) 262 MG chewable tablet, One tab po four times a day for 14 days, Disp: 56 tablet, Rfl: 0 buPROPion XL (Wellbutrin XL) 300 MG 24 hr tablet, Take 300 mg by mouth in the morning., Disp: , Rfl: cetirizine (ZyrTEC) 10 MG tablet, Take 1 tablet (10 mg) by mouth Once per day., Disp: 90 tablet, Rfl: 3 Clotrimazole 2 % vaginal cream, Apply intravaginally at bedtime for 1 week, Disp: 21 g, Rfl: 1 cyanocobalamin (Vitamin B-12) 1000 MCG/ML injection, Inject 1 mL (1,000 mcg) into the muscle every 30 (thirty) days., Disp: 1 mL, Rfl: 11 Diclofenac Sodium (Voltaren) 1 % gel, Apply 2 g topically in the morning, at noon, in the evening, and at bedtime., Disp: , Rfl: EPINEPHrine (EpiPen 2-Arnoldo) 0.3 MG/0.3ML injection syringe, Inject 0.3 mg as directed if needed., Disp: , Rfl: estradiol (Estrace) 0.1 MG/GM vaginal cream, Insert 1 gm intravaginally 2 times a week, Disp: 42.5 g, Rfl: 11 famotidine (Pepcid) 20 MG tablet, TAKE ONE TABLET TWICE DAILY, Disp: 180 tablet, Rfl: 1 hydrOXYzine pamoate (Vistaril) 25 MG capsule, TAKE 1 CAPSULE BY MOUTH FOUR TIMES DAILY NEEDED, Disp: , Rfl: lidocaine (Lidoderm) 5 % patch, APPLY 1 PATCH TO SKIN. LEAVE ON FOR 12 HOURS, THEN OFF FOR 12 HOURSAS DIRECTED, Disp: 30 patch, Rfl: 1 naloxone (Narcan) 4 mg/0.1 mL nasal spray, Administer 0.1 mL into affected nostril(s) if needed., Disp: , Rfl: omeprazole OTC (PriLOSEC OTC) 20 MG EC tablet, Take 1 tab po BID for 14 days., Disp: 28 tablet, Rfl: 0 oxyCODONE-acetaminophen (Percocet) 5-325 MG tablet, TAKE ONE TABLET EVERY 8 HOURS NEEDED FOR SEVERE PAIN, Disp: 84 tablet, Rfl: 0 phentermine 15 MG capsule, TAKE ONE CAPSULE EVERY MORNING BEFORE BREAKFAST, Disp: 30 capsule, Rfl: 0 sertraline (Zoloft) 25 MG tablet, Take 25 mg by mouth in the morning., Disp: , Rfl: tiZANidine (Zanaflex) 4 MG tablet, Take 1 tablet by mouth if needed at bedtime., Disp: , Rfl: triamcinolone (Kenalog) 0.025 % cream, Apply topically 2 times daily., Disp: 45 g, Rfl: 1 documented in this encounter Plan of Treatment Upcoming Encounters Date Type Department Care Team (Late st Contact Info) Description 11/17/2024 10:00 AM EDT Office Visit [facility] MED & PEDS [address] [place] [address] Moon Alvarado MD [address] [place] [address] 11/28/2024 9:45 AM EDT Clinical Support [facility] MED & PEDS [address] [place] [address] 03/02/2025 9:00 AM EST Clinical Support [facility] MED & PEDS [address] [place] [address] Roselyn Singer RN [address] [place] [address] Scheduled Orders Name Type Priority Associated Diagnoses Orde r Schedule Drug Toxicology Monitoring Amphetamines, with Confirmation, Urine Lab Routine Back pain, unspecified back location, unspecified back pain laterality, unspecified chronicity Ordered: 11/03/2024 documented as of this encounter Procedures Procedure Name Priority Date/Time Associated Diagnosis Comments POCT SILVER-14 URINE DRUG SCREEN Routine 11/03/2024 9:19 AM EDT Back pain, unspecified back location, unspecified back pain laterality, unspecified chronicity documented in this encounter Results * (ABNORMAL) POCT SILVER-14 Urine Drug Screen (11/03/2024 9:19 AM EDT) THC Negative Negative Cocaine Screen, Urine Negative Negative Opiate Screen, Urine Negative Negative Methamphetamine Screen Urine Negative Negative Amphetamine Screen, Urine Positive(A) Negative Benzodiazepines Screen, Urine Negative Negative Barbiturate Screen, Urine Negative Negative Methadone Screen, Urine Negative Negative Buprenophine Screen, Urine Negative Negative TCA, Urine Negative Negative MDMA Urine Negative Negative ng/mL Oxycodone Screen, Urine Positive(A) Negative Phencyclidine (PCP), Urine Negative Negative Propoxyphene, Urine Negative Negative Fentanyl, Urine Negative Negative Urine Urine specimen obtained by clean catch procedure / Unknown 11/03/2024 9:19 AM EDT Narrative Roselyn Singer, RN - 11/03/2024 9:19 AM EDT . Internal Pass Control Lot# [id number] Exp: 12-16-25 Moon Alvarado MD POINT OF CARE TEST ENTER/EDIT ORDERABLES Final Result documented in this encounter Visit Diagnoses Diagnosis Back pain, unspecified back location, unspecified back pain laterality, unspecified chronicity- Primary documented in this encounter Additional Health Concerns Assessment Noted Time PHQ-9 Depression Total Score: 7 10/06/19 25 9:28 AM EDT documented as of this encounter Care Teams Dye And Chemical Coordinator Relationship Specialty Start Date End Date Moon Alvarado MD [address] [place] [address] PCP - General Family Medicine 02/16/18 documented as of this encounter
--- OUTSIDE RECORDS SUMMARY | 2024-11-03 17:39 | XMS_ITS | Encounter Summary ---
Author Organization [employer] Address [address] [facility] 7 [place] [address] Care Team Providers Care Cnc Applications Engineer Name Role Phone Moon Alvarado MD Primary Care Provider [phone] Reason for Visit * Reason Onset Date Comments Nurse Triage 02/18/2023 Encounter Details Date Type Department Care Team (Late st Contact Info) Description 02/18/2023 Telephone [facility] MEDICINE [address] [place] [address] Moon Alvarado MD [address] [place] [address] Nurse Triage Social History Tobacco Use Types [...] accepted this outcome Please contact pt @ [phone] Bahamian Speaker documented in this encounter Plan of Treatment Upcoming Encounters Date Type Department Care Team (Late st Contact Info) Description 11/17/2024 10:00 AM EDT Office Visit [facility] MED & PEDS [address] [place] [address] Moon Alvarado MD [address] [place] [address] 11/28/2024 9:45 AM EDT Clinical Support [facility] MED & PEDS [address] [place] [address] 03/02/2025 9:00 AM EST Clinical Support [facility] MED & PEDS [address] [place] [address] Roselyn Singer, RN [address] [place] [address] documented as of this encounter Visit Diagnoses Not on filedocumented in this encounter Care Teams Cnc Applications Engineer Relationship Specialty Start Date End Date Moon Alvarado MD [address] [place] [address] PCP - General Family Medicine 02/16/18 documented as of this encounter
--- OUTSIDE RECORDS SUMMARY | 2024-11-03 17:39 | XMS_ITS | Encounter Summary ---
Author Organization [employer] Address [address] [place] [address] [place] [address] Care Team Providers Care Stonemason Apprentice Name Role Phone Moon Alvarado MD Primary Care Provider [phone] Encounter Details Date Type Department Care Team (Late st Contact Info) Description 2023 [facility] Information Management [address] [place], [place] [id number] Moon Alvarado MD [address] [place] [address] Social History Tobacco Use Types Packs/Day Years [...] 10:00 AM EDT Office Visit [facility] MED & PEDS [address] [place] [address] Moon Alvarado MD [address] [place] [address] 11/28/2024 9:45 AM EDT Clinical Support [facility] MED & PEDS [address] [place] [address] 03/02/2025 9:00 AM EST Clinical Support [facility] MED & PEDS [address] [place] [address] Roselyn Singer RN [address] [place] [address] documented as of this encounter Visit Diagnoses Not on filedocumented in this encounter Care Teams Stonemason Apprentice Relationship Specialty Start Date End Date Moon Alvarado MD [address] [place] [address] PCP - General Family Medicine 02/16/18 documented as of this encounter
--- OUTSIDE RECORDS SUMMARY | 2024-11-03 17:39 | XMS_ITS | Encounter Summary ---
Author Organization [employer] Address [address] [place] [address] Care Team Providers Care Electrical Tech/Project Manager Name Role Phone Moon Alvarado MD Primary Care Provider [phone] Reason for Visit * Reason Onset Date Comments Appointment Request 06/08/2023 Encounter Details Date Type Department Care Team (Late st Contact Info) Description 06/08/2023 Telephone [facility] MEDICINE [address] [place] [address] Moon Alvarado MD [address] [place] [address] Appointment Request Social History Tobacco Use Types [...] Description 11/17/2024 10:00 AM EDT Office Visit [facility] MED & PEDS [address] [place] [address] Moon Alvarado MD [address] [place] [address] 11/28/2024 9:45 AM EDT Clinical Support [facility] MED & PEDS [address] [place] [address] 03/02/2025 9:00 AM EST Clinical Support [facility] MED & PEDS [address] [place] [address] Roselyn Singer, IRMA [address] [place] [address] documented as of this encounter Visit Diagnoses Not on filedocumented in this encounter Care Teams Electrical Tech/Project Manager Relationship Specialty Start Date End Date Moon Alvarado MD [address] [place] [address] PCP - General Family Medicine 02/16/18 documented as of this encounter
--- OUTSIDE RECORDS SUMMARY | 2024-11-03 17:39 | XMS_ITS | Encounter Summary ---
Author Organization [employer] Address [address] [place] [address] 7 [place] [address] Care Team Providers Care Crusher Loader Equipment Operator Name Role Phone Moon Alvarado MD Primary Care Provider [phone] Encounter Details Date Type Department Care Team (Late st Contact Info) Description 07/15/2023 [facility] Only [facility] Information Management [address] [place], [place] [id number] Provider, MD Marv Social History Tobacco Use [...] Department Care Team (Late Contact Info) Description 11/17/2024 10:00 AM EDT Office Visit [facility] MED & PEDS [address] [place] [address] Moon Alvarado MD [address] [place] [address] 11/28/2024 9:45 AM EDT Clinical Support [facility] MED & PEDS [address] [place] [address] 03/02/2025 9:00 AM EST Clinical Support [facility] MED & PEDS [address] [place] [address] Roselyn Singer, IRMA [address] [place] [address] documented as of this encounter Procedures Procedure Name Priority Date/Time Associated Diagnosis Comments COLONOSCOPY Routine 07/09/2023 12:53 PM EDT documented in this encounter Results * Colonoscopy (07/09/2023 12:53 PM EDT) Anatomical Region Laterality Modality Endoscopy us Historical Provider ENDOSCOPY PROCEDURE ORDER YOLIE Final Result documented in this encounter Visit Diagnoses Not on filedocumented in this encounter Care Teams Crusher Loader Equipment Operator Relationship Specialty Start Date End Date Moon Alvarado MD [address] [place] [address] PCP - General Family Medicine 02/16/18 documented as of this encounter
--- OUTSIDE RECORDS SUMMARY | 2024-11-03 17:39 | XMS_ITS | Encounter Summary ---
Author Organization [employer] Address [address] [facility] 7 [place] [address] Care Team Providers Care Director Of Marketing Operations Name Role Phone Moon Alvarado MD Primary Care Provider [phone] Reason for Visit * Reason Onset Date Comments Med Refill 10/07/2023 Encounter Details Date Type Department Care Team (Late st Contact Info) Description 10/07/[address] [facility] MEDICINE [address] [place] [address] Moon Alvarado MD [address] [place] [address] Med Refill Social History Tobacco Use Types [...] 5-325 MG tablet To be sent to: [facility] documented in this encounter Plan of Treatment Upcoming Encounters Date Type Department Care Team ([facility] st Contact Info) Description 11/17/2024 10:00 AM EDT Office Visit [facility] MED & PEDS [address] [place] [address] Moon Alvarado MD [address] [place] [address] 11/28/2024 9:45 AM EDT Clinical Support [facility] MED & PEDS [address] [place] [address] 03/02/2025 9:00 AM EST Clinical Support [facility] MED & PEDS [address] [place] [address] Roselyn Singer RN [address] [place] [address] documented as of this encounter Visit Diagnoses Not on filedocumented in this encounter Care Teams Director Of Marketing Operations Relationship Specialty Start Date End Date Moon Alvarado MD [address] [place] [address] PCP - General Family Medicine 02/16/18 documented as of this encounter
--- OUTSIDE RECORDS SUMMARY | 2024-11-03 17:39 | XMS_ITS | Encounter Summary ---
Author Organization [employer] Address [address] [facility] 7 [place] [address] Care Team Providers Care Banquet Attendant Name Role Phone Moon Alvarado MD Primary Care Provider [phone] Reason for Visit * Reason Comments Med Refill Encounter Details Date Type Department Care Team ([facility] st Contact Info) Description 10/29/2024 Refill [facility] [address] [place], [place] [id number] Moon Alvarado MD [address] [place] [address] Social History Tobacco Use Types Packs/Day Years [...] Upcoming Encounters Date Type Department Care Team ([facility] st Contact Info) Description 11/17/2024 10:00 AM EDT Office Visit [facility] [address] [place] [address] Moon Alvarado MD [address] [place] [address] 11/28/2024 9:45 AM EDT Clinical Support [facility] [address] [place] [address] 03/02/2025 9:00 AM EST Clinical Support [facility] [address] [place] [address] Roselyn Singer RN [address] [place] [address] documented as of this encounter Visit Diagnoses Not on filedocumented in this encounter Additional Health Concerns Assessment Noted Time PHQ-9 Depression Total Score: 7 10/06/19 25 9:28 AM EDT documented as of this encounter Care Teams Banquet Attendant Relationship Specialty Start Date End Date Moon Alvarado MD [address] [place] [address] PCP - General Family Medicine 02/16/18 documented as of this encounter
--- OUTSIDE RECORDS SUMMARY | 2024-11-03 17:39 | XMS_ITS | Encounter Summary ---
Author Organization [employer] Address [address] [facility] [address] [place] [address] Care Team Providers Care Catering Server Name Role Phone Moon Alvarado MD Primary Care Provider [phone] Reason for Visit * Reason Onset Date Comments Med Refill 07/04/2024 Encounter Details Date Type Department Care Team ([facility] st Contact Info) Description 07/04/2024 Telephone [facility] [address] [place] [address] Moon Alvarado MD [address] [place] [address] Med Refill Social History Tobacco Use Types [...] 5-325 MG tablet To be sent to: [facility] documented in this encounter Plan of Treatment Upcoming Encounters Date Type Department Care Team (Late st Contact Info) Description 11/17/2024 10:00 AM EDT Office Visit [facility] [address] [place] [address] Moon Alvarado MD [address] [place] [address] 11/28/2024 9:45 AM EDT Clinical Support [facility] [address] [place] [address] 03/02/2025 9:00 AM EST Clinical Support [facility] [address] [place] [address] Roselyn Singer RN [address] [place] [address] documented as of this encounter Visit Diagnoses Not on filedocumented in this encounter Care Teams Catering Server Relationship Specialty Start Date End Date Moon Alvarado MD [address] [place] [address] PCP - General Family Medicine 02/16/18 documented as of this encounter
--- OUTSIDE RECORDS SUMMARY | 2024-11-03 17:39 | XMS_ITS | Clinical Summary ---
Author Organization [employer] Address [address] [place] [address] Care Team Providers Care Salesperson Wigs Name Role Phone Moon Alvarado MD Primary Care Provider [phone] Allergies Active Allergy Reactions Criticality Noted Date [...] mouth Once per day. 90 tablet 3 025 Active cyanocobalamin (Vitamin B-12) 1000 MCG/ML injection Inject 1 mL (1,000 mcg) into the muscle every 30 (thirty) days. 1 mL 11 025 Active bismuth subsalicylate (Pepto Bismol) 262 MG chewable tablet One tab po four times a day for 14 days 56 tablet 025 Active omeprazole OTC (PriLOSEC OTC) 20 MG EC tablet Take 1 tab po BID for 14 days. 28 tablet 025 Active famotidine (Pepcid) 20 MG tablet TAKE ONE TABLET TWICE DAILY 180 tablet 1 025 Active oxyCODONE-acetam inophen (Percocet) 5-325 MG tabletIndication s:Chronic pain syndrome TAKE ONE TABLET EVERY 8 HOURS NEEDED FOR SEVERE PAIN 84 tablet 025 Active phentermine 15 MG capsuleIndicatio ns:Obesity with body mass index 30 or greater TAKE ONE CAPSULE EVERY MORNING BEFORE BREAKFAST 30 capsule 025 Active lidocaine (Lidoderm) 5 % patch APPLY 1 PATCH TO SKIN. LEAVE ON FOR 12 HOURS, THEN OFF FOR 12 HOURS DIRECTED 30 patch 1 025 Active naloxone (Narcan) 4 mg/0.1 mL nasal spray Administer 1 spray (4 mg) into affected nostril(s) if needed for opioid reversal. May repeat every 2-3 minutes if needed, alternating nostrils, until medical assistance becomes available. 2 each 2 025 2025 Active Misc. Devices (Pulse Oximeter Deluxe) misc [...] g 11 023 2024 Discontinued(T herapy completed) lidocaine (Lidoderm) 5 % patch Apply 1 patch topically Once per day. 30 patch 1 025 2024 Discontinued(R eorder (will not trigger notification to Pharmacy)) famotidine (Pepcid) 20 MG tablet Take 1 tablet (20 mg) by mouth 2 times daily. 60 tablet 2 2024 Discontinued(R eorder (will not trigger notification [...] to 28 days. 84 tablet 025 2024 Discontinued phentermine 15 MG capsuleIndicatio ns:Obesity with body mass index 30 or greater Take 1 capsule (15 mg) by mouth before breakfast. 30 capsule 025 2024 Discontinued Hospital, Clinic, or Other Facility Administered Medication Ordered Dose Route Frequency Start Date End Date Status cyanocobalamin (Vitamin B-12) injection 1,000 mcgIndications:Other dietary vitamin B12 deficiency anemia 1000 mcg IM Once 10/31/2024 10/31/2024 Ended Active Problems Problem Noted Date Diagnosed [...] Encounters Date Type Department Care Team Description 11/03/2024 9:00 AM EDT Clinical Support [facility] [address] [place] [address] Roselyn Singer RN Back pain, unspecified back location, unspecified back pain laterality, unspecified chronicity (Primary Dx) 11/03/2024 Travel 11/02/2024 Travel 10/31/2024 9:30 AM EDT Clinical Support [facility] [address] [place] [address] Mine Lieberman, IRMA Other dietary vitamin B12 deficiency anemia 10/31/2024 Telephone [facility] [address] [place] [address] Moon Alvarado MD 10/31/2024 Refill [facility] [address] [place] [address] Moon Alvarado MD Obesity with body mass index 30 or greater 10/31/2024 Travel 10/30/2024 Refill [facility] [address] [place] [address] Moon Alvarado MD Obesity with body mass index 30 or greater 10/29/2024 Refill [facility] [address] [place] [address] Moon Alvarado MD 10/27/2024 Refill [facility] [address] [place] [address] Moon Alvarado MD Chronic pain syndrome 10/26/2024 Telephone [facility] [address] [place] [address] Moon Alvarado MD Medication Question 10/18/2024 Telephone [facility] [address] [place] [address] Moon Alvarado MD Medication Question 10/08/2024 Refill [facility] [address] [place] [address] Moon Alvarado MD 10/06/2024 Travel 10/06/2024 Refill [facility] [address] [place] [address] Roselyn Singer RN Chronic pain syndrome 10/05/2024 10:15 AM EDT Office Visit [facility] [address] [place] [address] Moon Alvarado MD Obesity with body mass index 30 or greater (Primary Dx); Severe episode of recurrent major depressive disorder, without psychotic features (CMS/HCC) 10/05/2024 Travel 10/04/2024 Telephone [facility] [address] [place] [address] Moon Alvarado MD Chart Prep 10/04/2024 Refill [facility] [address] [place] [address] Roselyn Singer RN Chronic pain syndrome 10/04/2024 Telephone [facility] [address] [place] [address] Moon Alvarado MD 09/30/2024 Travel 09/27/2024 1:00 PM EDT Clinical Support [facility] [address] [place] [address] Mine Lieberman, RN Other dietary vitamin B12 deficiency anemia 09/27/2024 Travel 08/30/2024 Refill [facility] [address] [place] [address] Moon Alvarado MD Chronic pain syndrome 08/23/2024 1:30 PM EDT Clinical Support [facility] [address] [place] [address] Mine Lieberman, IRMA Other dietary vitamin B12 deficiency anemia 08/23/2024 Travel 08/22/2024 Telephone [facility] [address] [place] [address] Moon Alvarado MD No Show 08/11/2024 9:00 AM EDT Telemedicine [facility] [address] [place] [address] Roselyn Singer RN Back pain, unspecified back location, unspecified back pain laterality, unspecified chronicity 08/11/2024 Travel 08/11/2024 Telephone [facility] [address] [place] [address] Roselyn Singer RN from Last 3 Months Immunizations Immunization Administration [...] EDT Inhaled Oxygen Concentration - - Weight 89.3 kg (196 lb 12.8 oz) 10/31/2024 9:38 AM EDT Height 165.1 cm (5' 5 ) 10/05/2024 9:25 AM EDT Body Mass Index 32.75 10/05/2024 9:25 AM EDT Plan of Treatment Upcoming Encounters Date Type Department Care Team ([facility] st Contact Info) Description 11/17/2024 10:00 AM EDT Office Visit [facility] [address] [place] [address] Moon Alvarado MD [address] [place] [address] 11/28/2024 9:45 AM EDT Clinical Support [facility] [address] [place] [address] 03/02/2025 9:00 AM EST Clinical Support [facility] [address] [place] [address] Roselyn Singer, IRMA [address] [place] [address] Health Maintenance Due Date Last Done Comments CT Colonography 1970 FIT DNA/Cologuard 1970 FIT 1970 FOBT 1970 HIV Screening 1970 Sigmoidoscopy 1970 Hepatitis C Screening 01/28/1988 Hepatitis B Vaccines (1 of 3 - 19+ 3-dose series) 1989 Zoster Vaccines (1 of 2) 01/28/2020 COVID-19 Vaccine ( season) 2024 12/10/2020, 04/15/2020, 03/27/2020 Influenza Vaccine (#1) 2024 , 01/19/2018, 12/12/2016, Additional history exists Pap Smear 01/07/2025 01/07/2022 SDOH Screening 07/04/2025 07/04/2024 Tobacco Screening 07/14/2025 07/14/2024 Disability Screening 09/30/2025 09/30/2024 Alcohol/Substance Use Screening 10/05/2025 10/05/2024 Depression Screening 10/05/2025 10/05/2024, 10/06/19 DTaP/Tdap/Td Vaccines (3 - Td or Tdap) 03/08/2026 03/08/2016, 12/06/2012 Mammogram 10/11/2026 10/11/2024, 08/2 07/2024, 04/09/2021, Additional history exists Cervical Cancer Screening 01/07/2027 HPV/Cotest 01/07/2027 01/07/2022 [...] location, unspecified back pain laterality, unspecified chronicity BI MAMMOGRAM DIAGNOSTIC TOMOSYNTHESIS BILATERAL Routine 10/11/2024 1:38 PM EDT BI US BREAST LIMITED RIGHT Routine 10/11/2024 1:30 PM EDT Painful lumpy right breast LIPID PANEL, STANDARD Routine 07/14/2024 9:28 AM EDT Weight gain Other dietary vitamin B12 deficiency anemia COLONOSCOPY Routine 07/09/2023 12:53 PM EDT HPV MRNA E6/E7 REFLEX TO HPV 16, 18/45 Routine 01/07/2022 2:32 PM EST PAP SMEAR Routine 01/07/2022 2:32 PM EST from Last 3 Months or Most Recently Relevant to Health Maintenance Results * (ABNORMAL) POCT SILVER-14 Urine Drug [...] Unknown 11/03/2024 9:19 AM EDT Narrative Roselyn SingerIRMA - 11/03/2024 9:19 AM EDT . Internal Pass Control Lot# [id number] Exp: 12-16-25 Moon Alvarado MD POINT OF CARE TEST ENTER/EDIT ORDERABLES Final Result * BI Mammogram Diagnostic Tomosynthesis Bilateral (10/11/2024 1:38 PM EDT) Anatomical Region Laterality Modality Breast Bilateral Mammography 10/11/2024 1:38 PM EDT Narrative 10/11/2024 3:56 PM EDT [facility] [place] [address] Mammography Report Signed Patient: Jes Boggs MR#: [id number] : 1970 Acct:[id number] Age/Sex: 54 / F ADM Date: 10/11/24 Loc: HO.MAMMO Attending Dr: Moon Alvarado MD Ordering Physician: Moon Alvarado MD Results: 2Be nign Findings Date of Service: 10/11/24 Follow Up: 1 Year From [facility] Mammogram Procedure(s): MM tomosynthesis diagnostic BI Accession Number(s): [id number] cc: Moon Alvarado MD EXAMINATIONS: 1. MM DIAGNOSTIC DIGITAL BREAST TOMOSYNTHESIS, BILATERAL 2. Targeted ultrasound of the right breast CLINICAL INFORMATION: painful R breast at 11 oclock position According patient, she does not feel lumps, only pain. COMPARISON: Comparison made to multiple prior, most recent April 09, 2021, and most remote May 23, 2017. TECHNIQUE: Digital breast tomosynthesis is performed in both the craniocaudal and mediolateral oblique views along with computer-aided detection (CAD). Synthesized 2D images are generated from the tomosynthesis. A triangular skin marker was placed at the location of the pain as indicated by the patient in the upper outer quadrant. FINDINGS: BREAST COMPOSITION: There are scattered areas of fibroglandular density (ACR BI-RADS breast composition Category b). RIGHT BREAST: History of previous reduction mammoplasty. Tissue marker from previous needle core biopsy in place. No significant masses, suspicious calcifications or other abnormalities are seen. Targeted ultrasound of the right breast was performed at the location of the pain as indicated by the patient. The survey performed throughout the 8:00-10:00 axis did not reveals suspicious sonographic findings. LEFT BREAST: History of previous reduction mammoplasty. No significant masses, suspicious calcifications or other abnormalities are seen. MM/MM tomosynthesis diagnostic BI IMPRESSION: RIGHT BREAST: Benign, no evidence of malignancy. No suspicious findings to accounts for patient's clinical concern. Clinical follow-up is recommended. Otherwise, normal interval follow-up mammogram is recommended in 12 months. LEFT BREAST: Benign, no mammographic evidence of malignancy. Normal interval follow-up is recommended in 12 months. ASSESSMENT: BI-RADS 2 - Benign Findings RECOMMENDATION: 1 year F/U Results were provided to the patient at time of visit by the technologist. This patient's information was entered into a reminder system with a target due date for their next mammogram. Electronically signed by: Raphael Garg MD 10/11/2024 03:53 PM EDT Dictated By: Raphael Garg MD Signed By: <Electronically signed by Raphael Garg MD in OV> 10/11/24 1553 DD/ 1338 TD/TT: 10/11/24 1338 Poultry Trimmer: Procedure Note Donotuseinterpreter, Image - 10/11/2024 [facility] [address] [place] [address] Mammography Report Signed Patient: Jes Boggs [facility]#: [id number] : 1970Acct:[id number] Age/Sex: 54 / FADM Date: 10/11/24 Loc: ARSLAN.MAMMO Attending Dr: Moon Alvarado MD Ordering Physician: Moon Alvarado MDResults: 2Be nign Findings Date of Service: 10/11/24Follow Up: 1 Year From [facility] Mammogram Procedure(s): MM tomosynthesis diagnostic BI Accession Number(s): [id number] cc: Moon Alvarado MD EXAMINATIONS: 1. MM DIAGNOSTIC DIGITAL BREAST TOMOSYNTHESIS, BILATERAL 2. Targeted ultrasound of the right breast CLINICAL INFORMATION: painful R breast at 11 oclock position According patient, she does not feel lumps, only pain. COMPARISON: Comparison made to multiple prior, most recent April 09, 2021, and most remote May 23, 2017. TECHNIQUE: Digital breast tomosynthesis is performed in both the craniocaudal and mediolateral oblique views along with computer-aided detection (CAD). Synthesized 2D images are generated from the tomosynthesis. A triangular skin marker was placed at the location of the pain as indicated by the patient in the upper outer quadrant. FINDINGS: BREAST COMPOSITION: There are scattered areas of fibroglandular density (ACR BI-RADS breast composition Category b). RIGHT BREAST: History of previous reduction mammoplasty. Tissue marker from previous needle core biopsy in place. No significant masses, suspicious calcifications or other abnormalities are seen. Targeted ultrasound of the right breast was performed at the location of the pain as indicated by the patient. The survey performed throughout the 8:00-10:00 axis did not reveals suspicious sonographic findings. LEFT BREAST: History of previous reduction mammoplasty. No significant masses, suspicious calcifications or other abnormalities are seen. MM/MM tomosynthesis diagnostic BI IMPRESSION: RIGHT BREAST: Benign, no evidence of malignancy. No suspicious findings to accounts for patient's clinical concern. Clinical follow-up is recommended. Otherwise, normal interval follow-up mammogram is recommended in 12 months. LEFT BREAST: Benign, no mammographic evidence of malignancy. Normal interval follow-up is recommended in 12 months. ASSESSMENT: BI-RADS 2 - Benign Findings RECOMMENDATION: 1 year F/U Results were provided to the patient at time of visit by the technologist. This patient's information was entered into a reminder system with a target due date for their next mammogram. Electronically signed by: Raphael Garg MD 10/11/2024 03:53 PM EDT Dictated By: Raphael Garg MD Signed By: <Electronically signed by Raphael Garg MD in OV> 10/11/24 1553 DD/ 1338 TD/TT: 10/11/24 1338 Poultry Trimmer: us Moon Alvarado MD IMG BI PROCEDURES Final Resul t * BI US Breast Limited Right (10/11/2024 1:30 PM EDT) Anatomical Region Laterality Modality Breast Right Ultrasound 10/11/2024 1:30 PM EDT Narrative 10/11/2024 3:56 PM EDT [facility]'[address] [place] [address] Ultrasound Report Signed Patient: Jes Boggs MR#: [id number] : 1970 Acct:[id number] Age/Sex: 54 / F ADM Date: 10/11/24 Loc: HO.MAMMO Attending Dr: Moon Alvarado MD Ordering Physician: Moon Alvarado MD Date of Service: 10/11/24 Procedure(s): US breast RT limited mamm only Accession Number(s): [id number] cc: Moon Alvarado MD EXAMINATIONS: 1. MM DIAGNOSTIC DIGITAL BREAST TOMOSYNTHESIS, BILATERAL 2. Targeted ultrasound of the right breast CLINICAL INFORMATION: painful R breast at 11 oclock position According patient, she does not feel lumps, only pain. COMPARISON: Comparison made to multiple prior, most recent April 09, 2021, and most remote May 23, 2017. TECHNIQUE: Digital breast tomosynthesis is performed in both the craniocaudal and mediolateral oblique views along with computer-aided detection (CAD). Synthesized 2D images are generated from the tomosynthesis. A triangular skin marker was placed at the location of the pain as indicated by the patient in the upper outer quadrant. FINDINGS: BREAST COMPOSITION: There are scattered areas of fibroglandular density (ACR BI-RADS breast composition Category b). RIGHT BREAST: History of previous reduction mammoplasty. Tissue marker from previous needle core biopsy in place. No significant masses, suspicious calcifications or other abnormalities are seen. Targeted ultrasound of the right breast was performed at the location of the pain as indicated by the patient. The survey performed throughout the 8:00-10:00 axis did not reveals suspicious sonographic findings. LEFT BREAST: History of previous reduction mammoplasty. No significant masses, suspicious calcifications or other abnormalities are seen. US/US breast RT limited mamm only IMPRESSION: RIGHT BREAST: Benign, no evidence of malignancy. No suspicious findings to accounts for patient's clinical concern. Clinical follow-up is recommended. Otherwise, normal interval follow-up mammogram is recommended in 12 months. LEFT BREAST: Benign, no mammographic evidence of malignancy. Normal interval follow-up is recommended in 12 months. ASSESSMENT: BI-RADS 2 - Benign Findings RECOMMENDATION: 1 year F/U Results were provided to the patient at time of visit by the technologist. This patient's information was entered into a reminder system with a target due date for their next mammogram. Electronically signed by: Raphael Garg MD 10/11/2024 03:53 PM EDT Dictated By: Raphael Garg MD Signed By: <Electronically signed by Raphael Garg MD in OV> 10/11/24 1553 DD/ 1330 TD/TT: 10/11/24 1415 Poultry Trimmer: Procedure Note Donotuseinterpreter, Image - 10/11/2024 [facility] [address] [place], [place] [address] Ultrasound Report Signed Patient: Jes Boggs [facility]#: [id number] : 1970Acct:[id number] Age/Sex: 54 / FADM Date: 10/11/24 Loc: HO.MAMMO Attending Dr: Moon Alvarado MD Ordering Physician: Moon Alvarado MD Date of Service: 10/11/24 Procedure(s): US breast RT limited mamm only Accession Number(s): [id number] cc: Moon Alvarado MD EXAMINATIONS: 1. MM DIAGNOSTIC DIGITAL BREAST TOMOSYNTHESIS, BILATERAL 2. Targeted ultrasound of the right breast CLINICAL INFORMATION: painful R breast at 11 oclock position According patient, she does not feel lumps, only pain. COMPARISON: Comparison made to multiple prior, most recent April 09, 2021, and most remote May 23, 2017. TECHNIQUE: Digital breast tomosynthesis is performed in both the craniocaudal and mediolateral oblique views along with computer-aided detection (CAD). Synthesized 2D images are generated from the tomosynthesis. A triangular skin marker was placed at the location of the pain as indicated by the patient in the upper outer quadrant. FINDINGS: BREAST COMPOSITION: There are scattered areas of fibroglandular density (ACR BI-RADS breast composition Category b). RIGHT BREAST: History of previous reduction mammoplasty. Tissue marker from previous needle core biopsy in place. No significant masses, suspicious calcifications or other abnormalities are seen. Targeted ultrasound of the right breast was performed at the location of the pain as indicated by the patient. The survey performed throughout the 8:00-10:00 axis did not reveals suspicious sonographic findings. LEFT BREAST: History of previous reduction mammoplasty. No significant masses, suspicious calcifications or other abnormalities are seen. US/US breast RT limited mamm only IMPRESSION: RIGHT BREAST: Benign, no evidence of malignancy. No suspicious findings to accounts for patient's clinical concern. Clinical follow-up is recommended. Otherwise, normal interval follow-up mammogram is recommended in 12 months. LEFT BREAST: Benign, no mammographic evidence of malignancy. Normal interval follow-up is recommended in 12 months. ASSESSMENT: BI-RADS 2 - Benign Findings RECOMMENDATION: 1 year F/U Results were provided to the patient at time of visit by the technologist. This patient's information was entered into a reminder system with a target due date for their next mammogram. Electronically signed by: Raphael Garg MD 10/11/2024 03:53 PM EDT Dictated By: Raphael Garg MD Signed By: <Electronically signed by Raphael Garg MD in OV> 10/11/24 1553 DD/ 1330 TD/TT: 10/11/24 1415 Poultry Trimmer: us Moon Alvarado MD IMG US PROCEDURES Final Resul t * Lipid Panel, Standard (07/14/2024 9:28 AM EDT) Triglycerides 73 <150 mg/dL [facility] Comment:Desirable Triglyceri de: less than 150 mg/dLBorderline High Triglyceride 150-199 mg/dLHigh Triglyceride: 200-499 mg/dLVery High Triglyceride: greater than or equal to 5OO mg/dL Cholesterol 155 <200 mg/dL [facility] Comment:Desirable Cholestero l: less than 200 mg/dLBorderline High Cholesterol: 200-239 mg/dLHigh Cholesterol: greater than 239 mg/dL LDL Cholesterol Calculated 82 <100 mg/dL [facility] Comment:Desirable LDL: less than 100 mg/dLNear Optimal/Above Optimal LDL: 110- 129 mg/dLBorderline High LDL: 130-159 mg/dLHigh LDL: 160-189 mg/dLVery High LDL: greater than or equal to 190 mg/dL HDL Cholesterol 59 >40 mg/dL [facility] Comment:Desirable HDL: great er than 40 mg/dL Note: This HDL assay may give artificially low results in patients with liver disease. Blood Venous blood specimen / Unknown 07/14/2024 9:28 AM EDT 07/14/2024 10:39 AM EDT Moon Alvarado MD LAB BLOOD ORDERABLES Final Re sult [facility] [address] [place] [address] [phone] * Colonoscopy (07/09/2023 12:53 PM EDT) Anatomical Region Laterality Modality Endoscopy Historical Provider ENDOSCOPY PROCEDURE ORDER YOLIE Final Result * HPV mRNA E6/E7 w/Reflex to HPV Genotypes 16, 18/45 (01/07/2022 2:32 PM EST) HPV nRNA E6/E7 Not Detected Not Detected [facility] Comment:Methodology: Transcr iption-Mediated AmplificationThis assay detects E6/E7 viral messenger RNA (mRNA) from 14high-risk HPV types (16,18,31,33,35,39,45,51,52,56,58,59,66,68).Cervical sources are required for HPV testing.If a vaginal source from a patient who has had atotal hysterectomy with removal of cervix wassubmitted, please contact the testing laboratoryfor alternative testing options.For additional information, please refer [email or web address](This link if provided for information/educational purposes only.)THIS TEST WAS PERFORMED AT:[facility] [place] [address] FLOOR,[place] [phone] HANDLEY MD HPV mRNA E6/E7 TNP [facility] HPV 16 RNA [facility] HPV 18/45 RNA [facility] 01/07/2022 2:32 PM EST 01/08/2022 8:40 AM EST [facility] External Provider LAB CYT OLOGY ORDERABLES Final Result Performing Organization Address City/State/[facility] Co de Phone Number [facility] [address] [place] [phone] * Pap Smear (01/07/2022 2:32 PM EST) 01/07/2022 2:32 PM EST 01/08/2022 8:40 AM EST Narrative [facility] - 02/03/2022 3:53 PM EST ----- ------- Name: Jes Boggs Age/Sex: 51/F : 1970 Unit#: [id number] Attend Dr: Dionte Paulino MD Re01/07/22 Status: DEP REF Location: HOLeleLNP Disch: ----- ------- SPEC : [id number] RECD: 01/08/22 STATUS: PATY PEREZ NUM: [id number] VIVIANA: 01/07/22 [facility] DR: Dionte Paulino MD ENTERED: 01/08/22 SP TYPE: Pap Smr OTHR DR: ORDERED: Pap Smear Interpretation Satisfactory for evaluation. Negative for intraepithelial lesion or malignancy. HPV mRNA E6/E7: NOT DETECTED This assay detects E6/E7 viral messenger RNA (mRNA) from 14 high-risk HPV types (16, 18, 31, 33, 35, 39, 45, 51, 52, 56, 58, 59, 66, 68) HPV testing performed by [facility], [place], [place]. See reference laboratory portion of the EMR for entire report. Clinical Information LMP: Pt has IUD Previous PAP test: 2017, WNL Material Received ThinPrep-Cervical ----- ------- Signed (signature on file) Savana Simmons 02/03/22 1553 ----- ------- END OF REPORT [facility] External Provider LAB CYT OLPEBBLES ORDERABLES Final Result [facility] [address] [place] [address] [phone] from Last 3 Months or Most Recently Relevant to Health Maintenance Insurance [employer] Care Teams Salesperson Wigs Relationship Specialty Start Date End Date Moon Alvarado MD [address] [place] [address] [phone] PCP - General Family Medicine 02/16/18
--- OUTSIDE RECORDS SUMMARY | 2024-11-03 17:39 | XMS_ITS | Encounter Summary ---
Author Organization [employer] Address 75 [facility] 7 [place] [address] Care Team Providers Care Advanced Nursing Professor Name Role Phone Moon Alvarado MD Primary Care Provider [phone] Reason for Visit * Reason Onset Date Comments call back 05/12/2022 Encounter Details Date Type Department Care Team ([facility] st Contact Info) Description 05/12/2022 Telephone [facility] MEDICINE [address] [place] [address] Moon Alvarado MD 505 [place] [address] call back Social History Tobacco Use Types [...] [facility] MED & PEDS [address] [place] [address] Moon Alvarado MD 505 [place] [address] 11/28/2024 9:45 AM EDT Clinical Support [facility] MED & PEDS [address] [place] [address] 03/02/2025 9:00 AM EST Clinical Support [facility] MED & PEDS [address] [place] [address] Roselyn Singer, IRMA 505 [place] [address] documented as of this encounter Visit Diagnoses Not on filedocumented in this encounter Care Teams Advanced Nursing Professor Relationship Specialty Start Date End Date Moon Alvarado MD 505 [place] [address] PCP - General Family Medicine 02/16/18 documented as of this encounter
--- OUTSIDE RECORDS SUMMARY | 2024-11-03 17:39 | XMS_ITS | Encounter Summary ---
Author Organization [employer] Address 75 [facility] 7 [place] [address] Care Team Providers Care Carbon Capture Power Plant Operator Name Role Phone Moon Alvarado MD Primary Care Provider [phone] Reason for Visit * Reason Onset Date Comments Med Refill 05/12/2022 Encounter Details Date Type Department Care Team (Late st Contact Info) Description 05/12/2022 Telephone [facility] MEDICINE [address] [place] [address] Moon Alvarado MD 505 [place] [address] Med Refill Social History Tobacco Use Types [...] Description 11/17/2024 10:00 AM EDT Office Visit [facility] MED & PEDS [address] [place] [address] Moon Alvarado MD 505 [place] [address] 11/28/2024 9:45 AM EDT Clinical Support [facility] MED & PEDS [address] [place] [address] 03/02/2025 9:00 AM EST Clinical Support [facility] MED & PEDS [address] [place] [address] Roselyn Singer, IRMA 505 [place] [address] documented as of this encounter Visit Diagnoses Not on filedocumented in this encounter Care Teams Carbon Capture Power Plant Operator Relationship Specialty Start Date End Date Moon Alvarado MD 505 [place] [address] PCP - General Family Medicine 02/16/18 documented as of this encounter
--- OUTSIDE RECORDS SUMMARY | 2024-11-03 17:39 | XMS_ITS | Encounter Summary ---
Author Organization [employer] Address 75 [facility] 7 [place] [address] Care Team Providers Care Sheeter Waxer Operator Name Role Phone Moon Alvarado MD Primary Care Provider [phone] Reason for Visit * Reason Onset Date Comments Referral 01/19/2023 Encounter Details Date Type Department Care Team (Late st Contact Info) Description 01/19/2023 Telephone [facility] MEDICINE [address] [place] [address] Moon Alvarado MD 505 [place] [address] Referral Social History Tobacco Use Types Packs/Day [...] pt of referral placed. Pt currently at [facility] being seen. * Telephone Encounter - Marina Wasserman RN - 01/19/2023 3:50 PM EST Placed call to pt regarding message below. Pt states going to Urgent care at [facility] and being told she had an infection of her big Toe on Left foot and a fracture. They informed pt of need to f/u with [facility] urgently and pt managed to get an appt for tomorrow morning. [facility] is stating they need a referral from PCP office. Informed pt that PCP cannot place referral without indication or notes fromUC. Offered pt [facility] appt tonight but pt has no transport. [...] Group NPI salvador included on referral of [id number]. Informed [facility] that our office has our own referral dept thatmay already have said NPI. Please review UC notes and advise on referral request. Thank you. * Telephone Encounter - Wilfredo Rae - 01/19/2023 9:31 AM EST Tc from pt requesting a referral for [facility] documented in this encounter Plan of Treatment Upcoming Encounters Date Type Department Care Team ([facility] st Contact Info) Description 11/17/2024 10:00 AM EDT Office Visit [facility] MED & PEDS [address] [place] [address] Moon Alvarado MD 505 [place] [address] 11/28/2024 9:45 AM EDT Clinical Support [facility] MED & PEDS [address] [place] [address] 03/02/2025 9:00 AM EST Clinical Support [facility] MED & PEDS [address] [place] [address] Roselyn Singer RN 505 [place] [address] documented as of this encounter Visit Diagnoses Not on filedocumented in this encounter Care Teams Sheeter Waxer Operator Relationship Specialty Start Date End Date Moon Alvarado MD 505 [place] [address] PCP - General Family Medicine 02/16/18 documented as of this encounter
--- OUTSIDE RECORDS SUMMARY | 2024-11-03 17:39 | XMS_ITS | Encounter Summary ---
Author Organization [employer] Address 75 [facility] 7 [place] [address] Care Team Providers Care Geoscience Laboratory Technician Name Role Phone Moon Alvarado MD Primary Care Provider [phone] Reason for Visit * Reason Onset Date Comments ER Follow-up 05/27/2023 Encounter Details Date Type Department Care Team (Late st Contact Info) Description 05/27/2023 Telephone [facility] MEDICINE 230 [place] [address] Moon Alvarado MD 505 [place] [address] ER Follow-up Social History Tobacco Use Types [...] ED visit on : Date: 05/25 [facility]: [facility] Seen for: Chest pain and was advised to get a referral Tub Operator Patient advised will forward to team nurse for follow up documented in this encounter Plan of Treatment Upcoming Encounters Date Type Department Care Team ([facility] st Contact Info) Description 11/17/2024 10:00 AM EDT Office Visit [facility] MED & PEDS 505 [place] [address] Moon Alvarado MD [address] [place] [address] 11/28/2024 9:45 AM EDT Clinical Support [facility] MED & PEDS 505 [place] [address] 03/02/2025 9:00 AM EST Clinical Support [facility] MED & PEDS [address] [place] [address] Roselyn Singer, IRMA 505 [place] [address] documented as of this encounter Visit Diagnoses Not on filedocumented in this encounter Care Teams Geoscience Laboratory Technician Relationship Specialty Start Date End Date Moon Alvarado MD [address] [place] [address] PCP - General Family Medicine 02/16/18 documented as of this encounter
--- OUTSIDE RECORDS SUMMARY | 2024-11-03 17:39 | XMS_ITS | Encounter Summary ---
Author Organization [employer] Address 75 [facility] 7 [place] [address] Care Team Providers Care Radiology Transcriptionist Name Role Phone Moon Alvarado MD Primary Care Provider [phone] Reason for Visit * Reason Onset Date Comments Med Refill 10/31/2024 Encounter Details Date Type Department Care Team ([facility] st Contact Info) Description 10/31/2024 Refill [facility] MED & PEDS 505 [place] [address] Moon Alvarado MD 505 [place] [address] Obesity with body mass index 30 or greater Social History Tobacco Use Types Packs/Day Years [...] Telephone Encounter - Roselyn Singer RN - 11/03/2024 9:22 AM EDT Fyi. AMP pos., pt has a new rx Phentermine which can cause false pos. Will send it out to the lab for confirmation documented in this encounter Plan of Treatment Upcoming Encounters Date Type Department Care Team ([facility] st Contact Info) Description 11/17/2024 10:00 AM EDT Office Visit [facility] MED & PEDS [address] [place] [address] Moon Alvarado MD 505 [place] [address] 11/28/2024 9:45 AM EDT Clinical Support [facility] [address] [place] [address] 03/02/2025 9:00 AM EST Clinical Support [facility] MED & [facility] [address] [place] [address] Roselyn Singer RN 505 [place] [address] documented as of this encounter Visit Diagnoses Diagnosis Obesity with body mass index 30 or greater documented in this encounter Additional Health Concerns Assessment Noted Time PHQ-9 Depression Total Score: 7 10/06/19 25 9:28 AM EDT documented as of this encounter Care Teams Radiology Transcriptionist Relationship Specialty Start Date End Date Moon Alvarado MD 505 [place] [address] PCP - General Family Medicine 02/16/18 documented as of this encounter
--- OUTSIDE RECORDS SUMMARY | 2024-11-03 17:39 | XMS_ITS | Encounter Summary ---
Author Organization [employer] Address [address] [place] [address] 7 [place] [address] Care Team Providers Care Lumber Yard Worker Name Role Phone Moon Alvarado MD Primary Care Provider [phone] Reason for Visit * Reason Comments Med Refill Encounter Details Date Type Department Care Team ([facility] Contact Info) Description 07/21/2023 Refill [facility] MED & PEDS [address] [place] [address] Moon Alvarado MD [address] [place] [address] Social History Tobacco Use Types Packs/Day Years [...] Upcoming Encounters Date Type Department Care Team ([facility] Contact Info) Description 11/17/2024 10:00 AM EDT Office Visit [facility] MED & PEDS 505 [place] [address] Moon Alvarado MD [address] [place] [address] 11/28/2024 9:45 AM EDT Clinical Support [facility] MED & PEDS [address] [place] [address] 03/02/2025 9:00 AM EST Clinical Support [facility] MED & PEDS [address] [place] [address] Roselyn Singer, IRMA 505 [place] [address] documented as of this encounter Visit Diagnoses Not on filedocumented in this encounter Care Teams Lumber Yard Worker Relationship Specialty Start Date End Date Moon Alvarado MD 505 [place] [address] PCP - General Family Medicine 02/16/18 documented as of this encounter
--- OUTSIDE RECORDS SUMMARY | 2024-11-03 17:39 | XMS_ITS | Encounter Summary ---
Author Organization [employer] Address 75 [facility] 7 [place] [address] Care Team Providers Care Sinker Winder Name Role Phone Moon Alvarado MD Primary Care Provider [phone] Reason for Visit * Reason Onset Date Comments Medication Question 10/26/2024 Encounter Details Date Type Department Care Team ([facility] st Contact Info) Description 10/26/2024 Telephone [facility] MED & PEDS [address] [place], [place] [id number] Moon Alvarado MD [address] [place] [address] Medication Question Social History Tobacco Use Types Packs/Day Years [...] encounter Miscellaneous Notes * Telephone Encounter - Asaf Echavarria - 10/26/2024 3:56 PM EDT Tc from pt requesting a dosage increase on the medication phentermine 15 MG capsule . Pt has contact pharmacy requesting a refill. Pt was advised that the refill is not until the . Pt contacted the medical department. Content Management Consultant advised pt will need to contact the pharmacy when it is time to refill the medication. Pt only has 4 tablets left. Pt stated that she has been using her medications correctly. Contact pt at [phone] documented in this encounter Plan of Treatment Upcoming Encounters Date Type Department Care Team ([facility] st Contact Info) Description 11/17/2024 10:00 AM EDT Office Visit [facility] MED & PEDS 505 [place] [address] Moon Alvarado MD [address] [place] [address] 11/28/2024 9:45 AM EDT Clinical Support [facility] MED & PEDS [address] [place] [address] 03/02/2025 9:00 AM EST Clinical Support [facility] MED & PEDS 505 [place] [address] Roselyn Singer RN 505 [place] [address] documented as of this encounter Visit Diagnoses Not on filedocumented in this encounter Additional Health Concerns Assessment Noted Time PHQ-9 Depression Total Score: 7 10/06/19 25 9:28 AM EDT documented as of this encounter Care Teams Sinker Winder Relationship Specialty Start Date End Date Moon Alvarado MD [address] [place] [address] PCP - General Family Medicine 02/16/18 documented as of this encounter
--- OUTSIDE RECORDS SUMMARY | 2024-11-03 17:39 | XMS_ITS | Encounter Summary ---
Author Organization [employer] Address 75 [facility] 7 [place] [address] Care Team Providers Care Locomotive Supervisor Name Role Phone Moon Alvarado MD Primary Care Provider [phone] Reason for Visit * Reason Onset Date Comments Appointment Request 12/09/2023 Encounter Details Date Type Department Care Team ([facility] Contact Info) Description 12/09/2023 Telephone [facility] MEDICINE [address] [place] [address] Moon Alvarado MD 505 [place] [address] Appointment Request Social History Tobacco Use Types [...] EDT Tc from pt requesting to reschedule TEACHING FELLOW visit. Please contact pt at [phone]. documented in this encounter Plan of Treatment Upcoming Encounters Date Type Department Care Team (Late Contact Info) Description 11/17/2024 10:00 AM EDT Office Visit [facility] MED & PEDS 505 [place] [address] Moon Alvarado MD [address] [place] [address] 11/28/2024 9:45 AM EDT Clinical Support [facility] MED & PEDS [address] [place] [address] 03/02/2025 9:00 AM EST Clinical Support [facility] MED & PEDS [address] [place] [address] Roselyn Singer, RN 505 [place] [address] documented as of this encounter Visit Diagnoses Not on filedocumented in this encounter Care Teams Locomotive Supervisor Relationship Specialty Start Date End Date Moon Alvarado MD [address] [place] [address] PCP - General Family Medicine 02/16/18 documented as of this encounter
--- OUTSIDE RECORDS SUMMARY | 2024-11-03 17:39 | XMS_ITS | Encounter Summary ---
Author Organization [employer] Address [address] [place] [address] 7 [place] [address] Care Team Providers Care Dispute Resolution Specialist Name Role Phone Moon Alvarado MD Primary Care Provider [phone] Reason for Visit * Reason Onset Date Comments Med Refill 02/05/2023 Encounter Details Date Type Department Care Team (Late st Contact Info) Description 02/05/2023 Telephone [facility] MEDICINE [address] [place] [address] Moon Alvarado MD [address] [place] [address] Med Refill Social History Tobacco Use Types [...] refill on; oxyCODONE-acetaminophen (Percocet) 5-325 MG tablet [facility] - [place], [place] - [address] documented in this encounter Plan of Treatment Upcoming Encounters Date Type Department Care Team (Late st Contact Info) Description 11/17/2024 10:00 AM EDT Office Visit [facility] MED & PEDS [address] [place] [address] Moon Alvarado MD 505 [place] [address] 11/28/2024 9:45 AM EDT Clinical Support [facility] MED & PEDS [address] [place] [address] 03/02/2025 9:00 AM EST Clinical Support [facility] MED & PEDS [address] [place] [address] Roselyn Singer, IRMA 505 [place] [address] documented as of this encounter Visit Diagnoses Not on filedocumented in this encounter Care Teams Dispute Resolution Specialist Relationship Specialty Start Date End Date Moon Alvarado MD 505 [place] [address] PCP - General Family Medicine 02/16/18 documented as of this encounter
--- OUTSIDE RECORDS SUMMARY | 2024-11-03 17:39 | XMS_ITS | Encounter Summary ---
Author Organization [employer] Address [address] [place] [address] 7 [place] [address] Care Team Providers Care Vacuum Metalizer Operator Name Role Phone Moon Alvarado MD Primary Care Provider [phone] Reason for Visit * Reason Onset Date Comments Med Refill 12/04/2023 Encounter Details Date Type Department Care Team ([facility] st Contact Info) Description 12/04/2023 Telephone [facility] MEDICINE 230 [place] [address] Moon Alvarado MD [address] [place] [address] Med Refill Social History Tobacco Use Types [...] 5-325 MG tablet To be sent to: [facility] - [place], [place] - [address] [facility] documented in this encounter Plan of Treatment Upcoming Encounters Date Type Department Care Team (Late st Contact Info) Description 11/17/2024 10:00 AM EDT Office Visit [facility] MED & PEDS [address] [place] [address] Moon Alvarado MD [address] [place] [address] 11/28/2024 9:45 AM EDT Clinical Support [facility] MED & PEDS [address] [place] [address] 03/02/2025 9:00 AM EST Clinical Support [facility] MED & PEDS [address] [place] [address] Roselyn Singer, IRMA 505 [place] [address] documented as of this encounter Visit Diagnoses Not on filedocumented in this encounter Care Teams Vacuum Metalizer Operator Relationship Specialty Start Date End Date Moon Alvarado MD [address] [place] [address] PCP - General Family Medicine 02/16/18 documented as of this encounter
--- OUTSIDE RECORDS SUMMARY | 2024-11-03 17:39 | XMS_ITS | Encounter Summary ---
Author Organization [employer] Address [address] [place] [address] 7 [place] [address] Care Team Providers Care Automotive Brake Specialist Name Role Phone Moon Alvarado MD Primary Care Provider [phone] Encounter Details Date Type Department Care Team (Late st Contact Info) Description 12/26/2022 Abstract [facility] MEDICINE [address] [place] [address] Natalya Peterson Social History Tobacco Use Types [...] Description 11/17/2024 10:00 AM EDT Office Visit [facility] MED & PEDS 505 [place] [address] Moon Alvarado MD [address] [place] [address] 11/28/2024 9:45 AM EDT Clinical Support [facility] MED & PEDS 505 [place] [address] 03/02/2025 9:00 AM EST Clinical Support [facility] MED & PEDS [address] [place] [address] Roselyn Singer RN 505 [place] [address] documented as of this encounter Procedures Procedure Name Priority Date/Time Associated Diagnosis Comments COLONOSCOPY Routine 07/23/2020 documented in this encounter Results * Colonoscopy (07/23/2020) Colonoscopy Normal Normal Narrative Natalya Peterson - 07/23/2020 Recommended 10 year follow up Historical Provider HEALTH MAINTENANCE Final Result documented in this encounter Visit Diagnoses Not on filedocumented in this encounter Care Teams Automotive Brake Specialist Relationship Specialty Start Date End Date Moon Alvarado MD [address] [place] [address] PCP - General Family Medicine 02/16/18 documented as of this encounter
--- OUTSIDE RECORDS SUMMARY | 2024-11-03 17:39 | XMS_ITS | Encounter Summary ---
Author Organization [employer] Address 75 [facility] 7 [place] [address] Care Team Providers Care Side Sawyer Name Role Phone Moon Alvarado MD Primary Care Provider [phone] Reason for Visit * Reason Onset Date Comments Prior Authorization 12/22/2023 Encounter Details Date Type Department Care Team (Late st Contact Info) Description 12/22/2023 Telephone [facility] MEDICINE [address] [place] [address] Moon Alvarado MD [address] [place] [address] Prior Authorization Social History Tobacco Use Types [...] Please review Thank you. Tc from Damaris ([facility]) Pain Management group requesting a PA for an MRI With out contrast , Damaris informs any questions her callback number [phone] CPT CODE -13315 ICD CODE - M46.46 * Telephone Encounter - Janine Anand - 12/22/2023 9:13 AM EST Tc from Damaris ([facility]) Pain Management group requesting a PA for an MRI With out contrast , Damaris informs any questions her callback number [phone] CPT CODE -29505 ICD CODE - M46.46 documented in this encounter Plan of Treatment Upcoming Encounters Date Type Department Care Team (Late st Contact Info) Description 11/17/2024 10:00 AM EDT Office Visit [facility] MED & PEDS 505 [place] [address] Moon Alvarado MD [address] [place] [address] 11/28/2024 9:45 AM EDT Clinical Support [facility] MED & PEDS [address] [place] [address] 03/02/2025 9:00 AM EST Clinical Support [facility] MED & PEDS [address] [place] [address] Roselyn Singer, IRMA [address] [place] [address] documented as of this encounter Visit Diagnoses Not on filedocumented in this encounter Care Teams Side Sawyer Relationship Specialty Start Date End Date Moon Alvarado MD [address] [place] [address] PCP - General Family Medicine 02/16/18 documented as of this encounter
--- OUTSIDE RECORDS SUMMARY | 2024-11-03 17:39 | XMS_ITS | Encounter Summary ---
Author Organization [employer] Address 75 [facility] 7 [place] [address] Care Team Providers Care Lead Pastor Name Role Phone Moon Alvarado MD Primary Care Provider [phone] Reason for Visit * Reason Comments Med Refill Encounter Details Date Type Department Care Team ([facility] st Contact Info) Description 10/30/2024 Refill [facility] MED & PEDS [address] [place], [place] [phone] Moon Alvarado MD [address] [place] [address] Obesity with body mass index 30 or [...] Upcoming Encounters Date Type Department Care Team ([facility] st Contact Info) Description 11/17/2024 10:00 AM EDT Office Visit [facility] MED & PEDS [address] [place] [address] Moon Alvarado MD [address] [place] [address] 11/28/2024 9:45 AM EDT Clinical Support [facility] MED & PEDS [address] [place] [address] 03/02/2025 9:00 AM EST Clinical Support [facility] MED & PEDS [address] [place] [address] Roselyn Singer RN [address] [place] [address] documented as of this encounter Visit Diagnoses Diagnosis Obesity with body mass index 30 or greater documented in this encounter Additional Health Concerns Assessment Noted Time PHQ-9 Depression Total Score: 7 10/06/19 25 9:28 AM EDT documented as of this encounter Care Teams Lead Pastor Relationship Specialty Start Date End Date Moon Alvarado MD [address] [place] [address] PCP - General Family Medicine 02/16/18 documented as of this encounter
--- OUTSIDE RECORDS SUMMARY | 2024-11-03 17:40 | XMS_ITS | Encounter Summary ---
Author Organization [employer] Address 75 [facility] 7 [place] [address] Care Team Providers Care Spinning Doffer Name Role Phone Moon Alvarado MD Primary Care Provider [phone] Encounter Details Date Type Department Care Team ([facility] st Contact Info) Description 10/31/2024 Telephone [facility] MED & PEDS [address] [place], [place] [id number] Moon Alvarado MD [address] [place] [address] Social History Tobacco Use Types Packs/Day Years [...] encounter Miscellaneous Notes * Telephone Encounter - Baudilio Talbert - 10/31/2024 9:36 AM EDT error documented in this encounter Plan of Treatment Upcoming Encounters Date Type Department Care Team (Late st Contact Info) Description 11/17/2024 10:00 AM EDT Office Visit [facility] MED & PEDS [address] [place] [address] Moon Alvarado MD [address] [place] [address] 11/28/2024 9:45 AM EDT Clinical Support [facility] MED & PEDS [address] [place] [address] 03/02/2025 9:00 AM EST Clinical Support [facility] MED & PEDS [address] [place] [address] Roselyn Singer RN 505 [place] [address] documented as of this encounter Visit Diagnoses Not on filedocumented in this encounter Additional Health Concerns Assessment Noted Time PHQ-9 Depression Total Score: 7 10/06/19 25 9:28 AM EDT documented as of this encounter Care Teams Spinning Doffer Relationship Specialty Start Date End Date Moon Alvarado MD [address] [place] [address] PCP - General Family Medicine 02/16/18 documented as of this encounter
--- OUTSIDE RECORDS SUMMARY | 2024-11-03 17:40 | XMS_ITS | Encounter Summary ---
Author Organization [employer] Address [address] [facility] [place] [place] [address] Care Team Providers Care Intermediate Frame Tender Name Role Phone Moon Alvarado MD Primary Care Provider [phone] Encounter Details Date Type Department Care Team (Latest Contact Info) Description 11/03/2024 Travel Social History Tobacco Use Types Packs/Day [...] Description 11/17/2024 10:00 AM EDT Office Visit [facility] [address] [place] [address] Moon Alvarado MD [address] [place] [address] 11/28/2024 9:45 AM EDT Clinical Support [facility] [address] [place] [address] 03/02/2025 9:00 AM EST Clinical Support [facility] [address] [place] [address] Roselyn Singer, RN [address] [place] [address] documented as of this encounter Visit Diagnoses Not on filedocumented in this encounter Additional Health Concerns Assessment Noted Time PHQ-9 Depression Total Score: 7 10/06/19 25 9:28 AM EDT documented as of this encounter Care Teams Intermediate Frame Tender Relationship Specialty Start Date End Date Moon Alvarado MD [address] [place] [address] PCP - General Family Medicine 02/16/18 documented as of this encounter
--- OUTSIDE RECORDS SUMMARY | 2024-11-03 17:40 | XMS_ITS | Encounter Summary ---
Author Organization [employer] Address [address] [facility] [address] [place] [address] Care Team Providers Care City Controller Name Role Phone Moon Alvarado MD Primary Care Provider [phone] Encounter Details Date Type Department Care Team (Latest Contact Info) Description 10/31/2024 Travel Social History Tobacco Use Types Packs/Day [...] [facility] [address] [place] [address] Moon Alvarado MD [address] [place] [address] 11/28/2024 9:45 AM EDT Clinical Support [facility] [address] [place] [address] 03/02/2025 9:00 AM EST Clinical Support [facility] [address] [place] [address] Roselyn Singer, RN [address] [place] [address] documented as of this encounter Visit Diagnoses Not on filedocumented in this encounter Additional Health Concerns Assessment Noted Time PHQ-9 Depression Total Score: 7 10/06/19 25 9:28 AM EDT documented as of this encounter Care Teams City Controller Relationship Specialty Start Date End Date Moon Alvarado MD [address] [place] [address] PCP - General Family Medicine 02/16/18 documented as of this encounter
--- OUTSIDE RECORDS SUMMARY | 2024-11-03 17:40 | XMS_ITS | Encounter Summary ---
Author Organization [employer] Address 75 [facility] [address] [place] [address] Care Team Providers Care Metal Tile Setter Name Role Phone Moon Alvarado MD Primary Care Provider [phone] Encounter Details Date Type Department Care Team (Latest Contact Info) Description 11/02/2024 Travel Social History Tobacco Use Types Packs/Day [...] Description 11/17/2024 10:00 AM EDT Office Visit [facility] [address] [place] [address] Moon Alvarado MD [address] [place] [address] 11/28/2024 9:45 AM EDT Clinical Support [facility] [address] [place] [address] 03/02/2025 9:00 AM EST Clinical Support [facility] [address] [place] [address] Roselyn Singer, RN [address] [place] [address] documented as of this encounter Visit Diagnoses Not on filedocumented in this encounter Additional Health Concerns Assessment Noted Time PHQ-9 Depression Total Score: 7 10/06/19 25 9:28 AM EDT documented as of this encounter Care Teams Metal Tile Setter Relationship Specialty Start Date End Date Moon Alvarado MD [address] [place] [address] PCP - General Family Medicine 02/16/18 documented as of this encounter
== END 2024-11-03 17:37 | disposition home or self-care (01) ==
LOC: HO.CHCLNP 17:36
PROVIDERS: Visit Provider Pediatrics
DX: M54.9 Dorsalgia, unspecified (principal)
CPT/HCPCS: 80324

== ENCOUNTER 2024-12-06 02:56 | Emergency (ER) | payer MEDICAID, SELFPAY ==
--- NOTE | ~2024-12-06 | XR_ITS ---
CLINICAL HISTORY: injury to the toes 3 view left foot Comparison: None provided Findings: Oblique fracture identified at the 3rd proximal phalanx. No radiopaque foreign body. IMPRESSION: 1. Oblique, minimally displaced fracture present at the 3rd proximal phalanx of the left foot. This document has been electronically signed by: Mingo Garber MD on 12/06/2024 04:16:11
[2024-12-06 02:57] VITALS: BP 133/62; PULSE 80; RESP 16; TEMP 36.4; O2SAT 99; BMI 31.1
--- NOTE | 2024-12-06 03:07 | ED.LOWEXIN ---
HPI - Extremity Injury (Lower) General Chief Complaint: Extremity Injury, Lower Stated Complaint: Broken toes Time Seen by Provider: 12/06/24 03:05 Source: patient, RN notes reviewed and old records reviewed Mode of arrival: wheelchair Limitations: no limitations History of Present Illness ED Provider: Dr. Joie Maldonado HPI Narrative: 54-year-old female with a history of gastric bypass surgery, chronic pain on oxycodone at baseline presenting with foot pain after slamming her toes into her father's wheelchair. States that she was put walking quickly and slammed her foot into the we will?. Unable to walk on the foot now secondary to pain in her 2nd through 4th toes. No other injuries. Had been feeling well prior to this. Took her home oxycodone which did not help. Related Data Home Medications ?Medication ?Instructions ?Recorded ?Confirmed sertraline 25 mg tablet 25 mg PO DAILY 03/03/23 03/18/24 trazodone 50 mg tablet 50 mg PO DAILY PRN Insomnia 03/03/23 03/18/24 bupropion HCl 300 mg 24 hr tablet, 300 mg PO QAM 11/19/23 03/18/24 extended release famotidine 20 mg tablet (Pepcid) 20 mg PO DAILY 11/19/23 03/18/24 hydroxyzine pamoate 25 mg capsule 25 mg PO QID PRN Anxiety 11/19/23 03/18/24 clonazepam 1 mg tablet 1 mg PO DAILY PRN Anxiety 12/04/23 03/18/24 oxycodone-acetaminophen 5 mg-325 1 tab PO Q8H PRN severe pain 12/14/23 03/18/24 mg tablet Previous Rx's ?Medication ?Instructions ?Recorded methylprednisolone 4 mg tablets in 4 mg PO QAM 6 days #6 ea 12/04/23 a dose pack (Medrol (Arnoldo)) naloxone 4 mg/actuation nasal spray 4 mg intranasal Q2M PRN opioid 12/04/23 overdose 1 day #2 ea cyanocobalamin (vitamin B-12) 1,000 mcg PO DAILY #90 tabs 01/11/24 1,000 mcg tablet gabapentin 300 mg capsule 300 mg PO TID #14 caps 12/06/24 oxycodone 5 mg capsule 5 mg PO TID PRN pain #7 caps 12/06/24 Allergies Allergy/AdvReac Type Severity Reaction Status Date / Time latex Allergy Severe rash/swollen Verified 12/06/24 03:00 eyes seafood Allergy Severe rash/swollen Verified 12/06/24 03:00 eyes shellfish derived Allergy Severe Anaphylaxis Verified 12/06/24 03:00 Review of Systems Review of Systems: as per HPI, full review of systems performed and negative but for the above mentioned pertinent positives and negatives. [facility] Past Medical History Medical History SIXTO (obstructive sleep apnea) History of allergic rhinitis Depression Lumbar disc disease Disc degeneration, lumbar Spondylosis of lumbar spine COVID-19 vaccine administered Anxiety Back problem Surgical History History of surgery Hx of surgical procedure H/O colonoscopy Hx of cholecystectomy Hx of tubal ligation Hx of abdominoplasty Gastric bypass status for obesity Family History Family History Mother Breast CA Social History Social History Household Members: Family Alcohol intake: current Alcohol intake frequency: holidays/special occasions only Patient Tobacco Use Status: Never used Tobacco Smoked in Last 30 Days: No Use of substances other than those prescribed or required for medical reasons: No Advance Directives: No Advance Directives Information Provided: Yes Do you have a plan to hurt others: No Plan Current occupational status: employed 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 SKIN: Normal skin color for ethnicity, no rashes noted. HEENT: Normocephalic, atraumatic, no stridor, EOMI. CHEST: Heart regular rate and rhythm, no murmurs, symmetric chest rise and fall. PULMONARY: Clear to auscultation bilaterally, no labored breathing, no wheezes/rhales/rhonchi. ABDOMINAL: Soft, nondistended, nontender, positive bowel sounds in all quadrants. : Deferred. MUSCULOSKELETAL: Normal tone, full range of motion, left 3rd toe is slightly edematous this, tender to the touch, neurovascularly intact distally. NEURO: Alert and oriented x3, CN II through XII intact, equal strength and sensation bilateral upper and lower extremities, no focal neurologic deficits. PSYCHIATRIC: Normal affect, fluid speech, good eye contact and appropriate demeanor. Vital Signs: Vital Signs: Last Vital Signs Temp 97.7 F 12/06/24 05:28 Pulse 60 12/06/24 05:28 Resp 18 12/06/24 05:28 BP 120/77 12/06/24 05:28 Pulse Ox 98 12/06/24 05:28 O2 Del Method Room Air 12/06/24 05:28 BMI result Body Mass Index 31.1 Medications Administered Discontinued Medications Generic Name Dose Route Start Last Admin Trade Name Freq PRN Reason Stop Dose Admin Gabapentin 300 mg 12/06/24 04:03 12/06/24 04:23 Gabapentin 300 Mg Capsule PO 12/06/24 04:04 300 mg ONCE ONE Administration Oxycodone HCl 5 mg 12/06/24 04:03 12/06/24 04:23 Oxycodone Hcl Immed Release 5 Mg Tablet PO 12/06/24 04:04 5 mg ONCE ONE Administration Medical Decision Making Medical Decision Making MDM Narrative: Patient presents today with musculoskeletal injury. Differential diagnosis includes fracture, soft tissue contusion, ligamentous injury, tendon injury, infection, laceration, among others. Patient is neurovascularly intact upon arrival to the emergency department. Based on physical exam, appropriate imaging was ordered. Patient has a 3rd toe proximal phalanx fracture on the left. She is neurovascularly intact distally. Daniel taped her toes together (3rd and 4th) and instructed her to follow up with her primary care doctor. Encouraged use of the postop shoe. She has oxycodone at home but is on a pain contract so we will need an extra dose for her toe fracture. Also provided with gabapentin cassette seemed to help her pain as well. Discharged home in stable condition. Differential Diagnosis Differential Diagnoses: The differential diagnosis associated with the presentation includes (As above) Independent Interpretation I performed an independent interpretation of an: Plain X-Ray Interpretation: Left foot x-ray: Left 3rd proximal phalanx fracture Radiology Impression Discussion of test interpretation with radiology: I have reviewed the radiologist's reading. External Record Review External record reviewed: Inpatient record and Outpatient record Prescription Management I considered prescription management with: Pain Medication Chronic Conditions Patient?s care impacted by: Other (Chronic pain) Discharge Plan Discharge Clinical Impression: Fracture of toe of left foot Qualifiers: Encounter type: initial encounter Toe: lesser toe Fracture type: closed Phalanx: proximal Fracture alignment: displaced Qualified Code(s): S92.512A - Displaced fracture of proximal phalanx of left lesser toe(s), initial encounter for closed fracture Patient Disposition: Home, Self-Care Instructions: Toe Fracture (ED) Additional Instructions: Do not take gabapentin and oxycodone if you are going to be driving. These can make you drowsy especially when combined. Return to the emergency department with any new or worsening symptoms. Keep your walking shoe on at all times if you are up moving around. Try to keep your toes taped together as they can provide support but it is not totally necessary to do that all the time. Prescriptions: New oxycodone 5 mg capsule 5 mg PO TID PRN (Reason: pain) Qty: 7 0RF Rx Instructions: Partial Fill upon patient request. gabapentin 300 mg capsule 300 mg PO TID Qty: 14 0RF No Action methylprednisolone [Medrol (Arnoldo)] 4 mg tablets,dose pack 4 mg PO QAM 6 Days Qty: 6 0RF Rx Instructions: Take this medication at 10 AM each day. Take 6 pills of this medication tomorrow, 5 pills on 12/06/23, 4 pills on 12/07/2023, 3 pills on 12/08/2023, 2 pills of 12/09/2023, 1 pill on 12/10/2023 naloxone 4 mg/actuation spray,non-aerosol 4 mg intranasal Q2M PRN (Reason: opioid overdose) 1 Days Qty: 2 0RF Rx Instructions: spray 1 dose into ONE nostril; alternate nostrils w each dose until help arrives cyanocobalamin (vitamin B-12) 1,000 mcg tablet 1,000 mcg PO DAILY Qty: 90 0RF clonazepam 1 mg tablet 1 mg PO DAILY PRN (Reason: Anxiety) Patient Comments: took only 1/2 tab this am trazodone 50 mg tablet 50 mg PO DAILY PRN (Reason: Insomnia) sertraline 25 mg tablet 25 mg PO DAILY bupropion HCl 300 mg tablet extended release 24 hr 300 mg PO QAM hydroxyzine pamoate 25 mg capsule 25 mg PO QID PRN (Reason: Anxiety) famotidine [Pepcid] 20 mg tablet 20 mg PO DAILY oxycodone-acetaminophen 5-325 mg tablet 1 tab PO Q8H PRN (Reason: severe pain) Interventions: ED Discharge Assessment Last Done: 12/06/24 05:28 Discharge Date/Time: 12/06/24 05:45 Print Language: Kiswahili
--- OUTSIDE RECORDS SUMMARY | 2024-12-06 03:31 | XMS_ITS ---
Author Organization [employer] Address [address] [place] [address] [address]t [place] [address] Care Team Providers Care Executive Communications Manager Name Role Phone Moon Alvarado MD Primary Care Provider [phone] Mick Bustos RN Unavailable Poly Blankenship Unavailable [facility] Complex Status:Identified (Enrolling) Start date:12/02/2024 Enrollment reason:ADT Feed Overview ED- [place] [facility] [place]. Case Team Name Relationship Phone Poly Blankenship(Responsible Staff) 1 [phone] Continued Care and Services Coordination
--- OUTSIDE RECORDS SUMMARY | 2024-12-06 03:31 | XMS_ITS | Encounter Summary ---
Author Organization [employer] Address 75 [facility] 7t [place] [address] Care Team Providers Care Bookmaker Map Name Role Phone Moon Alvarado MD Primary Care Provider [phone] Mick Bustos RN Unavailable [phone] Poly Blankenship Unavailable Reason for Visit * Reason Onset Date Comments Med Refill 07/04/2024 Encounter Details Date Type Department Care Team (Late st Contact Info) Description 07/04/2024 Telephone [facility] MEDICINE [address] [place] [address] Moon Alvarado MD [address] [place] [address] Med Refill Social History Tobacco Use Types [...] 5-325 MG tablet To be sent to: [facility] documented in this encounter Plan of Treatment Upcoming Encounters Date Type Department Care Team ([facility] st Contact Info) Description 12/30/2024 9:30 AM EST Clinical Support [facility] [address] [place] [address] 03/02/2025 9:00 AM EST Clinical Support [facility] [address] [place] [address] Roselyn Singer RN [address] [place] [address] documented as of this encounter Visit Diagnoses Not on filedocumented in this encounter Care Teams Bookmaker Map Relationship Specialty Start Date End Date Moon Alvarado MD [address] [place] [address] PCP - General Family Medicine 02/16/18 Mick Bustos RN [address] [place] [address] Registered Nurse Family Medicine 12/02/24 Poly Blankenship 12/02/24 documented as of this encounter
--- OUTSIDE RECORDS SUMMARY | 2024-12-06 03:31 | XMS_ITS | Encounter Summary ---
Author Organization [employer] Address [address] [place] [address] 7 [place] [address] Care Team Providers Care Liaison Inspection Laboratory Assistant Name Role Phone Moon Alvarado MD Primary Care Provider [phone] Mick Bustos RN Unavailable [phone] Poly Blankenship Unavailable Reason for Visit * Reason Onset Date Comments Med Refill 02/05/2023 Encounter Details Date Type Department Care Team (Late st Contact Info) Description 02/05/2023 Telephone [facility] MEDICINE [address] [place] [address] Moon Alvarado MD [address] [place] [address] Med Refill Social History Tobacco Use Types [...] refill on; oxyCODONE-acetaminophen (Percocet) 5-325 MG tablet [facility] [place], [place] - [address] [facility] documented in this encounter Plan of Treatment Upcoming Encounters Date Type Department Care Team ([facility] st Contact Info) Description 12/30/2024 9:30 AM EST Clinical Support [facility] MED & PEDS [address] [place] [address] 03/02/2025 9:00 AM EST Clinical Support [facility] MED [facility] PED[facility] [address] [place] [address] Roselyn Singer RN [address] [place] [address] documented as of this encounter Visit Diagnoses Not on filedocumented in this encounter Care Teams Liaison Inspection Laboratory Assistant Relationship Specialty Start Date End Date Moon Alvarado MD [address] [place] [address] PCP - General Family Medicine 02/16/18 Mick Bustos RN [address] [place] [address] Registered Nurse Family Medicine 12/02/24 Poly Blankenship 12/02/24 documented as of this encounter
--- OUTSIDE RECORDS SUMMARY | 2024-12-06 03:31 | XMS_ITS | Encounter Summary ---
Author Organization [employer] Address [address] [facility] 7t [place] [address] Care Team Providers Care Pharmacy Care Coordinator Name Role Phone Moon Alvarado MD Primary Care Provider [phone] Mick Bustos RN Unavailable [phone] Poly Blankenship Unavailable Encounter Details Date Type Department Care Team (Late st Contact Info) Description 12/02/2024 Patient Outreach [facility] MEDICINE [address] [place] [address] Moon Alvarado MD [address] [place] [address] Social History Tobacco Use Types Packs/Day Years [...] Upcoming Encounters Date Type Department Care Team ([facility] st Contact Info) Description 12/30/2024 9:30 AM EST Clinical Support [facility] [address] [place] [address] 03/02/2025 9:00 AM EST Clinical Support [facility] [address] [place] [address] Roselyn Singer RN [address] [place] [address] documented as of this encounter Visit Diagnoses Not on filedocumented in this encounter Additional Health Concerns Assessment Noted Time PHQ-9 Depression Total Score: 7 10/06/19 9:28 AM EDT documented as of this encounter Care Teams Pharmacy Care Coordinator Relationship Specialty Start Date End Date Moon Alvarado MD [address] [place] [address] PCP - General Family Medicine 02/16/18 Mick Bustos, RN [address] [place] [address] Registered Nurse Family Medicine 12/02/24 Poly Blankenship 12/02/24 documented as of this encounter
--- OUTSIDE RECORDS SUMMARY | 2024-12-06 03:31 | XMS_ITS | Encounter Summary ---
Author Organization [employer] Address [address] [facility] 7 [place] [address] Care Team Providers Care Insurance Plan Specialist Name Role Phone Moon Alvarado MD Primary Care Provider [phone] Mick Bustos RN Unavailable [phone] Poly Blankenship Unavailable Reason for Visit * Reason Comments Med Refill Encounter Details Date Type Department Care Team ([facility] st Contact Info) Description 12/02/2024 Refill [facility] PEDS [address] [place], [place] [phone] Moon Alvarado MD [address] [place], [place] [phone] Chronic pain syndrome Social History Tobacco Use [...] Care Team (Late st Contact Info) Description 12/30/2024 9:30 AM EST Clinical Support [facility] [address] [place] [address] 03/02/2025 9:00 AM EST Clinical Support [facility] [address] [place] [address] Roselyn Singer RN [address] [place] [address] documented as of this encounter Visit Diagnoses Diagnosis Chronic pain syndrome documented in this encounter Additional Health Concerns Assessment Noted Time PHQ-9 Depression Total Score: 7 10/06/19 25 9:28 AM EDT documented as of this encounter Care Teams Insurance Plan Specialist Relationship Specialty Start Date End Date Moon Alvarado MD [address] [place] [address] PCP - General Family Medicine 02/16/18 Mick Bustos, IRMA [address] [place] [address] Registered Nurse Family Medicine 12/02/24 Poly Blankenship 12/02/24 documented as of this encounter
--- OUTSIDE RECORDS SUMMARY | 2024-12-06 03:31 | XMS_ITS | Encounter Summary ---
Author Organization [employer] Address [address] [place] [address] 7 [place] [address] Care Team Providers Care Clin Nurse Spec Name Role Phone Moon Alvarado MD Primary Care Provider [phone] Mick Bustos RN Unavailable [phone] Poly Blankenship Unavailable Encounter Details Date Type Department Care Team (Late st Contact Info) Description 2023 [facility] [address] [place] [address] Moon Alvarado MD [address] [place] [address] Social History Tobacco Use Types Packs/Day Years [...] Description 12/30/2024 9:30 AM EST Clinical Support [facility] MED & PEDS [address] [place] [address] 03/02/2025 9:00 AM EST Clinical Support [facility] MED & PEDS [address] [place] [address] McMRoselyn colunga RN [address] [place] [address] documented as of this encounter Visit Diagnoses Not on filedocumented in this encounter Care Teams Clin Nurse Spec Relationship Specialty Start Date End Date Moon Alvarado MD [address] [place] [address] PCP - General Family Medicine 02/16/18 Mick Bustos RN [address] [place] [address] Registered Nurse Family Medicine 12/02/24 Poly Blankenship 12/02/24 documented as of this encounter
--- OUTSIDE RECORDS SUMMARY | 2024-12-06 03:31 | XMS_ITS | Encounter Summary ---
Author Organization [facility] [employer] Address 75 [facility] 7t [place] [address] Care Team Providers Care Broiler Supervisor Name Role Phone Moon Alvarado MD Primary Care Provider [phone] Mick Bustos RN Unavailable [phone] Poly Blankenship Unavailable Reason for Visit * Reason Onset Date Comments call back 05/12/2022 Encounter Details Date Type Department Care Team (Late st Contact Info) Description 05/12/2022 Telephone [facility] MEDICINE [address] [place] [address] Moon Alvarado MD [address] [place] [phone] call back Social History Tobacco Use Types [...] Upcoming Encounters Date Type Department Care Team ([facility] st Contact Info) Description 12/30/2024 9:30 AM EST Clinical Support [facility] MED & PEDS [address] [place] [address] 03/02/2025 9:00 AM EST Clinical Support [facility] MED & PEDS [address] [place] [address] Roselyn Singer RN [address] [place] [address] documented as of this encounter Visit Diagnoses Not on filedocumented in this encounter Care Teams Broiler Supervisor Relationship Specialty Start Date End Date Moon Alvarado MD [address] [place] [address] PCP - General Family Medicine 02/16/18 Mick Bustos, RN [address] [place] [address] Registered Nurse Family Medicine 12/02/24 Poly Blankenship 12/02/24 documented as of this encounter
--- OUTSIDE RECORDS SUMMARY | 2024-12-06 03:31 | XMS_ITS | Encounter Summary ---
Author Organization [employer] Address 75 [facility] 7 [place] [address] Care Team Providers Care Fire Protection Fabricator Name Role Phone Moon Alvarado MD Primary Care Provider [phone] Mick Bustos RN Unavailable [phone] Poly Blankenship Unavailable Reason for Visit * Reason Onset Date Comments Nurse Triage 02/18/2023 Encounter Details Date Type Department Care Team (Late st Contact Info) Description 02/18/2023 Telephone [facility] MEDICINE [address] [place] [address] Moon Alvarado MD [address] [place] [address] Nurse Triage Social History Tobacco Use Types [...] Miscellaneous Notes * Telephone Encounter - Nicholas Caceres Bell - 02/18/2023 8:42 AM EST Symptom: Pain - Severe Outcome: Schedule an urgent appointment (within 1 hour) or talk to a nurse or provider soon Reason: Caller denied all higher acuity questions The caller accepted this outcome Please contact pt @ [phone] [place] Speaker documented in this encounter Plan of Treatment Upcoming Encounters Date Type Department Care Team ([facility] Contact Info) Description 12/30/2024 9:30 AM EST Clinical Support [facility] MED & PEDS [address] [place] [address] 03/02/2025 9:00 AM EST Clinical Support [facility] MED & PEDS [address] [place] [address] Roselyn Singer, IRMA 505 [place] [address] documented as of this encounter Visit Diagnoses Not on filedocumented in this encounter Care Teams Fire Protection Fabricator Relationship Specialty Start Date End Date Moon Alvarado MD 505 [place] [address] PCP - General Family Medicine 02/16/18 Mick Bustos, RN 505 [place] [address] Registered Nurse Family Medicine 12/02/24 Poly Blankenship 12/02/24 documented as of this encounter
--- OUTSIDE RECORDS SUMMARY | 2024-12-06 03:31 | XMS_ITS | Encounter Summary ---
Author Organization [employer] Address 75 [facility] 7 [place] [address] Care Team Providers Care Pipeline Integrity Engineer Name Role Phone Moon Alvarado MD Primary Care Provider [phone] Mick Bustos RN Unavailable [phone] Poly Blankenship Unavailable Reason for Visit * Reason Comments Care Coordination [facility] chart review Encounter Details Date Type Department Care Team (Latest Contact Info) Description 12/02/2024 Patient Outreach [facility] MEDICINE [address] [place] [address] Moon Alvarado MD [address] [place] [address] Care Coordination (C3 CYNDI Blankenship chart review) Social History Tobacco Use Types Packs/Day Years [...] as of this encounter Progress Notes * Poly Blankenship - 12/02/2024 11:59 AM EDT ED- Pt [facility] [place] [facility]. Please outreach pt for enrollment. CHW Poly Blankenship reviewed chart review completed by MARVIN Bustos RN documented in this encounter Plan of Treatment Upcoming Encounters Date Type Department Care Team ([facility] st Contact Info) Description 12/30/2024 9:30 AM EST Clinical Support [facility] MED & PEDS 505 [place] [address] 03/02/2025 9:00 AM EST Clinical Support [facility] MED & PEDS [address] [place] [address] Roselyn Singer, RN [address] [place] [address] documented as of this encounter Visit Diagnoses Not on filedocumented in this encounter Additional Health Concerns Assessment Noted Time PHQ-9 Depression Total Score: 7 10/06/19 9:28 AM EDT documented as of this encounter Care Teams Pipeline Integrity Engineer Relationship Specialty Start Date End Date Moon Alvarado MD 505 [place] [address] PCP - General Family Medicine 02/16/18 Mick Bustos, IRMA [address] [place] [address] Registered Nurse Family Medicine 12/02/24 Poly Blankenship 12/02/24 documented as of this encounter
--- OUTSIDE RECORDS SUMMARY | 2024-12-06 03:31 | XMS_ITS | Encounter Summary ---
Author Organization [employer] Address 75 [facility] 7 [place] [address] Care Team Providers Care Lab Aide Name Role Phone Moon Alvarado MD Primary Care Provider [phone] Mick Bustos RN Unavailable [phone] Poly Blankenship Unavailable Reason for Visit * Reason Onset Date Comments Med Refill 10/07/2023 Encounter Details Date Type Department Care Team (Late st Contact Info) Description 10/07/2023 Telephone [facility] MEDICINE [address] [place] [address] Moon Alvarado MD [address] [place] [address] Med Refill Social History Tobacco Use Types [...] 5-325 MG tablet To be sent to: [facility] documented in this encounter Plan of Treatment Upcoming Encounters Date Type Department Care Team ([facility] st Contact Info) Description 12/30/2024 9:30 AM EST Clinical Support [facility] MED & PEDS [address] [place] [address] 03/02/2025 9:00 AM EST Clinical Support [facility] MED & PEDS [address] [place] [address] Roselyn Singer RN 505 [place] [address] documented as of this encounter Visit Diagnoses Not on filedocumented in this encounter Care Teams Lab Aide Relationship Specialty Start Date End Date Moon Alvarado MD 505 [place] [address] PCP - General Family Medicine 02/16/18 Mick Bustos, RN [address] [place] [address] Registered Nurse Family Medicine 12/02/24 Poly Blankenship 12/02/24 documented as of this encounter
--- OUTSIDE RECORDS SUMMARY | 2024-12-06 03:31 | XMS_ITS | Encounter Summary ---
Author Organization [employer] Address 75 [facility] 7t [place] [address] Care Team Providers Care Youth Corrections Officer Name Role Phone Moon Alvarado MD Primary Care Provider [phone] Mick Bustos RN Unavailable [phone] Poly Blankenship Unavailable Reason for Visit * Reason Onset Date Comments Med Refill 11/27/2024 Encounter Details Date Type Department Care Team ([facility] st Contact Info) Description 11/27/2024 Refill [facility] MED & PEDS [address] [place], [place] [phone] Moon Alvarado MD [address] [place] [address] Social History Tobacco Use Types Packs/Day Years [...] Description 12/30/2024 9:30 AM EST Clinical Support [facility] MED & PEDS [address] [place] [address] 03/02/2025 9:00 AM EST Clinical Support [facility] MED & PEDS [address] [place] [address] Roselyn Singer RN 505 [place] [address] documented as of this encounter Visit Diagnoses Not on filedocumented in this encounter Additional Health Concerns Assessment Noted Time PHQ-9 Depression Total Score: 7 10/06/19 25 9:28 AM EDT documented as of this encounter Care Teams Youth Corrections Officer Relationship Specialty Start Date End Date Moon Alvarado MD [address] [place] [address] PCP - General Family Medicine 02/16/18 Mick Bustos, IRMA [address] [place] [address] Registered Nurse Family Medicine 12/02/24 Poly Blankenship 12/02/24 documented as of this encounter
--- OUTSIDE RECORDS SUMMARY | 2024-12-06 03:31 | XMS_ITS | Encounter Summary ---
Author Organization [employer] Address 75 [facility] 7 [place] [address] Care Team Providers Care Process Maintenance Technician Name Role Phone Moon Alvarado MD Primary Care Provider [phone] Mick Bustos RN Unavailable [phone] Poly Blankenship Unavailable Reason for Visit * Reason Onset Date Comments ER Follow-up 05/27/2023 Encounter Details Date Type Department Care Team (Late st Contact Info) Description 05/27/2023 Telephone [facility] MEDICINE [address] [place] [address] Moon Alvarado MD [address] [place] [address] ER Follow-up Social History Tobacco Use Types [...] ED visit on : Date: 05/25 Hospital: [facility] Seen for: Chest pain and was advised to get a referral [employer] [place] Patient advised will forward to team nurse for follow up documented in this encounter Plan of Treatment Upcoming Encounters Date Type Department Care Team (Late st Contact Info) Description 12/30/2024 9:30 AM EST Clinical Support [facility] MED & PEDS [address] [place] [address] 03/02/2025 9:00 AM EST Clinical Support [facility] MED & PEDS [address] [place] [address] Roselyn Singer RN 505 [place] [address] documented as of this encounter Visit Diagnoses Not on filedocumented in this encounter Care Teams Process Maintenance Technician Relationship Specialty Start Date End Date Moon Alvarado MD [address] [place] [address] PCP - General Family Medicine 02/16/18 Mick Bustos, IRMA [address] [place] [address] Registered Nurse Family Medicine 12/02/24 Poly Blankenship 12/02/24 documented as of this encounter
--- OUTSIDE RECORDS SUMMARY | 2024-12-06 03:31 | XMS_ITS | Encounter Summary ---
Author Organization [employer] Address 75 [facility] 7t [place] [address] Care Team Providers Care Thaw Shed Heater Tender Name Role Phone Moon Alvarado MD Primary Care Provider [phone] Mick Bustos RN Unavailable [phone] Poly Blankenship Unavailable Reason for Visit * Reason Onset Date Comments Med Refill 05/12/2022 Encounter Details Date Type Department Care Team (Late st Contact Info) Description 05/12/2022 Telephone [facility] MEDICINE [address] [place] [address] Moon Alvarado MD [address] [place] [address] Med Refill Social History Tobacco Use Types [...] Upcoming Encounters Date Type Department Care Team ([facility] st Contact Info) Description 12/30/2024 9:30 AM EST Clinical Support [facility] MED & PEDS [address] [place] [address] 03/02/2025 9:00 AM EST Clinical Support [facility] MED & PEDS [address] [place] [address] Roselyn Singer RN 505 [place] [address] documented as of this encounter Visit Diagnoses Not on filedocumented in this encounter Care Teams Thaw Shed Heater Tender Relationship Specialty Start Date End Date Moon Alvarado MD [address] [place] [address] PCP - General Family Medicine 02/16/18 Mick Bustos, RN 505 [place] [address] Registered Nurse Family Medicine 12/02/24 Poly lBankenship 12/02/24 documented as of this encounter
--- OUTSIDE RECORDS SUMMARY | 2024-12-06 03:31 | XMS_ITS | Encounter Summary ---
Author Organization [employer] Address 75 [facility] 7t [place] [address] Care Team Providers Care Information Delivery Analyst Name Role Phone Moon Alvarado MD Primary Care Provider [phone] Mick Bustos RN Unavailable [phone] Poly Blankenship Unavailable Reason for Visit * Reason Onset Date Comments Med Refill 11/30/2024 Encounter Details Date Type Department Care Team (Late st Contact Info) Description 11/30/2024 Refill [facility] MEDICINE [address] [place] [address] Moon Alvarado MD [address] [place] [address] Chronic pain syndrome Social History Tobacco Use [...] encounter Miscellaneous Notes * Telephone Encounter - Sadaf Blankenship - 11/30/2024 10:23 AM EDT TC from pt requesting medication refill. Medications needing refill : - oxyCODONE-acetaminophen (Percocet) 5-325 MG tablet To be sent to: -[facility] [place] [address] documented in this encounter Plan of Treatment Upcoming Encounters Date Type Department Care Team ([facility] st Contact Info) Description 12/30/2024 9:30 AM EST Clinical Support [facility] MED & PEDS [address] [place] [address] 03/02/2025 9:00 AM EST Clinical Support [facility] MED & PEDS [address] [place] [address] Roselyn Singer, IRMA [address] [place] [address] documented as of this encounter Visit Diagnoses Diagnosis Chronic pain syndrome documented in this encounter Additional Health Concerns Assessment Noted Time PHQ-9 Depression Total Score: 7 10/06/19 9:28 AM EDT documented as of this encounter Care Teams Information Delivery Analyst Relationship Specialty Start Date End Date Moon Alvarado MD [address] [place] [address] PCP - General Family Medicine 02/16/18 Mick Bustos, IRMA [address] [place] [address] Registered Nurse Family Medicine 12/02/24 Poly Blankenship 12/02/24 documented as of this encounter
--- OUTSIDE RECORDS SUMMARY | 2024-12-06 03:31 | XMS_ITS | Encounter Summary ---
Author Organization [employer] Address 75 [facility] 7t [place] [address] Care Team Providers Care Box Nailer Name Role Phone Moon Alvarado MD Primary Care Provider [phone] Mick Bustos RN Unavailable [phone] Poly Blankenship Unavailable Encounter Details Date Type Department Care Team (Late st Contact Info) Description 12/26/2022 Abstract [facility] MEDICINE [address] [place] [address] Natalya Peterson Social History Tobacco Use Types [...] Department Care Team (Late Contact Info) Description 12/30/2024 9:30 AM EST Clinical Support [facility] MED & PEDS [address] [place] [address] 03/02/2025 9:00 AM EST Clinical Support [facility] MED & PEDS [address] [place] [address] Roselyn Singer, IRMA [address] [place] [address] documented as of this encounter Procedures Procedure Name Priority Date/Time Associated Diagnosis Comments HM COLONOSCOPY Routine 07/23/2020 documented in this encounter Results * Hm Colonoscopy (07/23/2020) Colonoscopy Normal Normal Narrative Natalya Peterson - 07/23/2020 Recommended 10 year follow up Historical Provider HEALTH MAINTENANCE Final Result documented in this encounter Visit Diagnoses Not on filedocumented in this encounter Care Teams Box Nailer Relationship Specialty Start Date End Date Moon Alvarado MD [address] [place] [address] PCP - General Family Medicine 02/16/18 Mick Bustos, RN [address] [place] [address] Registered Nurse Family Medicine 12/02/24 Poly Blankenship 12/02/24 documented as of this encounter
--- OUTSIDE RECORDS SUMMARY | 2024-12-06 03:31 | XMS_ITS ---
Author Organization [employer] Address [address] [place] [address] 7t [place] [address] Care Team Providers Care Tender Coordinator Name Role Phone Moon Alvarado MD Primary Care Provider [phone] Mick Bustos RN Unavailable [phone] Poly Blankenship Unavailable CM Complex Status:Identified (Enrolling) Start date:12/02/2024 Enrollment reason:ADT Feed Overview ED- Pt went to [facility] ED on 12/01/24. Case Team Name Relationship Phone Mick Bustos RN(Responsible Staff) Registered Ashok helm [phone] Continued Care and Services Coordination
--- OUTSIDE RECORDS SUMMARY | 2024-12-06 03:31 | XMS_ITS | Encounter Summary ---
Author Organization [employer] Address 75 [facility] 7 [place] [address] Care Team Providers Care Construction Job Titles Name Role Phone Moon Alvarado MD Primary Care Provider [phone] Mick Bustos RN Unavailable [phone] Poly Blankenship Unavailable Reason for Visit * Reason Comments Care Coordination C3CM- chart review Encounter Details Date Type Department Care Team (Latest Contact Info) Description 12/02/2024 Patient Outreach [facility] MED & PEDS [address] [place], [place] [phone] Moon Alvarado MD [address] [place], [place] [phone] Care Coordination (C3CM- chart review) Social History Tobacco Use Types [...] as of this encounter Progress Notes * Mick Bustos RN - 12/02/2024 8:43 AM EDT CM Mick Bustos RN, performed chart review, in anticipation of initial assessment with patient, aspatient has stratified for C3 Adult Complex Care through the ADT feed. History significant for chronic anxiety, chronic pain syndrome, degeneration of lumbar intervertebral disc, depressive disorder, obesity, SIXTO, allergic rhinitis. Specialists include ophthalmology, orthopaedic surgery, [facility] weight[facility], [facility] pain management. ED visits within the last 12 months [facility] [place]. Last appointment in PCP office on 11/17/24. No future appointment scheduled with PCP. documented in this encounter Plan of Treatment Upcoming Encounters Date Type Department Care Team ([facility] st Contact Info) Description 12/30/2024 9:30 AM EST Clinical [facility] 505 [place] [address] 03/02/2025 9:00 AM EST Clinical Support [facility]ED[facility] [address] [place] [address] McMRoselyn colunga RN [address] [place] [address] documented as of this encounter Visit Diagnoses Not on filedocumented in this encounter Additional Health Concerns Assessment Noted Time PHQ-9 Depression Total Score: 7 10/06/19 25 9:28 AM EDT documented as of this encounter Care Teams Construction Job Titles Relationship Specialty Start Date End Date Moon Alvarado MD [address] [place] [address] PCP - General Family Medicine 02/16/18 Mick Bustos RN [address] [place] [address] Registered Nurse Family Medicine 12/02/24 Poly Blankenship 12/02/24 documented as of this encounter
--- OUTSIDE RECORDS SUMMARY | 2024-12-06 03:31 | XMS_ITS | Encounter Summary ---
Author Organization [employer] Address [address] [place] [address] 7 [place] [address] Care Team Providers Care Surgical Instrument Repair Specialist Name Role Phone Moon Alvarado MD Primary Care Provider [phone] Mick Bustos RN Unavailable [phone] Poly Blankenship Unavailable Reason for Visit * Reason Onset Date Comments Referral 01/19/2023 Encounter Details Date Type Department Care Team (Late st Contact Info) Description 01/19/2023 Telephone [facility] MEDICINE [address] [place] [address] Moon Alvarado MD [address] [place] [address] Referral Social History Tobacco Use Types Packs/Day [...] pt of referral placed. Pt currently at [facility] being seen. * Telephone Encounter - Marina Wasserman RN - 01/19/2023 3:50 PM EST Placed call to pt regarding message below. Pt states going to Urgent care at [place] and being told she had an infection of her big Toe on Left foot and a fracture. They informed pt of need to f/u with [facility] urgently and pt managed to get an appt for tomorrow morning. [facility] is stating they need a referral from PCP office. Informed pt that PCP cannot place referral without indication or notes fromUC. Offered pt [facility] appt tonight but pt has no [...] Group NPI salvador included on referral of [id number]. Informed [facility] that our office has our own referral dept thatmay already have said NPI. Please review UC notes and advise on referral request. Thank you. * Telephone Encounter - Wilfredo Rae - 01/19/2023 9:31 AM EST Tc from pt requesting a referral for new lexi orthopedic documented in this encounter Plan of Treatment Upcoming Encounters Date Type Department Care Team (Late st Contact Info) Description 12/30/2024 9:30 AM EST Clinical Support [facility] MED & PEDS 505 [facility] [place] [address] 03/02/2025 9:00 AM EST Clinical Support [facility] MED & PEDS 505 [facility] [place] [address] Roselyn Singer, IRMA 505 [facility] [place] [address] documented as of this encounter Visit Diagnoses Not on filedocumented in this encounter Care Teams Surgical Instrument Repair Specialist Relationship Specialty Start Date End Date Moon Alvarado MD [address] [place] [address] PCP - General Family Medicine 02/16/18 Mick Bustos RN [address] [place] [address] Registered Nurse Family Medicine 12/02/24 Poly Blankenship 12/02/24 documented as of this encounter
--- OUTSIDE RECORDS SUMMARY | 2024-12-06 03:31 | XMS_ITS | Encounter Summary ---
Author Organization [employer] Address 75 [facility] 7 [place] [address] Care Team Providers Care Airset Molder Name Role Phone Moon Alvarado MD Primary Care Provider [phone] Mick Bustos RN Unavailable [phone] Poly Blankenship Unavailable Reason for Visit * Reason Onset Date Comments Referral 11/21/2024 Encounter Details Date Type Department Care Team ([facility] st Contact Info) Description 11/21/2024 Telephone [facility] MED & PEDS [address] [place], [place] [phone] Moon Alvarado MD [address] [place], [place] [phone] Referral Social History Tobacco Use Types Packs/Day [...] * Telephone Encounter - Asaf Echavarria - 11/21/2024 11:27 AM EDT TC from pt requesting new referral : DATE: no apt TIME: n/a Address: [address] Visits: Facility Name: [facility] eye care Type of Specialist: optometrists DX: Provider : Shawnee Camargo Provider NPI : [id number] Facility NPI: N/A Phone # : [phone] Fax #: [phone] documented in this encounter Plan of Treatment Upcoming Encounters Date Type Department Care Team ([facility] st Contact Info) Description 12/30/2024 9:30 AM EST Clinical Support [facility] MED & PEDS 505 [place] [address] 03/02/2025 9:00 AM EST Clinical Support [facility] MED & PEDS [address] [place] [address] Roselyn Singer, RN [address] [place] [address] documented as of this encounter Visit Diagnoses Not on filedocumented in this encounter Additional Health Concerns Assessment Noted Time PHQ-9 Depression Total Score: 7 10/06/19 25 9:28 AM EDT documented as of this encounter Care Teams Airset Molder Relationship Specialty Start Date End Date Moon Alvarado MD [address] [place] [address] PCP - General Family Medicine 02/16/18 Mick Bustos RN 505 [place] [address] Registered Nurse Family Medicine 12/02/24 Poly Blankenship 12/02/24 documented as of this encounter
--- OUTSIDE RECORDS SUMMARY | 2024-12-06 03:31 | XMS_ITS | Encounter Summary ---
Author Organization [employer] Address [address] [facility] 7 [place] [address] Care Team Providers Care Personal Driver Name Role Phone Moon Alvarado MD Primary Care Provider [phone] Mick Bustos RN Unavailable [phone] Poly Blankenship Unavailable Reason for Visit * Reason Onset Date Comments Medication Question 10/26/2024 Encounter Details Date Type Department Care Team ([facility] st Contact Info) Description 10/26/2024 Telephone [facility] MED & PEDS [address] [place], [place] [phone] Moon Alvarado MD [address] [place], [place] [phone] Medication Question Social History Tobacco Use Types [...] Telephone Encounter - Roselyn Singer RN - 11/07/2024 4:52 PM EDT Fyi lab AMP confirmation negative. * Telephone Encounter - Asaf Echavarria - 10/26/2024 3:56 PM EDT Tc from pt requesting a dosage increase on the medication phentermine 15 MG capsule . Pt has contact pharmacy requesting a refill. Pt was advised that the refill is not until the . Pt contacted the medical department. Zipper Trimmer advised pt will need to contact the pharmacy when it is time to refill the medication. Pt only has 4 tablets left. Pt stated that she has been using her medications correctly. Contact pt at [phone] documented in this encounter Plan of Treatment Upcoming Encounters Date Type Department Care Team ([facility] st Contact Info) Description 12/30/2024 9:30 AM EST Clinical Support [facility] MED & PEDS [address] [place] [address] 03/02/2025 9:00 AM EST Clinical Support [facility] MED & PEDS [address] [place] [address] Roselyn Singer, IRMA [address] [place] [address] documented as of this encounter Visit Diagnoses Not on filedocumented in this encounter Additional Health Concerns Assessment Noted Time PHQ-9 Depression Total Score: 7 10/06/19 25 9:28 AM EDT documented as of this encounter Care Teams Personal Driver Relationship Specialty Start Date End Date Moon Alvarado MD [address] [place] [address] PCP - General Family Medicine 02/16/18 Mick Bustos, IRMA [address] [place] [address] Registered Nurse Family Medicine 12/02/24 Poly Blankenship 12/02/24 documented as of this encounter
--- OUTSIDE RECORDS SUMMARY | 2024-12-06 03:32 | XMS_ITS | Clinical Summary ---
Author Organization [employer] Address [address] [facility] 7t [place] [address] Care Team Providers Care Concrete Swimming Pool Installer Name Role Phone Moon Alvarado MD Primary Care Provider [phone] Mick Bustos RN Unavailable Poly Blankenship Unavailable Allergies Active Allergy Reactions Criticality Noted Date Comments Latex Hives 09/05/2022 Shellfish Protein-Containing Drug Products High 04/06/2012 Other reaction(s): SWELLING, HIVES , Medications Diclofenac Sodium (Voltaren) 1 % gel Apply 2 g topically in the morning, at noon, in the evening, and at bedtime. 021 Active EPINEPHrine (EpiPen 2-Arnoldo) 0.3 MG/0.3ML injection syringe Inject 0.3 mg as directed if needed. 022 Active tiZANidine (Zanaflex) 4 [...] ONE TABLET TWICE DAILY 180 tablet 1 Active lidocaine (Lidoderm) 5 % patch APPLY [...] available. 2 each 2 025 2025 Active phentermine 30 MG capsule Take 1 capsule (30 mg) by mouth before breakfast. 30 capsule 025 2024 Active nitrofurantoin, macrocrystal-mon ohydrate, (Macrobid) 100 MG capsule Take 1 capsule (100 mg) by mouth 2 times daily. 14 capsule Active oxyCODONE-acetam inophen (Percocet) 5-325 MG tabletIndication s:Chronic pain syndrome Take 1 tablet by mouth every 8 (eight) hours if needed for severe pain. 84 tablet 025 Active naloxone (Narcan) 4 mg/0.1 mL nasal spray Administer 0.1 mL into affected nostril(s) if needed. 022 2024 Discontinued(T herapy completed) oxyCODONE-acetam inophen (Percocet) 5-325 MG tabletIndication s:Chronic pain syndrome TAKE ONE TABLET EVERY 8 HOURS NEEDED FOR SEVERE PAIN 84 tablet 025 2024 Discontinued(R eorder (will not trigger notification to Pharmacy)) phentermine 15 MG capsuleIndicatio ns:Obesity with body mass index 30 or greater TAKE ONE CAPSULE EVERY MORNING BEFORE BREAKFAST 30 capsule 025 2024 Discontinued(T herapy completed) nitrofurantoin, macrocrystal-mon ohydrate, (Macrobid) 100 MG capsule Take 1 capsule by mouth 2 times daily. 025 2024 Discontinued(R eorder (will not trigger notification to Pharmacy)) Hospital, Clinic, or Other Facility Administered Medication Ordered Dose Route Frequency Start Date End Date Status cyanocobalamin (Vitamin B-12) injection 1,000 mcgIndications:Other dietary vitamin B12 deficiency anemia 1000 mcg IM Once 11/28/2024 11/28/2024 Ended Active Problems Problem Noted Date Diagnosed Date Long-term current use of opiate analgesic 2024 Acute pain of right shoulder 06/09/2024 Chronic pain syndrome 12/12/2016 Cyst of ovary 07/23/2016 Self-inflicted injury 07/23/2016 Severe recurrent major depression (CMS/HCC) 08/2016 Obstructive sleep apnea of adult 09/11/2015 Chronic [...] Encounters Date Type Department Care Team Description 12/02/2024 Patient Outreach [facility] [address] [place] [address] Moon Alvarado MD Care Coordination (C3 -[facility] Poly Cooperz chart review) 12/02/2024 Patient Outreach [facility] MED & PEDS [address] [place] [address] Moon Alvarado MD Care Coordination (C3- chart review) 12/02/2024 Refill [facility] [address] [place] [address] Moon Alvarado MD Chronic pain syndrome 12/02/2024 Patient Outreach [facility] [address] [place] [address] Moon Alvarado MD 11/30/2024 Refill [facility] [address] [place] [address] Moon Alvarado MD Chronic pain syndrome 11/28/2024 9:45 AM EDT Clinical Support [facility] [address] [place] [address] Mine Lieberman RN Other dietary vitamin B12 deficiency anemia 11/28/2024 Travel 11/27/2024 Refill [facility] [address] [place] [address] Moon Alvarado MD 11/27/2024 Travel 11/23/2024 Orders Only [facility] [address] [place] [address] Moon Alvarado MD Visual loss (Primary Dx) 11/21/2024 Telephone [facility] [address] [place] [address] Moon Alvarado MD Referral 11/17/2024 10:00 AM EDT Office Visit [facility] [address] [place] [address] Moon Alvarado MD Severe episode of recurrent major depressive disorder, without psychotic features (CMS/HCC) (HCC) (Primary Dx); Obesity with body mass index 30 or greater 11/17/2024 Travel 11/14/2024 Telephone [facility] [address] [place] [address] Moon Alvarado MD Chart Prep 11/03/2024 9:00 AM EDT Clinical Support [facility] [address] [place] [address] Roselyn Singer RN Back pain, unspecified back location, unspecified back pain laterality, unspecified chronicity (Primary Dx) 11/03/2024 Orders Only [facility] [address] [place] [address] Moon Alvarado MD 11/03/2024 Travel 11/02/2024 Travel 10/31/2024 9:30 AM EDT Clinical Support [facility] [address] [place] [address] Mine Lieberman RN Other dietary vitamin B12 deficiency anemia 10/31/2024 Telephone [facility] [address] [place] [address] Moon Alvarado MD 10/31/2024 Refill [facility] [address] [place] [address] Moon Alvarado MD Obesity with body mass index 30 or greater 10/31/2024 Travel 10/30/2024 Refill [facility] [address] [place] [address] Moon Alvarado MD Obesity with body mass index 30 or greater 10/29/2024 Refill [facility] [address] [place] [address] Moon Alvarado MD 10/27/2024 Refill [facility] [address] [place] [address] Moon Alvarado MD Chronic pain syndrome 10/26/2024 Telephone [facility] [address] [place] [address] Moon Alvarado MD Medication Question 10/18/2024 Telephone [facility] [address] [place] [address] Moon Alvarado MD Medication Question 10/08/2024 Refill [facility] [address] [place] [address] Moon Alvarado MD 10/06/2024 Travel 10/06/2024 Refill [facility] [address] [facility] [place] [address] Roselyn Singer RN Chronic pain syndrome 10/05/2024 10:15 AM EDT Office Visit [facility] [address] [facility] [place] [address] Moon Alvarado MD Obesity with body mass index 30 or greater (Primary Dx); Severe episode of recurrent major depressive disorder, without psychotic features ([facility]) 10/05/2024 Travel 10/04/2024 Telephone [facility] [address] [facility] [address] Moon Alvarado MD Chart Prep 10/04/2024 Refill [facility] [address] [facility] [place] [address] Roselyn Singer RN Chronic pain syndrome 10/04/2024 Telephone [facility] [address] [facility] [place] [address] Moon Alvarado MD 09/30/2024 Travel 09/27/2024 1:00 PM EDT Clinical Support [facility] [address] [facility] [place] [address] Mine Lieberman RN Other dietary vitamin B12 deficiency anemia 09/27/2024 Travel from Last 3 Months Immunizations Immunization Administration Dates Next Due Influenza injectable quadriv alent IIV4 with preservative 01/19/2018,12/12/2016,12/29/2014 Influenza injectable quadriv alent preservative free 11/15/2021 Influenza, IIV3, injectable 2014 Influenza, Split (incl. mahendra fied surface antigen) 11/18/2012 Pneumococcal Conjugate PCV 20 03/21/2024 Pneumococcal Polysaccharide [...] Sign Reading Time Taken Comments Blood Pressure 120/72 11/17/2024 9:26 AM EDT Pulse 72 11/17/2024 9:26 AM EDT Temperature 36.6 C (97.9 F) 11/17/2024 9:26 AM EDT Respiratory Rate 20 11/17/2024 9:26 AM EDT Oxygen Saturation 99% 10/05/2024 9:25 AM EDT Inhaled Oxygen Concentration - - Weight 86.5 kg (190 lb 9.6 oz) 11/28/2024 9:12 A M EDT Height 165.1 cm (5' 5 ) 10/05/2024 9:25 AM EDT Body Mass Index 31.72 10/05/2024 9:25 AM EDT Plan of Treatment Upcoming Encounters Date Type Department Care Team (Late st Contact Info) Description 12/30/2024 9:30 AM EST Clinical Support [facility] & PEDS [address] [place] [address] 03/02/2025 9:00 AM EST Clinical Support [facility] [address] [place] [address] Roselyn Singer, RN [address] [place] [address] Health Maintenance Due Date Last Done Comments [...] Smear 01/07/2025 01/07/2022 SDOH Screening 07/04/2025 07/04/2024 Disability Screening 09/30/2025 09/30/2024 Alcohol/Substance Use Screening 10/05/2025 10/05/2024 Depression Screening 10/05/2025 10/05/2024, 10/06/19 Tobacco Screening 11/17/2025 11/17/2024 DTaP/Tdap/Td Vaccines (3 - Td or Tdap) 03/08/2026 03/08/2016, 12/06/2012 Mammogram 10/11/2026 10/11/2024, 0807/2024, 04/09/2021, Additional history exists Cervical Cancer Screening [...] location, unspecified back pain laterality, unspecified chronicity DRUG TOX MONITORING AMPHETAMINES, W/CONF, U Routine 11/03/2024 12:00 AM EDT BI MAMMOGRAM DIAGNOSTIC TOMOSYNTHESIS BILATERAL Routine 10/11/2024 [...] Unknown 11/03/2024 9:19 AM EDT Narrative Roselyn Singer RN - 11/03/2024 9:19 AM EDT . Internal Pass Control Lot# [id number] Exp: 12-16-25 Moon Alvarado MD POINT OF CARE TEST ENTER/EDIT ORDERABLES Final Result * Drug Toxicology Monitoring Amphetamines, with Confirmation, Urine (11/03/2024 12:00 AM EDT) Amphetamine, Urine NEGATIVE [facility] Comment:CUTOFF 250 NG/MLPERF ORMING SITE:[facility] Klick2Contact [facility], [address] [place] [phone] Telephone Advice Nurse: SANDRA HANDLEY MD, CLIA:[id number] Methamphetamine, Urine NEGATIVE [facility] Comment:CUTOFF 250 NG/MLThis drug testing is for medical treatment only. Analysiswas performed as non-forensic testing and these resultsshould be used only by healthcare providers to renderdiagnosis or treatment, or to monitor progress of medicalconditions.LDT Notes:Confirmation tests were developed and their analyticalperformance characteristics have been determined by [employer]. It has not been cleared or approved by the FDA.This assay has been validated pursuant to the CLIAregulations and is used for clinical purposes.Healthcare Providers needing Interpretation assistance,please contact us at [phone] ( ) M-F,8am to 10pm EST 11/03/2024 11/03/2024 us Moon Alvarado MD LAB URINE ORDERABLES Final Re sult [facility] [address] [place] [address] [phone] * BI Mammogram Diagnostic Tomosynthesis Bilateral (10/11/2024 1:38 PM EDT) Anatomical Region Laterality Modality Breast Bilateral Mammography 10/11/2024 1:38 PM EDT Narrative 10/11/2024 3:56 PM EDT [facility] [address] [place] [address] Mammography Report Signed Patient: Jes Boggs MR#: [id number] : 1970 Acct:[id number] Age/Sex: 54 / F ADM Date: 10/11/24 Loc: HO.MAMMO Attending Dr: Moon Alvarado MD Ordering Physician: Moon Alvarado MD Results: 2Be nign Findings Date of Service: 10/11/24 Follow Up: 1 Year From [facility] Mammogram Procedure(s): MM tomosynthesis diagnostic BI Accession Number(s): [id number] cc: Moon Alvarado MD EXAMINATIONS: 1. MM [...] 10/11/24 1553 DD/ 1338 TD/TT: 10/11/24 1338 Chief Engineer'S Helper: Procedure Note Donotuseinterpreter, Image - 10/11/2024 [facility] [address] [place] [address] [place] [address] Mammography Report Signed Patient: Jes Boggs [facility]#: [id number] : 1970Acct:[id number] Age/Sex: 54 / FADM Date: 10/11/24 Loc: HO.MAMMO Attending Dr: Moon Alvarado MD Ordering Physician: Moon Alvarado MDResults: 2Be nign Findings Date of Service: 10/11/24Follow Up: 1 Year From [facility] Mammogram Procedure(s): MM tomosynthesis diagnostic BI Accession Number(s): [id number] cc: Moon Alvarado MD EXAMINATIONS: 1. MM [...] 10/11/24 1553 DD/ 1338 TD/TT: 10/11/24 1338 Chief Engineer'S Helper: us Moon Alvarado MD IMG BI PROCEDURES Final Resul t * BI US Breast Limited Right (10/11/2024 1:30 PM EDT) Anatomical Region Laterality Modality Breast Right Ultrasound 10/11/2024 1:30 PM EDT Narrative 10/11/2024 3:56 PM EDT [facility] [place] [address] Ultrasound Report Signed Patient: Jes Boggs MR#: [id number] : 1970 Acct:[id number] Age/Sex: 54 / F ADM Date: 10/11/24 Loc: HO.MAMMO Attending Dr: Moon Alvarado MD Ordering Physician: Moon Alvarado MD Date of Service: 10/11/24 Procedure(s): US breast RT limited mamm only Accession Number(s): [id number] cc: Moon Alvarado MD EXAMINATIONS: 1. MM [...] 10/11/24 1553 DD/ 1330 TD/TT: 10/11/24 1415 Chief Engineer'S Helper: Procedure Note Donotuseinterpreter, Image - 10/11/2024 [facility] [address] [place] [address] Ultrasound Report Signed Patient: Jes Boggs [facility]#: [id number] : 1970Acct:[id number] Age/Sex: 54 / FADM Date: 10/11/24 Loc: HO.MAMMO Attending Dr: Moon Alvarado MD Ordering Physician: Moon Alvarado MD Date of Service: 10/11/24 Procedure(s): US breast RT limited mamm only Accession Number(s): [id number] cc: Moon Alvarado MD EXAMINATIONS: 1. MM [...] by Raphael Garg MD in OV> 10/11/24 1551 DD/ 1330 TD/TT: 10/11/24 1415 Chief Engineer'S Helper: us Moon Alvarado MD IMG US PROCEDURES Final Resul t * Lipid Panel, Standard (07/14/2024 9:28 AM EDT) Triglycerides 73 <150 mg/dL [facility] Comment:Desirable Triglyceri de: less than 150 mg/dLBorderline High Triglyceride 150-199 mg/dLHigh Triglyceride: 200-499 mg/dLVery High Triglyceride: greater than or equal to 5OO mg/dL Cholesterol 155 <200 mg/dL [facility] Comment:Desirable Cholestero l: less than 200 mg/dLBorderline High Cholesterol: 200-239 mg/dLHigh Cholesterol: greater than 239 mg/dL LDL Cholesterol Calculated 82 <100 mg/dL [facility] Comment:Desirable LDL: less than 100 mg/dLNear Optimal/Above Optimal LDL: 110- 129 mg/dLBorderline High LDL: 130-159 mg/dLHigh LDL: 160-189 mg/dLVery High LDL: greater than or equal to 190 mg/dL HDL Cholesterol 59 >40 mg/dL [facility] Comment:Desirable HDL: great er than 40 mg/dL Note: This HDL assay may give artificially low results in patients with liver disease. Blood Venous blood specimen / Unknown 07/14/2024 9:28 AM EDT 07/14/2024 10:39 AM EDT Moon Alvarado MD LAB BLOOD ORDERABLES Final Re sult [facility] [address] [place] [address] [phone] * Colonoscopy (07/09/2023 12:53 PM EDT) Anatomical Region Laterality Modality Endoscopy Historical Provider ENDOSCOPY PROCEDURE ORDER YOLIE Final Result * HPV mRNA E6/E7 w/Reflex to HPV Genotypes 16, 18/45 (01/07/2022 2:32 PM EST) HPV nRNA E6/E7 Not Detected Not Detected [facility] Comment:Methodology: Transcr iption-Mediated AmplificationThis assay detects E6/E7 viral messenger RNA (mRNA) from 14high-risk HPV types (16,18,31,33,35,39,45,51,52,56,58,59,66,68).Cervical sources are required for HPV testing.If a vaginal source from a patient who has had atotal hysterectomy with removal of cervix wassubmitted, please contact the testing laboratoryfor alternative testing options.For additional information, please refer tohttp://education.[employer]/faq/TPX584g9(This link if provided for information/educational purposes only.)THIS TEST WAS PERFORMED AT:[address] [employer] [place] [address],[place] [address]KAADNSANDRA HANDLEY MD HPV mRNA E6/E7 [facility] HPV 16 RNA [facility] HPV 18/45 RNA [facility] 01/07/2022 2:32 PM EST 01/08/2022 8:40 AM EST [facility] External Provider LAB CYT OLOGY ORDERABLES Final Result [facility] [address] [place] [phone] * Pap Smear (01/07/2022 2:32 PM EST) 01/07/2022 2:32 PM EST 01/08/2022 8:40 AM EST Narrative [facility] - 02/03/2022 3:53 PM EST ----- ------- Name: Jes Boggs Brea Age/Sex: 51/F : 1970 Unit#: [id number] Attend Dr: Dionte Paulino MD Re01/07/22 Status: DEP [facility] Disch: ----- ------- SPEC : [id number] RECD: 01/08/22 STATUS: PATY PEREZ NUM: [id number] VIVIANA: 01/07/[address] [facility] [address]: Dionte Paulino MD ENTERED: 01/08/22 SP TYPE: Pap Smr OTHR DR: ORDERED: Pap Smear Interpretation Satisfactory for evaluation. Negative for intraepithelial lesion or malignancy. HPV mRNA E6/E7: NOT DETECTED This assay detects E6/E7 viral messenger RNA (mRNA) from 14 high-risk HPV types (16, 18, 31, 33, 35, 39, 45, 51, 52, 56, 58, 59, 66, 68) HPV testing performed by [facility], [place], [place]. See reference laboratory portion of the EMR for entire report. Clinical Information LMP: Pt has IUD Previous PAP test: 2017, WNL Material Received ThinPrep-Cervical ----- ------- Signed (signature on file) Savana [place] 02/03/22 1553 ----- ------- END OF REPORT [facility] External Provider LAB CYT OLY ORDERABLES Final Result [facility] [address] [place] [address] [phone] from Last 3 Months or Most Recently Relevant to Health Maintenance Insurance [employer] C3 Care Teams Concrete Swimming Pool Installer Relationship Specialty Start Date End Date Moon Alvarado MD [address] [place] [address] PCP - General Family Medicine 02/16/18 Mick Bustos, IRMA [address] [place] [address] Registered Nurse Family Medicine 12/02/24 Poly Blankenship 12/02/24
--- OUTSIDE RECORDS SUMMARY | 2024-12-06 03:32 | XMS_ITS | Encounter Summary ---
Author Organization [employer] Address [address] [place] [address] 7 [place] [address] Care Team Providers Care Invoice Coder Name Role Phone Moon Alvarado MD Primary Care Provider [phone] Mick Bustos RN Unavailable [phone] Poly Blankenship Unavailable Reason for Visit * Reason Onset Date Comments Appointment Request 12/09/2023 Encounter Details Date Type Department Care Team (Late st Contact Info) Description 12/09/2023 Telephone [facility] [address] [place] [address] Moon Alvarado MD [address] [place] [address] Appointment Request Social History Tobacco Use Types [...] EDT Tc from pt requesting to reschedule [employer] visit. Please contact pt at [phone]. documented in this encounter Plan of Treatment Upcoming Encounters Date Type Department Care Team (Late st Contact Info) Description 12/30/2024 9:30 AM EST Clinical Support [facility] [address] [place] [address] 03/02/2025 9:00 AM EST Clinical Support [facility] [address] [place] [address] Roselyn Singer RN [address] [place] [address] documented as of this encounter Visit Diagnoses Not on filedocumented in this encounter Care Teams Invoice Coder Relationship Specialty Start Date End Date Moon Alvarado MD [address] [place] [address] PCP - General Family Medicine 02/16/18 Mick Bustos, IRMA [address] [place] [address] Registered Nurse Family Medicine 12/02/24 Poly Blankenship 12/02/24 documented as of this encounter
--- OUTSIDE RECORDS SUMMARY | 2024-12-06 03:32 | XMS_ITS | Encounter Summary ---
Author Organization [employer] Address [address] [facility] 7 [place] [address] Care Team Providers Care Bobbin Presser Name Role Phone Moon Alvarado MD Primary Care Provider [phone] Mick Bustos RN Unavailable [phone] Poly Blankenship Unavailable Reason for Visit * Reason Onset Date Comments Med Refill 12/04/2023 Encounter Details Date Type Department Care Team (Late st Contact Info) Description 12/04/2023 Telephone [facility] [address] [place] [address] Moon Alvarado MD [address] [place] [address] Med Refill Social History Tobacco Use Types [...] Miscellaneous Notes * Telephone Encounter - Lane [facility] - 12/04/2023 8:02 AM EDT TC from pt requesting medication refill. Medications needing refill : oxyCODONE-acetaminophen (Percocet) 5-325 MG tablet To be sent to: [facility] - [place], [place] - [address] [place] [address] documented in this encounter Plan of Treatment Upcoming Encounters Date Type Department Care Team ([facility] st Contact Info) Description 12/30/2024 9:30 AM EST Clinical Support [facility] [address] [place] [address] 03/02/2025 9:00 AM EST Clinical Support [facility] [address] [place] [address] Roselyn Singer RN [address] [place] [address] documented as of this encounter Visit Diagnoses Not on filedocumented in this encounter Care Teams Bobbin Presser Relationship Specialty Start Date End Date Moon Alvarado MD [address] [place] [address] PCP - General Family Medicine 02/16/18 Mick Bustos, RN [address] [place] [address] Registered Nurse Family Medicine 12/02/24 Poly Blankenship 12/02/24 documented as of this encounter
--- OUTSIDE RECORDS SUMMARY | 2024-12-06 03:32 | XMS_ITS | Data Portability ---
Author Organization [facility], [facility] Address [address] [place] [address] Care Team Providers Care Armoring Machine Operator Name Role Phone DWIGHT POSADA Primary Care Provider Assessment No assessment recorded. Plan of Treatment Reminders Order Date Submit Date Provider Last Modified By Organization Details Last Modified Time Details Appointments None recorded. Lab None recorded. Referral None recorded. Procedures None recorded. Surgeries None recorded. Imaging XR, shoulder, 2 or more view - R shoulder 4 view and cpsine 1 view rm 215 2024 025 [facility], [address], [place], [address], 5 15:45:08 XR, cervical spine, 1 view 2024 025 [facility], [address], [address], [place], [address], 5 15:45:08 XR, finger(s), 2 or more view - room 117 rmf 2023 024 [place] [address] [facility], [address], [address], [place], [address], 4 13:02:50 Medication Orders None recorded. Patient TargetsNo targets recorded. Patient InstructionsNo instructions recorded. Reason for Referral None Reported. Results Created Date Observation Date Name Description Value Unit Range Abnormal Flag Note LastModifiedBy Organization Detail LastModifiedTime 06/08/1906/07/2024 XR, cervi karon spine , 1 view http:/ [email or web address] ?Encry pted=s hAaTro YD8dLq bEUv6g %2BXZw aYqtaq 0bqfl% 2Fg9IQ a4ajBk vP9nXo QUaueC m3YtLR FvZlgJ JJ8mAn HZtai3 5x5177 AC0Kla n2HU6a gKiQtr MwF INTERFACE [facility] [address], [place], [address], 06/07/2024 13:20:42 06/08/19 25 06/07/2024 XR, cervi karon spine , 1 view http:/ [email or web address] ?Encry pted=s hAaTro YD8dLq bEUv6g %2BXZw aYqtaq 0bqfl% 2Fg9IQ a4ajBk vP9nXo QUaueC m3YtLR FvZlgJ JJ8mAn HZtai3 8i7454 AC0Kla n2HU6a gKiQtr MwF INTERFACE [facility] [address], [place], [address], 06/07/2024 13:20:44 06/08/19 25 06/07/2024 XR, shoul kimmy, 2 or more view http:/ [email or web address] ?Encry pted=s hAaTro YD8dLq bEUv6g %2BXZw aYqtaq 0bqfl% 2Fg9IQ a4ajBk vP9nXo QUaueC m3YtLR FvZlgJ JJ8mAn HZtai3 5q4817 AC0KqY 3qBU6u kKiQtr MwF INTERFACE [facility] [address], [place], [address], 06/07/2024 13:24:32 06/08/19 25 06/07/2024 XR, shoul kimmy, 2 or more view http:/ [email or web address] ?Encry pted=s hAIsacco YD8dLq bEUv6g %2BXZw aYqtaq 0bqfl% 2Fg9IQ a4ajBk vP9nXo QUaueC m3YtLR FvZlgJ JJ8mAn HZtai3 9u9850 AC0KqY 3qBU6u kKiQtr MwF INTERFACE [facility] [address] [facility] [address], [place], [address], 06/07/2024 13:24:33 Result Notes Documentation Provider Name and Address Organization Details Recorded Time Xr, Cervical Spine, 1 View : [email or web address]? Encrypted=mfEjNlxAS2wBppZ Uv6g%1CDJcqLioho7rahg%2Fg 1ORw7kzWauR5hGoKNyyaFn5Xv XSZeYcoIXN4qQcDHtbu02t348 9SW6Yyat2QD4ujEiTkhBpP Not Available [facility] 06/07/2024 13:20: 42 Xr, Cervical Spine, 1 View : [email or web address]? Encrypted=gsQsBnjHT2tDakR Uv6g%5NFIasHikja1whts%2Fg 0QRu5qoRgyK8bTsZCvstHb9Vs MMCoXsuAMG4cRaNFspg42b184 8PI8Edtu1GM7zjWyUaiCwD Not Available [facility] 06/07/2024 13:20: 44 Xr, Shoulder, 2 Or More View : [email or web address]? Encrypted=xgEcZxxFE0dFnpN Uv6g%4BAUaaMjwvb7xcaf%2Fg 8LSs5qkIsxV7sAoEMegeVe0Tg YTAhBylVSB6vYtOVnkj92o930 5WT4RwJ8yRQ9zbGyUtiDgT Not Available [facility] 06/07/2024 13:24: 32 Xr, Shoulder, 2 Or More View : [email or web address]? Encrypted=bbVnExiLS6zJnjX Uv6g%4PIGhpTzmep9kmto%2Fg 3JFy7tcBnyP1eDtCUyriBh3Da VUBpHzyIFP2jQuHVptp26q952 7QF4QeO2hUU0fgQfOypJaP Not Available [facility] 06/07/2024 13:24: 33 Procedures Surgical History Date Name Laterality Status Provider Name and Address Organization Details Recorded Time Sports Shoulder completed Ivon Vides MD [address] [place] [address] [address], [place], [address], [facility] 06/07/2024 13:41:38 Imaging Results None recorded. Procedure Notes None recorded. Medical Equipment None Reported. Allergies Allergen ID Allergen Name Allergen Category Reaction Reaction Severity Criticality Documentation Date Start Date Code Code System Note Provider Name and Address Organization Details Recorded Time 757033 gabapenti n medicatio n Not available Not available Not available 07/10/2023 34330 RxNorm FRANCESCA KURTZ [facility] 4 08:42:12 933235 latex environme nt,medica tion Not available Not available Not available 06/07/2024 97840 91 RxNorm EDGAR GOLDBERG [facility] 5 13:09:40 447541 risperido ne medicatio n Not available Not available Not available 06/07/2024 03046 RxNorm EDGAR GOLDBERG [facility] 5 13:09:47 Medications Name Sig Start Date Stop Date Status Note LastModified by Organization Details LastModified Time clonidine 0.1 mg/24 hr weekly transdermal patch Apply 1 patch every week by transderm al route. active Not Available Not Available No t Available oxcarbazepi ne 300 mg tablet Take 1 tablet twice a day by oral route. active Not Available Not Available No t Available sertraline 25 mg tablet Take 1 tablet every day by oral route. active Not Available Not Available No t Available clonazepam 0.5 mg disintegrat ing tablet Place 1 tablet twice a day by transling ual route. active Not Available Not Available No t Available trazodone active Not Available Not Zuly ilable Not Available bupropion HCl active Not Available Not Available Not Available oxycodone HCl-oxycodo ne-ASA oxyCODONE HCl 5MG Tablet 07/13 completed Statu s: 'Curr ent'; Not Available Not Available Not Available Vitals Date Recorded Body height Body mass index (BMI) Body weight Provider Name and Address Organization Details Last Updated DateTime 06/07/2024 165.1 cm 30 kg/m2 14328.63 g EDGAR GOLDBERG [facility] 06/07/2024 13:04:36 Date Recorded Body height Body mass index (BMI) Body weight Provider Name and Address Organization Details Last Updated DateTime 07/10/2023 165.1 cm 30 kg/m2 46215.63 g FRANCESCA KURTZ [facility] 07/10/2023 08:42:02 Social History None recorded. Functional Status None recorded. Mental Status None recorded. Family History Nothing Reported. Medical History Condition Response Allergies/Hayfever N Coronary Artery Disease N Breathing or lung disorders N Anxiety/Depression Y Emphysema N Nerve Disorders N Thyroid Problems N COPD N Pacemaker N Kidney/Bladder Problems N Anemia Y Vascular Disease N Heart Trouble N Heart Attack (SD) N Gastrointestinal Disease N Cholesterol N Diabetes N Autoimmune disease N Inflammatory Joint disease N Bleeding Disorder N Orthotics N Seizures/Epilepsy N Arthritis Y Blood Clot N AIDS/HIV N Congestive Heart Failure (CHF) N Acid Reflux (GERD) N Cancer N Stroke N Asthma N Circulation Problems N Peripheral Vascular Disease N Sleep Apnea N Hepatitis N Heart Disease N Rheumatoid Arthritis N Pulmonary Embolism N Arrhythmia N Headaches N Fibromyalgia N Hypertension N Osteoporosis N Gynecological HistoryNo gynecological history recorded. Obstetrics History GPAL:G 0 P 0 0 0 0 Past Encounters Encounter ID Performer Location Encounter Start Date Encounter Closed Date Diagnosis/Indication Diagnosis SNOMED-CT Code Diagnosis ICD10 Code Diagnosis IMO Codes Diagnosis Note [id number] [facility] [address] [place] [address] 07/10/2023 08:20:32 08/04/2023 12:42:20 Trigger finger of right hand 5100360130 1374303 M65.30 Pain in fi nger of right hand 7911643707 90495 M79.339 [id number] MD SCOOBY [facility] [address] [place] [address] 06/07/2024 12:50:10 06/16/2024 15:45:08 Pain of right shoulder joint 8604420848 5686568 M25.511 699025 Health Concerns Section Related Observation LastModified by Organization Detai ls LastModified Time None Recorded Concern Status LastModified by Organization Details LastModified Time None Recorded Advance Directives Directive None Recorded Payers Insurance Date Sequence Insurance Name Policy Number Policy Delarosa Covered Member ID Delarosa Member ID Guarantor Name 06/16/2024 1 [place] [facility] Jes Boggs [id number] Jes Boggs Notes Date Note Type Note Provider Name and Address Organization Details Recorded Time 07/10/2023 text/html I am seeing this patient under the supervision of Dr. Fox who was available but who did not see the patient.HPI: Patient is a 53-year-old female presenting to office today for evaluation of a right middle finger injury sustained one week ago on 07/03/23 and which her finger got caught in garage door. She was seen at a local urgent care where x-rays were obtained and revealed a fracture of the distal phalanx. Reports she had some bleeding from underneath the nail and turned into a subungual hematoma and had trephination procedure in the urgent care to relief the pressure. She was also placed on an antibiotic for 5 days. Denies fever/chills or drainage or other signs of infection. Report she still has pain in the finger. Denies interval trauma. She is here today for orthopedic consultation.Past family, medical, social history and review of systems has been reviewed, updated and is located in the patient's chart.Examination: The patient is well appearing, alert and oriented x3 and in no acute distress. Inspection of the right middle finger reveals mild edema and erythema about the tip of the finger. Mild subungual hematoma noted. Otherwise no edema, atrophy, erythema, ecchymoses or deformity. Skin is intact, no open wounds. Nail bed intact. Full movement of the finger except for some stiffness of the DIP joint due to swelling and discomfort. Intact extrinsic digit flexors and extensors. Neurovascularly intact distally. Good capillary refill. Patient is tender at the tip of the finger. Otherwise nontender about the finger. Peripheral, vascular, lymphatic examination, skin, neurological, coordination, reflexes, sensation are within normal limits.X-rays ordered, obtained and reviewed independently today at [facility]: 3 view x-rays of the right middle finger reveal a nondisplaced tuft fracture of the right middle finger distal phalanx. No other acute fractures or dislocations noted.Impression: right middle finger distal phalanx tuft fracture 07/03/23Plan: I discussed my findings and the situation with the patient. We discussed potential treatment options at this time. I discussed that she may wrap the tip of the finger with Coban. She would like a harder splint for more protection for the next week or so. She was given a splint for the tip of the finger, however we discussed that she should take breaks every hour to work on range of motion so that the DIP joint does not get stiff. She will follow-up in 4 weeks for repeat x-rays of the right middle finger and reevaluation to ensure no signs of infection. We discussed signs of infection and if any of these arise she will call the office sooner. Patient agrees to this plan. All questions were answered.Speech recognition hydroelectric station operator chief software was used to create portions of this document. An attempt at proofreading has been made to minimize errors. Please call for corrections. Adeola Almeida PA-C [address] [place] [address] [address], [place], [address], 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 Pain began out of the blue for 325. No preceding pain, no injury that she can recall. Pain is felt throughout the shoulder, most over the superior lateral aspect of the shoulder. Some radiation to the neck. Exacerbated by any movement away from her body, particularly abduction and overhead reach. Aware of crepitus in the shoulder. She is on oxycodone for her back and notes that this has not been helping. Also taking Tylenol and Aleve, using topical skdn-xxb-bervumz medications without improvement. 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 Single, with children. Denies tobacco or alcohol use. Family Hx: noncontributory ROS: Negative x12 except as noted above in the HPI Past family, medical, social history and review of systems have been reviewed and updated on the medical history sheet saved to the patient's chart. A 12-point review of systems is negative x12 except as noted above and/or on the medical history sheet. Examination: Pleasant 54-year-old woman in no acute distress. 5 feet 5 inches, 180 pounds. On exam of the right upper extremity, skin over the shoulder is intact. No effusion, no gross atrophy. Diffuse tenderness to palpation over the AC joint, bicipital groove and subacromial space. Active forward elevation 90, passive at least 140 at which point was stopped due to pain. Passive external rotation 75 with negative ER lag. Internal rotation back pocket. Pain throughout. Significant pain with empty can testing. 5/5 with internal and external rotation. Mild discomfort with resisted ER. Negative Yergason's. Positive cross body adduction. Sensation intact in an axillary distribution. Fires EPL, FPL and intrinsics. Hand is warm and well-perfused. Imaginv of the Right shoulder ordered and obtained at [facility] today were reviewed during the visit. These demonstrate good preservation of glenohumeral joint space. Moderate AC arthrosis. Type II acromion. Humeral head centered on axillary view. No proximal migration humeral head. No dystrophic calcium deposition. 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 Presentation is almost out of calcific tendinitis, except that there is no calcium deposit seen on x-ray. Still, shoulder appears to be acutely inflamed today, lower suspicion for structural injury. Plan: Findings and options for management reviewed with the patient. She has already tried oral anti-inflammatories without improvement in symptoms. Recommended a subacromial cortisone injection today to see if we can get the inflammation under control more quickly. Encouraged to do some home stretching exercises as the shoulder pain improved. For occasional aches and pains, the patient can take nygp-uye-kgaiytp medication such as Tylenol or anti-inflammatories as needed; risks and benefits of medication discussed. Should call with more persistent pain. We will leave follow up open ended at this point. However should symptoms worsen or fail to improve to the patient's satisfaction, she is encouraged to give the office a call to be seen back for further evaluation and management. [employer] speech recognition hydroelectric station operator chief software was used to create portions of this document. An attempt at proofreading has been made to minimize errors. Please call for corrections. Ivon Vides MD [address] [place], [place] [address], [place], [address], [facility] 06/07/2024 13:41:55 OBGyn Episode No OBEpisode recorded.
--- OUTSIDE RECORDS SUMMARY | 2024-12-06 03:32 | XMS_ITS | Encounter Summary ---
Author Organization [employer] Address [address] [place] [address] 7 [place] [address] Care Team Providers Care Weed Sprayer Name Role Phone Moon Alvarado MD Primary Care Provider [phone] Mick Butsos RN Unavailable [phone] Poly Blankenship Unavailable Reason for Visit * Reason Comments Med Refill Encounter Details Date Type Department Care Team (Late st Contact Info) Description 07/21/[address] [facility] [address] [place] [address] Moon Alvarado MD [address] [place] [address] Social History Tobacco Use Types Packs/Day Years [...] AM EST Clinical Support [facility] [address] [place] [address] 03/02/2025 9:00 AM EST Clinical Support [facility] [address] [place] [address] Roselyn Singer, IRMA [address] [place] [address] documented as of this encounter Visit Diagnoses Not on filedocumented in this encounter Care Teams Weed Sprayer Relationship Specialty Start Date End Date Moon Alvarado MD [address] [place] [address] PCP - General Family Medicine 02/16/18 Mick Bustos RN [address] [place] [address] Registered Nurse Family Medicine 12/02/24 Poly Blankenship 12/02/24 documented as of this encounter
--- OUTSIDE RECORDS SUMMARY | 2024-12-06 03:32 | XMS_ITS | Encounter Summary ---
Author Organization [employer] Address [address] [facility] 7 [place] [address] Care Team Providers Care Lining Scrubber Name Role Phone Moon Alvarado MD Primary Care Provider [phone] Mick Bustos RN Unavailable [phone] Poly Blankenship Unavailable Reason for Visit * Reason Onset Date Comments Prior Authorization 12/22/2023 Encounter Details Date Type Department Care Team (Late st Contact Info) Description 12/22/2023 Telephone [facility] [address] [place] [address] Moon Alvarado MD [address] [place] [address] Prior Authorization Social History Tobacco Use Types [...] Please review Thank you. T[place] requesting a PA for an MRI With out contrast , [facility] informs any questions her callback number [phone] CPT CODE -39217 ICD CODE - M46.46 * Telephone Encounter - Janine Anand - 12/22/2023 9:13 AM EST Tc from [place] requesting a PA for an MRI With out contrast , [facility] informs any questions her callback number [phone] CPT CODE -99915 ICD CODE - M46.46 documented in this encounter Plan of Treatment Upcoming Encounters Date Type Department Care Team ([facility] st Contact Info) Description 12/30/2024 9:30 AM EST Clinical Support [facility] [address] [place] [address] 03/02/2025 9:00 AM EST Clinical Support [facility] [address] [place] [address] Roselyn Singer RN [address] [place] [address] documented as of this encounter Visit Diagnoses Not on filedocumented in this encounter Care Teams Lining Scrubber Relationship Specialty Start Date End Date Moon Alvarado MD [address] [place] [address] PCP - General Family Medicine 02/16/18 Mick Bustos, RN [address] [place] [address] Registered Nurse Family Medicine 12/02/24 Poly Blankenship 12/02/24 documented as of this encounter
--- OUTSIDE RECORDS SUMMARY | 2024-12-06 03:32 | XMS_ITS | Encounter Summary ---
Author Organization [employer] Address [address] [place] [address] 7 [place] [address] Care Team Providers Care Community Affairs Director Name Role Phone Moon Alvarado MD Primary Care Provider [phone] Mick Bustos RN Unavailable [phone] Poly Blankenship Unavailable Encounter Details Date Type Department Care Team (Late st Contact Info) Description 07/15/2023 Orders Only [facility] Information Management [address] [place], [place] [id number] Provider, MD Marv Social History Tobacco Use [...] 9:30 AM EST Clinical Support [facility] [address] [place] [address] 03/02/2025 9:00 AM EST Clinical Support [facility] [address] [place] [address] Roselyn Singer, IRMA [address] [place] [address] documented as of this encounter Procedures Procedure Name Priority Date/Time Associated Diagnosis Comments COLONOSCOPY Routine 07/09/2023 12:53 PM EDT documented in this encounter Results * Colonoscopy (07/09/2023 12:53 PM EDT) Anatomical Region Laterality Modality Endoscopy us Historical Provider ENDOSCOPY PROCEDURE ORDER YOLIE Final Result documented in this encounter Visit Diagnoses Not on filedocumented in this encounter Care Teams Community Affairs Director Relationship Specialty Start Date End Date Moon Alvarado MD [address] [place] [address] PCP - General Family Medicine 02/16/18 Mick Bustos, IRMA [address] [place] [address] Registered Nurse Family Medicine 12/02/24 Poly Blankenship 12/02/24 documented as of this encounter
--- OUTSIDE RECORDS SUMMARY | 2024-12-06 03:32 | XMS_ITS | Encounter Summary ---
Author Organization [employer] Address [address] [place] [address] [address] [place] [address] Care Team Providers Care Shingle Sawyer Name Role Phone Moon Alvarado MD Primary Care Provider [phone] Mick Bustos RN Unavailable [phone] Poly Blankenship Unavailable Reason for Visit * Reason Onset Date Comments Appointment Request 06/08/2023 Encounter Details Date Type Department Care Team (Late st Contact Info) Description 06/08/2023 Telephone [facility] [address] [place] [address] Moon Alvarado MD [address] [place] [address] Appointment Request Social History Tobacco Use Types [...] Description 12/30/2024 9:30 AM EST Clinical Support [facility] [address] [place] [address] 03/02/2025 9:00 AM EST Clinical Support [facility] [address] [place] [address] Roselyn Singer RN [address] [place] [address] documented as of this encounter Visit Diagnoses Not on filedocumented in this encounter Care Teams Shingle Sawyer Relationship Specialty Start Date End Date Moon Alvarado MD [address] [place] [address] PCP - General Family Medicine 02/16/18 Mick Bustos, IRMA [address] [place] [address] Registered Nurse Family Medicine 12/02/24 Poly Blankenship 12/02/24 documented as of this encounter
--- NOTE | 2024-12-06 03:40 | PC.NURSE ---
provider into assess pt. positive cms and pulses. pt awaiting x-ray results.
--- NOTE | 2024-12-06 03:50 | PC.NURSE ---
notified Dr. Maldonado, pt requesting pain medication, provider is aware.
[2024-12-06] MEDS: oxyCODONE HCl Immed Release 5 MG TABLET PO (04:23)
[2024-12-06 04:38] VITALS: BP 120/77; PULSE 60; RESP 18; TEMP 36.5; O2SAT 98
--- NOTE | 2024-12-06 05:12 | PC.NURSE ---
pt was medicated per apr, walking boot applied. Pt reports pain relief
[2024-12-06 05:28] VITALS: BP 120/77; PULSE 60; RESP 18; TEMP 36.5; O2SAT 98
--- NOTE | 2024-12-06 05:41 | PC.NURSE ---
Reveiwed discharge instructions with pt. pt verbalized undr
--- NOTE | 2024-12-06 05:44 | PC.NURSE ---
reviewed discharge instructions with pt. pt verbalized understanding, no sign of distress upon discharge, pt wheel out to car.
== END 2024-12-06 05:45 | disposition home or self-care (01) ==
PROVIDERS: Emergency Provider Emergency Medicine; PCP Pediatrics
DX: S92.512A Displaced fracture of proximal phalanx of left lesser toe(s), initial encounter for closed fracture (principal); M79.672 Pain in left foot; R26.81 Unsteadiness on feet; Y29.XXXA Contact with blunt object, undetermined intent, initial encounter; Y93.9 Activity, unspecified; Y92.9 Unspecified place or not applicable; Y99.8 Other external cause status; Z79.899 Other long term (current) drug therapy; Z98.84 Bariatric surgery status
CPT/HCPCS: 73630; 99283; 99284

== ENCOUNTER → 2024-12-06 03:21 | Outpatient (BNV) | payer MEDICAID, SELFPAY | PROVIDERS: Emergency Provider Emergency Medicine; PCP Pediatrics; Visit Provider Radiology Diagnostic Radiology | DX: S92.512A Displaced fracture of proximal phalanx of left lesser toe(s), initial encounter for closed fracture (principal) | CPT/HCPCS: 73630 ==

== ENCOUNTER 2025-01-09 12:25 | Outpatient (AMB) | payer MEDICAID, SELFPAY ==
--- NOTE | 2025-01-09 11:20 | A.OFFVIS_ITS ---
VS Expanded 01/09/25 11:22 Height 5 ft 5 in Weight 184 lb BMI 30.6 Intake Visit Reasons: (TV) PO LSG 12/27/15 *SEE COMMENTS* Allergies latex Allergy (Severe, Verified 12/06/24 03:00) rash/swollen eyes seafood Allergy (Severe, Verified 12/06/24 03:00) rash/swollen eyes shellfish derived Allergy (Severe, Verified 12/06/24 03:00) Anaphylaxis Medication List - Last Reconciled 01/09/25 by ANGELICA Marlow bupropion HCl XL 300 mg PO QAM clonazepam 1 mg PO DAILY PRN clonidine HCl 0.1 mg PO DAILY PRN famotidine (Pepcid) 20 mg PO DAILY hydroxyzine pamoate 25 mg PO TID PRN naloxone 4 mg/actuation 4 mg intranasal Q2M PRN 1 day oxycodone 5 mg PO TID PRN phentermine 30 mg PO DAILY sertraline 25 mg PO DAILY HPI Comments Details: This is a 54 yo female who is s/p RYGB 12/27/2015. Weight loss of 13lb since last OV in February. She reports that she started phentermine from PCP. Was up to 225lbs and this has helped a lot. Due to anxiety was snacking a lot. BP well controlled per pt. Present meal plan includes: [employer] protein yogurt 23g- 2x/day breakfast and dinner Salad with meat for lunch has not been snacking she had discussed this meal plan with Dr Contreras who approved protein drinks per pt Exercise routine includes: bike 25 min and weights, some machines for abs and arms has back pain does 10-15lbs weights for 30 min PFSH Medical History SIXTO (obstructive sleep apnea) History of allergic rhinitis Depression Lumbar disc disease Disc degeneration, lumbar Spondylosis of lumbar spine COVID-19 vaccine administered Anxiety Back problem Surgical History History of surgery Hx of surgical procedure H/O colonoscopy Hx of cholecystectomy Hx of tubal ligation Hx of abdominoplasty Gastric bypass status for obesity Family History Mother Breast CA Social History (Reviewed 12/06/24 @ 07:07 by ARVIN Vilchis Household Members: Family Alcohol intake: current Alcohol intake frequency: holidays/special occasions only Patient Tobacco Use Status: Never used Tobacco Smoked in Last 30 Days: No Use of substances other than those prescribed or required for medical reasons: No Advance Directives: No Advance Directives Information Provided: Yes Do you have a plan to hurt others: No Plan Current occupational status: employed 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 Female Reproductive History Menstrual Age of Menarche: 12 Telehealth Telehealth Telehealth Platform: Telephone Location of provider rendering services: practice address Location of patient: address on file Patient Identification confirmed using: Name, : Yes Telehealth method: voice only Patient verbally consented to treatment: Yes Patient verbally consented to billing insurance company: Yes Patient informed of any privacy concerns related to visit: Yes Minutes spent on Phone/Video with Pt.: 15 Assessment & Plan Assessment & Plan (1) Gastric bypass status for obesity: Code(s): Z98.84 - Bariatric surgery status Category: Surgical (2) Obesity: Code(s): E66.9 - Obesity, unspecified Category: Medical Plan Pt doing well on phentermine. She is happy with current meal plan. She feels she is doing very well. Will continue as above. Pt had some labs done by PCP, will recheck. Orders: Orders Complete Blood Count Auto Diff Today Z98.84 - Bariatric surgery status C Reactive Protein Today Z98.84 - Bariatric surgery status Ferritin Today Z98.84 - Bariatric surgery status Vitamin B1 Today Z98.84 - Bariatric surgery status Zinc Today Z98.84 - Bariatric surgery status Comprehensive Met. Panel Today Z98.84 - Bariatric surgery status TSH reflex Free T4 Today Z98.84 - Bariatric surgery status Vitamin B12 and Folate Today Z98.84 - Bariatric surgery status IRON PROFILE Today Z98.84 - Bariatric surgery status Vitamin A Today Z98.84 - Bariatric surgery status Vitamin D 25-OH Total Today Z98.84 - Bariatric surgery status
[2025-01-09 11:22] VITALS: BMI 30.6
== END 2025-01-09 12:26 | disposition home or self-care (01) ==
LOC: HO.HBS 12:25
PROVIDERS: PCP Pediatrics; Visit Provider Physician Assistant Surgical
DX: Z98.84 Bariatric surgery status (principal); E66.9 Obesity, unspecified
CPT/HCPCS: 99214